=== PATIENT | female | born 1975 | race Caucasian/White ===

== ENCOUNTER 2016-06-21 22:51 | Emergency (ER) | payer MEDICARE ==
[~2016-06-21] VITALS: Ht 167.6 cm; Wt 97.5 kg
[~2016-06-21 22:51] MED LIST: BIOTCAP2 OR; DIAZ-104 PO; DIVA250T51 PO; LAMO200T2 PO; METH10TA97 PO; PAR20T GT; PERCOT GT; RIZA10TA12 PO; SULF-35 PO; TIZA4TAB3 PO; TOPI100T68 PO; [UNRECOGNIZED DRUG - CODE] PO
[2016-06-21] MEDS ORDERED: SODIUM CHLORIDE 0.9% 1,000 ML IVB ONE (23:25)
[2016-06-21 23:30] LABS: Urine Bilirubin Negative (Negative); Urine Blood Negative /uL (Negative); Urine Color Yellow (Yellow); Urine Glucose Normal (Normal); Urine Granular Cast FEW /lpf (0); Urine Hyaline Cast FEW /lpf (0 - 2); Urine Ketone Negative (Negative); Urine Mucus FEW (None Seen); Urine Nitrite Negative (Negative); Urine RBC <1 /hpf (0 - 4); Urine Squamous Epithelial Cell FEW /hpf (<5); Urine Urobilinogen Normal (Negative)
[2016-06-21 23:34] LABS: Basophils # (auto) 0 uL; Basophils % (auto) 0.4 % (0.0-2.0); Eosinophils # (auto) 0.4 uL; Eosinophils % (auto) 3.5 % (0.0-7.0); Hematocrit 35.2 % (36.0-46.0); Hemoglobin 11.3 g/dL (12.2-16.2); Lymphocytes # (auto) 2.4 uL; Lymphocytes % (auto) 21.5 % (10.0-50.0); Mean Corpuscular Hemoglobin 27.5 pg (28.0-32.0); Mean Corpuscular Hgb Conc. 32.1 g/dL (32.0-36.0); Mean Corpuscular Volume 85.6 fL (80.0-100.0); Mean Platelet Volume 9.2 fL (7.4-10.4); Monocytes # (auto) 0.7 uL; Monocytes % (auto) 6.3 % (0.0-12.0); Neutrophils # (auto) 7.5 uL; Neutrophils % (auto) 68.3 % (37.0-80.0); Platelet Count (auto) 322 10^3/uL (140-450); Red Cell Distribution Width 16.8 % (11.6-16.0)
[2016-06-21 23:42] LABS: Albumin 3.5 g/dL (3.4-5.0); Alkaline Phosphatase 107 U/L (45-117); Anion Gap 10 (5-15); Aspartate Aminotransferase 15 U/L (15-37); BUN/Creatinine Ratio 14.9; Bilirubin, Total < 0.1 mg/dL (0.2-1.0); Blood Urea Nitrogen 13 mg/dL (7-18); Calcium 8.4 mg/dL (8.5-10.1); Carbon Dioxide 22 mmol/L (21-32); Chloride 111 mmol/L (98-107); GFR African American 93 mL/min; GFR Non-African American 77 mL/min; Glucose 220 mg/dL (74-106); Potassium 3.9 mmol/L (3.5-5.1); Sodium 143 mmol/L (136-145); Total Protein 7.1 g/dL (6.4-8.2)
[2016-06-22 00:08] LABS: INR 0.95 (0.9-1.15); Partial Thromboplastin Time 20.6 sec (22.64-33.71); Prothrombin Time 10.3 sec (9.37-12.3)
[2016-06-22] MEDS ORDERED: SODIUM CHLORIDE 0.9% 1,000 ML IV ONE (01:15)
[2016-06-22] MEDS: SODIUM CHLORIDE 0.9% 2,000 ML IV ONE ×2 (01:22→02:32)
[2016-06-22 08:23] VITALS: BP 132/69
== END 2016-06-22 08:25 | disposition home or self-care (01) ==
LOC: EDBD 22:51 → ER 22:51
DX: T50.901A Poisoning by unspecified drugs, medicaments and biological substances, accidental (unintentional), initial encounter (principal); R41.82 Altered mental status, unspecified; Z88.8 Allergy status to other drugs, medicaments and biological substances; Z88.0 Allergy status to penicillin; Z79.899 Other long term (current) drug therapy; Y92.89 Other specified places as the place of occurrence of the external cause
CPT/HCPCS: 36415; 51702; 70450; 71010; 80053; 80320; 81001; 81025; 82962; 83735; 85025; 85610; 85730; 93005; 94761; 96360; 96361; 99285; G0434; J7030

== ENCOUNTER 2017-08-09 18:33 | Emergency (ER) | payer MEDICARE, MEDICAID ==
[~2017-08-09] VITALS: Ht 165.1 cm; Wt 95.3 kg
[2017-08-09 19:40] LABS: Basophils # (auto) 0.1 uL; Hemoglobin 11.3 g/dL (12.2-16.2); Lymphocytes # (auto) 2.4 uL; Monocytes # (auto) 0.5 uL; Neutrophils % (auto) 52.3 % (37.0-80.0)
[2017-08-09 19:42] LABS: Eosinophils # (auto) 0.2 uL; Eosinophils % (auto) 3.4 % (0.0-7.0); Hematocrit 35.2 % (36.0-46.0); Mean Corpuscular Hgb Conc. 32.1 g/dL (32.0-36.0); Mean Corpuscular Volume 77.8 fL (80.0-100.0); Monocytes % (auto) 7.3 % (0.0-12.0); Neutrophils # (auto) 3.4 uL; Platelet Count (auto) 347 10^3/uL (140-450); Red Blood Cells 4.52 10^6/uL (4.0-5.20); Red Cell Distribution Width 19.1 % (11.8-14.3); White Blood Cell 6.5 10^3/uL (4.4-10.8)
[2017-08-09 19:44] LABS: Urine Bacteria FEW /hpf (None Seen); Urine Blood 1+ /uL (Negative); Urine Specific Gravity 1.005 (1.001-1.035); Urine WBC 12 /hpf (0 - 5)
[2017-08-09 19:59] LABS: Albumin 3.4 g/dL (3.4-5.0); BUN/Creatinine Ratio 5.7; Calcium 8.4 mg/dL (8.5-10.1); Potassium 3.4 mmol/L (3.5-5.1)
[2017-08-09 20:11] LABS: Bilirubin, Total 0.1 mg/dL (0.2-1.0); Total Protein 8.2 g/dL (6.4-8.2)
[2017-08-09] MEDS ORDERED: SODIUM CHLORIDE 0.9% 1,000 ML IV ONE (22:15)
[2017-08-09] MEDS ORDERED: cefTRIAXone 1GM/10ml IVPUSH 10 ML IV ONE (22:15)
[2017-08-09] MEDS ORDERED: SODIUM CHLORIDE 0.9% 2,000 ML IV ONE (23:15)
[2017-08-10 00:27] VITALS: BP 115/76
== END 2017-08-10 01:22 | disposition left against medical advice (07) ==
LOC: ER 18:33
DX: K52.9 Noninfective gastroenteritis and colitis, unspecified (principal); N39.0 Urinary tract infection, site not specified; F10.129 Alcohol abuse with intoxication, unspecified; F17.210 Nicotine dependence, cigarettes, uncomplicated; Z88.0 Allergy status to penicillin; Z88.1 Allergy status to other antibiotic agents; Z88.6 Allergy status to analgesic agent; Z90.49 Acquired absence of other specified parts of digestive tract
CPT/HCPCS: 36415; 71046; 80053; 80320; 81001; 81025; 85025; 96361; 96374; 99285; J7030

== ENCOUNTER 2018-04-27 21:03 | Inpatient (IN) | payer MEDICARE, MEDICAID ==
[~2018-04-27] VITALS: Ht 167.6 cm; Wt 87.8 kg
[2018-04-27 22:09] LABS: Basophils # (auto) 0.2 uL; Eosinophils # (auto) 0 uL; Eosinophils % (auto) 0.1 % (0.0-7.0); Hemoglobin 10.5 g/dL (12.2-16.2); Mean Corpuscular Hgb Conc. 30.7 g/dL (32.0-36.0); Neutrophils # (auto) 15.4 uL
[2018-04-27 22:10] LABS: Basophils % (auto) 1.3 % (0.0-2.0); Hematocrit 34.1 % (36.0-46.0); Lymphocytes # (auto) 2.3 uL; Lymphocytes % (auto) 12.1 % (10.0-50.0); Mean Corpuscular Hemoglobin 22.4 pg (28.0-32.0); Mean Corpuscular Volume 72.8 fL (80.0-100.0); Monocytes # (auto) 1.3 uL; Monocytes % (auto) 6.9 % (0.0-12.0); Neutrophils % (auto) 79.6 % (37.0-80.0); Platelet Count (auto) 642 10^3/uL (140-450); Red Blood Cells 4.68 10^6/uL (4.0-5.20); White Blood Cell 19.4 10^3/uL (4.4-10.8)
[2018-04-27 22:12] LABS: Red Cell Distribution Width 20.9 % (11.8-14.3)
[2018-04-27 22:27] LABS: Albumin 3.1 g/dL (3.4-5.0); Calcium 8.5 mg/dL (8.5-10.1); Potassium 3.4 mmol/L (3.5-5.1)
[2018-04-27] MEDS ORDERED: ONDANSETRON HCL 4 MG/2 ML VIAL ONE (22:35)
[2018-04-27 22:42] LABS: BUN/Creatinine Ratio 8.6; Bilirubin, Total 0.2 mg/dL (0.2-1.0); Total Protein 7.7 g/dL (6.4-8.2)
[2018-04-27] MEDS ORDERED: ONDANSETRON HCL 4 MG/2 ML VIAL IV ONE (22:45)
[2018-04-27] MEDS ORDERED: SODIUM CHLORIDE 0.9% 2,000 ML IV ONE (23:00)
[2018-04-28] MEDS ORDERED: METOPROLOL TARTRATE 50 MG TAB PO ONE
[2018-04-28] MEDS ORDERED: LORazepam 0.5 MG TAB PO ONE (00:30)
[2018-04-28] MEDS ORDERED: FAMOTIDINE (10MG/ML) 2ML VL IV ONE (01:15)
[2018-04-28] MEDS ORDERED: PROMETHAZINE HCL 25 MG/ML 1ML IV ONE (01:15)
[2018-04-28] MEDS ORDERED: MORPHINE SULFATE 4 MG/ML SYR/VIAL IV ONE (01:30)
[2018-04-28] MEDS ORDERED: cefTRIAXone 1GM/50ML D5W 50 ML IV ONE (01:30)
[2018-04-28 03:11] LABS: Urine Bacteria MANY /hpf (None Seen); Urine Blood TRACE /uL (Negative); Urine Hyaline Cast MOD /lpf (0 - 2); Urine Mucus FEW (None Seen); Urine Specific Gravity 1.011 (1.001-1.035); Urine WBC 5 /hpf (0 - 5)
[2018-04-28] MEDS ORDERED: DILTIAZEM HCL 25 MG/5 ML VIAL IV ONE ×2 (03:15→04:30)
[2018-04-28 03:27] LABS: Amphetamine Screen, Urine NEGATIVE (NEGATIVE); Barbiturate Scree,Urine NEGATIVE (NEGATIVE); Benzodiazephine Screen, Urine NEGATIVE (NEGATIVE); Cannabinoid Screen, Urine NEGATIVE (NEGATIVE); Cocaine Screen, Urine NEGATIVE (NEGATIVE); Opiate Scree,Urine NEGATIVE (NEGATIVE); Phencyclidine Screen, Urine NEGATIVE (NEGATIVE)
[2018-04-28] MEDS: NICARDIPINE 25MG/250ML BAG KIT 250 ML IV SCH ×2 (05:21→10:00)
[2018-04-28] MEDS ORDERED: NITROGLYCERIN 0.4 MG SL TAB SL PRN (06:45)
[2018-04-28] MEDS ORDERED: TEMAZEPAM 15 MG CAP PO PRN (06:45)
[2018-04-28] MEDS ORDERED: DEXTROSE (50%) 50ML SYRG IV PRN (06:45)
[2018-04-28] MEDS ORDERED: ACETAMINOPHEN 325 MG TAB PO PRN (06:45)
[2018-04-28] MEDS ORDERED: SODIUM CHLORIDE 0.9% 1,000 ML IV ONE (07:30)
[2018-04-28] MEDS: ONDANSETRON HCL 4 MG/2 ML VIAL IV PRN ×3 (07:43→18:55)
[2018-04-28] MEDS: MORPHINE SULFATE 4 MG/ML SYR/VIAL IV PRN ×4 (07:43→22:08)
[2018-04-28 08:42] LABS: Albumin 2.5 g/dL (3.4-5.0); BUN/Creatinine Ratio 10.5; Calcium 7.4 mg/dL (8.5-10.1)
[2018-04-28 08:44] LABS: Basophils # (auto) 0.1 uL; Bilirubin, Total 0.2 mg/dL (0.2-1.0); Eosinophils # (auto) 0 uL; Hemoglobin 9.2 g/dL (12.2-16.2); Neutrophils # (auto) 9.1 uL; Total Protein 6.2 g/dL (6.4-8.2); White Blood Cell 12.7 10^3/uL (4.4-10.8)
[2018-04-28 08:46] LABS: Basophils % (auto) 0.9 % (0.0-2.0); Eosinophils % (auto) 0.2 % (0.0-7.0); Hematocrit 29.8 % (36.0-46.0); Lymphocytes # (auto) 2.1 uL; Lymphocytes % (auto) 16.3 % (10.0-50.0); Mean Corpuscular Hemoglobin 22.3 pg (28.0-32.0); Mean Corpuscular Hgb Conc. 30.8 g/dL (32.0-36.0); Mean Corpuscular Volume 72.3 fL (80.0-100.0); Monocytes # (auto) 1.4 uL; Monocytes % (auto) 11.3 % (0.0-12.0); Neutrophils % (auto) 71.3 % (37.0-80.0); Platelet Count (auto) 495 10^3/uL (140-450); Red Blood Cells 4.13 10^6/uL (4.0-5.20)
[2018-04-28 08:48] LABS: Red Cell Distribution Width 20.6 % (11.8-14.3)
[2018-04-28] MEDS ORDERED: METOPROLOL SUCCINATE XL 50 MG TAB PO ONE (09:00)
[2018-04-28] MEDS ORDERED: POTASSIUM CHLORIDE 40 MEQ, LIDOCAINE 1% (LOCAL ANESTH.) 4 ML in SODIUM CHL 0.9% 100 ML IV ONE (09:00)
[2018-04-28] MEDS: SOD CHL 0.45% 1,000 ML IV SCH ×2 (09:16→16:48)
[2018-04-28] MEDS: FAMOTIDINE 20 MG TAB PO SCH ×2 (09:40→22:05)
[2018-04-28] MEDS: TOPIRAMATE 100 MG TAB PO SCH ×2 (09:41→22:05)
[2018-04-28] MEDS ORDERED: LEVOFLOXACIN 500MG 100 ML IV SCH (10:00)
[2018-04-28] MEDS ORDERED: METHADONE HCL 10 MG TAB PO SCH (10:00)
[2018-04-28] MEDS: ACCU-CHEK COMFORT CURVE STRIP VI SCH ×2 (11:55→18:24)
[2018-04-28] MEDS: InsuLIN REG 1unit/0.01ml Soln (100units/ml) SC SCH ×2 (11:55→18:00)
[2018-04-28] MEDS: MULTIPLE VITAMIN 10 ML, MAGNESIUM SULF SDV 50% 8 MEQ in SODIUM CHLORIDE 0.9% 1,000 ML IV SCH (14:05)
[2018-04-28 14:40] VITALS: BP 131/102
--- NOTE | 2018-04-28 14:40 | NUR ---
Telemetry admit from ER [facility]O admitted to Telemetry unit after SBAR received. Patient oriented to Liset Noyola, primary RN, unit, room, bed, and unit policies regarding patient care and visiting hours discussed with patient and fiance. Patient now on continuous telemetry monitoring, tele box #47 and telemetry reading on arrival to unit is ST 116. Patient on room air, O2 saturation 96%. No SOB/distress noted. Barajas cath intact, patent and draining yellow urine to gravity. Safety precautions in place including, bed set to lowest position/locked, bedside rails up x2, bed alarm on, call light within reach. Instructed the patient to call for assistance. Patient verbalized understanding. Will continue to monitor q 1hr and PRN.
[2018-04-28 16:26] VITALS: BP 131/102
--- NOTE | 2018-04-28 16:59 | NUR ---
MIDLINE PLACED TO LEFT BASILIC, GOOD BLOOD RETURN, PLACED ACCORDING TO FACILITY POLICY. DRESSING CDI. PT DENIES PAIN. FLUSHES EASILY. PRIMARY RN NOTIFIED.
--- NOTE | 2018-04-28 19:31 | NUR ---
ENDORSED CARE TO JOAN JON.
[2018-04-28] MEDS: LORazepam 2MG/ML-1ML VIAL IV PRN (20:17)
[2018-04-28 22:00] VITALS: BP 161/109
[2018-04-28] MEDS: lamoTRIgine 100 MG TAB PO SCH (22:05)
[2018-04-28] MEDS ORDERED: METOPROLOL TARTRATE 25 MG TAB PO ONE (23:15)
[2018-04-29] MEDS: ACCU-CHEK COMFORT CURVE STRIP VI SCH ×4 (00:09→18:00)
[2018-04-29] MEDS: InsuLIN REG 1unit/0.01ml Soln (100units/ml) SC SCH ×4 (00:28→18:00)
[2018-04-29] MEDS ORDERED: diphenhdrAMINE HCL 25 MG CAP PO ONE (00:45)
[2018-04-29] MEDS: MORPHINE SULFATE 4 MG/ML SYR/VIAL IV PRN ×5 (02:18→21:19)
[2018-04-29] MEDS: ONDANSETRON HCL 4 MG/2 ML VIAL IV PRN ×4 (02:23→23:07)
[2018-04-29] MEDS: SOD CHL 0.45% 1,000 ML IV SCH ×3 (04:00→12:58)
[2018-04-29] MEDS: HYDROcodone-ACET 5/325MG TAB PO PRN ×3 (05:37→18:34)
[2018-04-29 06:03] VITALS: BP 165/123
[2018-04-29] MEDS: METOPROLOL SUCCINATE XL 50 MG TAB PO SCH (06:50)
--- NOTE | 2018-04-29 06:51 | NUR ---
Shift Note The patient had a restless night. She complained of pain most of the shift, stating the Morphine didn't really work for her. She did not sleep all night despite taking Ativan to help facilitate things. The patient's BP was elevated during much of the shift. Received a one time order for Metoprolol 25 mg which decreased the BP to 163/87. 0400hr VS showed a BP even higher at 163/126. Call the hospitalist and Mr. Rae stated to give her 1000hr medication early for the BP. Gave the patient Metoprolol XL 50mg at 0645hrs. Will pass on to the day shift nurse to see about changing the pain meds as they were not effective, adding Benadryl for itching, and a PRN BP medication. Will continue to monitor.
[2018-04-29 07:13] LABS: Basophils # (auto) 0.1 uL; Eosinophils # (auto) 0.3 uL; Lymphocytes # (auto) 1.9 uL; Monocytes # (auto) 0.9 uL
[2018-04-29 07:16] LABS: Basophils % (auto) 1.2 % (0.0-2.0); Eosinophils % (auto) 3.3 % (0.0-7.0); Hematocrit 32.4 % (36.0-46.0); Hemoglobin 9.8 g/dL (12.2-16.2); Lymphocytes % (auto) 22.8 % (10.0-50.0); Mean Corpuscular Hemoglobin 22.4 pg (28.0-32.0); Mean Corpuscular Hgb Conc. 30.1 g/dL (32.0-36.0); Mean Corpuscular Volume 74.5 fL (80.0-100.0); Monocytes % (auto) 11.1 % (0.0-12.0); Neutrophils # (auto) 5.2 uL; Neutrophils % (auto) 61.6 % (37.0-80.0); Nucleated Red Blood Cells % 0.1 %; Platelet Count (auto) 437 10^3/uL (140-450); Red Blood Cells 4.35 10^6/uL (4.0-5.20); White Blood Cell 8.4 10^3/uL (4.4-10.8)
--- NOTE | 2018-04-29 07:20 | NUR ---
OPENING NOTE ASSUMED CARE OF PATIENT. PT IS LAYING ON BED, AWAKE, HOB LOW-FOWLERS. A&O X4. ON ROOM AIR, O2 SATURATIONS 95%. NO SIGNS OF SOB/DISTRESS NOTED. TELE #[id number], HR 117. JOLLY CATH INTACT, PATENT AND DRAINING CLEAR STRAW COLOR URINE TO GRAVITY. SAFETY PRECAUTIONS IN PLACE INCLUDING BED SET TO LOWEST POSITION/LOCKED. BEDSIDE RAILS UP X2. CALL LIGHT WITHIN REACH. INSTRUCTED PT TO CALL FOR ASSISTANCE. DISCUSSED POC WITH PT. PT VERBALIZED UNDERSTANDING. WILL CONTINUE TO MONITOR Q 1 HR AND PRN.
[2018-04-29 07:22] LABS: Calcium 7.8 mg/dL (8.5-10.1); Potassium 3.1 mmol/L (3.5-5.1)
[2018-04-29 07:25] LABS: Albumin 2.6 g/dL (3.4-5.0); BUN/Creatinine Ratio 3.4
[2018-04-29 07:26] LABS: Red Cell Distribution Width 20.7 % (11.8-14.3)
[2018-04-29 08:03] LABS: Bilirubin, Total 0.4 mg/dL (0.2-1.0); Total Protein 6.9 g/dL (6.4-8.2)
[2018-04-29 08:55] VITALS: BP 164/117
[2018-04-29] MEDS: FAMOTIDINE 20 MG TAB PO SCH ×2 (08:58→21:20)
[2018-04-29] MEDS: cefTRIAXone 1GM/50ML D5W 50 ML IV SCH (08:58)
[2018-04-29] MEDS: TOPIRAMATE 100 MG TAB PO SCH ×2 (08:58→21:20)
[2018-04-29] MEDS: MULTIPLE VITAMIN 10 ML, MAGNESIUM SULF SDV 50% 8 MEQ in SODIUM CHLORIDE 0.9% 1,000 ML IV SCH (12:06)
[2018-04-29] MEDS ORDERED: THIAMINE 100mg/ml INJ (200mg/2ml VIAL) IV ONE (12:30)
[2018-04-29] MEDS ORDERED: POTASSIUM CHL 20 Meq TABLET PO ONE (12:30)
[2018-04-29] MEDS ORDERED: amLODIPine BESYLATE 5 MG TAB PO ONE (12:30)
[2018-04-29] MEDS ORDERED: THIAMINE HCL 100 MG TAB PO ONE (12:45)
[2018-04-29 13:00] VITALS: BP 161/110
[2018-04-29] MEDS: diphenhdrAMINE HCL 25 MG CAP PO PRN (13:06)
[2018-04-29 13:18] LABS: % Iron Saturation 5.6 % (15-50)
[2018-04-29 17:00] VITALS: BP 180/130
--- NOTE | 2018-04-29 19:05 | NUR ---
PAGED HOSPITALIST REGARDING BP 180/130, AWAITING CALL BACK.
--- NOTE | 2018-04-29 19:21 | NUR ---
ENDORSED CARE TO JOAN JON
--- NOTE | 2018-04-29 19:21 | NUR ---
PAGED HOSPITALIST REGARDING BP 180/130, AWAITING CALL BACK.
[2018-04-29 21:00] VITALS: BP 162/118
[2018-04-29] MEDS: lamoTRIgine 100 MG TAB PO SCH (21:19)
[2018-04-29] MEDS ORDERED: METOPROLOL TARTRATE 25 MG TAB PO ONE (22:45)
[2018-04-30] MEDS: ACCU-CHEK COMFORT CURVE STRIP VI SCH ×4 (00:23→17:30)
[2018-04-30] MEDS: MORPHINE SULFATE 4 MG/ML SYR/VIAL IV PRN ×3 (01:23→09:55)
[2018-04-30] MEDS: cloNIDine HCL 0.1 MG TAB PO PRN ×2 (01:24→05:46)
[2018-04-30] MEDS: SOD CHL 0.45% 1,000 ML IV SCH ×2 (02:48→13:23)
[2018-04-30] MEDS: ONDANSETRON HCL 4 MG/2 ML VIAL IV PRN ×4 (03:44→18:29)
[2018-04-30] MEDS: InsuLIN REG 1unit/0.01ml Soln (100units/ml) SC SCH ×4 (05:41→17:31)
[2018-04-30 06:03] LABS: Basophils # (auto) 0.1 uL; Hematocrit 29.5 % (36.0-46.0); Lymphocytes # (auto) 1.5 uL; Mean Corpuscular Hgb Conc. 30.7 g/dL (32.0-36.0)
[2018-04-30 06:05] LABS: Basophils % (auto) 0.8 % (0.0-2.0); Eosinophils # (auto) 0.3 uL; Eosinophils % (auto) 4.4 % (0.0-7.0); Hemoglobin 9.1 g/dL (12.2-16.2); Lymphocytes % (auto) 19.2 % (10.0-50.0); Mean Corpuscular Hemoglobin 22.6 pg (28.0-32.0); Mean Corpuscular Volume 73.4 fL (80.0-100.0); Monocytes # (auto) 0.9 uL; Monocytes % (auto) 11.1 % (0.0-12.0); Neutrophils # (auto) 5.1 uL; Neutrophils % (auto) 64.5 % (37.0-80.0); Platelet Count (auto) 406 10^3/uL (140-450); Red Blood Cells 4.02 10^6/uL (4.0-5.20); White Blood Cell 7.9 10^3/uL (4.4-10.8)
[2018-04-30 06:18] LABS: Albumin 2.5 g/dL (3.4-5.0); Calcium 7.9 mg/dL (8.5-10.1); Potassium 3.5 mmol/L (3.5-5.1)
[2018-04-30 06:25] LABS: BUN/Creatinine Ratio 3.3; Bilirubin, Direct 0.2 mg/dL (0-0.2); Bilirubin, Total 0.4 mg/dL (0.2-1.0); Total Protein 6.2 g/dL (6.4-8.2)
[2018-04-30 06:27] LABS: Red Cell Distribution Width 21.2 % (11.8-14.3)
--- NOTE | 2018-04-30 06:46 | NUR ---
Shift note The patient continued to have poor results with the ordered pain meds. Her pain level remained around 8-10/10. The patient's BP remained high most of the shift, hovering around 160/120. I was able to get a PRN order for Clonidine 0.1mg Q4 PRN. That seemed to do well, gave the patient a dose at 0545hrs, will reassess the BP. Will continue to monitor.
[2018-04-30 09:00] VITALS: BP 137/96
[2018-04-30] MEDS: HYDROcodone-ACET 5/325MG TAB PO PRN ×2 (09:00→14:27)
[2018-04-30] MEDS: cefTRIAXone 1GM/50ML D5W 50 ML IV SCH (09:55)
[2018-04-30] MEDS: FAMOTIDINE 20 MG TAB PO SCH (09:56)
[2018-04-30] MEDS: METOPROLOL SUCCINATE XL 50 MG TAB PO SCH (09:56)
[2018-04-30] MEDS: TOPIRAMATE 100 MG TAB PO SCH ×2 (09:56→21:52)
[2018-04-30] MEDS: amLODIPine BESYLATE 5 MG TAB PO SCH (09:57)
[2018-04-30] MEDS ORDERED: THIAMINE 100mg/ml INJ (200mg/2ml VIAL) IV SCH (10:00)
[2018-04-30] MEDS ORDERED: PANTOPRAZOLE 40 MG/10 ML VIAL IV ONE (11:45)
[2018-04-30] MEDS ORDERED: TEMAZEPAM 15 MG CAP PO PRN (11:45)
[2018-04-30] MEDS ORDERED: POTASSIUM CHL 20 Meq TABLET PO ONE (12:00)
[2018-04-30 13:00] VITALS: BP 156/113
[2018-04-30] MEDS: MULTIPLE VITAMIN 10 ML, MAGNESIUM SULF SDV 50% 8 MEQ in SODIUM CHLORIDE 0.9% 1,000 ML IV SCH (13:24)
[2018-04-30] MEDS: THIAMINE HCL 100 MG TAB PO SCH (13:24)
[2018-04-30] MEDS: LORazepam 2MG/ML-1ML VIAL IV PRN (14:53)
[2018-04-30 17:00] VITALS: BP 163/113
[2018-04-30] MEDS: SUCRALFATE 1 GM/10 ML ORAL SUSP PO SCH ×2 (17:30→21:52)
[2018-04-30] MEDS: lamoTRIgine 100 MG TAB PO SCH (21:52)
[2018-04-30] MEDS: PANTOPRAZOLE 40 MG/10 ML VIAL IV SCH (21:52)
[2018-04-30 22:00] VITALS: BP 81/58
[2018-05-01] MEDS: SOD CHL 0.45% 1,000 ML IV SCH (04:25)
[2018-05-01 05:30] VITALS: BP 86/57
[2018-05-01] MEDS: ACCU-CHEK COMFORT CURVE STRIP VI SCH ×5 (06:00→23:37)
[2018-05-01] MEDS: InsuLIN REG 1unit/0.01ml Soln (100units/ml) SC SCH ×5 (06:00→23:37)
[2018-05-01] MEDS: SUCRALFATE 1 GM/10 ML ORAL SUSP PO SCH ×4 (06:44→21:43)
--- NOTE | 2018-05-01 07:01 | NUR ---
Shift Note The patient had a much better night, she was able to sleep after 2 days of no sleep. Her morphine was discontinued and despite that she did not complain of pain the entire shift. She has been NPO since midnight except for meds in preparation for an upper GI series. Will continue to monitor.
--- NOTE | 2018-05-01 07:25 | NUR ---
Opening Shift Note Received report from Poli FRANCO. Assumed care of patient, awake and alert. No S/S of distress/SOB or pain. Emphasized NPO fopr UGI today and patient is aware of it. Instructed on POC and to call for assist PRN, will continue to monitor for changes Q1hr and PRN.
[2018-05-01 07:27] LABS: Hematocrit 26.5 % (36.0-46.0); Hemoglobin 8.2 g/dL (12.2-16.2)
[2018-05-01 07:29] LABS: Calcium 7.7 mg/dL (8.5-10.1)
[2018-05-01 07:35] LABS: Albumin 2.2 g/dL (3.4-5.0); BUN/Creatinine Ratio 2.3; Bilirubin, Total 0.2 mg/dL (0.2-1.0); Magnesium 2.3 mg/dL (1.6-2.6); Total Protein 5.6 g/dL (6.4-8.2)
[2018-05-01 08:00] VITALS: BP 82/49
--- NOTE | 2018-05-01 08:23 | NUR ---
PATIENT ASSISTED TO RADIOLOGY BY WHEELCHAIR ASSISTED BY FRANDY FOR GASTROGAFIN.
[2018-05-01] MEDS ORDERED: GASTROGRAFIN 120 ML SOL ONE (08:28)
[2018-05-01] MEDS ORDERED: EZ-GAS II GRANULES (RADIOLOGY USE) PO ONE (08:28)
[2018-05-01 09:00] VITALS: BP 82/49
--- NOTE | 2018-05-01 09:28 | NUR ---
PATIENT IS BACK TO ROOM. 1ST PART OF GASTROGAFIN DONE. RADIO TECH SAID TO KEEP PATIENT NPO. PATIENT MADE AWARE AND VERBALIZED UNDERSTANDING.
[2018-05-01] MEDS: amLODIPine BESYLATE 5 MG TAB PO SCH (10:00)
[2018-05-01] MEDS: THIAMINE HCL 100 MG TAB PO SCH (10:00)
[2018-05-01] MEDS: METOPROLOL SUCCINATE XL 50 MG TAB PO SCH (10:00)
[2018-05-01] MEDS ORDERED: PANTOPRAZOLE 40 MG/10 ML VIAL IV SCH (10:00)
--- NOTE | 2018-05-01 10:30 | NUR ---
Dr. yañez at bedside. Received verbal order to place discharge order for patient if UGI is negative. Patient made aware and verbalized understanding.
[2018-05-01] MEDS: cefTRIAXone 1GM/50ML D5W 50 ML IV SCH (10:54)
[2018-05-01] MEDS: TOPIRAMATE 100 MG TAB PO SCH ×2 (10:54→21:44)
[2018-05-01] MEDS: PANTOPRAZOLE 40 MG/10 ML VIAL IV SCH ×2 (10:54→21:43)
--- NOTE | 2018-05-01 11:20 | NUR ---
RECEIVED TELEPHONE ORDER FROM DR. PRABHAKAR TO ELVIE JOLLY OF PATIENT.
--- NOTE | 2018-05-01 11:31 | NUR ---
Bethea catheter dc'd Order to discontinue bethea catheter. Bethea dc'd with clean technique following deflation of balloon. Patient tolerated well with no complaints of pain. Continue care.
[2018-05-01] MEDS: MULTIPLE VITAMIN 10 ML, MAGNESIUM SULF SDV 50% 8 MEQ in SODIUM CHLORIDE 0.9% 1,000 ML IV SCH (11:55)
--- NOTE | 2018-05-01 12:30 | NUR ---
PATIENT URINATES AND WENT TO TOILET, NO COMPLAINTS MADE.
[2018-05-01 13:00] VITALS: BP 101/59
--- NOTE | 2018-05-01 13:03 | NUR ---
NUTRITION ASSESSMENT NOTES Please refer to link notes of nutrition screen form filed under the intervention section of the plan of care for further details. Est. Needs: 1750 kcal to 2200 kcal (20-25 kcal/kgBW), 70 gms to 88 gms pro (0.8-1.0 gms/kgBW). Will continue to monitor pertinent labs and reassess nutrient needs prn Thank you. Addendum: 05/01/18 at [address] Amended: Links added.
--- NOTE | 2018-05-01 14:17 | NUR ---
RECEIVED TELEPHONE ORDER FROM DR. PRABHAKAR TO GIVE PATIENT TORADOL 15MG EVERY 8 HOURS NEEDED FOR PAIN.
[2018-05-01] MEDS: KETOROLAC TROMETH 30 MG/ML 1ML VIAL IV PRN ×2 (15:28→23:30)
--- NOTE | 2018-05-01 15:37 | NUR ---
CALLED RADIOLOGY AND SAID THAT UGI IS DONE, PATIENT CAN EAT.
--- NOTE | 2018-05-01 15:57 | NUR ---
PATIENT ASKING TO STOP THE BOWEL MOVEMENT DUE TO THE MEDICINE DRANK FOR UGI. INFORMED DR. PRABHAKAR AND SAID NO NEED TO STOP THE BM, LET THE BM STOP BY ITSELF. PATIENT MADE AWARE AND VERBALIZED UNDERSTANDING.
[2018-05-01 17:00] VITALS: BP 127/86
[2018-05-01] MEDS: ONDANSETRON HCL 4 MG/2 ML VIAL IV PRN (21:43)
[2018-05-01] MEDS: lamoTRIgine 100 MG TAB PO SCH (21:44)
[2018-05-01 22:00] VITALS: BP 123/80
[2018-05-02] MEDS: SOD CHL 0.45% 1,000 ML IV SCH ×2 (01:36→13:45)
[2018-05-02] MEDS: diphenhdrAMINE HCL 25 MG CAP PO PRN (01:37)
[2018-05-02 05:01] VITALS: BP 102/69
[2018-05-02] MEDS: InsuLIN REG 1unit/0.01ml Soln (100units/ml) SC SCH ×2 (06:00→12:00)
[2018-05-02] MEDS: ACCU-CHEK COMFORT CURVE STRIP VI SCH ×2 (06:14→12:00)
[2018-05-02] MEDS: SUCRALFATE 1 GM/10 ML ORAL SUSP PO SCH ×2 (06:32→11:47)
--- NOTE | 2018-05-02 07:08 | NUR ---
Shift Note The patient had an uneventful night, tolerated treatments well. She began to request pain meds again and stated the Toradol was ineffective. I explained the Hospitalist wound not put her back on Morphine because her primary doctor here discontinued it. The patient said she would try the Toradol once more, she is due at about 0730hrs. Will continue to monitor.
--- NOTE | 2018-05-02 07:30 | NUR ---
Opening Shift Note Assuming care of patient at this time. Patient is awake, alert, and oriented. Patient states she is having pain /. Will medicate per doctor's orders. Patient shows no signs or symptoms of distress of shortness of breath at this time. Patient is resting in bed with bed locked and lowered, side rails up x2. Instructed patient on the plan of care for today and to call for assistance as needed. Call light within reach. Will continue to monitor.
[2018-05-02] MEDS: KETOROLAC TROMETH 30 MG/ML 1ML VIAL IV PRN (08:22)
[2018-05-02 09:00] VITALS: BP 91/50
[2018-05-02] MEDS ORDERED: LEVOFLOXACIN 500 MG TAB PO SCH (10:00)
[2018-05-02] MEDS: METOPROLOL SUCCINATE XL 50 MG TAB PO SCH (10:00)
[2018-05-02] MEDS ORDERED: amLODIPine BESYLATE 5 MG TAB PO SCH (10:00)
[2018-05-02] MEDS ORDERED: LEVO500T21 PO (11:06)
[2018-05-02] MEDS ORDERED: PANT40TA2 PO (11:06)
[2018-05-02] MEDS ORDERED: MET5XLT PO (11:06)
[2018-05-02] MEDS: PANTOPRAZOLE 40 MG/10 ML VIAL IV SCH (11:47)
[2018-05-02] MEDS: TOPIRAMATE 100 MG TAB PO SCH (11:49)
[2018-05-02] MEDS: THIAMINE HCL 100 MG TAB PO SCH (11:49)
[2018-05-02] MEDS: MULTIPLE VITAMIN 10 ML, MAGNESIUM SULF SDV 50% 8 MEQ in SODIUM CHLORIDE 0.9% 1,000 ML IV SCH (12:00)
[2018-05-02 12:27] LABS: Hemoglobin 8.6 g/dL (12.2-16.2)
[2018-05-02 12:31] LABS: Hematocrit 28.1 % (36.0-46.0)
[2018-05-02 13:00] VITALS: BP 101/53
--- NOTE | 2018-05-02 15:13 | NUR ---
Discharge instructions given as ordered. Encourage to follow up with Primary doctor as instructed. All questions and concerns addressed. Patient verbalized understanding. Medication reconciliation form completed and copy given to patient. Midline removed with catheter intact and pressure dressing applied. Telemetry unit returned to ICU. Patient taken to vehicle ambulating with all personal belongings, accompanied by family member. No distress noted at time of departure.
== END 2018-05-02 15:13 | disposition home or self-care (01) | DRG 871 ==
LOC: ER 21:03 → TELE 04-28 06:45 → TELE-CENTR 04-28 14:39
PROVIDERS: ADMIT Nurse Practitioner; ATTEND Internal Medicine
DX: A41.9 Sepsis, unspecified organism (principal); E43 Unspecified severe protein-calorie malnutrition; N39.0 Urinary tract infection, site not specified; F11.20 Opioid dependence, uncomplicated; F10.129 Alcohol abuse with intoxication, unspecified; E87.6 Hypokalemia; G40.909 Epilepsy, unspecified, not intractable, without status epilepticus; F31.9 Bipolar disorder, unspecified; M19.90 Unspecified osteoarthritis, unspecified site; I10 Essential (primary) hypertension; K76.0 Fatty (change of) liver, not elsewhere classified; K70.9 Alcoholic liver disease, unspecified; B96.1 Klebsiella pneumoniae [K. pneumoniae] as the cause of diseases classified elsewhere; E11.65 Type 2 diabetes mellitus with hyperglycemia; Z68.31 Body mass index [BMI] 31.0-31.9, adult; E66.9 Obesity, unspecified; F12.90 Cannabis use, unspecified, uncomplicated; F17.210 Nicotine dependence, cigarettes, uncomplicated; Z98.84 Bariatric surgery status; F41.9 Anxiety disorder, unspecified; Z71.6 Tobacco abuse counseling; D50.9 Iron deficiency anemia, unspecified; Z90.49 Acquired absence of other specified parts of digestive tract; Z88.0 Allergy status to penicillin; Z88.8 Allergy status to other drugs, medicaments and biological substances
CPT/HCPCS: 36415; 51702; 71045; 74176; 74247; 80048; 80053; 80061; 80076; 80164; 80307; 80320; 81001; 82270; 82962; 83036; 83540; 83550; 83605; 83735; 84443; 84484; 85014; 85018; 85025; 85379; 87040; 87086; 87088; 87186; 93005; 93306; 96365; 96366; 96375; 96376; C9113; G0378; J0696; J1815; J1885; J1956; J2001; J2405; J3490

== ENCOUNTER 2018-12-27 20:25 | Inpatient (IN) | payer MEDICARE ==
[~2018-12-27] VITALS: Ht 162.6 cm; Wt 71.9 kg
[~2018-12-27 20:25] MED LIST changes: -DIAZ-104 PO; -DIVA250T51 PO; +INSLISPI SUBCUT; +INSU1.2I SUBCUT; -LAMO200T2 PO; -METH10TA97 PO; +METO-6 PO; +PANT40TA2 PO; -PAR20T GT; -PERCOT GT; -RIZA10TA12 PO; -SULF-35 PO; +TIZA4CAP PO; -TIZA4TAB3 PO; +ZOLP10TA PO; -[UNRECOGNIZED DRUG - CODE] PO
[2018-12-27] MEDS ORDERED: LORazepam 0.5 MG TAB ONE (20:32)
[2018-12-27] MEDS ORDERED: LORazepam 2MG/ML-1ML VIAL ONE ×2 (20:33→22:03)
[2018-12-27] MEDS ORDERED: LORazepam 2MG/ML-1ML VIAL IV ONE ×5 (20:45→23:15)
[2018-12-27] MEDS ORDERED: LEVETIRACETAM INJ 1,000 MG in D5W 5% 100 ML IV ONE (21:00)
[2018-12-27 21:16] LABS: Urine WBC None Seen /hpf (0 - 5)
[2018-12-27 21:28] LABS: Urine Bacteria NONE SEEN /hpf (None Seen); Urine Blood Negative /uL (Negative); Urine Specific Gravity 1.007 (1.001-1.035)
[2018-12-27 21:41] LABS: Amphetamine Screen, Urine NEGATIVE (NEGATIVE); Barbiturate Scree,Urine NEGATIVE (NEGATIVE); Benzodiazephine Screen, Urine POSITIVE (NEGATIVE); Cannabinoid Screen, Urine NEGATIVE (NEGATIVE); Cocaine Screen, Urine NEGATIVE (NEGATIVE); Opiate Scree,Urine NEGATIVE (NEGATIVE); Phencyclidine Screen, Urine NEGATIVE (NEGATIVE)
[2018-12-27] MEDS ORDERED: DIAZEPAM 5 MG/ML 2ML SYRG IV ONE (22:00)
[2018-12-27 23:05] LABS: Albumin 3.7 g/dL (3.4-5.0); Calcium 8.9 mg/dL (8.5-10.1); Potassium 3.7 mmol/L (3.5-5.1)
[2018-12-27 23:07] LABS: BUN/Creatinine Ratio 8.2
[2018-12-27 23:10] LABS: Basophils # (auto) 0 uL; Basophils % (auto) 0.8 % (0.0-2.0); Bilirubin, Total 0.3 mg/dL (0.2-1.0); Eosinophils # (auto) 0.1 uL; Eosinophils % (auto) 2.3 % (0.0-7.0); Hematocrit 35.2 % (36.0-46.0); Hemoglobin 11.3 g/dL (12.2-16.2); Lymphocytes # (auto) 1.6 uL; Mean Corpuscular Hemoglobin 25.4 pg (28.0-32.0); Mean Corpuscular Volume 79.3 fL (80.0-100.0); Monocytes # (auto) 0.3 uL; Monocytes % (auto) 6.1 % (0.0-12.0); Neutrophils # (auto) 3.4 uL; Neutrophils % (auto) 61.8 % (37.0-80.0); Nucleated Red Blood Cells % 0.1 %; Platelet Count (auto) 334 10^3/uL (140-450); Red Blood Cells 4.45 10^6/uL (4.0-5.20); Red Cell Distribution Width 18.6 % (11.8-14.3); Total Protein 7.6 g/dL (6.4-8.2); White Blood Cell 5.6 10^3/uL (4.4-10.8)
[2018-12-28] MEDS ORDERED: DEXTROSE (50%) 50ML SYRG IV PRN (01:00)
[2018-12-28] MEDS ORDERED: TEMAZEPAM 15 MG CAP PO PRN (01:00)
[2018-12-28] MEDS ORDERED: ACETAMINOPHEN 325 MG TAB PO PRN (01:00)
[2018-12-28] MEDS: LORazepam 2MG/ML-1ML VIAL IV PRN ×3 (02:01→13:18)
[2018-12-28] MEDS ORDERED: PHENobarbital SODIUM INJ 600 MG in SODIUM CHL 0.9% 100 ML IV ONE (03:00)
[2018-12-28] MEDS ORDERED: PHENYTOIN SODIUM 50 MG/ML 2ML VIAL IV ONE (03:08)
[2018-12-28] MEDS ORDERED: PHENYTOIN SODIUM 50 MG/ML 5ML INJ VIAL IV ONE (03:08)
[2018-12-28] MEDS: HYDROcodone-ACET 5/325MG TAB PO PRN ×2 (03:20→10:16)
[2018-12-28] MEDS ORDERED: PHENobarbital SODIUM 65 MG/ML VL ONE ×2 (03:34→03:36)
[2018-12-28] MEDS ORDERED: PHENobarbital SODIUM 130 MG/ML VL ONE (03:36)
[2018-12-28] MEDS ORDERED: DILTIAZEM HCL 25 MG/5 ML VIAL IV ONE (04:15)
[2018-12-28] MEDS ORDERED: LABETALOL HCL 5 MG/ML ML 20ML VIAL IV ONE ×3 (05:15→12:15)
[2018-12-28] MEDS: ACCU-CHEK COMFORT CURVE STRIP VI SCH ×3 (06:12→17:47)
[2018-12-28] MEDS: InsuLIN REG 1unit/0.01ml Soln (100units/ml) SC SCH ×3 (06:12→17:47)
[2018-12-28] MEDS: PANTOPRAZOLE 40 MG TAB PO SCH (06:27)
--- NOTE | 2018-12-28 08:50 | NUR ---
Admit to [facility] admitted to [facility] via gurney on registered nurse cardiac telemetry, and portable 02. Patient transferred to bed, connected to unit monitoring and oxygen, and weighed by bed scale. Patient oriented to CELINE SYKES RN primary RN, unit, room, bed, and unit policies regarding patient care and visiting hours. All questions and concerns addressed, patient verbalized understanding. Assessment done, her skin intact, bruises left upper arm, both knees, right hip, patient stated that she fell down, not hitting any things 1 week ago, room air O2 saturation 100%, no fever, tremor both arms, pupils 5 mm reac to light both eyes. Patient made aware that waiting for neurologist to come and see, and further treatment. Seizure, fall, aspiration precaution.
[2018-12-28] MEDS: ONDANSETRON HCL 4 MG/2 ML VIAL IV PRN ×3 (09:35→18:22)
--- NOTE | 2018-12-28 09:45 | NUR ---
IV insertion IV access obtained, via clean sterile technique by inserting 22 gauge catheter at left forearm after 2 attempts. IV secured properly. No trauma to site. Patient tolerated procedure well.
--- NOTE | 2018-12-28 10:08 | NUR ---
IV removal FROM right AC and left wrist IV DC'd with sterile technique, catheter fully intact. Pressure dressing applied to site. Patient tolerated procedure well.
--- NOTE | 2018-12-28 10:09 | NUR ---
Snack provided, patient sitting up on the bed for having snack, no seizure or aspiration noted.
[2018-12-28] MEDS: METOPROLOL SUCCINATE XL 50 MG TAB PO SCH (10:15)
[2018-12-28] MEDS: TOPIRAMATE 100 MG TAB PO SCH ×2 (10:16→21:11)
[2018-12-28 10:42] VITALS: BP 169/121
[2018-12-28 12:00] VITALS: BP 200/119
--- NOTE | 2018-12-28 12:01 | NUR ---
Paged Dr. England for high BP: BP 200/119 mmHg, HR 115, waiting for MD to call back.
--- NOTE | 2018-12-28 12:14 | NUR ---
Received a call back from Dr. England, received new orders, patient made aware, will continue to monitor and care. Her fiance at the bedside.
[2018-12-28] MEDS ORDERED: METOPROLOL SUCCINATE XL 50 MG TAB PO ONE (12:15)
[2018-12-28] MEDS: MORPHINE SULFATE 4 MG/ML SYR/VIAL IV PRN ×3 (12:26→21:03)
--- NOTE | 2018-12-28 13:30 | NUR ---
Came back from Lunch, reported from another nurse who covered for Lunch that patient had 1 episode of seizure (around 4 minuted and 46 second, no desaturation, redness on her face, shaking on her arms and body), Ativan given, will continue to monitor and care.
--- NOTE | 2018-12-28 13:40 | NUR ---
Patient lying on the bed, BT 98.8F, HR 110/min, BP 156/96 mmHg, RR 18, O2 saturation 100%, pupils 5 mm reac to light. No aspiration noted. Her Fiance at the bedside.
[2018-12-28] MEDS: hydrALAZINE HCL 20 MG/ML VL IV PRN ×2 (14:34→20:05)
--- NOTE | 2018-12-28 14:39 | NUR ---
Hydralazine given for SBP > 150 mmHg, BP at this time 167/120 mmHg, will continue to monitor and care.
--- NOTE | 2018-12-28 15:30 | NUR ---
Patient lying on the bed, watching TV and playing her phone at this time, BP 139/90 mmHg, HR 109 /min, still having headache, pain always 8/10, tremor on and off, pupils 5 mm reac to light. Will continue to monitor and care.
[2018-12-28 16:00] VITALS: BP 163/109
--- NOTE | 2018-12-28 17:40 | NUR ---
Patient lying on the bed, HR 110-115 /min, SBP 140-170 mmHg, still complaining of headache, no tremor noted at this time, still nauseated, will continue to monitor and care.
--- NOTE | 2018-12-28 18:30 | NUR ---
Zofran given for nauseated, patient refused Dinner tray, saving pudding and milk for later.
--- NOTE | 2018-12-28 19:39 | NUR ---
received pt from day rn poc reviewed
--- NOTE | 2018-12-28 19:45 | NUR ---
pt observed resting with hob up resp even and unlabored, seizure precautions in place, pt calm at this time call light within reach all questions and concerns addressed, bed alarm on for pts safety
[2018-12-28 20:00] VITALS: BP_SYST 105; BP_SYST 172; BP_DIAS 115; BP_DIAS 51
--- NOTE | 2018-12-28 20:26 | NUR ---
pts family at bedside
[2018-12-28] MEDS: ZOLPIDEM TARTRATE 5 MG TAB PO PRN (22:18)
[2018-12-29] VITALS (21 sets, daily range): BP systolic 49–148; BP diastolic 19–102
[2018-12-29] MEDS: ONDANSETRON HCL 4 MG/2 ML VIAL IV PRN ×2 (00:35→09:50)
--- NOTE | 2018-12-29 02:00 | NUR ---
c/o general pain 10/26 medicated as ordered
[2018-12-29] MEDS: MORPHINE SULFATE 4 MG/ML SYR/VIAL IV PRN ×2 (02:11→09:50)
[2018-12-29] MEDS: hydrALAZINE HCL 20 MG/ML VL IV PRN ×2 (04:02→09:51)
[2018-12-29 05:30] LABS: Basophils # (auto) 0.1 uL; Eosinophils # (auto) 0.1 uL; Lymphocytes # (auto) 1.6 uL; Lymphocytes % (auto) 17.4 % (10.0-50.0)
[2018-12-29 05:34] LABS: Basophils % (auto) 1.3 % (0.0-2.0); Eosinophils % (auto) 0.6 % (0.0-7.0); Hematocrit 38.3 % (36.0-46.0); Hemoglobin 12.4 g/dL (12.2-16.2); Mean Corpuscular Hemoglobin 25.8 pg (28.0-32.0); Mean Corpuscular Hgb Conc. 32.3 g/dL (32.0-36.0); Mean Corpuscular Volume 79.9 fL (80.0-100.0); Monocytes # (auto) 0.7 uL; Monocytes % (auto) 7.1 % (0.0-12.0); Neutrophils # (auto) 6.8 uL; Neutrophils % (auto) 73.6 % (37.0-80.0); Platelet Count (auto) 414 10^3/uL (140-450); Red Cell Distribution Width 19.1 % (11.8-14.3); White Blood Cell 9.2 10^3/uL (4.4-10.8)
[2018-12-29 05:44] LABS: Albumin 3.9 g/dL (3.4-5.0); Calcium 8.4 mg/dL (8.5-10.1); Magnesium 1.9 mg/dL (1.6-2.6); Potassium 3.8 mmol/L (3.5-5.1)
[2018-12-29 05:49] LABS: BUN/Creatinine Ratio 7.7; Bilirubin, Total 0.3 mg/dL (0.2-1.0); Total Protein 7.9 g/dL (6.4-8.2)
[2018-12-29 05:52] LABS: Cholesterol 202 mg/dL (< 200); HDL Cholesterol 63 mg/dL (40-59); LDL Cholesterol 129 mg/dL (< 100); Triglycerides 75 mg/dL (< 150)
[2018-12-29] MEDS: PANTOPRAZOLE 40 MG TAB PO SCH (05:56)
[2018-12-29] MEDS: ACCU-CHEK COMFORT CURVE STRIP VI SCH ×4 (05:57→17:57)
[2018-12-29] MEDS: InsuLIN REG 1unit/0.01ml Soln (100units/ml) SC SCH ×4 (05:57→17:58)
--- NOTE | 2018-12-29 06:26 | NUR ---
medicated for general pain 10/26
--- NOTE | 2018-12-29 06:53 | NUR ---
report given to am nurse poc reviewed
--- NOTE | 2018-12-29 07:13 | NUR ---
Paged Dr. Pickens again for new consultation for breakthrough seizure.
--- NOTE | 2018-12-29 07:45 | NUR ---
Opening Shift Note Assumed care of patient, awake and alert. No S/S of distress/SOB, lung sound clear, room air, O2 saturation 99%. Pain: headache, back pain, leg pain 8/10, IV line at left forearm redness. Instructed on POC and to call for assist PRN, will continue to monitor for changes Q1hr and PRN.
--- NOTE | 2018-12-29 08:01 | NUR ---
Tried insertion new IV x 3 times by 2 nurses, will get Mid line if MD agreed.
--- NOTE | 2018-12-29 08:30 | NUR ---
IV removal from left forearm IV DC'd with sterile technique, catheter fully intact. Pressure dressing applied to site. Patient tolerated procedure well.
--- NOTE | 2018-12-29 09:30 | NUR ---
IV insertion per patient requested. Patient allowed to try again IV access obtained, via clean sterile technique by inserting 22 gauge catheter at right hand after 2 attempts. IV secured properly. No trauma to site. Patient tolerated procedure well.
[2018-12-29] MEDS: TOPIRAMATE 100 MG TAB PO SCH ×2 (09:49→22:10)
[2018-12-29] MEDS: METOPROLOL SUCCINATE XL 50 MG TAB PO SCH (09:49)
--- NOTE | 2018-12-29 10:45 | NUR ---
Dr. England at the bedside, seen and examined patient at this time, plan of care discussed with patient, plan to monitor in [facility], received new orders, patient made aware. Still waiting for Neurologist to eval.
[2018-12-29] MEDS ORDERED: MAGNESIUM SULFATE 1GM/100ML 100 ML IV ONE (11:30)
[2018-12-29] MEDS ORDERED: METOPROLOL SUCCINATE XL 50 MG TAB PO ONE ×2 (11:30→12:15)
[2018-12-29] MEDS ORDERED: hydrALAZINE HCL 20 MG/ML VL IV PRN (11:30)
--- NOTE | 2018-12-29 11:50 | NUR ---
Called and left the message to Dr. Pickens regarding consultation, waiting a call back from
[2018-12-29] MEDS: LORazepam 0.5 MG TAB PO PRN (12:46)
--- NOTE | 2018-12-29 12:54 | NUR ---
Nutrition Assessment/consult Notes please see attached link for complete assessment Est. Needs BW 72 [id number] kcal (23-25 kcal/kgBW), 72-79 gms pro (1.0-1.1 gms/kgBW). Will continue to monitor pertinent labs and reassess nutrient need prn Addendum: 12/29/18 at [address] Amended: Links added.
--- NOTE | 2018-12-29 12:56 | NUR ---
Her fiance at the bedside. HR 105-110/min, BP 135/81 mmHg, paged Dr. England for confirming the dose of Metoprolol, waiting for MD to call back.
--- NOTE | 2018-12-29 14:00 | NUR ---
HR 95-100/min, BP 134/86 mmHg, after Metoprolol 50 mg 1 time dose this afternoon, still waiting for Dr. England to call back for confirming Metoprolol 100 mg 1 time dose as well. Will continue to monitor and care, patient made aware that Metoprolol will increase to 100 mg BID.
[2018-12-29] MEDS: HYDROmorphone HCL 2 MG/ML VL IV PRN ×2 (14:15→18:25)
--- NOTE | 2018-12-29 16:00 | NUR ---
Patient is sleeping at this time, HR 85-95/min , Room air O2 saturation 96-98%. No seizure noted.
--- NOTE | 2018-12-29 18:20 | NUR ---
Dr. Pickens at the bedside, seen and examined patient at this time, plan of care discussed with patient, received new order, patient made aware that will continue to monitor and care.
--- NOTE | 2018-12-29 18:30 | NUR ---
Dinner tray provided, patient stated that don't want to have at this time, still having headache and back pain 11/26, asking medication for pain management. Dilaudid given, will continue to monitor and care.
--- NOTE | 2018-12-29 19:05 | NUR ---
OPENING SHIFT RECEIVED REPORT FROM DAY SHIFT RN. ASSUMED CARE OF PATIENT. PATIENT IN BED SLEEPING WITH NO SIGNS OR SYMPTOMS OF SOB, PAIN OR DISTRESS. CURRENTLY ON ROOM AIR, 02 SAT - 97%. RIGHT WRIST IV - CLEAN/DRY/INTACT. JOLLY HUNG TO GRAVITY ON BED RAIL. REPOSITIONED FOR COMFORT. BED IN LOWEST POSITION, PADDED SIDE RAILS UP X2, CALL LIGHT WITHIN REACH. WILL CONTINUE TO MONITOR.
--- NOTE | 2018-12-29 19:40 | NUR ---
LOW BLOOD PRESSURE NOTED BP IN THE 50'S SYSTOLIC. ASSESSED PATIENT. PATIENT IS LETHARGIC BUT IS ABLE TO ANSWER QUESTIONS AND FOLLOW COMMANDS. RECHECKED BP CUFF ON ALL EXTREMITIES. BP REMAINS CONSISTENTLY IN THE 50'S. PAGED HOSPITALIST. AWAITING CALL BACK.
--- NOTE | 2018-12-29 20:01 | NUR ---
HOSPITALIST HOSPITALIST CALLED BACK, MADE AWARE ABOUT LOW BP. GAVE ORDERS FOR NORMAL SALINE 250ML BOLUS, NORMAL SALINE 35ML/HR, MORPHINE 2M IV Q6/PRN FOR SEVERE PAIN, AND TO DC CURRENT DILAUDID ORDER. TELEPHONE ORDER READ BACK. WILL CONTINUE TO MONITOR.
[2018-12-29] MEDS ORDERED: SODIUM CHLORIDE 0.9% 1,000 ML IV SCH (20:15)
[2018-12-29] MEDS ORDERED: SODIUM CHLORIDE 0.9% 250 ML IV ONE (20:15)
--- NOTE | 2018-12-29 20:21 | NUR ---
HOME MEDICATIONS IN BAG ASKED IF PATIENT HAS ANY HOME MEDICATIONS IN BAG, PATIENT DENIES HAVING ANY HOME MEDICATION IN BAG. PATIENT AGREED TO GO THROUGH THE BAG TOGETHER. FOUND HOME MEDICATION - LORAZEPAM 1MG TABS IN SOCKS. PATIENT MADE AWARE OF NOT BEING ABLE TO HAVE HOME MEDS AT BEDSIDE. MEDICATION TAKEN AND GIVEN TO PHARMACY.
--- NOTE | 2018-12-29 20:30 | NUR ---
MEDICATION REFUSED PATIENT REFUSED METOCLOPRAMIDE, STATES PATIENT IS ALLERGIC AND GETS MUSCLE SPAMS. WILL CONTINUE TO MONITOR.
[2018-12-29] MEDS: METOCLOPRAMIDE HCL 10 MG TAB PO SCH ×2 (20:39→20:42)
--- NOTE | 2018-12-29 21:50 | NUR ---
BLOOD PRESSURE BLOOD PRESSURE TRENDING UP. CURRENT PRESSURE IS 90/54. WILL CONTINUE TO MONITOR.
[2018-12-29] MEDS ORDERED: INSULIN LANTUS (GLARGINE) 1 /0.01ml (100units/ml) SC SCH (22:00)
[2018-12-29] MEDS: DOCUSATE SOD 100 MG CAP PO SCH (22:10)
[2018-12-29] MEDS: MORPHINE SULF INJ 2 MG/ML SYRINGE 1ML IV PRN (22:34)
[2018-12-30] VITALS (17 sets, daily range): BP systolic 85–173; BP diastolic 40–120
[2018-12-30] MEDS: ZOLPIDEM TARTRATE 5 MG TAB PO PRN (00:13)
[2018-12-30] MEDS: ACCU-CHEK COMFORT CURVE STRIP VI SCH ×3 (00:13→13:26)
[2018-12-30] MEDS: LORazepam 0.5 MG TAB PO PRN (00:47)
--- NOTE | 2018-12-30 04:15 | NUR ---
MORNING CARE PATIENT REFUSED MORNING CARE AT THIS TIME. PATIENT STATES, "ILL DO IT LATER." CLEAN LINEN LEFT AT THE BEDSIDE. WILL CONTINUE TO MONITOR.
[2018-12-30] MEDS: MORPHINE SULF INJ 2 MG/ML SYRINGE 1ML IV PRN ×2 (04:39→11:15)
[2018-12-30] MEDS: PANTOPRAZOLE 40 MG TAB PO SCH (05:34)
[2018-12-30] MEDS: InsuLIN REG 1unit/0.01ml Soln (100units/ml) SC SCH ×3 (05:34→12:00)
[2018-12-30 05:46] LABS: BUN/Creatinine Ratio 11.6; Calcium 8.8 mg/dL (8.5-10.1); Magnesium 2.2 mg/dL (1.6-2.6)
--- NOTE | 2018-12-30 07:13 | NUR ---
END OF SHIFT REPORT GIVEN TO DAY SHIFT RN. CARE ENDORSED.
--- NOTE | 2018-12-30 07:35 | NUR ---
Opening Shift Note Assumed care of patient, awake and alert. No S/S of distress/SOB, room air, O2 saturation 98-99%, no chest pain noted, pain level 8/10. Instructed on POC and to call for assist PRN, will continue to monitor for changes Q1hr and PRN.
[2018-12-30] MEDS: ONDANSETRON HCL 4 MG/2 ML VIAL IV PRN (07:58)
--- NOTE | 2018-12-30 08:05 | NUR ---
Breakfast tray provided, patient stated that still nauseated, will try to eat later. Lying on the bed, watching TV at this time.
[2018-12-30] MEDS: TOPIRAMATE 100 MG TAB PO SCH (09:35)
[2018-12-30] MEDS: DOCUSATE SOD 100 MG CAP PO SCH (09:37)
[2018-12-30] MEDS ORDERED: DexAMETHasone INJECTION 10 MG in D5W 5% 50 ML IV SCH (10:00)
[2018-12-30] MEDS ORDERED: METOPROLOL SUCCINATE XL 50 MG TAB PO SCH ×2 (10:00)
--- NOTE | 2018-12-30 10:50 | NUR ---
Dr. England at the bedside, MD made aware that patient would like to go home today, no seizure noted, HR and BP under controlled. Received new orders, patient made aware, patient walking to restroom, asking that when she can have medication for her pain.
[2018-12-30] MEDS: METOCLOPRAMIDE HCL 10 MG TAB PO SCH (11:15)
--- NOTE | 2018-12-30 11:56 | NUR ---
Paged Dr. Pickens per Dr. Egnland requested, waiting for MD to call back.
--- NOTE | 2018-12-30 12:40 | NUR ---
Received a call back from Dr. Samanta MD made aware that waiting a call back from Dr Pickens and patient would like to go without seeing by Dr. Pickens. okay to discharge home at this time.
--- NOTE | 2018-12-30 13:05 | NUR ---
PATIENT LEFT WITHOUT WAITING FOR DR. HUSSEIN TO CALL BACK AND AGREE TO DISCHARGE. PATIENT STATES," I WILL JUST LEAVE IF YOU DON'T GIVE ME THE PAPERS TO SIGN." DISCHARGE PAPERWORK GIVEN TO PATIENT, WENT OVER ALL PAPERWORK, ANSWERED ALL QUESTIONS. JOLLY CATH REMOVED WITHOUT PROBLEMS. 22 G I.V. TO RIGHT HAND ALSO REMOVED INTACT.
--- NOTE | 2018-12-30 16:05 | NUR ---
Assessment and consult Pt is a 43 yr old alert and oriented female. Pt lives with manish and their 6 kids. Pt's fitawny's name is Guzman and is her emergency contact at [phone]. Pt's fiance and kids help with the cooking, cleaning, transportation, etc. Pt uses a walker at home to assist with ambulation. Pt used shower chair to assist with bathing. Pt admitted with a high heart rate, high blood pressure and multiple seizures. 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 Pt stating that she is very accepting of her diagnosis and ready to receive tx for it. Pt stated that she is emotionally handling things well and has a good support system at home. Pt manish will transport upon d/c. Pt receives money through [employer] and Permanent disability. Pt has an advanced directive and states that her fiance has a copy if it's not on our files. Pt asked for [facility] info. provided pt with telephone number to call for new [facility] referrals. Pt will be d/c today and transported home via her fiance, upon medical clearance.
== END 2018-12-30 13:05 | disposition home or self-care (01) | DRG 101 ==
LOC: EDBD 20:25 → ER 20:29 → OVERFLOW 20:30 → DOU IN ICU 12-28 08:30
PROVIDERS: ADMIT Nurse Practitioner; ATTEND Internal Medicine
DX: G40.909 Epilepsy, unspecified, not intractable, without status epilepticus (principal); E11.9 Type 2 diabetes mellitus without complications; D63.8 Anemia in other chronic diseases classified elsewhere; E78.5 Hyperlipidemia, unspecified; F12.90 Cannabis use, unspecified, uncomplicated; F17.210 Nicotine dependence, cigarettes, uncomplicated; G43.109 Migraine with aura, not intractable, without status migrainosus; G89.29 Other chronic pain; I10 Essential (primary) hypertension; K21.9 Gastro-esophageal reflux disease without esophagitis; M19.90 Unspecified osteoarthritis, unspecified site; Z79.899 Other long term (current) drug therapy; E66.9 Obesity, unspecified; F32.9 Major depressive disorder, single episode, unspecified; F41.9 Anxiety disorder, unspecified; M54.5 Low back pain; Z90.49 Acquired absence of other specified parts of digestive tract; Z88.0 Allergy status to penicillin; Z88.8 Allergy status to other drugs, medicaments and biological substances
CPT/HCPCS: 36415; 51702; 70450; 80048; 80053; 80061; 80185; 80307; 81001; 82542; 82962; 83036; 83735; 84702; 85025; 87081; 93005; 96365; 96375; 96376; G0378; J1100; J1815; J2405; J7060

== ENCOUNTER 2019-05-21 10:31 | Inpatient (IN) | payer MEDICARE ==
[~2019-05-21] VITALS: Ht 160 cm; Wt 74.3 kg
[2019-05-21 11:20] LABS: Basophils # (auto) 0.1 10 ^3/uL (0-0.2); Basophils % (auto) 0.4 % (0.0-2.0); Eosinophils # (auto) 0 10 ^3/uL (0-0.8); Hematocrit 46.5 % (36.0-46.0); Hemoglobin 14.4 g/dL (12.2-16.2); Lymphocytes # (auto) 0.7 10 ^3/uL (0.4-5.4); Lymphocytes % (auto) 3.9 % (10.0-50.0); Mean Corpuscular Hemoglobin 26.8 pg (28.0-32.0); Mean Corpuscular Volume 86.4 fL (80.0-100.0); Monocytes % (auto) 5.7 % (0.0-12.0); Neutrophils # (auto) 15.8 10 ^3/uL (1.6-8.6); Nucleated Red Blood Cells % 0.1 %; Platelet Count (auto) 257 10^3/uL (140-450); Red Blood Cells 5.39 10^6/uL (4.0-5.20); Red Cell Distribution Width 17.7 % (11.8-14.3); White Blood Cell 17.6 10^3/uL (4.4-10.8)
[2019-05-21 11:38] LABS: Albumin 3.4 g/dL (3.4-5.0); BUN/Creatinine Ratio 14.6; Calcium 8.7 mg/dL (8.5-10.1); Potassium 3.9 mmol/L (3.5-5.1); Total Protein 7.5 g/dL (6.4-8.2)
[2019-05-21 11:44] LABS: Urine Bacteria NONE SEEN /hpf (None Seen); Urine Blood Negative /uL (Negative); Urine Hyaline Cast FEW /lpf (0 - 2); Urine Mucus FEW (None Seen); Urine Specific Gravity 1.032 (1.001-1.035); Urine WBC 2 /hpf (0 - 5)
[2019-05-21 11:56] LABS: Bilirubin, Total 0.5 mg/dL (0.2-1.0)
[2019-05-21 12:02] LABS: Alcohol, Urine < 3.0 mg/dL (0-5); Amphetamine Screen, Urine NEGATIVE (NEGATIVE); Barbiturate Scree,Urine NEGATIVE (NEGATIVE); Benzodiazephine Screen, Urine NEGATIVE (NEGATIVE); Cocaine Screen, Urine NEGATIVE (NEGATIVE); Opiate Scree,Urine POSITIVE (NEGATIVE)
[2019-05-21 12:04] LABS: Cannabinoid Screen, Urine NEGATIVE (NEGATIVE); Phencyclidine Screen, Urine NEGATIVE (NEGATIVE)
[2019-05-21] MEDS ORDERED: SODIUM CHLORIDE 0.9% 1,000 ML IV ONE ×2 (12:15→18:30)
[2019-05-21] MEDS ORDERED: cefTRIAXone 1GM/50ML D5W 50 ML IV ONE (16:30)
[2019-05-21] MEDS ORDERED: MORPHINE SULF INJ 2 MG/ML SYRINGE 1ML IV PRN (18:30)
[2019-05-21] MEDS ORDERED: SODIUM BICARBONATE 8.4 % INJ 50ML VIAL IV ONE (18:30)
[2019-05-21] MEDS ORDERED: DEXTROSE (50%) 50ML SYRG IV PRN (18:30)
[2019-05-21] MEDS: SODIUM BICARBONATE 50ML VIAL 50 ML in SOD CHL 0.45% 1,000 ML IV SCH (21:31)
[2019-05-21] MEDS: FAMOTIDINE (10MG/ML) 2ML VL IV SCH (22:50)
[2019-05-21] MEDS: metroNIDAZOLE 500MG/100ML 100 ML IV SCH (22:51)
[2019-05-21] MEDS: InsuLIN REG 1unit/0.01ml Soln (100units/ml) SC SCH (23:13)
[2019-05-21] MEDS: ACCU-CHEK COMFORT CURVE STRIP VI SCH (23:14)
[2019-05-22] MEDS: SODIUM BICARBONATE 50ML VIAL 50 ML in SOD CHL 0.45% 1,000 ML IV SCH ×3 (04:57→21:58)
[2019-05-22] MEDS: metroNIDAZOLE 500MG/100ML 100 ML IV SCH ×3 (06:54→21:58)
[2019-05-22] MEDS: InsuLIN REG 1unit/0.01ml Soln (100units/ml) SC SCH ×4 (07:05→21:59)
[2019-05-22 07:07] LABS: Basophils # (auto) 0.1 10 ^3/uL (0-0.2); Basophils % (auto) 0.6 % (0.0-2.0); Eosinophils # (auto) 0 10 ^3/uL (0-0.8); Eosinophils % (auto) 0.3 % (0.0-7.0); Hematocrit 41.5 % (36.0-46.0); Lymphocytes # (auto) 0.7 10 ^3/uL (0.4-5.4); Lymphocytes % (auto) 5.4 % (10.0-50.0); Mean Corpuscular Hgb Conc. 31.4 g/dL (32.0-36.0); Monocytes # (auto) 0.5 10 ^3/uL (0-1.3); Monocytes % (auto) 3.4 % (0.0-12.0); Neutrophils # (auto) 12.3 10 ^3/uL (1.6-8.6); Neutrophils % (auto) 90.3 % (37.0-80.0); Nucleated Red Blood Cells % 0.1 %; Platelet Count (auto) 217 10^3/uL (140-450); Red Blood Cells 4.82 10^6/uL (4.0-5.20); Red Cell Distribution Width 18.2 % (11.8-14.3); White Blood Cell 13.7 10^3/uL (4.4-10.8)
[2019-05-22] MEDS: ACCU-CHEK COMFORT CURVE STRIP VI SCH ×4 (07:07→22:00)
[2019-05-22 07:31] LABS: Calcium 8.7 mg/dL (8.5-10.1); Potassium 4.1 mmol/L (3.5-5.1)
[2019-05-22 07:34] LABS: Albumin 3.2 g/dL (3.4-5.0); BUN/Creatinine Ratio 32.1
[2019-05-22 07:58] LABS: Bilirubin, Total 0.8 mg/dL (0.2-1.0); Total Protein 7.3 g/dL (6.4-8.2)
[2019-05-22] MEDS ORDERED: LORazepam 2MG/ML-1ML VIAL IV PRN (08:30)
[2019-05-22] MEDS: FAMOTIDINE (10MG/ML) 2ML VL IV SCH (10:17)
[2019-05-22] MEDS: levoFLOXacin 500MG 100 ML IV SCH (10:18)
[2019-05-22] MEDS ORDERED: ACETAMINOPHEN 650 MG RECT SUPP PR ONE (10:45)
[2019-05-22 12:42] LABS: Acetaminophen < 2.0 ug/mL (10-30); Salicylate < 1.7 mg/dL (2.8-20.0)
[2019-05-22] MEDS: PHENYTOIN SODIUM 50 MG/ML 2ML VIAL IV SCH ×2 (14:01→22:20)
--- NOTE | 2019-05-22 14:25 | NUR ---
ADMIT [facility]: PATIENT ADMIT TO [facility] FROM ER AFTER RECEIVING SBAR FROM JOAN PRINCE. PATIENT IS NON-VERBAL, WILL OCCAISONALLY OPEN EYES TO NAME AND PAINFUL STIMULI. GCS 8. NO S/S OF PAIN NOTED. PATIENT PLACED ON CARDIAC MONITORS. VSS 162/102, 121, 16, 100% ON 2LNC, 99.3F VIA RECTAL PROBE. PATIENT WITH JOLLY DRAINING TO GRAVITY WITH DARK YELLOW URINE. PATIENT WITH TWO PIV THAT FLUSH #22 TO LEFT BREAST AND #22 TO RIGHT HAND WHICH IS RUNNING IVF OF 0.45NS + BICARB @ 125ML/HR. BED IN LOWEST POSITION, RAILS X2 UP, ALARMS IN PLACE AND CALL LIGHT WITHIN REACH. WILL CONTINUE TO MONITOR.
[2019-05-22 15:17] VITALS: BP 166/102
[2019-05-22 16:00] VITALS: BP 132/69
--- NOTE | 2019-05-22 16:11 | NUR ---
PATIENT CONTINUES TO LAY IN BED UNRESPONSIVE, NO S/S OF PAIN. BED RAILS PADDED FOR SEIZURE PRECAUTIONS. WILL CONTINUE TO MONITOR.
[2019-05-22] MEDS ORDERED: ASPirin 300 MG RECTAL SUPP PR PRN ×2 (16:45→17:00)
--- NOTE | 2019-05-22 17:15 | NUR ---
PATIENT'S SIGNIFICANT OTHER, JATINDER, AT BEDSIDE. PATIENT IS AWAKE, A&OX2 (PERSON, SITUATION). UPDATED PATIENT AND FAMILY ON PLAN OF CARE TO INCLUDE COMPLETED TESTS. WILL CONTINUE TO MONITOR.
[2019-05-22] MEDS ORDERED: ACETAMINOPHEN 650 MG RECT SUPP PR PRN (18:00)
--- NOTE | 2019-05-22 18:00 | NUR ---
SPOKE TO DR LOZANO VIA T/C UPDATED MD ON CONSULT AND PATIENT. REVIEWED LABS AND ORDERS RECEIVED.
--- NOTE | 2019-05-22 18:10 | NUR ---
SPOKE TO DR WARD VIA TELEPHONE. UPDATED MD ON PATIENT STATUS AND CURRENT CONSULTS WITH DR HUSSEIN AND DR LOZANO. ORDERS RECEIVED.
[2019-05-22] MEDS: METOPROLOL TARTRATE 1MG/1ML-5ML VIAL IV SCH (18:29)
--- NOTE | 2019-05-22 18:53 | NUR ---
PATIENT LYING IN BED, EASILY AROUSABLE AND RESPONSES SLOWLY WHEN ASKED QUESTIONS. PATIENT IS A&OX2-3 AND IS EASILY REORIENTED. PATIENT REMAINS ON 2L NC WITH O2 SATS 99%. JOLLY DRAINING LIGHT NIKI URINE. PATIENT REMAINS NPO AND IS AWAITING FOR SWALLOW STUDY. REPORT TO BE GIVEN TO DORI LUU RN.
[2019-05-22 20:00] VITALS: BP 147/98
--- NOTE | 2019-05-22 20:15 | NUR ---
Opening Shift Note: A&Ox2-4; patient is able to state her name, date of , where she is at, time, and situation but delayed thought process and periods of confusion. She is impulsive with actions and restless. Pain level 0/10 and at baseline states she uses a walker prn; currently bedrest. Bed locked in lowest position, side rails up x3, call light within reach, and bed alarm on for patient safety. IV 22 g in right hand; 22 g in left breast inserted on 05/22/19 running sodium bicarb 50 amp in 0.45% at 125 ml/hr. Skin: generalized bruising/small abrasions present. Will continue to round and reposition prn.
--- NOTE | 2019-05-22 21:30 | NUR ---
CT Angio: Communication order placed my Dr. Pitt to order CT angio if patient's DDimer is positive: Current DDimer is 1.83. Order placed for CT Angio. Call received from CT that they are able to do test tonight. Attempt to call patient's NOK Guzman Zhang with no response. Message left. New IV placed in right forearm 20 g IID for procedure. Will place consent form in front of hard chart. Will also contact CT if NOK returns call and consent is obtained via telephone.
--- NOTE | 2019-05-22 22:30 | NUR ---
New IV 20 g right forearm inserted for CT Angio.
[2019-05-22] MEDS: SOD CHL 0.45% 1,000 ML IV SCH (23:00)
[2019-05-22 23:15] LABS: Protein, Urine 114.8 mg/dL (0.0-11.9)
[2019-05-23] VITALS (7 sets, daily range): BP systolic 127–181; BP diastolic 80–109
[2019-05-23] MEDS: METOPROLOL TARTRATE 1MG/1ML-5ML VIAL IV SCH ×5 (00:24→23:33)
--- NOTE | 2019-05-23 02:20 | NUR ---
Page to onion farmer hospitalist: Patient's blood pressure is still high despite receiving 10 mg metroprolol IVP Q6H. Current BP is 167/117. New order received for labatolol 10 mg IVP once. Will trend BP values.
--- NOTE | 2019-05-23 02:39 | NUR ---
Dr. Gonzalez Notified of chest pain and pain to lower back Dr. Gonzalez notified that at approximately 01:26 patient complained of sharp chest pain (9/10) associated with shortness of breath. Dr. Gonzalez made aware that this RN administered Nitroglycerin 0.4mg sublingual x2 and after second administration, patient reported chest pain was subsiding and rated the pain as 6/10. Dr. Gonzalez notified that patient reports she is still having pain to lower back (pain scale 10/10) and is requesting IV Dilaudid. Orders to consult Dr. Melchor for pain management received. Order verified. Will carry out order as received. Addendum: 05/24/19 at 0325 by TAY CHAWLA RN RN WRONG DATE 05/23/2019 CORRECT DATE 05/24/2019, 02:39
[2019-05-23] MEDS ORDERED: LABETALOL HCL 5 MG/ML ML 20ML VIAL IV ONE (02:40)
[2019-05-23] MEDS ORDERED: LABETALOL HCL 5 MG/ML 4ML SYRINGE IV ONE (02:45)
--- NOTE | 2019-05-23 03:33 | NUR ---
Blood pressure recheck: Current BP is 135/88 after 10 mg of labatelol given IVP.
--- NOTE | 2019-05-23 04:00 | NUR ---
Patient bathe/linen change Patient given complete CHG bath. Skin integrity assessed for any changes. Linens and gown changed. Patient repositioned for comfort.
--- NOTE | 2019-05-23 04:57 | NUR ---
Page sent to Dr. Gonzalez: Sent page for prn pain medication and blood pressure medication. BP ranges systolic 140s-180s despite metoprolol 10 mg Q6H and a one time dose of labatolol 10 mg IVP. Will await page return for possible new orders.
--- NOTE | 2019-05-23 06:15 | NUR ---
Patient IV removal: Patient attempted to get out of bed by herself despite having a bed alarm and being instructed multiple times to call for assistance. Patient did remove 22 g IV in left breast during the attempt. Patient still confused to the fact she has a bethea catheter continuously draining urine. Patient reoriented again to call for assistance. Bed alarm turned on again.
--- NOTE | 2019-05-23 06:33 | NUR ---
Return page from Dr. Gonzalez: Blood cultures positive for gram positive cocci in clusters: new order for vancomycin per pharmacy; new order for pain medication morphine 2 mg Q4PRN. Still NPO
[2019-05-23] MEDS: metroNIDAZOLE 500MG/100ML 100 ML IV SCH ×3 (06:42→22:20)
[2019-05-23] MEDS: PHENYTOIN SODIUM 50 MG/ML 2ML VIAL IV SCH ×3 (06:42→22:21)
[2019-05-23] MEDS: InsuLIN REG 1unit/0.01ml Soln (100units/ml) SC SCH ×4 (06:43→23:30)
[2019-05-23] MEDS: ACCU-CHEK COMFORT CURVE STRIP VI SCH ×4 (06:43→23:30)
[2019-05-23] MEDS ORDERED: VANCOMYCIN PER PHARMACY 0 MG IV SCH (06:45)
[2019-05-23] MEDS ORDERED: MORPHINE SULF INJ 2 MG/ML SYRINGE 1ML ONE (06:51)
--- NOTE | 2019-05-23 06:58 | NUR ---
Return call from next of kin: Return call from Guzman Zhang. Consent for CT contrast obtained with Neela FRANCO. CT notified of consent getting obtained.
--- NOTE | 2019-05-23 07:10 | NUR ---
New order from Dr. Gonzalez for hydralazine 10 mg Q4H prn for BP over 160.
[2019-05-23] MEDS ORDERED: hydrALAZINE HCL 20 MG/ML VL IV PRN (07:30)
--- NOTE | 2019-05-23 07:30 | NUR ---
RECEIVED PATIENT SEMI FOWLERS IN BED, A/O TIMES 4, O2 BY R/AAniceto JOLLY TO GRAVITY, .45 INFUSING INTO THE RFA AT 100ML/HR BY THE IV PUMP, ASKING IF SHE AN HAVE SOME, WATER TO DRINK EXPRESS TO HER THAT SHE IS STILL NPO AND GAVE SOME SWABS TO MOISTEN HER MOUTH,
[2019-05-23 07:34] LABS: Albumin 2.7 g/dL (3.4-5.0); Calcium 8.2 mg/dL (8.5-10.1); Magnesium 2.1 mg/dL (1.6-2.6); Potassium 3.1 mmol/L (3.5-5.1)
[2019-05-23 07:43] LABS: BUN/Creatinine Ratio 35.2; Bilirubin, Total 1.2 mg/dL (0.2-1.0); Total Protein 6.1 g/dL (6.4-8.2)
[2019-05-23 07:45] LABS: Phosphorus 0.9 mg/dL (2.5-4.90)
[2019-05-23] MEDS ORDERED: IOHEXOL 350 MG/ML 100ML IJ ONE (07:49)
[2019-05-23] MEDS ORDERED: VANCOMYCIN 1GM/250ML 250 ML IV ONE (08:00)
--- NOTE | 2019-05-23 08:10 | NUR ---
DR HUSSEIN IN TO SEE THE PATIENT
--- NOTE | 2019-05-23 08:50 | NUR ---
on the phone talking to her friend gus
[2019-05-23] MEDS ORDERED: POTASSIUM CHLORIDE 40 MEQ, LIDOCAINE 1% (LOCAL ANESTH.) 4 ML in SODIUM CHL 0.9% 100 ML IV ONE (09:00)
--- NOTE | 2019-05-23 09:10 | NUR ---
DR MO IN TO SEE THE PATIENT, NO NEW ORDERS
[2019-05-23] MEDS: levoFLOXacin 500MG 100 ML IV SCH (10:11)
[2019-05-23] MEDS: FAMOTIDINE (10MG/ML) 2ML VL IV SCH (10:11)
--- NOTE | 2019-05-23 10:20 | NUR ---
TO CT SCAN BY THE BED
--- NOTE | 2019-05-23 10:50 | NUR ---
BACK FROM CT AND TOLERATED THE PROCEDURE
[2019-05-23] MEDS: MORPHINE SULF INJ 2 MG/ML SYRINGE 1ML IV PRN ×3 (12:19→22:21)
--- NOTE | 2019-05-23 12:19 | NUR ---
MEDICATED FOR PAIN 10/26 TO THE BACK WITH MORPHINE 2MG IV
--- NOTE | 2019-05-23 12:42 | NUR ---
George ARRIAZA MP (GI) in to see the patient for elevated lft's no new orders
--- NOTE | 2019-05-23 13:40 | NUR ---
DR GALLAGHER IN TO SEE THE PATIENT AND STATED TO GIVE HER WATER WHICH SHE SWALLOWED WITHOUT ANY CHOCKING AND STATED TO START HER ON A DIET
[2019-05-23] MEDS ORDERED: POTASSIUM PHOSPHATE 44 MEQ in D5W 5% 250 ML IV ONE (13:45)
--- NOTE | 2019-05-23 13:45 | NUR ---
ECHO BEING DONE
--- NOTE | 2019-05-23 13:58 | NUR ---
NUTRITION ASSESSMENT/CONSULT NOTES Please refer to link notes of nutrition screen form filed under the intervention section of the plan of care for further details. Est. Energy Needs: 3935-3600 kcal (20-25 kcal/kg BW). Est. Protein Needs: 83-104 gms/day (1.2-1.5 gms/kg BW). Will continue to monitor pertinent labs and reassess nutrient need prn Addendum: 05/23/19 at [address] Amended: Links added.
[2019-05-23] MEDS: SOD CHL 0.45% 1,000 ML IV SCH ×2 (14:18→17:52)
--- NOTE | 2019-05-23 14:50 | NUR ---
MEDICATED WITH HYDRALAZINE 10MG FOR B/P OF 161/105, EXPRESS TO THE PATIENT THAT IT WAS NOT TIME FOR MORPHINE
--- NOTE | 2019-05-23 15:03 | NUR ---
PATIENT GOING TO ROOM 291A ON TELE 80, NURSE JOSEY SHE IS AWARE,
--- NOTE | 2019-05-23 15:05 | NUR ---
B/P 137/97 HR 112
--- NOTE | 2019-05-23 15:15 | NUR ---
REPORT CALLED TO JOSEY FRANCO
--- NOTE | 2019-05-23 15:19 | NUR ---
REMOVED THE SALINE LOCK FROM THE RT HAND INTACT, INFILTRATED, TRIED TO PLACED IV TO THE RT ARM 2 ATTEMPTS UNSUCCESSFUL, PAGED MIDLINE NURSE
--- NOTE | 2019-05-23 15:32 | NUR ---
NOTIFIED HER FRIEND JATINDER THAT SHE IS MOVING TO ANOTHER ROOM AND HAS ALL OF HER BELONGINGS INCLUDING HER TEETH WHICH ARE IN HER MOUTH
--- NOTE | 2019-05-23 15:34 | NUR ---
TAKEN TO ROOM 291A BY THE BED,
--- NOTE | 2019-05-23 15:39 | NUR ---
Patient arrived on the floor Patient was oriented to room 291A, and RN Lorena. IV potassium restarted as ordered. Plan of care reviewed with patient, verbalized understanding.
[2019-05-23] MEDS: VANCOMYCIN 1GM/250ML 250 ML IV SCH (17:49)
--- NOTE | 2019-05-23 18:01 | NUR ---
IV INFILTRATED K phos infiltrated, erythema noted, patient reports pain at IV site. Called pharmacy for protocol. Pharmacist stated cold compress. If worsens call back for new orders.
--- NOTE | 2019-05-23 18:16 | NUR ---
IV removal IV DC'd with clean sterile technique, catheter fully intact. Pressure dressing applied to site. Patient tolerated well.
--- NOTE | 2019-05-23 18:18 | NUR ---
SWALLOW EVALUATED. PATIENT HAS DENTURES UPPER AND LOWER. SOME TEETH BROKEN IN SEIZURE. ABLE TO FOLLOW COMMANDS. ABLE TO TOLERATE MECHANICAL SOFT DIET TEXTURE WITH THIN LIQUIDS WITH NO OVERT SIGNS OR SYMPTOMS OF ASPIRATION. NURSING NOTIFIED.
--- NOTE | 2019-05-23 18:20 | NUR ---
20g Ultrasound guided PIV placed, patient tolerated well, good blood return. Primary RN notified.
--- NOTE | 2019-05-23 19:01 | NUR ---
Closing shift note Care endorsed to sizing sponger RN. Patient's fiance at bedside, no signs of distress noted
--- NOTE | 2019-05-23 19:30 | NUR ---
OPENING SHIFT NOTE Assumed care of patient, awake and alert x4. Patient denies pain or shortness of breath at this time. Instructed on plan of care and to call for assistance as needed, patient verbalized understanding. Bed is locked in lowest position, side rails x 2 are up, call light is within reach, and bed alarm is on.
[2019-05-24] MEDS: NITROGLYCERIN 0.4 MG SL TAB SL PRN ×2 (01:26→01:42)
--- NOTE | 2019-05-24 01:50 | NUR ---
Chest pain/lower back pain At approximately 01:26 patient began complaining of sharp chest pain (9/10) associated with shortness of breath. Vital signs at that time were the following: BP: 137/92, HR: 101, RR: 18, SPO2: 96% on 2L NC, and TEMP 98.4. EKG was performed and placed in hardchart. Patient was mediated with Nitroglycerin 0.4mg sublingual x2 and after second administration, patient reported chest pain was subsiding and rated the pain as 6/10. Vital signs post nitroglycerin administration were the following: BP: 137/86, HR: 104, RR: 16, SPO2: 94% on 2L NC. Patient is currently laying in bed with even and unlabored respirations. Patient denies shortness of breath at this time. Patient reports that her chest pain feels better but is still complaining of lower back pain (pain scale 10/10), will notify Dr. Gonzalez and medicate patient as ordered by
[2019-05-24] MEDS: MORPHINE SULF INJ 2 MG/ML SYRINGE 1ML IV PRN ×5 (02:31→20:04)
--- NOTE | 2019-05-24 02:39 | NUR ---
Dr. Gonzalez Notified of chest pain and pain to lower back Dr. Gonzalez notified that at approximately 01:26 patient complained of sharp chest pain (9/10) associated with shortness of breath. Dr. Gonzalez made aware that this RN administered Nitroglycerin 0.4mg sublingual x2 and after second administration, patient reported chest pain was subsiding and rated the pain as 6/10. Dr. Gonzalez notified that patient reports she is still having pain to lower back (pain scale 10/10) and is requesting IV Dilaudid. Orders to consult Dr. Melchor for pain management received. Order verified. Will carry out order as received.
--- NOTE | 2019-05-24 03:00 | NUR ---
Rounds Patient is laying in bed, eyes closed, with even and unlabored respirations. No signs/symptoms of pain noted at this time. Bed is locked in lowest position, side rails x 2 are up, call light is within reach, and bed alarm is on.
[2019-05-24 05:00] VITALS: BP_SYST 140; BP_SYST 146; BP_DIAS 103; BP_DIAS 97
--- NOTE | 2019-05-24 05:00 | NUR ---
Patient complaining of nausea Patient complaining of nausea and requesting nausea medication. Patient has no PRN nausea medication ordered. Will notify Dr. Gonzalez.
--- NOTE | 2019-05-24 05:02 | NUR ---
LEFT MESSAGE FOR DR. GONZALEZ RE: NAUSEA MEDICATION Left message for Dr. Gonzalez regarding nausea medication. Awaiting response.
[2019-05-24] MEDS: metroNIDAZOLE 500MG/100ML 100 ML IV SCH ×3 (06:00→22:52)
[2019-05-24 06:02] LABS: Albumin 2.4 g/dL (3.4-5.0); Calcium 7.6 mg/dL (8.5-10.1)
[2019-05-24 06:07] LABS: Bilirubin, Total 1.4 mg/dL (0.2-1.0); Total Protein 5.4 g/dL (6.4-8.2)
[2019-05-24 06:14] LABS: Potassium 2.8 mmol/L (3.5-5.1)
--- NOTE | 2019-05-24 06:23 | NUR ---
PAGED DR. GONZALEZ RE: CRITICAL LAB VALUE Paged Dr. Gonzalez regarding critical lab value: potassium 2.8. Awaiting call back.
[2019-05-24] MEDS: PHENYTOIN SODIUM 50 MG/ML 2ML VIAL IV SCH ×3 (06:39→22:51)
[2019-05-24] MEDS: METOPROLOL TARTRATE 1MG/1ML-5ML VIAL IV SCH ×3 (06:39→18:30)
[2019-05-24] MEDS: SOD CHL 0.45% 1,000 ML IV SCH (06:55)
--- NOTE | 2019-05-24 07:14 | NUR ---
RECEIVED ORDERS FROM DR. GONZALEZ RE: CRITICAL LAB VALUE Dr. Gonzalez aware of patients critical potassium lab value 2.8. Orders received and verified. See (eMAR). Will endorse to day shift RN.
--- NOTE | 2019-05-24 07:30 | NUR ---
Opening Shift Note Assumed care of patient, awake and alert. No S/S of distress/SOB or pain. Bed in lowest and locked position with side rails up x2 and call light within reach. Instructed on POC and to call for assist PRN, will continue to monitor for changes Q1hr and PRN.
[2019-05-24] MEDS: VANCOMYCIN 1GM/250ML 250 ML IV SCH ×2 (07:37→18:54)
[2019-05-24] MEDS: InsuLIN REG 1unit/0.01ml Soln (100units/ml) SC SCH ×4 (07:38→23:07)
[2019-05-24] MEDS: ACCU-CHEK COMFORT CURVE STRIP VI SCH ×4 (07:38→23:07)
[2019-05-24] MEDS ORDERED: POTASSIUM CHL 20 Meq TABLET PO ONE (07:45)
[2019-05-24] MEDS ORDERED: POTASSIUM CHL 20MEQ/100ML 100 ML IV ONE ×2 (07:45→10:00)
[2019-05-24 09:00] VITALS: BP 148/109
--- NOTE | 2019-05-24 09:30 | NUR ---
IV insertion IV access obtained, via clean sterile technique by inserting 22 gauge catheter at LEFT FA after 1 attempt(s). IV secured properly. No trauma to site. Patient tolerated well.
[2019-05-24] MEDS: levoFLOXacin 500MG 100 ML IV SCH (10:24)
[2019-05-24] MEDS: FAMOTIDINE (10MG/ML) 2ML VL IV SCH (10:24)
[2019-05-24 13:00] VITALS: BP 139/102
[2019-05-24] MEDS: ONDANSETRON HCL 4 MG/2 ML VIAL IV PRN ×4 (13:26→22:52)
[2019-05-24] MEDS: PANTOPRAZOLE 40 MG TAB PO SCH (13:26)
[2019-05-24] MEDS: POTASSIUM EFFERVESENT TAB 25 MEQ PO SCH ×3 (13:59→23:08)
--- NOTE | 2019-05-24 14:00 | NUR ---
Bethea catheter dc'd Pt refusing bethea catheter. Bethea dc'd with clean technique following deflation of balloon. Patient tolerated well with no complaints of pain. Continue care.
--- NOTE | 2019-05-24 16:00 | NUR ---
PATIENT STATED THAT SHE HAS VOIDED 3 TIMES SINCE REMOVING THE JOLLY CATHETER.
--- NOTE | 2019-05-24 16:50 | NUR ---
REPORT GIVEN TO JOAN PRECIADO.
--- NOTE | 2019-05-24 19:30 | NUR ---
OPENING SHIFT NOTE Assumed care of patient, awake and alert x4. Patient is complaining of pain to lower back radiating to bilateral lower extremities (pain scale 9/10), will medicate patient as ordered by MD. Patient denies shortness of breath at this time. Instructed on plan of care and to call for assistance as needed, patient verbalized understanding. Bed is locked in lowest position, side rails x 2 are up, call light is within reach, and bed alarm is on.
[2019-05-24 22:00] VITALS: BP 132/95
[2019-05-25] MEDS: VANCOMYCIN 1GM/250ML 250 ML IV SCH ×3 (01:27→18:53)
[2019-05-25 02:00] VITALS: BP 107/71
[2019-05-25] MEDS: MORPHINE SULF INJ 2 MG/ML SYRINGE 1ML IV PRN ×4 (04:14→11:53)
[2019-05-25] MEDS: ONDANSETRON HCL 4 MG/2 ML VIAL IV PRN ×5 (04:14→20:40)
[2019-05-25 05:00] VITALS: BP 156/94
[2019-05-25] MEDS: PHENYTOIN SODIUM 50 MG/ML 2ML VIAL IV SCH (05:43)
[2019-05-25] MEDS: metroNIDAZOLE 500MG/100ML 100 ML IV SCH ×3 (05:43→21:58)
[2019-05-25] MEDS: METOPROLOL TARTRATE 1MG/1ML-5ML VIAL IV SCH ×4 (05:44→18:53)
[2019-05-25] MEDS: ACCU-CHEK COMFORT CURVE STRIP VI SCH ×4 (06:03→22:02)
[2019-05-25] MEDS: InsuLIN REG 1unit/0.01ml Soln (100units/ml) SC SCH ×4 (06:04→22:02)
--- NOTE | 2019-05-25 07:40 | NUR ---
Opening Shift Note Assumed care of patient, awake and alert. No S/S of distress/SOB or pain. Instructed on POC and to call for assist PRN, will continue to monitor for changes Q1hr and PRN. Bed locked in lowest position with two side rails up and call light in reach.
[2019-05-25 09:00] VITALS: BP 141/90
[2019-05-25] MEDS: levoFLOXacin 500MG 100 ML IV SCH (09:40)
[2019-05-25] MEDS: PANTOPRAZOLE 40 MG TAB PO SCH (09:41)
[2019-05-25 10:26] LABS: Albumin 2.5 g/dL (3.4-5.0); Calcium 8.1 mg/dL (8.5-10.1); Potassium 3.7 mmol/L (3.5-5.1)
--- NOTE | 2019-05-25 10:30 | NUR ---
RIGHT FA IV LEAKING AND DISCONTINUED, CATHETER INTACT PATIENT TOLERATED WELL. NEW IV INSERTION ON RIGHT FA 22G PATIENT TOLERATED WELL.
[2019-05-25 10:31] LABS: BUN/Creatinine Ratio 1.9; Bilirubin, Total 1.3 mg/dL (0.2-1.0); Total Protein 5.7 g/dL (6.4-8.2)
[2019-05-25 10:41] LABS: Magnesium 1.5 mg/dL (1.6-2.6)
[2019-05-25 10:44] LABS: Phosphorus 0.8 mg/dL (2.5-4.90)
--- NOTE | 2019-05-25 10:44 | NUR ---
CRITICAL LAB PHOSPHORUS 0.8 REPORTED BY HERNAN IN LAB
--- NOTE | 2019-05-25 10:57 | NUR ---
CRITICAL PHOSPHORUS OF 0.[address] WARD WILL AWAIT CALL BACK.
--- NOTE | 2019-05-25 12:12 | NUR ---
RECEIVED CALL BACK FROM SYLVIA, NO NEW ORDERS. I WILL NOTIFY NEPHROLOGY.
[2019-05-25 12:55] VITALS: BP 157/116
[2019-05-25] MEDS ORDERED: POTASSIUM PHOSPHATE 44 MEQ in D5W 5% 250 ML IV ONE (13:15)
[2019-05-25] MEDS: HYDROmorphone HCL 2 MG/ML VL IV PRN ×2 (16:21→20:40)
[2019-05-25 16:39] VITALS: BP 129/93
--- NOTE | 2019-05-25 19:15 | NUR ---
OPENING NOTE- NOC SHIFT PATIENT IS ALERT AND ORIENTED. NO S/SX OF DISTRESS OR SOB. PATIENT IS IN BED, BED IS LOCKED AT LOWEST POSITION, BED RAILS UP X2 AND HEAD OF BED IS UP >30 DEGREES. BEDSIDE TABLE WITHIN REACH, CALL LIGHT WITHIN REACH, PERSONAL BELONGINGS WITHIN REACH. DISCUSSED POC WITH PATIENT AND INSTRUCTED PATIENT TO CALL PRN; PATIENT VERBALIZED UNDERSTANDING. FAMILY AT BEDSIDE. WILL CONTINUE TO MONITOR Q1H AND PRN.
--- NOTE | 2019-05-25 20:48 | NUR ---
SKIN- BLISTERS FOUND ON BOTH GREAT TOES. NOT OPEN. WILL TAKE PICTURES FOR REFERENCE. PATIENT STATES THAT BLISTERS ARE FROM FALL ON SUNDAY AT HOME. RIGHT LATERAL EYE CLOSED ABRASION. PATIENT STATES THAT ABRASION IS ALSO FROM FALL ON SUNDAY AT HOME.
--- NOTE | 2019-05-25 21:25 | NUR ---
PAIN REASSESSMENT PATIENT REPORTS PAIN 8/10. PATIENT REPORTS GENERALIZED BODY PAIN, STATES THAT PAIN ORIGINATES IN LOWER BACK.
[2019-05-25 21:53] VITALS: BP 156/115
[2019-05-25] MEDS: TOPIRAMATE 100 MG TAB PO SCH (21:58)
[2019-05-25] MEDS: HYDROmorphone HCL 2 MG TAB PO PRN (21:58)
--- NOTE | 2019-05-25 22:00 | NUR ---
PATIENT REPORTS PAIN 8/10 PATIENT STATES THAT PAIN IS NOT RELIEVED, SHE STATES THAT HER PAIN IS CHRONIC AND MEDS HELP "VERY LITTLE".
--- NOTE | 2019-05-25 23:00 | NUR ---
PAIN REASSESSMENT PATIENT REPORTS PAIN 6/10. PATIENT SITTING AT EDGE OF BED. REPORTS PAIN TO BACK.
[2019-05-26] MEDS: METOPROLOL TARTRATE 1MG/1ML-5ML VIAL IV SCH ×3 (00:37→12:00)
[2019-05-26] MEDS: HYDROmorphone HCL 2 MG/ML VL IV PRN ×3 (00:47→10:16)
[2019-05-26] MEDS: ONDANSETRON HCL 4 MG/2 ML VIAL IV PRN ×3 (00:47→10:15)
--- NOTE | 2019-05-26 00:50 | NUR ---
PATIENT REPORTS PAIN 8/10 TO BACK. PATIENT STATES THAT SHE GETS LITTLE SLEEP DUE TO PAIN.
--- NOTE | 2019-05-26 01:20 | NUR ---
PAIN REASSESSMENT PATIENT RESTING, EYES CLOSED. NO S/SX OF PAIN. O/10 USING FLACC. BREATHS ARE EVEN AND UNLABORED.
[2019-05-26] MEDS: VANCOMYCIN 1GM/250ML 250 ML IV SCH ×2 (02:45→10:00)
[2019-05-26] MEDS: HYDROmorphone HCL 2 MG TAB PO PRN (03:55)
--- NOTE | 2019-05-26 03:55 | NUR ---
PAIN 9/10 PATIENT REPORTS PAIN 9/10 TO LOWER BACK, LEGS AND TOES. ADMINISTERED PAIN MEDICATION AND PROVIDED MORE PILLOWS FOR POSITION COMFORT.
[2019-05-26 05:00] VITALS: BP 144/105
[2019-05-26] MEDS: metroNIDAZOLE 500MG/100ML 100 ML IV SCH (07:01)
[2019-05-26] MEDS: ACCU-CHEK COMFORT CURVE STRIP VI SCH ×2 (07:03→11:30)
[2019-05-26] MEDS: InsuLIN REG 1unit/0.01ml Soln (100units/ml) SC SCH ×2 (07:03→11:30)
[2019-05-26 08:59] VITALS: BP 122/82
[2019-05-26 09:38] LABS: BUN/Creatinine Ratio 1.4; Calcium 8.1 mg/dL (8.5-10.1); Phosphorus 2.3 mg/dL (2.5-4.90); Potassium 3.5 mmol/L (3.5-5.1)
[2019-05-26] MEDS: levoFLOXacin 500MG 100 ML IV SCH (10:00)
[2019-05-26] MEDS: PANTOPRAZOLE 40 MG TAB PO SCH (10:16)
[2019-05-26] MEDS: TOPIRAMATE 100 MG TAB PO SCH (10:16)
[2019-05-26 10:44] LABS: Hepatitis A Ab IgM Negative; Hepatitis B Core IgM Negative; Hepatitis C Antibody Negative (Negative)
[2019-05-26 11:26] VITALS: BP 122/82
[2019-05-26 13:00] VITALS: BP 147/99
--- NOTE | 2019-05-26 14:28 | NUR ---
Discharge instructions given as ordered. Encourage to follow up with PMD as instructed. All questions and concerns addressed. Patient verbalized understanding. Medication reconciliation form completed and copy given to patient. No Home medications held in Pharmacy and none to be returned to patient, and no needed vaccines given. IV removed with catheter intact, pressure dressing applied. Telemetry unit returned to ICU. Patient ambulated to vehicle with all personal belongings, accompanied by staff and family member. No distress noted at time of departure.
--- NOTE | 2019-05-26 15:41 | NUR ---
Pt is an alert and oriented female that resides with her 19 yo daughter, Sahra. Pt states she has a fww at home and was able to function independently prior to admission. Discussed with pt provider orders for home health for safety due to seizure activity. Discussed with patient choice letter and provided list of home health agencies. Per pt she has been on home health before with [facility] and would want to use their service again. Contacted marisel at [facility] and faxed clinical information. Informed that pt will be discharged today and followup from home health will be on tomorrow. Pt states she has transportation home and no other needs at this time. Addendum: 05/26/19 at 1546 by SILVA BROWN Amended: Links added.
[2019-05-27 07:00] LABS: Hepatitis B Surface Antigen Negative (Negative)
== END 2019-05-26 14:00 | disposition home health service (06) | DRG 871 ==
LOC: ER 10:31 → EDBD 10:31 → TELE 10:32 → DOU IN ICU 05-22 14:16 → TELE-WESTW 05-23 15:44
PROVIDERS: ADMIT Nurse Practitioner Acute Care; ATTEND Internal Medicine
DX: A41.1 Sepsis due to other specified staphylococcus (principal); N17.0 Acute kidney failure with tubular necrosis; G93.41 Metabolic encephalopathy; K72.00 Acute and subacute hepatic failure without coma; E44.1 Mild protein-calorie malnutrition; E87.0 Hyperosmolality and hypernatremia; E87.1 Hypo-osmolality and hyponatremia; I16.9 Hypertensive crisis, unspecified; R65.20 Severe sepsis without septic shock; E11.40 Type 2 diabetes mellitus with diabetic neuropathy, unspecified; N18.3 Chronic kidney disease, stage 3 (moderate); H49.9 Unspecified paralytic strabismus; K52.9 Noninfective gastroenteritis and colitis, unspecified; D35.00 Benign neoplasm of unspecified adrenal gland; E87.6 Hypokalemia; I12.9 Hypertensive chronic kidney disease with stage 1 through stage 4 chronic kidney disease, or unspecified chronic kidney disease; E78.5 Hyperlipidemia, unspecified; E83.39 Other disorders of phosphorus metabolism; F41.9 Anxiety disorder, unspecified; G89.4 Chronic pain syndrome; F32.9 Major depressive disorder, single episode, unspecified; M54.5 Low back pain; G40.409 Other generalized epilepsy and epileptic syndromes, not intractable, without status epilepticus; F17.210 Nicotine dependence, cigarettes, uncomplicated; E11.22 Type 2 diabetes mellitus with diabetic chronic kidney disease; G43.909 Migraine, unspecified, not intractable, without status migrainosus; Z68.29 Body mass index [BMI] 29.0-29.9, adult; Z88.0 Allergy status to penicillin; Z88.8 Allergy status to other drugs, medicaments and biological substances; Z86.711 Personal history of pulmonary embolism; Z82.49 Family history of ischemic heart disease and other diseases of the circulatory system; Z79.4 Long term (current) use of insulin; Z79.84 Long term (current) use of oral hypoglycemic drugs; Z79.899 Other long term (current) drug therapy; Z83.3 Family history of diabetes mellitus
CPT/HCPCS: 36415; 36600; 51702; 70450; 71045; 71275; 74176; 76705; 80048; 80053; 80074; 80202; 80307; 80329; 81001; 81025; 82140; 82550; 82570; 82805; 82962; 83036; 83735; 84100; 84132; 84156; 84300; 84484; 85025; 85379; 87040; 87077; 87186; 92610; 93005; 93306; 95819; 96361; 96365; 99291; G0378; J0696; J1815; J1956; J2001; J2405; J3480; J3490; J7060

== ENCOUNTER 2019-06-26 15:55 | Inpatient (IN) | payer MEDICARE ==
[~2019-06-26] VITALS: Ht 167.6 cm; Wt 70.4 kg
[2019-06-26 16:47] LABS: Basophils # (auto) 0 10 ^3/uL (0-0.2); Basophils % (auto) 0.6 % (0.0-2.0); Eosinophils # (auto) 0.3 10 ^3/uL (0-0.8); Eosinophils % (auto) 3.9 % (0.0-7.0); Hemoglobin 11.3 g/dL (12.2-16.2); Lymphocytes # (auto) 1.2 10 ^3/uL (0.4-5.4); Lymphocytes % (auto) 16.4 % (10.0-50.0); Mean Corpuscular Hemoglobin 27.2 pg (28.0-32.0); Mean Corpuscular Hgb Conc. 32.2 g/dL (32.0-36.0); Mean Corpuscular Volume 84.4 fL (80.0-100.0); Monocytes # (auto) 0.6 10 ^3/uL (0-1.3); Monocytes % (auto) 7.6 % (0.0-12.0); Neutrophils # (auto) 5.4 10 ^3/uL (1.6-8.6); Neutrophils % (auto) 71.5 % (37.0-80.0); Platelet Count (auto) 283 10^3/uL (140-450); Red Blood Cells 4.14 10^6/uL (4.0-5.20); Red Cell Distribution Width 17.9 % (11.8-14.3); White Blood Cell 7.5 10^3/uL (4.4-10.8)
[2019-06-26 17:02] LABS: Calcium 8.3 mg/dL (8.5-10.1); Potassium 3.4 mmol/L (3.5-5.1)
[2019-06-26 17:05] LABS: BUN/Creatinine Ratio 7.2; Bilirubin, Total 0.3 mg/dL (0.2-1.0); Total Protein 6.5 g/dL (6.4-8.2)
[2019-06-26] MEDS ORDERED: MORPHINE SULFATE 4 MG/ML SYR/VIAL IV ONE (17:15)
[2019-06-26] MEDS ORDERED: ONDANSETRON HCL 4 MG/2 ML VIAL IV ONE (17:15)
[2019-06-26] MEDS ORDERED: DEXTROSE (50%) 50ML SYRG IV PRN (18:15)
[2019-06-26] MEDS: MORPHINE SULF INJ 2 MG/ML SYRINGE 1ML IV PRN (19:47)
[2019-06-26] MEDS: LORazepam 2MG/ML-1ML VIAL IV PRN ×2 (21:21→23:30)
[2019-06-26] MEDS: APTIOM 800 MG PO SCH (22:00)
[2019-06-26] MEDS: TOPIRAMATE 100 MG TAB PO SCH (22:47)
[2019-06-27] MEDS: LORazepam 2MG/ML-1ML VIAL IV PRN ×3 (03:00→10:09)
[2019-06-27] MEDS: MORPHINE SULF INJ 2 MG/ML SYRINGE 1ML IV PRN ×6 (04:15→21:54)
[2019-06-27] MEDS: ONDANSETRON HCL 4 MG/2 ML VIAL IV PRN ×6 (04:16→23:48)
[2019-06-27 05:32] LABS: Basophils # (auto) 0 10 ^3/uL (0-0.2); Basophils % (auto) 0.7 % (0.0-2.0); Eosinophils # (auto) 0.3 10 ^3/uL (0-0.8); Eosinophils % (auto) 5.2 % (0.0-7.0); Hematocrit 36.1 % (36.0-46.0); Hemoglobin 11.4 g/dL (12.2-16.2); Lymphocytes # (auto) 1.6 10 ^3/uL (0.4-5.4); Lymphocytes % (auto) 24.7 % (10.0-50.0); Mean Corpuscular Hemoglobin 27.6 pg (28.0-32.0); Mean Corpuscular Hgb Conc. 31.6 g/dL (32.0-36.0); Mean Corpuscular Volume 87.4 fL (80.0-100.0); Monocytes # (auto) 0.6 10 ^3/uL (0-1.3); Monocytes % (auto) 8.7 % (0.0-12.0); Neutrophils # (auto) 3.8 10 ^3/uL (1.6-8.6); Neutrophils % (auto) 60.7 % (37.0-80.0); Nucleated Red Blood Cells % 0.1 %; Platelet Count (auto) 262 10^3/uL (140-450); Red Blood Cells 4.13 10^6/uL (4.0-5.20); Red Cell Distribution Width 18.8 % (11.8-14.3); White Blood Cell 6.3 10^3/uL (4.4-10.8)
[2019-06-27 05:47] LABS: Albumin 2.9 g/dL (3.4-5.0); Calcium 8.6 mg/dL (8.5-10.1); Potassium 3.8 mmol/L (3.5-5.1)
[2019-06-27 05:51] LABS: BUN/Creatinine Ratio 10.8; Bilirubin, Total 0.3 mg/dL (0.2-1.0); Total Protein 6.4 g/dL (6.4-8.2)
[2019-06-27] MEDS: hydrALAZINE HCL 20 MG/ML VL IV PRN ×3 (09:04→21:32)
[2019-06-27] MEDS: TOPIRAMATE 100 MG TAB PO SCH ×2 (10:20→21:55)
[2019-06-27] MEDS: METOPROLOL SUCCINATE XL 50 MG TAB PO SCH (10:21)
[2019-06-27] MEDS ORDERED: TIZANIDINE HYDROCHLORIDE 4 MG PO PRN (12:00)
[2019-06-27] MEDS ORDERED: METOPROLOL TARTRATE 1MG/1ML-5ML VIAL IV ONE (12:15)
[2019-06-27 14:00] VITALS: BP 161/134
--- NOTE | 2019-06-27 14:24 | NUR ---
ELECTROENCEPHALOGRAM COMPLETED AT BEDSIDE. JOAN BARRIGA.
[2019-06-27] MEDS ORDERED: LORA1TAB12 PO (15:39)
[2019-06-27] MEDS ORDERED: ESLI1TAB4 PO (15:39)
[2019-06-27] MEDS ORDERED: TOPI100T29 PO (15:39)
[2019-06-27 17:00] VITALS: BP 176/125
[2019-06-27] MEDS ORDERED: AMIT25TA9 PO (18:16)
--- NOTE | 2019-06-27 19:16 | NUR ---
Opening Shift Note Assumed care of patient, awake and alert. No S/S of distress/SOB or pain. Instructed on POC and to call for assist PRN, will continue to monitor for changes Q1hr and PRN. bed in low position call light within reach. bed alarm on. seizure and fall precaution in place
--- NOTE | 2019-06-27 19:28 | NUR ---
MD Gonzalez at bedside explaining POC to patient. patient verbalized understanding.
[2019-06-27] MEDS ORDERED: DEXTROSE (50%) 50ML SYRG IV PRN (19:30)
--- NOTE | 2019-06-27 19:57 | NUR ---
New orders by MD Gonzalez Flexroulal PO 10mg q8hrs prn. New orders for accu-checks q 4hrs
[2019-06-27] MEDS: ACCU-CHEK COMFORT CURVE STRIP VI SCH (20:00)
[2019-06-27] MEDS: InsuLIN REG 1unit/0.01ml Soln (100units/ml) SC SCH (20:00)
--- NOTE | 2019-06-27 20:06 | NUR ---
Upon entering room with MD Pickens patient is seen laying down on her left side in the bed with tremors, unresponsive with hear rate present 120bpm rr even and unlabored. MD Pickens assessed patient and ordered for NS 10ml to be given IV. Patient was awake and alert and orientated times 4 after NS was administered. no signs of distress, sob or pain.
[2019-06-27] MEDS ORDERED: CYCLOBENZAPRINE HCL 10 MG TAB PO PRN (20:15)
--- NOTE | 2019-06-27 20:40 | NUR ---
IV insertion/IV removal IV DC'd due patient reporting pain. IV discontinued with clean sterile technique, catheter fully intact. Pressure dressing applied to site. Patient tolerated well. IV access obtained by JOAN DAVALOS via clean sterile technique by inserting 22 gauge catheter at right ac after 2 attempts. IV secured properly. No trauma to site. Patient tolerated well.
--- NOTE | 2019-06-27 21:54 | NUR ---
patient reports pain 10/10 to lower back chrinic back pain. patient medicated per protocol
[2019-06-27 22:00] VITALS: BP 187/100
[2019-06-27] MEDS: APTIOM 800 MG PO SCH (22:00)
--- NOTE | 2019-06-27 22:05 | NUR ---
MD diaz notified at 2205 of patient blood pressure 187/100, heart rate 130-150's, pain 10/10 to back. Patient rr 19, oxygen via room air 100% when assessed . Informed md Hydralazine and morphine given as scheduled. informed MD blood pressure reading at 163/111, heart rate sustaining in the 140s-150's. 2238 per MD patient has pheochromocytoma, orders received for metoprolol 5mg q2hrs prn for heart rate greater than 160 and cardio consult with kasandra for high heart rate.
--- NOTE | 2019-06-27 22:24 | NUR ---
pain reassessment patient sleeping no signs distress sob or pain
--- NOTE | 2019-06-27 22:33 | NUR ---
call from telemonitor tech patient had episode of 160bpm. patient is currently in restroom reports no distress. new tele stickers applied to patient upon returning to bed.fall precaution and seizure precaution in place
[2019-06-27] MEDS ORDERED: METOPROLOL TARTRATE 1MG/1ML-5ML VIAL IV PRN (23:00)
--- NOTE | 2019-06-27 23:48 | NUR ---
patient educated on maintaining HOB up if nauseas/vomiting to prevent aspiration. patient verbalized understanding.
[2019-06-28] MEDS: InsuLIN REG 1unit/0.01ml Soln (100units/ml) SC SCH ×6 (00:09→20:00)
[2019-06-28] MEDS: ACCU-CHEK COMFORT CURVE STRIP VI SCH ×6 (00:09→20:00)
[2019-06-28] MEDS: MORPHINE SULF INJ 2 MG/ML SYRINGE 1ML IV PRN ×4 (02:38→20:37)
--- NOTE | 2019-06-28 02:38 | NUR ---
pain 9/10 to back. patient medicated per protocol
--- NOTE | 2019-06-28 03:08 | NUR ---
pain reassessment patient sleeping
[2019-06-28] MEDS: LORazepam 2MG/ML-1ML VIAL IV PRN (03:30)
--- NOTE | 2019-06-28 03:30 | NUR ---
patient having a seizure. patient is laying on her side rocking back and forth, respiration 17 bilateral chest rise and fall, no changes in skin color, pulse 135bpm. Seizure lasting 20seconds. Patient reorientated to environment. patient is alert and orientated times 4. b/p 146/111, heart rate 138, rr18, o2 saturation 97%.
[2019-06-28] MEDS: ONDANSETRON HCL 4 MG/2 ML VIAL IV PRN ×3 (03:58→20:39)
[2019-06-28 05:00] VITALS: BP 187/114
--- NOTE | 2019-06-28 05:00 | NUR ---
UA sent to lab
[2019-06-28] MEDS: hydrALAZINE HCL 20 MG/ML VL IV PRN (05:05)
[2019-06-28 06:02] LABS: Eosinophils # (auto) 0.1 10 ^3/uL (0-0.8); Eosinophils % (auto) 0.5 % (0.0-7.0); Hemoglobin 11.7 g/dL (12.2-16.2); Lymphocytes # (auto) 1.9 10 ^3/uL (0.4-5.4); Neutrophils # (auto) 8.5 10 ^3/uL (1.6-8.6); Nucleated Red Blood Cells % 0.1 %; White Blood Cell 11.7 10^3/uL (4.4-10.8)
[2019-06-28 06:04] LABS: Basophils # (auto) 0.1 10 ^3/uL (0-0.2); Basophils % (auto) 1.2 % (0.0-2.0); Hematocrit 35.7 % (36.0-46.0); Lymphocytes % (auto) 15.9 % (10.0-50.0); Mean Corpuscular Hemoglobin 27.2 pg (28.0-32.0); Mean Corpuscular Hgb Conc. 32.8 g/dL (32.0-36.0); Mean Corpuscular Volume 82.8 fL (80.0-100.0); Monocytes # (auto) 1.2 10 ^3/uL (0-1.3); Neutrophils % (auto) 72.4 % (37.0-80.0); Platelet Count (auto) 398 10^3/uL (140-450); Red Blood Cells 4.31 10^6/uL (4.0-5.20); Red Cell Distribution Width 18.2 % (11.8-14.3)
[2019-06-28 06:13] LABS: Urine Bacteria NONE SEEN /hpf (None Seen); Urine Blood Negative /uL (Negative); Urine Specific Gravity 1.008 (1.001-1.035); Urine WBC 2 /hpf (0 - 5)
[2019-06-28 06:22] LABS: Albumin 3.3 g/dL (3.4-5.0); Calcium 8.4 mg/dL (8.5-10.1); Potassium 3.2 mmol/L (3.5-5.1)
[2019-06-28 06:28] LABS: BUN/Creatinine Ratio 16.7; Bilirubin, Total 0.5 mg/dL (0.2-1.0)
--- NOTE | 2019-06-28 07:21 | NUR ---
report given to dayshift rn patient shows no signs of distress or sob
--- NOTE | 2019-06-28 07:22 | NUR ---
Opening Shift Note: Assumed care of patient, awake and alert. No S/S of distress/SOB or pain. Bed in lowest locked position, side rails up x 2, call light within reach. Bed alarm activated for patient safety, side rails padded for patient safety. Patient instructed on POC and to call for assist PRN, will continue to monitor for changes Q1hr and PRN.
--- NOTE | 2019-06-28 07:42 | NUR ---
PAIN Patient states pain level 10/10 located in upper and lower back. Appropriate pain medications given. Will reassess.
--- NOTE | 2019-06-28 08:12 | NUR ---
PAIN REASSESSMENT Patient states pain level 5/10 at this time. Per patient "pain is tolerable" Patient given heat pack. Will continue to monitor.
[2019-06-28 08:56] VITALS: BP 151/101
[2019-06-28] MEDS: TOPIRAMATE 100 MG TAB PO SCH (09:25)
[2019-06-28] MEDS: METOPROLOL SUCCINATE XL 50 MG TAB PO SCH (09:25)
--- NOTE | 2019-06-28 12:25 | NUR ---
PAIN Patient states pain level 10/10. Pain located in back and head. Appropriate pain medications given. Will continue to monitor.
--- NOTE | 2019-06-28 12:55 | NUR ---
PAIN REASSESSMENT Patient states pain level 4/10 at this time. Per patient "pain is much better." Will continue to monitor.
[2019-06-28 13:14] VITALS: BP 158/109
--- NOTE | 2019-06-28 15:20 | NUR ---
IV insertion: IV access obtained, via clean sterile technique by inserting 22 gauge catheter at right wirst after 1 attempt. IV secured properly. No trauma to site. Patient tolerated well. IV removal: Left AC IV DC'd with clean sterile technique, catheter fully intact. Pressure dressing applied to site. Patient tolerated well.
--- NOTE | 2019-06-28 17:00 | NUR ---
LOW BLOOD PRESSURE Patients BP at this time is 74/46. Contacted Dr. Gonzalez, Per Dr. "Patient has pheochromocytoma, if no symptoms, just monitor." Patient asymptomatic at this time. Will continue to monitor.
[2019-06-28 17:12] VITALS: BP 74/46
--- NOTE | 2019-06-28 19:22 | NUR ---
CLOSING NOTE: Patient resting in bed. No S/S of distress or SOB at this time. Care endorsed to NOC RN.
[2019-06-28 20:00] VITALS: BP 151/101
[2019-06-28 22:00] VITALS: BP 88/58
[2019-06-28] MEDS: APTIOM 800 MG PO SCH (22:00)
[2019-06-29] MEDS: ONDANSETRON HCL 4 MG/2 ML VIAL IV PRN ×3 (01:35→11:34)
[2019-06-29] MEDS: MORPHINE SULF INJ 2 MG/ML SYRINGE 1ML IV PRN ×3 (01:36→11:34)
[2019-06-29] MEDS: TOPIRAMATE 100 MG TAB PO SCH ×2 (03:00→09:23)
[2019-06-29] MEDS: ACCU-CHEK COMFORT CURVE STRIP VI SCH ×5 (04:00→16:00)
[2019-06-29] MEDS: InsuLIN REG 1unit/0.01ml Soln (100units/ml) SC SCH ×5 (04:00→16:00)
[2019-06-29 05:00] VITALS: BP 111/63
--- NOTE | 2019-06-29 06:34 | NUR ---
GOOD RELIEF FROM MORPHINE WITH PT'S PAIN LEVEL NOW AT ONE. PT RESTED WELL THROUGHOUT THE NIGHT WITH CALL LIGHT IN REACH AND TWO SIDERAILS UP. WILL CONTINUE TO MONITOR.
--- NOTE | 2019-06-29 07:20 | NUR ---
Opening Shift Note: Assumed care of patient, awake and alert. No S/S of distress/SOB or pain. Bed in lowest locked position, side rails up x 2, call light within reach. Side rails padded for patient safety, bed alarm activated for patient safety. Patient instructed on POC and to call for assist PRN, will continue to monitor for changes Q1hr and PRN.
[2019-06-29 08:00] VITALS: BP 97/53
[2019-06-29 08:09] LABS: Basophils # (auto) 0.1 10 ^3/uL (0-0.2); Basophils % (auto) 1.3 % (0.0-2.0); Eosinophils # (auto) 0.4 10 ^3/uL (0-0.8); Hematocrit 29.9 % (36.0-46.0); Hemoglobin 9.2 g/dL (12.2-16.2); Lymphocytes # (auto) 1.8 10 ^3/uL (0.4-5.4); Mean Corpuscular Hgb Conc. 30.9 g/dL (32.0-36.0); Mean Corpuscular Volume 87.2 fL (80.0-100.0); Monocytes # (auto) 0.6 10 ^3/uL (0-1.3); Neutrophils # (auto) 2.9 10 ^3/uL (1.6-8.6); Neutrophils % (auto) 49.7 % (37.0-80.0); Nucleated Red Blood Cells % 0.1 %; Platelet Count (auto) 214 10^3/uL (140-450); Red Blood Cells 3.42 10^6/uL (4.0-5.20); White Blood Cell 5.8 10^3/uL (4.4-10.8)
[2019-06-29 08:23] LABS: Albumin 2.4 g/dL (3.4-5.0); Calcium 7.5 mg/dL (8.5-10.1); Potassium 3.5 mmol/L (3.5-5.1)
[2019-06-29 08:26] LABS: Bilirubin, Total 0.2 mg/dL (0.2-1.0); Total Protein 5.2 g/dL (6.4-8.2)
[2019-06-29] MEDS: METOPROLOL SUCCINATE XL 50 MG TAB PO SCH (09:23)
[2019-06-29 12:00] VITALS: BP 140/94
--- NOTE | 2019-06-29 12:57 | NUR ---
right wrist IV infiltrated at this time. Patient refused new IV start. Patient educated on need for IV at this time. Will attempt again.
--- NOTE | 2019-06-29 15:00 | NUR ---
Contacted Dr. Gonzalez regarding patient. Per Dr. Gonzalez "patient can be DC'd today, I will see her in my office."
--- NOTE | 2019-06-29 16:01 | NUR ---
Patient BP at this time is 167/118. Contact Dr. Gonzalez. Per "that is fine, I will see patient in my office tomorrow."
--- NOTE | 2019-06-29 16:52 | NUR ---
Discharge instructions given as ordered. Encourage to follow up with PMD as instructed. All questions and concerns addressed. Patient verbalized understanding. Medication reconciliation form completed and copy given to patient. IV removed with catheter intact, pressure dressing applied. Telemetry unit returned to ICU. Patient ambulated to vehicle with all personal belongings, accompanied by staff. No distress noted at time of departure.
== END 2019-06-29 16:55 | disposition home or self-care (01) | DRG 101 ==
LOC: ER 15:55 → EDBD 15:55 → TELE 15:56 → TELE-WESTW 06-27 13:07
PROVIDERS: ADMIT Internal Medicine; ATTEND Internal Medicine
DX: G40.401 Other generalized epilepsy and epileptic syndromes, not intractable, with status epilepticus (principal); D72.829 Elevated white blood cell count, unspecified; D35.00 Benign neoplasm of unspecified adrenal gland; F41.9 Anxiety disorder, unspecified; E11.649 Type 2 diabetes mellitus with hypoglycemia without coma; G43.109 Migraine with aura, not intractable, without status migrainosus; I10 Essential (primary) hypertension; K21.9 Gastro-esophageal reflux disease without esophagitis; F32.9 Major depressive disorder, single episode, unspecified; E78.5 Hyperlipidemia, unspecified; J44.9 Chronic obstructive pulmonary disease, unspecified; G89.4 Chronic pain syndrome; E11.40 Type 2 diabetes mellitus with diabetic neuropathy, unspecified; Z79.4 Long term (current) use of insulin; Z82.49 Family history of ischemic heart disease and other diseases of the circulatory system; Z83.3 Family history of diabetes mellitus; Z86.711 Personal history of pulmonary embolism
CPT/HCPCS: 36415; 70450; 71045; 80053; 81001; 82962; 85025; 87081; 93005; 95819; G0378; J1815; J2405

== ENCOUNTER 2019-07-10 18:22 | Inpatient (IN) | payer MEDICARE ==
[~2019-07-10] VITALS: Ht 162.6 cm; Wt 69.3 kg
[~2019-07-10 18:22] MED LIST changes: +AMIT25TA9 PO; -BIOTCAP2 OR; +BIOTCAP2 PO; +ESLI1TAB4 PO; +LORA1TAB12 PO; +TOPI100T29 PO
[2019-07-10] MEDS ORDERED: levoFLOXacin 500MG 100 ML IV ONE (19:00)
[2019-07-10 20:08] LABS: Basophils # (auto) 0 10 ^3/uL (0-0.2); Eosinophils # (auto) 0.1 10 ^3/uL (0-0.8); Monocytes # (auto) 0.5 10 ^3/uL (0-1.3); Monocytes % (auto) 8.8 % (0.0-12.0); Neutrophils # (auto) 3.8 10 ^3/uL (1.6-8.6)
[2019-07-10 20:10] LABS: Basophils % (auto) 0.6 % (0.0-2.0); Eosinophils % (auto) 1.8 % (0.0-7.0); Hematocrit 36.4 % (36.0-46.0); Hemoglobin 11.5 g/dL (12.2-16.2); Lymphocytes # (auto) 1.3 10 ^3/uL (0.4-5.4); Lymphocytes % (auto) 22.6 % (10.0-50.0); Mean Corpuscular Hemoglobin 26.8 pg (28.0-32.0); Mean Corpuscular Hgb Conc. 31.7 g/dL (32.0-36.0); Mean Corpuscular Volume 84.7 fL (80.0-100.0); Neutrophils % (auto) 66.2 % (37.0-80.0); Platelet Count (auto) 253 10^3/uL (140-450); Red Blood Cells 4.29 10^6/uL (4.0-5.20); Red Cell Distribution Width 18.1 % (11.8-14.3); White Blood Cell 5.8 10^3/uL (4.4-10.8)
[2019-07-10 20:30] LABS: Albumin 2.8 g/dL (3.4-5.0); Anion Gap 17 (5-15); Blood Urea Nitrogen 7 mg/dL (7-18); Calcium 7.9 mg/dL (8.5-10.1); Carbon Dioxide 15 mmol/L (21-32); Chloride 99 mmol/L (98-107); Potassium 3.4 mmol/L (3.5-5.1); Sodium 131 mmol/L (136-145)
[2019-07-10 20:32] LABS: Alanine Aminotransferase 69 U/L (13-56); Aspartate Aminotransferase 80 U/L (15-37); Bilirubin, Total 0.2 mg/dL (0.2-1.0); GFR African American 76 mL/min; GFR Non-African American 62 mL/min; Total Protein 6.6 g/dL (6.4-8.2)
[2019-07-10 20:35] LABS: Lactic Acid w/Reflex 6.4 mmol/L (0.4-2.0)
[2019-07-10 20:38] LABS: Alkaline Phosphatase 394 U/L (45-117)
[2019-07-10 20:45] LABS: BUN/Creatinine Ratio 6.8
[2019-07-10 20:49] LABS: Glucose 564 mg/dL (74-106)
[2019-07-10] MEDS ORDERED: MORPHINE SULF INJ 2 MG/ML SYRINGE 1ML IV PRN (21:00)
[2019-07-10] MEDS ORDERED: NITROGLYCERIN 0.4 MG SL TAB SL PRN (21:00)
[2019-07-10] MEDS ORDERED: DEXTROSE (50%) 50ML SYRG IV PRN (21:00)
[2019-07-10] MEDS ORDERED: LORazepam 2MG/ML-1ML VIAL IV PRN (21:00)
[2019-07-10] MEDS ORDERED: LORazepam 2MG/ML-1ML VIAL ONE (21:08)
[2019-07-10] MEDS: MORPHINE SULF INJ 2 MG/ML SYRINGE 1ML IV PRN (22:26)
[2019-07-10] MEDS: ACCU-CHEK COMFORT CURVE STRIP VI SCH (22:35)
[2019-07-10] MEDS: InsuLIN REG 1unit/0.01ml Soln (100units/ml) SC SCH (22:36)
[2019-07-10] MEDS: INSULIN LANTUS (GLARGINE) 1 /0.01ml (100units/ml) SC SCH (22:37)
[2019-07-10 22:55] VITALS: BP 116/80
[2019-07-11] VITALS (7 sets, daily range): BP systolic 124–187; BP diastolic 76–135
[2019-07-11] MEDS: LORazepam 0.5 MG TAB PO PRN ×2 (00:50→14:42)
[2019-07-11] MEDS: MORPHINE SULF INJ 2 MG/ML SYRINGE 1ML IV PRN ×6 (01:52→23:10)
[2019-07-11] MEDS: ONDANSETRON HCL 4 MG/2 ML VIAL IV PRN ×6 (01:57→23:10)
[2019-07-11] MEDS: METOPROLOL TARTRATE 1MG/1ML-5ML VIAL IV PRN ×4 (04:00→20:14)
[2019-07-11] MEDS: InsuLIN REG 1unit/0.01ml Soln (100units/ml) SC SCH ×4 (05:56→23:09)
[2019-07-11] MEDS: ACCU-CHEK COMFORT CURVE STRIP VI SCH ×4 (05:56→22:57)
[2019-07-11 07:25] LABS: Hematocrit 37.6 % (36.0-46.0); Hemoglobin 12.2 g/dL (12.2-16.2); Mean Corpuscular Hemoglobin 27.2 pg (28.0-32.0); Mean Corpuscular Hgb Conc. 32.5 g/dL (32.0-36.0); Mean Corpuscular Volume 83.6 fL (80.0-100.0); Platelet Count (auto) 174 10^3/uL (140-450); Red Cell Distribution Width 18.2 % (11.8-14.3)
[2019-07-11 07:29] LABS: Basophils % (manual) 0 (0.0-2.0); Blast Cells 0; Metamyelocytes % 0; Myelocytes % 0; Promyelocytes % 0; Reactive Lymphocytes 0
[2019-07-11 07:35] LABS: Potassium 3.5 mmol/L (3.5-5.1)
[2019-07-11 07:42] LABS: Albumin 3.1 g/dL (3.4-5.0); BUN/Creatinine Ratio 9.4; Bilirubin, Total 0.5 mg/dL (0.2-1.0); Calcium 8.3 mg/dL (8.5-10.1)
[2019-07-11 07:49] LABS: Band Neutrophils % (manual) 2; Eosinophils % (manual) 1 (0-7); Lymphocytes % (manual) 10 (10.0-50.0); Monocytes % (manual) 11 (0-12)
[2019-07-11 07:51] LABS: White Blood Cell 14.7 10^3/uL (4.4-10.8)
[2019-07-11] MEDS: TOPIRAMATE 100 MG TAB PO SCH (09:50)
[2019-07-11] MEDS: INSULIN LANTUS (GLARGINE) 1 /0.01ml (100units/ml) SC SCH ×2 (09:51→23:10)
[2019-07-11] MEDS ORDERED: PATIENTS OWN MEDICATION PO SCH (10:00)
[2019-07-11] MEDS ORDERED: METOPROLOL TARTRATE 25 MG TAB PO SCH (10:00)
[2019-07-11] MEDS ORDERED: METOPROLOL TARTRATE 1MG/1ML-5ML VIAL IV ONE (12:30)
[2019-07-11] MEDS: TIZANIDINE 4 MG PO PRN (13:00)
[2019-07-11] MEDS: hydrALAZINE HCL 20 MG/ML VL IV PRN ×2 (14:42→22:47)
[2019-07-11] MEDS: ALPRAZolam 0.25 MG TAB PO SCH (20:13)
[2019-07-11] MEDS: metroNIDAZOLE 500MG/100ML 100 ML IV SCH (20:13)
[2019-07-11] MEDS ORDERED: LORazepam 2MG/ML-1ML VIAL IV PRN (21:30)
[2019-07-11] MEDS: APTIOM 800 MG PO SCH (22:56)
[2019-07-12] MEDS: METOPROLOL TARTRATE 1MG/1ML-5ML VIAL IV PRN ×3 (00:51→12:10)
[2019-07-12] MEDS: hydrALAZINE HCL 20 MG/ML VL IV PRN ×2 (02:37→12:10)
[2019-07-12] MEDS: ONDANSETRON HCL 4 MG/2 ML VIAL IV PRN ×5 (03:14→21:29)
[2019-07-12] MEDS: MORPHINE SULF INJ 2 MG/ML SYRINGE 1ML IV PRN ×4 (03:14→16:47)
[2019-07-12] MEDS: LORazepam 0.5 MG TAB PO PRN (03:15)
[2019-07-12 05:00] VITALS: BP 129/74
[2019-07-12] MEDS: ACCU-CHEK COMFORT CURVE STRIP VI SCH ×4 (05:23→21:52)
[2019-07-12] MEDS: InsuLIN REG 1unit/0.01ml Soln (100units/ml) SC SCH ×4 (05:26→21:59)
[2019-07-12] MEDS: metroNIDAZOLE 500MG/100ML 100 ML IV SCH ×3 (05:35→21:30)
[2019-07-12 06:13] LABS: Basophils # (auto) 0 10 ^3/uL (0-0.2); Basophils % (auto) 0.5 % (0.0-2.0); Eosinophils # (auto) 0.1 10 ^3/uL (0-0.8); Hemoglobin 12.4 g/dL (12.2-16.2); Lymphocytes # (auto) 1.5 10 ^3/uL (0.4-5.4); Lymphocytes % (auto) 18.4 % (10.0-50.0); Mean Corpuscular Hgb Conc. 32.7 g/dL (32.0-36.0); Mean Corpuscular Volume 82.5 fL (80.0-100.0); Monocytes # (auto) 1.1 10 ^3/uL (0-1.3); Monocytes % (auto) 13.9 % (0.0-12.0); Neutrophils # (auto) 5.4 10 ^3/uL (1.6-8.6); Neutrophils % (auto) 66.2 % (37.0-80.0); Platelet Count (auto) 316 10^3/uL (140-450); Red Blood Cells 4.61 10^6/uL (4.0-5.20); Red Cell Distribution Width 18.4 % (11.8-14.3); White Blood Cell 8.1 10^3/uL (4.4-10.8)
[2019-07-12 06:33] LABS: Albumin 3.5 g/dL (3.4-5.0); Calcium 8.3 mg/dL (8.5-10.1)
[2019-07-12 06:39] LABS: BUN/Creatinine Ratio 10.3; Bilirubin, Total 0.6 mg/dL (0.2-1.0); Total Protein 7.4 g/dL (6.4-8.2)
[2019-07-12 08:00] VITALS: BP 143/97
[2019-07-12 09:00] VITALS: BP 145/97
[2019-07-12] MEDS ORDERED: POTASSIUM CHL 20 Meq TABLET PO ONE ×2 (09:00→12:00)
[2019-07-12] MEDS: levoFLOXacin 500MG 100 ML IV SCH (09:41)
[2019-07-12] MEDS: TOPIRAMATE 100 MG TAB PO SCH (09:42)
[2019-07-12] MEDS: METOPROLOL SUCCINATE XL 50 MG TAB PO SCH (09:43)
[2019-07-12] MEDS: INSULIN LANTUS (GLARGINE) 1 /0.01ml (100units/ml) SC SCH ×2 (09:44→21:54)
[2019-07-12] MEDS ORDERED: IOHEXOL 350 MG/ML 100ML IJ ONE (10:53)
[2019-07-12] MEDS: TIZANIDINE 4 MG PO PRN (12:11)
[2019-07-12 12:30] VITALS: BP 194/133
[2019-07-12 17:00] VITALS: BP 80/50
[2019-07-12] MEDS: ALPRAZolam 0.25 MG TAB PO SCH (21:29)
[2019-07-12] MEDS: PANTOPRAZOLE 40 MG TAB PO SCH (21:30)
[2019-07-12] MEDS: APTIOM 800 MG PO SCH (21:32)
[2019-07-13] MEDS: ONDANSETRON HCL 4 MG/2 ML VIAL IV PRN ×4 (02:15→14:35)
[2019-07-13] MEDS: MORPHINE SULF INJ 2 MG/ML SYRINGE 1ML IV PRN ×4 (02:15→14:35)
[2019-07-13] MEDS: LORazepam 0.5 MG TAB PO PRN (02:15)
[2019-07-13 05:00] VITALS: BP 105/59
[2019-07-13] MEDS: ACCU-CHEK COMFORT CURVE STRIP VI SCH ×2 (05:40→12:08)
[2019-07-13] MEDS: InsuLIN REG 1unit/0.01ml Soln (100units/ml) SC SCH ×2 (05:42→12:09)
[2019-07-13] MEDS: metroNIDAZOLE 500MG/100ML 100 ML IV SCH ×2 (06:04→14:01)
[2019-07-13 08:00] VITALS: BP 129/85
[2019-07-13 09:00] VITALS: BP 129/85
[2019-07-13] MEDS: levoFLOXacin 500MG 100 ML IV SCH (09:40)
[2019-07-13] MEDS: TOPIRAMATE 100 MG TAB PO SCH (09:41)
[2019-07-13] MEDS: PANTOPRAZOLE 40 MG TAB PO SCH (09:41)
[2019-07-13] MEDS: METOPROLOL SUCCINATE XL 50 MG TAB PO SCH (09:41)
[2019-07-13] MEDS: INSULIN LANTUS (GLARGINE) 1 /0.01ml (100units/ml) SC SCH (09:42)
[2019-07-13] MEDS: TIZANIDINE 4 MG PO PRN (09:43)
[2019-07-13] MEDS ORDERED: SUCRALFATE 1 GM/10 ML ORAL SUSP PO SCH (11:30)
[2019-07-13 13:00] VITALS: BP 71/45
== END 2019-07-13 16:06 | disposition home or self-care (01) | DRG 101 ==
LOC: EDBD 18:22 → EDUNIT# 18:22 → ER 18:24 → TELE-WESTW 18:25
PROVIDERS: ADMIT Internal Medicine; ATTEND Internal Medicine
DX: G40.401 Other generalized epilepsy and epileptic syndromes, not intractable, with status epilepticus (principal); R55 Syncope and collapse; E78.5 Hyperlipidemia, unspecified; F41.9 Anxiety disorder, unspecified; G89.4 Chronic pain syndrome; I10 Essential (primary) hypertension; J44.9 Chronic obstructive pulmonary disease, unspecified; Z79.899 Other long term (current) drug therapy; Z82.49 Family history of ischemic heart disease and other diseases of the circulatory system; Z83.3 Family history of diabetes mellitus; Z86.711 Personal history of pulmonary embolism; D35.00 Benign neoplasm of unspecified adrenal gland; E11.40 Type 2 diabetes mellitus with diabetic neuropathy, unspecified; G43.909 Migraine, unspecified, not intractable, without status migrainosus; F32.9 Major depressive disorder, single episode, unspecified; K21.9 Gastro-esophageal reflux disease without esophagitis; M54.5 Low back pain; R00.0 Tachycardia, unspecified; Z03.818 Encounter for observation for suspected exposure to other biological agents ruled out
CPT/HCPCS: 36415; 36600; 71045; 71260; 74177; 80053; 82805; 82962; 83605; 83880; 84484; 85007; 85025; 85027; 87040; 87070; 87804; 87880; 93005; 96365; 96372; G0378; J1815; J1956; J2405; J3490

== ENCOUNTER 2019-07-20 13:59 | Inpatient (IN) | payer MEDICARE ==
[~2019-07-20] VITALS: Ht 167.6 cm; Wt 69.0 kg
[~2019-07-20 13:59] MED LIST changes: +BIOTCAP2 OR; -BIOTCAP2 PO
[2019-07-20] MEDS ORDERED: SODIUM CHLORIDE 0.9% 1,000 ML IVB ONE (14:19)
[2019-07-20 14:45] LABS: Basophils # (auto) 0.1 10 ^3/uL (0-0.2); Basophils % (auto) 1.4 % (0.0-2.0); Eosinophils # (auto) 0.3 10 ^3/uL (0-0.8); Eosinophils % (auto) 3.8 % (0.0-7.0); Hematocrit 38.4 % (36.0-46.0); Hemoglobin 12.3 g/dL (12.2-16.2); Lymphocytes # (auto) 1.6 10 ^3/uL (0.4-5.4); Lymphocytes % (auto) 23.3 % (10.0-50.0); Mean Corpuscular Hgb Conc. 31.9 g/dL (32.0-36.0); Mean Corpuscular Volume 84.5 fL (80.0-100.0); Monocytes # (auto) 0.9 10 ^3/uL (0-1.3); Monocytes % (auto) 12.6 % (0.0-12.0); Neutrophils # (auto) 4.1 10 ^3/uL (1.6-8.6); Neutrophils % (auto) 58.9 % (37.0-80.0); Platelet Count (auto) 258 10^3/uL (140-450); Red Blood Cells 4.55 10^6/uL (4.0-5.20); Red Cell Distribution Width 18.4 % (11.8-14.3)
[2019-07-20 15:06] LABS: Albumin 2.8 g/dL (3.4-5.0); Calcium 7.9 mg/dL (8.5-10.1); Magnesium 1.7 mg/dL (1.6-2.6)
[2019-07-20 15:08] LABS: BUN/Creatinine Ratio 8.2; Bilirubin, Total 0.4 mg/dL (0.2-1.0); Total Protein 6.5 g/dL (6.4-8.2)
[2019-07-20] MEDS ORDERED: NITROGLYCERIN 0.4 MG SL TAB SL PRN (17:15)
[2019-07-20] MEDS ORDERED: MORPHINE SULF INJ 2 MG/ML SYRINGE 1ML IV PRN (17:15)
[2019-07-20] MEDS ORDERED: DEXTROSE (50%) 50ML SYRG IV PRN (17:15)
[2019-07-20] MEDS ORDERED: ACETAMINOPHEN 500 MG TAB PO PRN (17:15)
--- NOTE | 2019-07-20 18:35 | NUR ---
Telemetry admit from ER STACI PINO admitted to Telemetry unit after SBAR received. Patient oriented to Susy Adair, RN primary RN, unit, room, bed, and unit policies regarding patient care and visiting hours. Patient now on continuous telemetry monitoring, tele box # 21 and telemetry reading on arrival to unit is sinus rhythm. Patient placed on bedside oxygen, 2L/min weighed by bedscale and encouraged to call if they need something. All questions and concerns addressed, patient verbalized understanding. Seizures precautions are in place and bed is set in lowest locked position with side rails up x 2.
[2019-07-20 18:40] VITALS: BP 165/130
[2019-07-20] MEDS: hydrALAZINE HCL 20 MG/ML VL IV PRN (19:03)
--- NOTE | 2019-07-20 19:28 | NUR ---
Opening Shift Note Assumed care of patient, awake and alert x 4. No S/S of distress/SOB. Seizure precautions in place. Bed is in lowest position and locked. Call light within reach. Board updated. Tele box number matches monitor and leads are in correct placement. Instructed on POC and to call for assist PRN, will continue to monitor for changes Q1hr and PRN.
[2019-07-20 19:30] VITALS: BP 165/130
[2019-07-20 20:00] VITALS: BP 133/99
[2019-07-20 20:10] LABS: Urine Bacteria MOD /hpf (None Seen); Urine Blood TRACE /uL (Negative); Urine Budding Yeast FEW /hpf (None Seen); Urine Mucus FEW (None Seen); Urine WBC 165 /hpf (0 - 5); Urine WBC Clumps PRESENT /hpf (None Seen)
[2019-07-20 20:18] LABS: Alcohol, Urine < 3.0 mg/dL (0-5); Amphetamine Screen, Urine NEGATIVE (NEGATIVE); Barbiturate Scree,Urine NEGATIVE (NEGATIVE); Benzodiazephine Screen, Urine POSITIVE (NEGATIVE); Cannabinoid Screen, Urine NEGATIVE (NEGATIVE); Cocaine Screen, Urine NEGATIVE (NEGATIVE); Opiate Scree,Urine NEGATIVE (NEGATIVE); Phencyclidine Screen, Urine NEGATIVE (NEGATIVE)
[2019-07-20] MEDS: MORPHINE SULF INJ 2 MG/ML SYRINGE 1ML IV PRN (21:06)
[2019-07-20] MEDS: LORazepam 0.5 MG TAB PO SCH (21:35)
[2019-07-20] MEDS: ONDANSETRON HCL 4 MG/2 ML VIAL IV PRN (21:36)
[2019-07-20] MEDS: METOPROLOL TARTRATE 1MG/1ML-5ML VIAL IV PRN (21:37)
[2019-07-20] MEDS: TOPIRAMATE 100 MG TAB PO SCH (21:50)
[2019-07-20] MEDS: INSULIN LANTUS (GLARGINE) 1 /0.01ml (100units/ml) SC SCH (21:51)
[2019-07-20] MEDS: InsuLIN REG 1unit/0.01ml Soln (100units/ml) SC SCH (21:52)
--- NOTE | 2019-07-20 21:52 | NUR ---
Unable to give Aptium 800 mg PO per MD order because it is a home medication. Patient has medication available but pharmacy is closed and unable to process medication to send up for administration. Will deliver medications in AM.
[2019-07-20] MEDS: ACCU-CHEK COMFORT CURVE STRIP VI SCH (21:53)
[2019-07-20 22:00] VITALS: BP 133/99
[2019-07-20] MEDS: LORazepam 2MG/ML-1ML VIAL IV PRN (23:23)
--- NOTE | 2019-07-20 23:40 | NUR ---
Patient had mild tonic-clonic seizure activity at approximately 2219. Seizure lasted for approximately 4 minutes. Ativan 1mg IV push administered at 2323. Patient became responsive shortly afterwards at 2325. Vitals: BP: 129/93, HR: 127, O2 saturation: 100% on 2 l/min NC, Temp: 98.1, RR: 18. Patient is now alert and oriented x 4 but very fatigued. Will continue to assess.
[2019-07-21] VITALS (7 sets, daily range): BP systolic 81–190; BP diastolic 45–148
--- NOTE | 2019-07-21 00:04 | NUR ---
Paged MD Gonzalez to notify of seizure activity and evidence of UTI in urinalysis. Awaiting call back.
--- NOTE | 2019-07-21 00:18 | NUR ---
IV discontinued Patient reported pain at IV site. No signs of inflammation or swelling but patient winced when IV was flushed. IV catheter removed with catheter intact. Site covered with gauze and wrapped with Coban. Patient tolerated well.
[2019-07-21] MEDS: METOPROLOL TARTRATE 1MG/1ML-5ML VIAL IV PRN ×5 (00:26→16:21)
--- NOTE | 2019-07-21 01:28 | NUR ---
IV insertion IV access obtained, via clean technique by inserting a 22 gauge catheter into a vein in the left wrist after 2 attempts. IV secured properly. No trauma to site. Patient tolerated well.
[2019-07-21] MEDS: ONDANSETRON HCL 4 MG/2 ML VIAL IV PRN ×5 (01:39→17:50)
[2019-07-21] MEDS: MORPHINE SULF INJ 2 MG/ML SYRINGE 1ML IV PRN ×6 (01:39→23:48)
[2019-07-21] MEDS: LORazepam 2MG/ML-1ML VIAL IV PRN (03:39)
--- NOTE | 2019-07-21 03:43 | NUR ---
Patient had second seizure, with mild tonic-clonic seizing, at approximately 0335. Seizure lasted approximately 4 and 1/2 minutes. Patient was unarousable, staring off blankly for 90 seconds then became alert and oriented but did not remember event. Per [place] office, patient began having PACs during seizure. Patient did not injure tongue or any other area of body. No SOB or vomitus. Vitals: BP: 147/108, HR: 129, RR: 15, O2 saturation: 100% omn 2 l/min NC, Temp: 98.8. Will notify .
--- NOTE | 2019-07-21 03:57 | NUR ---
Paged MD Gonzalez to notify him of sustained heart rate all night in 120-130s and second seizure of the night. Awaiting call back.
--- NOTE | 2019-07-21 04:49 | NUR ---
Spoke to MD Gonzalez. Notified him of seizure activity, continued elevated heart rate, and urinalysis results. Orders received: Metoprolol XL 50 mg PO once, Rocephin 1 gm IV daily. Orders repeated, verified, and placed.
[2019-07-21] MEDS ORDERED: METOPROLOL SUCCINATE XL 50 MG TAB PO ONE (05:00)
[2019-07-21 06:19] LABS: Basophils # (auto) 0.1 10 ^3/uL (0-0.2); Eosinophils # (auto) 0.2 10 ^3/uL (0-0.8); Hematocrit 38.7 % (36.0-46.0); Hemoglobin 12.7 g/dL (12.2-16.2); Lymphocytes # (auto) 1.7 10 ^3/uL (0.4-5.4); Lymphocytes % (auto) 19.1 % (10.0-50.0); Mean Corpuscular Hemoglobin 27.1 pg (28.0-32.0); Mean Corpuscular Hgb Conc. 32.8 g/dL (32.0-36.0); Mean Corpuscular Volume 82.8 fL (80.0-100.0); Monocytes # (auto) 0.8 10 ^3/uL (0-1.3); Neutrophils % (auto) 68.9 % (37.0-80.0); Nucleated Red Blood Cells % 0.1 %; Platelet Count (auto) 280 10^3/uL (140-450); Red Blood Cells 4.67 10^6/uL (4.0-5.20); Red Cell Distribution Width 18.7 % (11.8-14.3); White Blood Cell 8.8 10^3/uL (4.4-10.8)
[2019-07-21] MEDS: InsuLIN REG 1unit/0.01ml Soln (100units/ml) SC SCH ×4 (06:24→22:00)
[2019-07-21] MEDS: ACCU-CHEK COMFORT CURVE STRIP VI SCH ×4 (06:24→23:13)
[2019-07-21] MEDS: INSULIN LANTUS (GLARGINE) 1 /0.01ml (100units/ml) SC SCH ×2 (06:24→23:18)
[2019-07-21 06:37] LABS: Potassium 3.5 mmol/L (3.5-5.1)
[2019-07-21 06:45] LABS: Albumin 3.1 g/dL (3.4-5.0); BUN/Creatinine Ratio 11.6; Bilirubin, Total 0.5 mg/dL (0.2-1.0); Calcium 8.2 mg/dL (8.5-10.1); Total Protein 6.8 g/dL (6.4-8.2)
--- NOTE | 2019-07-21 07:17 | NUR ---
OPENING SHIFT NOTE Assumed care of patient from prevention specialist RN. Patient is alert and oriented x4, no signs of distress noted. Patient was updated on the plan of care and verbalized understanding. Seizure precautions in place, bed alarm is on. Bed is locked, in the lowest position, side rails are up x2 and call light is in reach. Patient was encouraged to call for assistance as needed.
[2019-07-21] MEDS: hydrALAZINE HCL 20 MG/ML VL IV PRN ×2 (08:37→14:03)
[2019-07-21] MEDS: cefTRIAXone 1GM/50ML D5W 50 ML IV SCH (08:37)
--- NOTE | 2019-07-21 09:05 | NUR ---
HEART RATE 160 Lopressor given as ordered. Will continue to monitor patient.
[2019-07-21] MEDS: TOPIRAMATE 100 MG TAB PO SCH ×2 (09:37→23:08)
[2019-07-21] MEDS: LORazepam 0.5 MG TAB PO SCH ×2 (09:38→23:09)
--- NOTE | 2019-07-21 10:52 | NUR ---
SYLVIA ARZOLA. Patient heart rate 165, blood pressure 177/137, oxygen 94% on 3L/min via nasal cannula. Apresoline given at 0836 and Lopressor as given at 0905 as ordered. Awaiting call back.
--- NOTE | 2019-07-21 14:15 | NUR ---
SYLVIA AT BEDSIDE UPDATED ON PATIENT STATUS. PLAN OF CARE WAS DISCUSSED WITH PATIENT AND SHE VERBALIZED UNDERSTANDING. NEW ORDERS TO CONTINUE PATIENT HOME MEDICATIONS.
[2019-07-21] MEDS ORDERED: TIZANIDINE 4 MG PO PRN (14:30)
--- NOTE | 2019-07-21 15:00 | NUR ---
ELECTROENCEPHALOGRAM EEG COMPLETED AT BEDSIDE. PRIMARY RN AWARE.
--- NOTE | 2019-07-21 18:43 | NUR ---
2ND REQUEST FOR CONSULT. CALLED @ 1843. SPOKE WITH FRANCISCO EXCHANGE Addendum: 07/21/19 at 1853 by Yuko Hensley, [facility] Amended: Links added.
--- NOTE | 2019-07-21 18:50 | NUR ---
CALL FROM MARSHALLTOWNRACIEL Updated on patient status. New orders received, read back for verification, will input.
[2019-07-21] MEDS ORDERED: METOPROLOL TARTRATE 1MG/1ML-5ML VIAL IV PRN ×2 (19:00→19:30)
[2019-07-21] MEDS: LABETALOL HCL 200 MG TAB PO SCH (22:00)
[2019-07-22] MEDS: ONDANSETRON HCL 4 MG/2 ML VIAL IV PRN ×4 (01:21→13:10)
[2019-07-22] MEDS: MORPHINE SULF INJ 2 MG/ML SYRINGE 1ML IV PRN ×3 (03:53→13:10)
[2019-07-22 05:00] VITALS: BP 124/67
[2019-07-22] MEDS: ACCU-CHEK COMFORT CURVE STRIP VI SCH ×2 (06:11→11:46)
[2019-07-22] MEDS: InsuLIN REG 1unit/0.01ml Soln (100units/ml) SC SCH ×2 (06:12→11:30)
[2019-07-22] MEDS: INSULIN LANTUS (GLARGINE) 1 /0.01ml (100units/ml) SC SCH (06:13)
--- NOTE | 2019-07-22 07:11 | NUR ---
OPENING SHIFT NOTE Assumed care of patient from bottoming room inspector RN. Patient is alert and oriented x4, no signs of distress noted. Patient was updated on the plan of care and verbalized understanding. Seizure precautions in place, bed alarm is on. Bed is locked, in the lowest position, side rails are up x2 and call light is in reach. Patient was encouraged to call for assistance as needed.
[2019-07-22 08:44] VITALS: BP 130/88
[2019-07-22] MEDS: cefTRIAXone 1GM/50ML D5W 50 ML IV SCH (09:06)
[2019-07-22] MEDS: LABETALOL HCL 200 MG TAB PO SCH (10:24)
[2019-07-22] MEDS: TOPIRAMATE 100 MG TAB PO SCH (10:25)
[2019-07-22] MEDS: LORazepam 0.5 MG TAB PO SCH (10:25)
--- NOTE | 2019-07-22 11:09 | NUR ---
SPOKE WITH KEENAN AT NURSES STATION Per Keenan, patient is cleared for discharge.
--- NOTE | 2019-07-22 11:34 | NUR ---
BLOOD GLUCOSE 65, patient given apple juice. Lunch will be delivered soon, will continue to monitor.
[2019-07-22 13:00] VITALS: BP 131/88
--- NOTE | 2019-07-22 15:59 | NUR ---
SYLVIA AT BEDSIDE was updated on patient status, new orders for discharge and social human services assistants with home health.
--- NOTE | 2019-07-22 16:23 | NUR ---
PATIENT REFUSING HOME HEALTH Stating that she does not want anyone coming into her home.
[2019-07-22 16:33] VITALS: BP 132/79
[2019-07-22 17:00] VITALS: BP 122/91
--- NOTE | 2019-07-22 18:01 | NUR ---
[facility] DEPARTMENT CALLED. PATIENT WAS DISCHARGED, WHILE WORKING ON PAPERWORK PATIENT LEFT WITH IV IN PLACE. PATIENT HAD HOME MEDS IN PHARMACY, HOME MEDICATIONS CONTAINED LORAZEPAM AND WERE PLACED IN CHARGE OFFICE.
--- NOTE | 2019-07-23 09:30 | NUR ---
assessment ss consult Patient was discharged home prior to home health being set up. Per consult discharge with [facility]. MD order has been sent to [facility]. Per Maggi service will start on 07/24/2019. Addendum: 07/23/19 at 1531 by Mellissa BROWN Amended: Links added.
== END 2019-07-22 17:52 | disposition home health service (06) | DRG 101 ==
LOC: EDUNIT# 13:59 → ER 13:59 → EDBD 13:59 → TELE 14:00 → TELE-CENTR 18:49
PROVIDERS: ADMIT Internal Medicine; ATTEND Internal Medicine
DX: G40.409 Other generalized epilepsy and epileptic syndromes, not intractable, without status epilepticus (principal); D35.00 Benign neoplasm of unspecified adrenal gland; F31.9 Bipolar disorder, unspecified; G43.109 Migraine with aura, not intractable, without status migrainosus; R00.0 Tachycardia, unspecified; G89.4 Chronic pain syndrome; I10 Essential (primary) hypertension; K21.9 Gastro-esophageal reflux disease without esophagitis; E11.40 Type 2 diabetes mellitus with diabetic neuropathy, unspecified; F41.9 Anxiety disorder, unspecified; J44.9 Chronic obstructive pulmonary disease, unspecified; Z79.899 Other long term (current) drug therapy; Z82.49 Family history of ischemic heart disease and other diseases of the circulatory system; Z86.711 Personal history of pulmonary embolism; Z83.3 Family history of diabetes mellitus; Z79.4 Long term (current) use of insulin
CPT/HCPCS: 36415; 71045; 80053; 80307; 81001; 82962; 83735; 84702; 85025; 87081; 87086; 93005; 95819; 96360; G0378; J0696; J1815; J2405

== ENCOUNTER 2019-08-04 19:47 | Inpatient (IN) | payer MEDICARE ==
[~2019-08-04] VITALS: Ht 167.6 cm; Wt 75.7 kg
[~2019-08-04 19:47] MED LIST changes: -BIOTCAP2 OR; +BIOTCAP2 PO; -LORA1TAB12 PO; +LORA1TAB23 PO; -TOPI100T68 PO
[2019-08-04] MEDS ORDERED: LORazepam 2MG/ML-1ML VIAL IV ONE (20:15)
[2019-08-04] MEDS ORDERED: SODIUM CHLORIDE 0.9% 1,000 ML IV ONE ×2 (20:15→22:15)
[2019-08-04] MEDS ORDERED: MORPHINE SULFATE 10 MG/ML INJ 1ML SDV IV ONE ×2 (21:30→22:30)
[2019-08-04] MEDS ORDERED: ONDANSETRON HCL 4 MG/2 ML VIAL IV ONE (21:30)
[2019-08-04 21:47] LABS: Eosinophils # (auto) 0.2 10 ^3/uL (0-0.8); Neutrophils # (auto) 4.1 10 ^3/uL (1.6-8.6); White Blood Cell 8.2 10^3/uL (4.4-10.8)
[2019-08-04 21:48] LABS: Basophils # (auto) 0.1 10 ^3/uL (0-0.2); Hemoglobin 11.4 g/dL (12.2-16.2)
[2019-08-04 21:49] LABS: Basophils % (auto) 1.4 % (0.0-2.0); Eosinophils % (auto) 1.9 % (0.0-7.0); Hematocrit 35.7 % (36.0-46.0); Mean Corpuscular Hemoglobin 27.1 pg (28.0-32.0); Mean Corpuscular Volume 84.8 fL (80.0-100.0); Monocytes # (auto) 0.7 10 ^3/uL (0-1.3); Neutrophils % (auto) 50.7 % (37.0-80.0); Platelet Count (auto) 326 10^3/uL (140-450); Red Blood Cells 4.21 10^6/uL (4.0-5.20); Red Cell Distribution Width 19.5 % (11.8-14.3)
[2019-08-04 22:03] LABS: Albumin 3.3 g/dL (3.4-5.0); Anion Gap 9 (5-15); Blood Urea Nitrogen 7 mg/dL (7-18); Calcium 8.2 mg/dL (8.5-10.1); Carbon Dioxide 20 mmol/L (21-32); Chloride 111 mmol/L (98-107); Glucose 56 mg/dL (74-106); Potassium 3.3 mmol/L (3.5-5.1); Sodium 140 mmol/L (136-145)
[2019-08-04 22:10] LABS: Alanine Aminotransferase 27 U/L (13-56); Alkaline Phosphatase 231 U/L (45-117); Aspartate Aminotransferase 29 U/L (15-37); BUN/Creatinine Ratio 12.7; Bilirubin, Total 0.2 mg/dL (0.2-1.0); GFR African American 156 mL/min; GFR Non-African American 129 mL/min; Total Protein 7.4 g/dL (6.4-8.2)
[2019-08-05] VITALS (21 sets, daily range): BP systolic 80–131; BP diastolic 45–81
[2019-08-05 00:06] LABS: Urine Amorphous Crystal FEW /hpf (None Seen); Urine Bacteria FEW /hpf (None Seen); Urine Blood Negative /uL (Negative); Urine Hyaline Cast FEW /lpf (0 - 2); Urine Specific Gravity 1.009 (1.001-1.035); Urine WBC 3 /hpf (0 - 5)
[2019-08-05] MEDS: METOPROLOL TARTRATE 1MG/1ML-5ML VIAL IV SCH ×3 (00:09→00:25)
[2019-08-05 00:22] LABS: Amphetamine Screen, Urine NEGATIVE (NEGATIVE); Barbiturate Scree,Urine NEGATIVE (NEGATIVE); Benzodiazephine Screen, Urine POSITIVE (NEGATIVE); Cannabinoid Screen, Urine NEGATIVE (NEGATIVE); Cocaine Screen, Urine NEGATIVE (NEGATIVE); Opiate Scree,Urine POSITIVE (NEGATIVE); Phencyclidine Screen, Urine NEGATIVE (NEGATIVE)
[2019-08-05] MEDS ORDERED: LORazepam 2MG/ML-1ML VIAL IV ONE (00:30)
[2019-08-05] MEDS ORDERED: LABETALOL HCL 5 MG/ML 4ML SYRINGE IV ONE ×3 (01:00→04:30)
[2019-08-05] MEDS ORDERED: ONDANSETRON HCL 4 MG/2 ML VIAL IV ONE (02:00)
[2019-08-05] MEDS ORDERED: diphenhdrAMINE HCL 50 MG/1 ML VL IV ONE ×4 (03:00→10:45)
[2019-08-05] MEDS ORDERED: HYDROmorphone HCL 2 MG/ML VL IV ONE (03:00)
[2019-08-05] MEDS ORDERED: ESMOLOL HCL (10MG/ML) 10 ML VIAL IV ONE (03:00)
[2019-08-05] MEDS ORDERED: ESMOLOL HCL-NS 10MG/ML 250 ML IV SCH (03:00)
[2019-08-05] MEDS ORDERED: hydrALAZINE HCL 20 MG/ML VL ONE (04:57)
[2019-08-05] MEDS ORDERED: hydrALAZINE HCL 20 MG/ML VL IV ONE (05:15)
[2019-08-05] MEDS: METOPROLOL TARTRATE 1MG/1ML-5ML VIAL IV ONE ×2 (05:43→06:08)
[2019-08-05] MEDS ORDERED: METOPROLOL TARTRATE 1MG/1ML-5ML VIAL IV ONE (06:00)
[2019-08-05] MEDS ORDERED: MORPHINE SULFATE 10 MG/ML INJ 1ML SDV IV ONE (06:15)
[2019-08-05] MEDS ORDERED: MORPHINE SULFATE 4 MG/ML SYR/VIAL ONE (06:34)
[2019-08-05] MEDS ORDERED: MORPHINE SULF INJ 2 MG/ML SYRINGE 1ML ONE (06:35)
[2019-08-05] MEDS ORDERED: DEXTROSE (50%) 50ML SYRG IV PRN (08:15)
[2019-08-05] MEDS ORDERED: HYDROcodone-ACET 5/325MG TAB PO PRN (08:15)
[2019-08-05] MEDS ORDERED: MORPHINE SULF INJ 2 MG/ML SYRINGE 1ML IV PRN (08:15)
[2019-08-05] MEDS ORDERED: NITROGLYCERIN 0.4 MG SL TAB SL PRN (08:15)
[2019-08-05] MEDS ORDERED: DOCUSATE SOD 100 MG CAP PO PRN (08:15)
[2019-08-05] MEDS ORDERED: ACETAMINOPHEN 325 MG TAB PO PRN (08:15)
[2019-08-05] MEDS ORDERED: MORPHINE SULFATE 4 MG/ML SYR/VIAL IV PRN (08:15)
[2019-08-05] MEDS ORDERED: LABETALOL INJECTION 250 MG in SODIUM CHL 0.9% 200 ML IV ONE ×3 (08:15→19:15)
[2019-08-05] MEDS ORDERED: LORazepam 2MG/ML-1ML VIAL ONE (09:34)
[2019-08-05] MEDS ORDERED: ENOXAPARIN SOD 30 MG/0.3 ML SYRINGE SC SCH (10:00)
[2019-08-05] MEDS ORDERED: FAMOTIDINE 20 MG TAB PO SCH (10:00)
[2019-08-05] MEDS: ZINC SULFATE 220mg CAP or TAB PO SCH (10:00)
[2019-08-05] MEDS: PANTOPRAZOLE 40 MG TAB PO SCH ×2 (10:00→22:33)
[2019-08-05] MEDS: TOPIRAMATE 100 MG TAB PO SCH ×2 (10:00→22:32)
[2019-08-05] MEDS: ENOXAPARIN SOD 40 MG/0.4 ML SYRINGE SC SCH (10:00)
[2019-08-05] MEDS: AMITRIPTYLINE HCL 25 MG TAB PO SCH ×2 (10:00→22:32)
[2019-08-05] MEDS: METOPROLOL SUCCINATE XL 50 MG TAB PO SCH (10:00)
[2019-08-05] MEDS: ACCU-CHEK COMFORT CURVE STRIP VI SCH ×3 (12:00→20:22)
[2019-08-05] MEDS: InsuLIN REG 1unit/0.01ml Soln (100units/ml) SC SCH ×3 (12:00→20:00)
[2019-08-05] MEDS: MORPHINE SULF INJ 2 MG/ML SYRINGE 1ML IV PRN ×3 (14:21→22:31)
[2019-08-05] MEDS: diphenhdrAMINE HCL 50 MG/1 ML VL IV PRN ×2 (17:05→21:08)
[2019-08-05] MEDS ORDERED: LORazepam 2MG/ML-1ML VIAL IV PRN (17:15)
--- NOTE | 2019-08-05 18:00 | NUR ---
Pt being admitted to ICU STACI PINO admitted to ICU via gurney on monitoring analyst, and portable 02. Patient transfered to bed, connected to ICU monitoring and oxygen, [facility]. Patient oriented to Erica jones RN, unit, room, bed, and unit policies regarding patient care and visiting hours. All questions and concerns addressed, patient verbalized understanding. Seizure precautions in place. IV to left chest leaking. Catheter removed, catheter intact. Pressure dressing applied. See iv spreadsheet. NOTE:
[2019-08-05] MEDS: ONDANSETRON HCL 4 MG/2 ML VIAL IV PRN ×2 (18:17→22:30)
[2019-08-05] MEDS ORDERED: INSLANTI SC (18:30)
--- NOTE | 2019-08-05 18:41 | NUR ---
TRAFFIC RATE CLERK AT BEDSIDE. SEE NEW ORDERS. Addendum: 08/05/19 at 1850 by Erica Tran RN PATIENT AWARE PATIENT IS ON LOW DOSE IV LABETALOL WITH CURRENT BP 116/72 HR 92. MD AWARE WE ARE UNABLE TO TRANSITION TO PO PATIENT IS HAVING CONSTANT NAUSEA AND VOMITING. STATING OK TO KEEP LOW DOSE IV LABETALOL. IF BP OR HR INCREASE, GTT CAN BE INCREASED. MD TO ASSESS IN A.M.
--- NOTE | 2019-08-05 18:55 | NUR ---
Order noted to be discharged as order was 1xdose. Per plug cutting machine operator. Ok to continue overnight. Pharmacy called to send new bag.
[2019-08-05] MEDS: LABETALOL INJECTION 250 MG in SODIUM CHL 0.9% 200 ML IV SCH (19:15)
--- NOTE | 2019-08-05 19:30 | NUR ---
Report Report given to [facility] nurse. Rn aware of furs salesperson recommendation to continue gtt overnight if po intake is not possible. Md aware po medications have been held due to nausea.
--- NOTE | 2019-08-05 20:00 | NUR ---
ADMITTED WITH HTN CRISIS. 6 SEIZURES TODAY. ON A LABETOLOL DRIP. VSS. ALERT. ORIENTED. SPEECH CLEAR. NSR WITHOUT ECTOPY. CARDIAC DM DIET, REFUSED. JOLLY IN PLACE DRAINING CLEAR YELLOW LIQUID TO DOWN DRAIN BAG. LEFT CHEST 20G IV
--- NOTE | 2019-08-05 21:00 | NUR ---
BENADRYL FOR ARM AND LEG ITCHINESS.
--- NOTE | 2019-08-05 22:00 | NUR ---
STATES THAT THE ITCHING IS RETURNING. C/O OF PAIN IN HEAD, CHEST AND BACK. LABETOLOL DRIP SHUT OFF. SBP IN 80S. LAB AIXA BLOOD. ZOFRAN GIVEN FOR NAUSEA AND HOPEFUL GOOD RESULTS FOR TAKING ALL HER PO MEDS. MORPHINE GIVEN FOR PAIN. SLEEPING PILL GIVEN PER HER REQUEST.
[2019-08-05 22:08] LABS: Basophils # (auto) 0 10 ^3/uL (0-0.2); Basophils % (auto) 0.6 % (0.0-2.0); Eosinophils # (auto) 0.2 10 ^3/uL (0-0.8); Eosinophils % (auto) 4.1 % (0.0-7.0); Hematocrit 31.4 % (36.0-46.0); Hemoglobin 10.1 g/dL (12.2-16.2); Lymphocytes # (auto) 1.1 10 ^3/uL (0.4-5.4); Mean Corpuscular Hemoglobin 27.6 pg (28.0-32.0); Mean Corpuscular Hgb Conc. 32.2 g/dL (32.0-36.0); Mean Corpuscular Volume 85.7 fL (80.0-100.0); Monocytes # (auto) 0.8 10 ^3/uL (0-1.3); Monocytes % (auto) 14.1 % (0.0-12.0); Neutrophils # (auto) 3.3 10 ^3/uL (1.6-8.6); Neutrophils % (auto) 61.2 % (37.0-80.0); Nucleated Red Blood Cells % 0.1 %; Platelet Count (auto) 217 10^3/uL (140-450); Red Blood Cells 3.67 10^6/uL (4.0-5.20); Red Cell Distribution Width 19.5 % (11.8-14.3); White Blood Cell 5.4 10^3/uL (4.4-10.8)
[2019-08-05 22:27] LABS: Albumin 2.8 g/dL (3.4-5.0); BUN/Creatinine Ratio 12.7; Calcium 8.1 mg/dL (8.5-10.1); Potassium 3.5 mmol/L (3.5-5.1)
[2019-08-05 22:30] LABS: Bilirubin, Total 0.5 mg/dL (0.2-1.0); Total Protein 6.4 g/dL (6.4-8.2)
[2019-08-05] MEDS: GABAPENTIN 100 MG CAP PO SCH (22:32)
[2019-08-05] MEDS: TEMAZEPAM 15 MG CAP PO PRN (22:32)
--- NOTE | 2019-08-05 23:16 | NUR ---
PATIENT WANTED TO GET UP AND USE THE TOILET. TWO FEET FROM THE BED SHE STARTED SHAKING AND BELIEVED SHE WAS GOING TO FALL. WE RUSHED BACK TO BED. ASKED FOR APPLESAUCE. DOING WELL SO FAR.
--- NOTE | 2019-08-05 23:30 | NUR ---
PATIENT ASKED ME TO CALL THE HOSPITALIST TO CHANGE THE MORPHINE TO DILAUDID. DISCUSSED THE SITUATION WITH MY DECKHAND OYSTER DREDGE. DR WARD HAS NOT RETURNED THE CALL. PATIENT IS SPEAKING IN A NORMAL TONE OF VOICE, NO FACIAL GRIMACING OR GUARDING.
[2019-08-06] VITALS (82 sets, daily range): BP systolic 73–156; BP diastolic 28–117
--- NOTE | 2019-08-06 | NUR ---
PATIENT TURNED SELF ON RIGHT SIDE AND IS SLEEPING. TV ON. IV NOT IN USE. LABETOLOL DRIP OFF FOR ONE HOUR. SBP RANGING 88-104 SYSTOLIC. NSR WITHOUT ECTOPY. IV SITE CLEAN , DRY, NO REDNESS.
[2019-08-06] MEDS: InsuLIN REG 1unit/0.01ml Soln (100units/ml) SC SCH ×6 (00:07→20:30)
[2019-08-06] MEDS: diphenhdrAMINE HCL 50 MG/1 ML VL IV PRN ×6 (01:13→20:32)
[2019-08-06] MEDS: MORPHINE SULF INJ 2 MG/ML SYRINGE 1ML IV PRN ×3 (02:22→22:26)
--- NOTE | 2019-08-06 02:30 | NUR ---
WHEN I GIVE THE MEDICATION IV, THE SITE TURNS PINK AND THEN IT GOES AWAY. NO SWELLING. STARTED TRYING TO GET ANOTHER IV . 6 ATTEMPTS, YOU GET IN AND THEY BLOW. ANOTHER PERSON TRYING.
[2019-08-06] MEDS: LABETALOL INJECTION 250 MG in SODIUM CHL 0.9% 200 ML IV SCH ×6 (03:35→20:15)
[2019-08-06] MEDS: ACCU-CHEK COMFORT CURVE STRIP VI SCH ×6 (04:00→20:00)
[2019-08-06 04:40] LABS: Basophils # (auto) 0.1 10 ^3/uL (0-0.2); Basophils % (auto) 1.1 % (0.0-2.0); Eosinophils # (auto) 0.2 10 ^3/uL (0-0.8); Eosinophils % (auto) 4.3 % (0.0-7.0); Hematocrit 30.7 % (36.0-46.0); Hemoglobin 9.9 g/dL (12.2-16.2); Lymphocytes # (auto) 1.3 10 ^3/uL (0.4-5.4); Lymphocytes % (auto) 22.6 % (10.0-50.0); Mean Corpuscular Hemoglobin 27.7 pg (28.0-32.0); Mean Corpuscular Hgb Conc. 32.3 g/dL (32.0-36.0); Mean Corpuscular Volume 85.6 fL (80.0-100.0); Monocytes # (auto) 0.9 10 ^3/uL (0-1.3); Monocytes % (auto) 15.6 % (0.0-12.0); Neutrophils # (auto) 3.2 10 ^3/uL (1.6-8.6); Neutrophils % (auto) 56.4 % (37.0-80.0); Nucleated Red Blood Cells % 0.1 %; Platelet Count (auto) 198 10^3/uL (140-450); Red Blood Cells 3.59 10^6/uL (4.0-5.20); Red Cell Distribution Width 19.3 % (11.8-14.3); White Blood Cell 5.7 10^3/uL (4.4-10.8)
[2019-08-06 04:58] LABS: Albumin 2.6 g/dL (3.4-5.0); Calcium 7.7 mg/dL (8.5-10.1); Potassium 3.4 mmol/L (3.5-5.1)
[2019-08-06 05:02] LABS: Bilirubin, Total 0.5 mg/dL (0.2-1.0); Total Protein 5.8 g/dL (6.4-8.2)
--- NOTE | 2019-08-06 05:17 | NUR ---
NOTICED THAT SHE IS SETTING HER PHONE ALARM FOR THE BENADRYL AND MORPHINE.
--- NOTE | 2019-08-06 06:00 | NUR ---
BP COMING UP. LABETOLOL DRIP RESTARTED. NEW PULSE OXIMETER PLACED
[2019-08-06] MEDS: ONDANSETRON HCL 4 MG/2 ML VIAL IV PRN ×4 (06:18→22:25)
[2019-08-06] MEDS: GABAPENTIN 100 MG CAP PO SCH ×3 (06:19→22:27)
--- NOTE | 2019-08-06 07:37 | NUR ---
REPORT GIVEN TO JOAN SENIOR. PLAN FOR TRANSFER TO [facility]. TELEMETRY.
--- NOTE | 2019-08-06 07:40 | NUR ---
AM ASSESSMENT COMPLETED. ALERT & ORIENTED X4, VERY CONCERNED ABOUT HER PAIN MANAGEMENT ROUTINE. PT CURRENTLY ON LABETALOL GTT FOR HTN. VIA 22 GA IV ON RT HAND. IV BENING AND PATENT PT AWAITING FOR A MIDLINE INSERTION. PT DENIES N/V AT THIS TIME. EDUCATED ON POC. PT VERBALIZED UNDERSTANDING.
--- NOTE | 2019-08-06 07:50 | NUR ---
PREVIOUS NOTE ON WRONG CHART
--- NOTE | 2019-08-06 07:54 | NUR ---
DR. HUSSEIN IN TO SEE PT. UPDATED ON PT'S CONDITION. PT ON LABETALOL GTT FOR HTN. PT DENIES ANY PAIN AT THIS MOMENT IV BENIGN AND PATENT.
--- NOTE | 2019-08-06 09:45 | NUR ---
BP 80/34 LABETALOL GTT TURNED OFF AT THIS TIME.
[2019-08-06] MEDS ORDERED: PANTOPRAZOLE 40 MG/10 ML VIAL INJ IV SCH (10:30)
[2019-08-06] MEDS ORDERED: cloNIDine 0.2 mg/24hr 7DAY PATCH TD ONE (10:30)
[2019-08-06] MEDS: ENOXAPARIN SOD 40 MG/0.4 ML SYRINGE SC SCH (10:46)
[2019-08-06] MEDS: ZINC SULFATE 220mg CAP or TAB PO SCH (10:47)
--- NOTE | 2019-08-06 10:48 | NUR ---
PT HYPOTENSIVE WAS ON A LAVETALOL WHICH WAS STOPPED AT 1000 AM. ALL BP MEDS WILL BE HELD AT THIS EMMA UNTIL BP STARTS TRENDING UP. DR. WARD ROUNDED ON PT. STATES PT CAN BE TRANSFERRED TO TELEMETRY ONCE B/P IS STABLE FOR FOUR HOURS. ALSO PLACED EVERARDO CONSULT.
[2019-08-06] MEDS: HYDROmorphone HCL 2 MG/ML VL IV PRN ×4 (11:27→20:32)
--- NOTE | 2019-08-06 11:28 | NUR ---
IN TO SEE PT MD. IS GOING TO ORDER A HIDA SCAN AND SCHEDULE AN EGD FOR TOMORROW.
[2019-08-06] MEDS: TOPIRAMATE 100 MG TAB PO SCH ×2 (12:19→22:27)
[2019-08-06] MEDS: METOPROLOL SUCCINATE XL 50 MG TAB PO SCH (12:19)
[2019-08-06] MEDS: AMITRIPTYLINE HCL 25 MG TAB PO SCH ×2 (12:20→22:28)
[2019-08-06] MEDS ORDERED: LORazepam 2MG/ML-1ML VIAL IV ONE (14:45)
--- NOTE | 2019-08-06 15:00 | NUR ---
Midline Placement: Patient educated on need for midline placement. All risks and benefits explained and all questions and concerns addresses prior to procedure. 20g/8cm midline inserted via LEFT BRACHIAL vein using Ultrasound. Sterile technique utilized. Blood return obtained from THE lumen and flushed easily with NS using proper technique. Midline secured with saline lock; biodisc and occlusive dressing applied. Primary RN notified. Midline lot # [id number].
[2019-08-06] MEDS: SUCRALFATE 1 GM/10 ML ORAL SUSP PO SCH ×2 (16:24→22:26)
--- NOTE | 2019-08-06 16:55 | NUR ---
TRANSFER TO TELE GOT CANCEL PT BECAME HYPERTENSIVE BP 147/ 117 PT HAD TO BE RE-STARTED ON LABETALOL GTT AT 1MG/HR PT'S RESTAURANT LINE COOK ROUNDING AT THIS TIME AND HAS ORDERED PO LABETALOL.
[2019-08-06] MEDS ORDERED: LABETALOL HCL 200 MG TAB PO ONE (17:00)
--- NOTE | 2019-08-06 20:00 | NUR ---
OPEN ASSUMED CARE OF FEMALE PT A&O X 4. PT ON ROOM AIR. SR ON LEARNING SPECIALIST. L. UPPER ARM MIDLINE IN PLACE. JOLLY TO GRAVITY DRAINING LIGHT NIKI URINE. NO SKIN BREAKDOWN OBSERVED. BED IN LOWEST LOCKED POSITION. SIDE RAILS UP X 2 AND PADDED FOR SEIZURE PRECAUTION. CALL RANGEL IN REACH. PT EDUCATED TO USE CALL RANGEL FOR ASSIST PRIOR TO GETTING OOB. PT VERBALIZES UNDERSTANDING.
[2019-08-06] MEDS ORDERED: TIZANIDINE 4 MG TAB PO PRN (22:00)
[2019-08-06] MEDS: LABETALOL HCL 200 MG TAB PO SCH (22:00)
--- NOTE | 2019-08-06 22:00 | NUR ---
PO MED HELD PT PO LABETALOL HELD. PT BP 96/52. WILL CONTINUE TO MONITOR.
[2019-08-06] MEDS: PANTOPRAZOLE 40 MG TAB PO SCH (22:27)
[2019-08-06] MEDS: TEMAZEPAM 15 MG CAP PO PRN (22:27)
--- NOTE | 2019-08-06 22:30 | NUR ---
PAIN PT C/O BACK PAIN 09/25. MEDICATED WITH MORPHINE SIVP PER ORDER (SEE EMAR).
[2019-08-07] VITALS (15 sets, daily range): BP systolic 73–133; BP diastolic 31–94
--- NOTE | 2019-08-07 | NUR ---
DECREASED BP PT WITH DECREASED BP. ASYMPTOMATIC AT THIS TIME. CLONIDINE PATCH TO ANTERIOR CHEST REMOVED. WILL NOTIFY DR. WARD.
[2019-08-07] MEDS: LABETALOL INJECTION 250 MG in SODIUM CHL 0.9% 200 ML IV SCH (00:25)
[2019-08-07] MEDS: HYDROmorphone HCL 2 MG/ML VL IV PRN ×5 (02:41→22:52)
[2019-08-07] MEDS: diphenhdrAMINE HCL 50 MG/1 ML VL IV PRN ×4 (04:25→20:01)
[2019-08-07] MEDS: GABAPENTIN 100 MG CAP PO SCH ×2 (05:03→14:22)
[2019-08-07] MEDS: SUCRALFATE 1 GM/10 ML ORAL SUSP PO SCH ×4 (05:04→21:44)
[2019-08-07] MEDS: LABETALOL HCL 200 MG TAB PO SCH ×3 (06:00→21:42)
[2019-08-07] MEDS: ACCU-CHEK COMFORT CURVE STRIP VI SCH ×6 (06:00→20:04)
[2019-08-07] MEDS: InsuLIN REG 1unit/0.01ml Soln (100units/ml) SC SCH ×6 (06:00→20:00)
--- NOTE | 2019-08-07 06:00 | NUR ---
HYGIENE/ACTIVITY PT ASSISTED OOB TO CHAIR. PROVIDED PT WITH WARM WASHCLOTHS AND SOAP. PT ABLE TO WASH SELF. PT ABLE TO BRUSH TEETH. NEW GOWN PROVIDED. SHAMPOO CAP PROVIDED. PT ASSISTED BACK TO BED. CALL RANGEL IN REACH.
[2019-08-07] MEDS: ONDANSETRON HCL 4 MG/2 ML VIAL IV PRN ×2 (07:02→22:34)
--- NOTE | 2019-08-07 07:02 | NUR ---
PAIN PT REQUESTING MEDICATION FOR 5/10 BACK PAIN. PT FURTHER REQUESTS ZOFRAN STATES NAUSEOUS. PT MEDICATED WITH DILAUDID SIVP PER ORDER. MEDICATED WITH ZOFRAN SIVP PER ORDER. SEE EMAR.
--- NOTE | 2019-08-07 07:12 | NUR ---
DR WARD CALLED UNIT UPDATED MD REGARDING DECREASED BP OVERNIGHT. PO BP MEDS HELD. CLONIDINE PATCH REMOVAL AND THIS AM CURRENT BP. ORDERS RECEIVED.
[2019-08-07] MEDS ORDERED: LABETALOL HCL 5 MG/ML 4ML SYRINGE IV PRN (07:15)
--- NOTE | 2019-08-07 07:29 | NUR ---
TRANSFER TO TELE PT BEING TRANSFERRED TO [facility] RM 249. JOAN GARCIA. REPORT GIVEN TO RADHA FRANCO. PT TRANSPORTED VIA WHEELCHAIR ON ROOM AIR WITH RN. PT IN NO DISTRESS.
[2019-08-07] MEDS: ENOXAPARIN SOD 40 MG/0.4 ML SYRINGE SC SCH (09:37)
[2019-08-07] MEDS: MORPHINE SULF INJ 2 MG/ML SYRINGE 1ML IV PRN ×3 (09:53→21:39)
[2019-08-07] MEDS: AMITRIPTYLINE HCL 25 MG TAB PO SCH ×2 (09:54→21:42)
[2019-08-07] MEDS: ZINC SULFATE 220mg CAP or TAB PO SCH (09:54)
[2019-08-07] MEDS: PANTOPRAZOLE 40 MG TAB PO SCH ×2 (09:54→21:40)
[2019-08-07] MEDS: TOPIRAMATE 100 MG TAB PO SCH ×3 (09:54→21:43)
[2019-08-07 11:49] LABS: INR 1.07 (0.9-1.15); Partial Thromboplastin Time 23.1 sec (23.64-32.05)
[2019-08-07] MEDS ORDERED: NITROGLYCERIN 50MG/250ML 250 ML IV ONE (12:53)
[2019-08-07] MEDS ORDERED: PROPOFOL 10 MG/ML 20 ML IV ONE (12:56)
[2019-08-07] MEDS ORDERED: SODIUM CHLORIDE LOCK 10 ML ONE (12:56)
[2019-08-07] MEDS ORDERED: ONDANSETRON HCL 4 MG/2 ML VIAL ONE ×2 (12:56→12:57)
[2019-08-07] MEDS ORDERED: MIDAZOLAM HCL 1MG/1ML-2 ML VIAL ONE (12:56)
[2019-08-07] MEDS ORDERED: fentaNYL CITRATE 100 MCG/2 ML VL ONE (12:56)
[2019-08-07] MEDS ORDERED: ESMOLOL HCL 10 ML IV ONE (12:57)
--- NOTE | 2019-08-07 13:00 | NUR ---
patient in procedure for 1300 vitals
[2019-08-07] MEDS: TIZANIDINE 4 MG TAB PO PRN (14:55)
--- NOTE | 2019-08-07 19:26 | NUR ---
Opening Shift Note Assumed care of the patient. Pt is awake, alert, and oriented X 4, resting in bed. No S/S of respiratory distress; respirations are regular and non-labored. Pt is on RA with SpO2 99%. L.upper arm midline is asymptomatic and patent. Bed in lowest position, brakes locked, side rails X 2 up, call light within reach. Tele box matches to the monitor, leads are correctly placed. POC discussed with a patient. Pt was instructed to call for assistance as needed. Will continue to monitor for changes Q1hr and PRN.
--- NOTE | 2019-08-07 20:14 | NUR ---
Patient's blood glucose is 56 mg/dl. Patient given apple juice x 2 and is drinking it now. Will continue to reassess.
--- NOTE | 2019-08-07 21:10 | NUR ---
Patient received [employer] food from daughter, who dropped off the food for the patient. Patient is on full liquids diet and is aware of her dietary restrictions but chose to eat food delivered to her instead.
--- NOTE | 2019-08-07 22:35 | NUR ---
Patient had witnessed tonic-clonic seizure activity at approximately 2225 for approximately 5 minutes. Patient placed on side with suction available. Ativan given at 2227. Seizure ended at 222. Vitals taken: BP: 125/79, HR: 96, O2: 100%, Temp: 98.6, RR: 18. Patient's tongue is red but not signs of trauma or bleeding noted. No signs of aspiration. Patient is now alert and oriented x 4.
--- NOTE | 2019-08-07 23:03 | NUR ---
Patient's blood glucose level is 55 mg/dl despite eating at the time that blood glucose was taken. Patient is alert and oriented but her hands are shaking and she is concerned the low blood glucose caused her to have a seizure. Gave Dextrose 50% 50 ml syringe IV once. Will continue to assess.
[2019-08-08] MEDS: TIZANIDINE 4 MG TAB PO PRN ×2 (00:04→10:45)
[2019-08-08] MEDS: TEMAZEPAM 15 MG CAP PO PRN (00:04)
[2019-08-08] MEDS: ACCU-CHEK COMFORT CURVE STRIP VI SCH ×4 (00:10→12:13)
[2019-08-08] MEDS: diphenhdrAMINE HCL 50 MG/1 ML VL IV PRN ×3 (00:56→10:44)
[2019-08-08] MEDS: MORPHINE SULF INJ 2 MG/ML SYRINGE 1ML IV PRN ×3 (01:46→12:04)
[2019-08-08] MEDS: HYDROmorphone HCL 2 MG/ML VL IV PRN ×3 (03:05→09:25)
--- NOTE | 2019-08-08 03:12 | NUR ---
Midline has become occluded. Midline removed with catheter intact. Site covered with gauze and wrapped with Coban.
[2019-08-08] MEDS: InsuLIN REG 1unit/0.01ml Soln (100units/ml) SC SCH ×4 (03:43→12:00)
--- NOTE | 2019-08-08 03:45 | NUR ---
IV insertion IV access obtained, via clean technique by inserting a 24 gauge catheter into a vein in the left wrist after 2 attempts. IV secured properly. No trauma to site. Patient tolerated well.
[2019-08-08 05:00] VITALS: BP 118/79
[2019-08-08] MEDS: ONDANSETRON HCL 4 MG/2 ML VIAL IV PRN ×2 (05:09→12:02)
[2019-08-08] MEDS: LABETALOL HCL 200 MG TAB PO SCH ×2 (06:24→14:43)
[2019-08-08] MEDS: SUCRALFATE 1 GM/10 ML ORAL SUSP PO SCH ×2 (06:24→12:01)
--- NOTE | 2019-08-08 06:40 | NUR ---
Midline removal Midline L. upper arm was DC'd due malfunctioning (impossible to flush and give meds). Sterile technique was used. Catheter is fully intact. Site does not show signs of infiltration, inflammation, or bleeding. Pressure dressing applied to the site and Co-Band wrapped around. Patient tolerated procedure well. Will continue to monitor.
--- NOTE | 2019-08-08 07:28 | NUR ---
Opening Shift Note Assumed care of the patient. Pt is awake, alert, and oriented X 4, resting in bed. No S/S of respiratory distress; respirations are regular and non-labored. Reports 9/10 pain on the back. Bed in lowest and locked position, bed is padded per seizure precaution, side rails X 2 up, call light within reach. Will continue to monitor Q1hr and prn
[2019-08-08 08:00] VITALS: BP 133/94
[2019-08-08] MEDS: ZINC SULFATE 220mg CAP or TAB PO SCH (09:21)
[2019-08-08] MEDS: PANTOPRAZOLE 40 MG TAB PO SCH (09:21)
[2019-08-08] MEDS: AMITRIPTYLINE HCL 25 MG TAB PO SCH (09:22)
[2019-08-08] MEDS: TOPIRAMATE 100 MG TAB PO SCH (09:23)
[2019-08-08] MEDS: ENOXAPARIN SOD 40 MG/0.4 ML SYRINGE SC SCH (09:23)
[2019-08-08] MEDS ORDERED: FLUCONAZOLE 100 MG TAB PO SCH (10:00)
[2019-08-08 12:00] VITALS: BP 119/83
--- NOTE | 2019-08-08 14:43 | NUR ---
Nutrition Assessment Notes Please refer to link for full assessment notes. Est Energy needs: 1351-9915 kcals (23-25 kcal/kgBW) Est Protein needs: 61-76 gms/day (0.8-1.0 gm/kgBW) Will continue to monitor and reassess prn. Addendum: 08/08/19 at [address] Amended: Links added.
[2019-08-08 15:02] VITALS: BP 119/83
--- NOTE | 2019-08-08 15:45 | NUR ---
PATIENT DISCHARGE PER MD'S ORDER. PATIENT IS ALERT AND ORIENTED X4, NO S/S DISTRESS NOTED AT THIS TIME. PATIENT VERBALIZED UNDERSTANDING OF DISCHARGE SUMMARY AND FOLLOW UP INSTRUCTIONS GIVEN. IV DISCONTINUED AND TELE BOX RETURNED TO ICU.
== END 2019-08-08 15:45 | disposition home or self-care (01) | DRG 384 ==
LOC: EDBD 19:47 → ER 19:51 → OVERFLOW 19:52 → ICU WEST 08-05 17:45 → TELE-EAST 08-07 07:53
PROVIDERS: ADMIT Internal Medicine; ATTEND Internal Medicine
PROC: 0DB58ZZ Excision of Esophagus, Via Natural or Artificial Opening Endoscopic (ICD-10-PCS; 2019-08-07)
PROC: 0DB68ZZ Excision of Stomach, Via Natural or Artificial Opening Endoscopic (ICD-10-PCS; principal; 2019-08-07 12:57)
DX: K25.9 Gastric ulcer, unspecified as acute or chronic, without hemorrhage or perforation (principal); I67.4 Hypertensive encephalopathy; I16.9 Hypertensive crisis, unspecified; G40.409 Other generalized epilepsy and epileptic syndromes, not intractable, without status epilepticus; K29.70 Gastritis, unspecified, without bleeding; D35.00 Benign neoplasm of unspecified adrenal gland; I10 Essential (primary) hypertension; E11.42 Type 2 diabetes mellitus with diabetic polyneuropathy; G43.909 Migraine, unspecified, not intractable, without status migrainosus; M19.90 Unspecified osteoarthritis, unspecified site; G89.29 Other chronic pain; M54.5 Low back pain; F41.9 Anxiety disorder, unspecified; F32.9 Major depressive disorder, single episode, unspecified; E78.5 Hyperlipidemia, unspecified; J44.9 Chronic obstructive pulmonary disease, unspecified; Z90.49 Acquired absence of other specified parts of digestive tract; Z82.49 Family history of ischemic heart disease and other diseases of the circulatory system; Z83.3 Family history of diabetes mellitus; Z88.0 Allergy status to penicillin; Z88.8 Allergy status to other drugs, medicaments and biological substances; Z79.899 Other long term (current) drug therapy; Z79.4 Long term (current) use of insulin
CPT/HCPCS: 36415; 36600; 51702; 71045; 72125; 73100; 78226; 80053; 80307; 80320; 81001; 81025; 82805; 82962; 83735; 84484; 84702; 85025; 85610; 85730; 87081; 93005; 96361; 96365; 96375; 96376; 99291; C9113; G0378; J1815; J2250; J2405; J2704; J3490; J7060

== ENCOUNTER 2019-10-10 16:29 | Inpatient (IN) | payer MEDICARE ==
[~2019-10-10] VITALS: Ht 167.6 cm; Wt 75.3 kg
[~2019-10-10 16:29] MED LIST changes: +INSLANTI SC; -INSU1.2I SUBCUT
[2019-10-10] MEDS ORDERED: LORazepam 2MG/ML-1ML VIAL IV ONE (16:45)
[2019-10-10] MEDS ORDERED: ONDANSETRON HCL 4 MG/2 ML VIAL ONE (17:23)
[2019-10-10] MEDS ORDERED: ONDANSETRON HCL 4 MG/2 ML VIAL IV ONE ×2 (17:30→19:45)
[2019-10-10 18:50] LABS: Basophils # (auto) 0.1 10 ^3/uL (0-0.2); Basophils % (auto) 0.8 % (0.0-2.0); Eosinophils # (auto) 0.1 10 ^3/uL (0-0.8); Eosinophils % (auto) 0.5 % (0.0-7.0); Hematocrit 41.1 % (36.0-46.0); Hemoglobin 13.1 g/dL (12.2-16.2); Lymphocytes # (auto) 1.7 10 ^3/uL (0.4-5.4); Mean Corpuscular Hemoglobin 25.2 pg (28.0-32.0); Mean Corpuscular Hgb Conc. 31.8 g/dL (32.0-36.0); Monocytes # (auto) 1.1 10 ^3/uL (0-1.3); Monocytes % (auto) 9.4 % (0.0-12.0); Neutrophils # (auto) 8.5 10 ^3/uL (1.6-8.6); Neutrophils % (auto) 74.3 % (37.0-80.0); Platelet Count (auto) 341 10^3/uL (140-450); Red Blood Cells 5.19 10^6/uL (4.0-5.20); Red Cell Distribution Width 18.4 % (11.8-14.3); White Blood Cell 11.4 10^3/uL (4.4-10.8)
[2019-10-10 19:08] LABS: Albumin 3.8 g/dL (3.4-5.0); BUN/Creatinine Ratio 17.9; Calcium 9.2 mg/dL (8.5-10.1); Potassium 4.9 mmol/L (3.5-5.1)
[2019-10-10 19:11] LABS: Bilirubin, Total 0.5 mg/dL (0.2-1.0)
[2019-10-10] MEDS ORDERED: diphenhdrAMINE HCL 50 MG/1 ML VL IV ONE (19:45)
[2019-10-10] MEDS ORDERED: InsuLIN REG 1unit/0.01ml Soln (100units/ml) IV ONE (19:45)
[2019-10-10] MEDS ORDERED: SODIUM CHLORIDE 0.9% 1,000 ML IV ONE (19:45)
[2019-10-10] MEDS ORDERED: LORazepam 2MG/ML-1ML VIAL IV PRN (21:00)
[2019-10-10] MEDS ORDERED: NITROGLYCERIN 0.4 MG SL TAB SL PRN (21:00)
[2019-10-10] MEDS: ONDANSETRON HCL 4 MG/2 ML VIAL IV PRN (22:03)
[2019-10-10] MEDS: MORPHINE SULF INJ 2 MG/ML SYRINGE 1ML IV PRN (22:03)
[2019-10-10] MEDS: hydrALAZINE HCL 20 MG/ML VL IV PRN (22:04)
[2019-10-11] MEDS ORDERED: METOPROLOL TARTRATE 1MG/1ML-5ML VIAL IV ONE (00:24)
[2019-10-11] MEDS: METOPROLOL TARTRATE 1MG/1ML-5ML VIAL IV PRN ×7 (00:44→18:34)
[2019-10-11] MEDS: MORPHINE SULF INJ 2 MG/ML SYRINGE 1ML IV PRN ×5 (02:11→22:41)
[2019-10-11] MEDS: ONDANSETRON HCL 4 MG/2 ML VIAL IV PRN ×5 (04:01→22:41)
[2019-10-11] MEDS: hydrALAZINE HCL 20 MG/ML VL IV PRN ×3 (04:14→18:35)
[2019-10-11] MEDS ORDERED: LORazepam 2MG/ML-1ML VIAL ONE (07:28)
[2019-10-11] MEDS ORDERED: INSULIN LANTUS (GLARGINE) 1 /0.01ml (100units/ml) SC ONE (11:00)
[2019-10-11] MEDS ORDERED: DEXTROSE (50%) 50ML SYRG IV PRN (11:00)
[2019-10-11] MEDS: ACCU-CHEK COMFORT CURVE STRIP VI SCH ×3 (11:40→20:21)
[2019-10-11] MEDS: InsuLIN REG 1unit/0.01ml Soln (100units/ml) SC SCH ×3 (11:52→20:22)
[2019-10-11 13:50] LABS: Basophils # (auto) 0 10 ^3/uL (0-0.2); Eosinophils # (auto) 0 10 ^3/uL (0-0.8); Hematocrit 35.2 % (36.0-46.0); Monocytes # (auto) 1.1 10 ^3/uL (0-1.3); Red Cell Distribution Width 18.5 % (11.8-14.3)
[2019-10-11 13:52] LABS: Basophils % (auto) 0.2 % (0.0-2.0); Hemoglobin 10.9 g/dL (12.2-16.2); Lymphocytes # (auto) 1.1 10 ^3/uL (0.4-5.4); Lymphocytes % (auto) 9.9 % (10.0-50.0); Mean Corpuscular Hemoglobin 24.6 pg (28.0-32.0); Mean Corpuscular Volume 79.5 fL (80.0-100.0); Monocytes % (auto) 10.2 % (0.0-12.0); Neutrophils # (auto) 8.9 10 ^3/uL (1.6-8.6); Neutrophils % (auto) 79.7 % (37.0-80.0); Platelet Count (auto) 259 10^3/uL (140-450); Red Blood Cells 4.44 10^6/uL (4.0-5.20); White Blood Cell 11.2 10^3/uL (4.4-10.8)
[2019-10-11] MEDS: PANTOPRAZOLE 40 MG/10 ML VIAL INJ IV SCH ×2 (13:54→22:39)
[2019-10-11] MEDS ORDERED: diphenhdrAMINE HCL 25 MG CAP PO PRN (14:00)
[2019-10-11 14:07] LABS: Potassium 3.9 mmol/L (3.5-5.1)
[2019-10-11 14:17] LABS: Albumin 3.4 g/dL (3.4-5.0); BUN/Creatinine Ratio 15.3; Bilirubin, Total 0.3 mg/dL (0.2-1.0); Calcium 8.8 mg/dL (8.5-10.1); Total Protein 7.2 g/dL (6.4-8.2)
[2019-10-11] MEDS: SODIUM CHLORIDE 0.9% 1,000 ML IV SCH (14:45)
[2019-10-11] MEDS: LOSARTAN POTASSIUM 50 MG TAB PO SCH (14:52)
[2019-10-11] MEDS: METOPROLOL TARTRATE 25 MG TAB PO SCH ×2 (14:53→22:41)
[2019-10-11] MEDS: SUCRALFATE 1 GM/10 ML ORAL SUSP PO SCH ×2 (18:36→22:00)
[2019-10-11 21:30] VITALS: BP 141/100
--- NOTE | 2019-10-11 21:30 | NUR ---
Telemetry admit from ER STACI PINO admitted to Telemetry unit after SBAR received. Patient oriented to Jeanie Blanco, primary RN, unit, room, bed, and unit policies regarding patient care and visiting hours. Patient now on continuous telemetry monitoring, tele box # 56 and telemetry reading on arrival to unit is 133. Patient placed on bedside oxygen, weighed by bedscale and encouraged to call if they need something. All questions and concerns addressed, patient verbalized understanding. Note:
[2019-10-11] MEDS: diphenhdrAMINE HCL 50 MG/1 ML VL IV PRN (22:58)
[2019-10-11] MEDS: PHENYTOIN SODIUM 50 MG/ML 2ML VIAL IV SCH (23:01)
[2019-10-11 23:15] VITALS: BP 141/101
[2019-10-11] MEDS ORDERED: LORazepam 0.5 MG TAB PO ONE (23:45)
[2019-10-12] MEDS: ACCU-CHEK COMFORT CURVE STRIP VI SCH ×7 (00:22→23:56)
--- NOTE | 2019-10-12 02:30 | NUR ---
pt. has allergic reaction to dilantin iv, that was given at 2300, her tonque and neck swollen and redness, paged dr. diaz and leave a message, waiting to call back.
--- NOTE | 2019-10-12 02:49 | NUR ---
called up telephone exhange of Dr. diaz and leave a message, waiting to call back.
[2019-10-12] MEDS: MORPHINE SULF INJ 2 MG/ML SYRINGE 1ML IV PRN ×5 (03:07→21:01)
--- NOTE | 2019-10-12 03:10 | NUR ---
no call back from dr. Gonzalez, pt. awake, no c/o sob, her tonque swollen, neck swollen and redness, c/o hard to swallow, to keep monitor.
--- NOTE | 2019-10-12 03:30 | NUR ---
pt. having sob, called up emily for the third time, and leave a message, waiting to call back. charge nurse made aware, to keep monitor.
[2019-10-12] MEDS: diphenhdrAMINE HCL 50 MG/1 ML VL IV PRN ×4 (03:35→23:04)
--- NOTE | 2019-10-12 03:45 | NUR ---
Dr. Gonzalez did not call back at this time, pt. feeling better, no sob, no difficulty of swallowing, no c/o pain, to keep monitor.
[2019-10-12] MEDS: InsuLIN REG 1unit/0.01ml Soln (100units/ml) SC SCH ×7 (04:00→23:55)
[2019-10-12] MEDS: hydrALAZINE HCL 20 MG/ML VL IV PRN (04:16)
--- NOTE | 2019-10-12 04:55 | NUR ---
still no call back from Dr. diaz, pt. feeling better at this time. to keep monitor.
[2019-10-12 05:00] VITALS: BP 124/68
[2019-10-12] MEDS: METOPROLOL TARTRATE 1MG/1ML-5ML VIAL IV PRN (05:09)
[2019-10-12] MEDS: PHENYTOIN SODIUM 50 MG/ML 2ML VIAL IV SCH ×2 (05:13→14:00)
[2019-10-12] MEDS: SUCRALFATE 1 GM/10 ML ORAL SUSP PO SCH ×4 (06:00→21:31)
[2019-10-12] MEDS: INSULIN LANTUS (GLARGINE) 1 /0.01ml (100units/ml) SC SCH (06:00)
--- NOTE | 2019-10-12 06:00 | NUR ---
No call back from Dr. Gonzalez at this time, v/s stable, no s/s of allergic reaction, no c/o pain, not in distress,
[2019-10-12] MEDS: ONDANSETRON HCL 4 MG/2 ML VIAL IV PRN ×4 (06:57→21:01)
--- NOTE | 2019-10-12 07:28 | NUR ---
RECEIVED PATIENT FROM [facility] SHIFT RN. ALERT AND ORIENTED X4. REPORTS 6/10 PAIN BUT WILL WAIT WHEN PAIN MED IS DUE, DENIES SOB, NO S/S OF DISTRESS NOTED. PLAN OF CARE DISCUSSED. BED IN LOW AND LOCKED POSITION. CALL LIGHT AND PHONE WITHIN REACH. ENCOURAGED TO CALL FOR ASSISTANCE PRN. WILL CONTINUE TO MONITOR Q1HR AND PRN.
[2019-10-12 07:29] LABS: Eosinophils # (auto) 0 10 ^3/uL (0-0.8); Eosinophils % (auto) 0.5 % (0.0-7.0); Hemoglobin 11.4 g/dL (12.2-16.2); Lymphocytes # (auto) 1.6 10 ^3/uL (0.4-5.4); Mean Corpuscular Hemoglobin 25.3 pg (28.0-32.0); Mean Corpuscular Hgb Conc. 31.8 g/dL (32.0-36.0); Mean Corpuscular Volume 79.7 fL (80.0-100.0); Nucleated Red Blood Cells % 0.1 %
[2019-10-12 07:31] LABS: Basophils # (auto) 0 10 ^3/uL (0-0.2); Basophils % (auto) 0.5 % (0.0-2.0); Hematocrit 35.8 % (36.0-46.0); Lymphocytes % (auto) 18.1 % (10.0-50.0); Monocytes # (auto) 1.1 10 ^3/uL (0-1.3); Monocytes % (auto) 13.1 % (0.0-12.0); Neutrophils # (auto) 5.9 10 ^3/uL (1.6-8.6); Neutrophils % (auto) 67.8 % (37.0-80.0); Platelet Count (auto) 254 10^3/uL (140-450); Red Cell Distribution Width 18.6 % (11.8-14.3); White Blood Cell 8.7 10^3/uL (4.4-10.8)
[2019-10-12 07:41] LABS: INR 1.45 (0.9-1.15)
[2019-10-12 07:54] LABS: Potassium 3.7 mmol/L (3.5-5.1)
[2019-10-12 08:00] VITALS: BP 134/97
[2019-10-12 08:00] LABS: Albumin 3.2 g/dL (3.4-5.0); BUN/Creatinine Ratio 16.9; Bilirubin, Total 0.4 mg/dL (0.2-1.0); Calcium 8.5 mg/dL (8.5-10.1); Total Protein 6.7 g/dL (6.4-8.2)
[2019-10-12 08:57] VITALS: BP 134/97
[2019-10-12] MEDS: PANTOPRAZOLE 40 MG/10 ML VIAL INJ IV SCH ×2 (09:42→21:31)
[2019-10-12] MEDS: LOSARTAN POTASSIUM 50 MG TAB PO SCH (09:43)
[2019-10-12] MEDS: METOPROLOL TARTRATE 25 MG TAB PO SCH ×2 (09:44→21:32)
[2019-10-12] MEDS: SODIUM CHLORIDE 0.9% 1,000 ML IV SCH ×3 (10:00→20:00)
--- NOTE | 2019-10-12 11:45 | NUR ---
per DR MCDANIEL, patient will have EGD procedure on Tomorrow 10/13/19
[2019-10-12 13:00] VITALS: BP 144/106
--- NOTE | 2019-10-12 14:00 | NUR ---
Phenytoin 1400 dose held. Patient had adverse reaction on previous dose.
[2019-10-12 17:00] VITALS: BP 159/119
--- NOTE | 2019-10-12 18:58 | NUR ---
PATIENT IS RESTING COMFORTABLY IN BED, ENDORSE CARE TO NOC SHIFT RN.
--- NOTE | 2019-10-12 19:20 | NUR ---
assumed care, pt. awake, no c/o pain and nausea, no seizure noted, no sob.
[2019-10-12] MEDS: TOPIRAMATE 100 MG TAB PO SCH (21:32)
[2019-10-12] MEDS: LORazepam 0.5 MG TAB PO PRN (21:57)
[2019-10-12 22:00] VITALS: BP 147/107
--- NOTE | 2019-10-13 00:30 | NUR ---
given report to krupa Shields, to continue pt. care.
[2019-10-13] MEDS: MORPHINE SULF INJ 2 MG/ML SYRINGE 1ML IV PRN ×5 (01:26→22:08)
[2019-10-13] MEDS: ONDANSETRON HCL 4 MG/2 ML VIAL IV PRN ×5 (01:26→22:07)
[2019-10-13] MEDS: ACCU-CHEK COMFORT CURVE STRIP VI SCH ×5 (03:53→22:10)
[2019-10-13] MEDS: InsuLIN REG 1unit/0.01ml Soln (100units/ml) SC SCH ×5 (03:53→22:00)
[2019-10-13 05:00] VITALS: BP 123/89
[2019-10-13] MEDS: diphenhdrAMINE HCL 50 MG/1 ML VL IV PRN ×3 (05:05→20:18)
[2019-10-13] MEDS: SODIUM CHLORIDE 0.9% 1,000 ML IV SCH ×2 (05:38→16:00)
[2019-10-13 06:30] LABS: Basophils # (auto) 0.1 10 ^3/uL (0-0.2); Eosinophils # (auto) 0.1 10 ^3/uL (0-0.8); Hematocrit 37.6 % (36.0-46.0); Hemoglobin 11.9 g/dL (12.2-16.2); Lymphocytes # (auto) 1.9 10 ^3/uL (0.4-5.4); Mean Corpuscular Hemoglobin 25.5 pg (28.0-32.0); Mean Corpuscular Hgb Conc. 31.6 g/dL (32.0-36.0); Monocytes # (auto) 0.8 10 ^3/uL (0-1.3); Neutrophils # (auto) 2.9 10 ^3/uL (1.6-8.6); Red Blood Cells 4.65 10^6/uL (4.0-5.20); White Blood Cell 5.7 10^3/uL (4.4-10.8)
[2019-10-13 06:33] LABS: Basophils % (auto) 1.1 % (0.0-2.0); Eosinophils % (auto) 1.8 % (0.0-7.0); Lymphocytes % (auto) 33.3 % (10.0-50.0); Mean Corpuscular Volume 80.8 fL (80.0-100.0); Monocytes % (auto) 13.5 % (0.0-12.0); Neutrophils % (auto) 50.3 % (37.0-80.0); Nucleated Red Blood Cells % 0.1 %; Platelet Count (auto) 238 10^3/uL (140-450); Red Cell Distribution Width 18.6 % (11.8-14.3)
[2019-10-13] MEDS: SUCRALFATE 1 GM/10 ML ORAL SUSP PO SCH ×4 (06:33→22:08)
[2019-10-13] MEDS: INSULIN LANTUS (GLARGINE) 1 /0.01ml (100units/ml) SC SCH (06:34)
[2019-10-13 06:51] LABS: Potassium 3.6 mmol/L (3.5-5.1)
[2019-10-13 06:58] LABS: Albumin 3.2 g/dL (3.4-5.0); BUN/Creatinine Ratio 12.2; Bilirubin, Total 0.4 mg/dL (0.2-1.0); Calcium 8.3 mg/dL (8.5-10.1); Total Protein 6.7 g/dL (6.4-8.2)
--- NOTE | 2019-10-13 08:00 | NUR ---
Morning note Patient resting in bed with even and unlabored respirations, no distress noted. Instructed patient on POC, fall precautions and to call for assistance as needed. Patient verbalized understanding. Fall precautions in place with call light within reach.
[2019-10-13 09:00] VITALS: BP 127/75
[2019-10-13] MEDS: METOPROLOL TARTRATE 25 MG TAB PO SCH ×2 (09:05→22:09)
[2019-10-13] MEDS: LOSARTAN POTASSIUM 50 MG TAB PO SCH (09:05)
[2019-10-13] MEDS: PANTOPRAZOLE 40 MG/10 ML VIAL INJ IV SCH ×2 (09:05→22:08)
[2019-10-13] MEDS: TOPIRAMATE 100 MG TAB PO SCH ×2 (09:05→22:09)
--- NOTE | 2019-10-13 09:05 | NUR ---
Non-administered PRN IVP Hydrazaline & PRN IVP Metoprolol IV line not available. IV to the left upper chest infiltrated. PICC line/Midline RN to be contacted to obtain IV access.
--- NOTE | 2019-10-13 09:18 | NUR ---
Paged PICC line RN RE: IV access IV in the left breast is infiltrated.
--- NOTE | 2019-10-13 09:31 | NUR ---
was at bedside - Dr. Gonzalez Informed MD of patient's request for muscle relaxer. Order received and read back to verify. Addendum: 10/13/19 at 0933 by Cris Hunt RN Ordered medication not available through hospital pharmacy. Notified Dr. Gonzalez. verbalized understanding. Dr. Pickens to be updated during patient rounds.
[2019-10-13] MEDS ORDERED: ESLICARBAZEPINE 800 MG PO SCH (10:00)
[2019-10-13] MEDS ORDERED: LIDOCAINE VISCOUS 2% 15ML UD ONE (10:14)
[2019-10-13] MEDS ORDERED: SODIUM CHLORIDE LOCK 10 ML ONE (10:14)
[2019-10-13] MEDS ORDERED: diphenhdrAMINE HCL 50 MG/1 ML VL ONE (10:15)
[2019-10-13] MEDS ORDERED: MIDAZOLAM HCL 5 MG/ML-1ML VIAL ONE (10:16)
[2019-10-13 11:20] LABS: INR 1.56 (0.9-1.15)
--- NOTE | 2019-10-13 11:45 | NUR ---
PICC line/Midline RN at bedside.
--- NOTE | 2019-10-13 12:00 | NUR ---
Midline Placement: Patient educated on need for midline placement. All risks and benefits explained and all questions and concerns addresses prior to procedure. 20g/8cm midline inserted via left brachial vein using Ultrasound. Sterile technique utilized. Blood return obtained from lumen and flushed easily with NS using proper technique. Midline secured with saline lock; biodisc and occlusive dressing applied.
--- NOTE | 2019-10-13 12:46 | NUR ---
Patient off unit to pre-op via hospital bed. Midline in place to the ELPIDIO. Patient is alert and oriented. Respirations even and unlabored, no distress noted.
[2019-10-13] MEDS: fentaNYL CITRATE 100 MCG/2 ML VL ONE ×2 (12:51→12:54)
[2019-10-13] MEDS: MIDAZOLAM HCL 5 MG/ML-1ML VIAL ONE ×2 (12:51→12:54)
--- NOTE | 2019-10-13 13:00 | NUR ---
Patient out of room for 1300 vitals.SB
[2019-10-13] MEDS ORDERED: DEXTROSE (50%) 50ML SYRG IV PRN (13:15)
--- NOTE | 2019-10-13 13:20 | NUR ---
Patient returned to unit via hospital bed Respirations even and unlabored, no distress noted. Call light within reach. Bed alarm on for safety.
--- NOTE | 2019-10-13 13:30 | NUR ---
Patient ambulated to restroom with standby assistance Patient returned to restroom with no complications noted. Call light within reach.
[2019-10-13 17:00] VITALS: BP 155/100
--- NOTE | 2019-10-13 17:32 | NUR ---
Patient resting in bed using personal cellphone with even and unlabored respirations, no distress noted. Patient reports 10/10 generalized pain with itching. Patient requesting PRN Benadryl. Informed patient that medication cannot be administered at this time per MD order due to frequency order. Patient verbalized understanding. Call light within reach.
--- NOTE | 2019-10-13 18:32 | NUR ---
Closing note Patient resting in bed with even and unlabored respirations, no distress noted. Fall precautions in place with call light within reach.
--- NOTE | 2019-10-13 19:25 | NUR ---
Care endorsed to JOAN Wheeler.
--- NOTE | 2019-10-13 19:30 | NUR ---
Opening Shift Note Received report from Cris FRANCO. Assumed care of patient, awake and alert. No S/S of distress/SOB. Complains of generalized pain at 9/10, will give medication once due. Instructed on POC and to call for assist PRN, will continue to monitor for changes Q1hr and PRN.
--- NOTE | 2019-10-13 20:50 | NUR ---
Dr. Pickens at bedside.
[2019-10-13] MEDS: CARISOPRODOL 350 MG TAB PO SCH (22:09)
[2019-10-13 22:29] VITALS: BP 154/108
[2019-10-13] MEDS: LORazepam 0.5 MG TAB PO PRN (23:56)
[2019-10-13] MEDS: ZOLPIDEM TARTRATE 5 MG TAB PO PRN (23:57)
[2019-10-14] MEDS: SODIUM CHLORIDE 0.9% 1,000 ML IV SCH ×3 (02:05→22:11)
[2019-10-14] MEDS: ONDANSETRON HCL 4 MG/2 ML VIAL IV PRN ×5 (02:22→20:06)
[2019-10-14] MEDS: diphenhdrAMINE HCL 50 MG/1 ML VL IV PRN ×4 (02:23→22:09)
[2019-10-14] MEDS: MORPHINE SULF INJ 2 MG/ML SYRINGE 1ML IV PRN ×6 (02:30→20:06)
[2019-10-14 05:25] VITALS: BP 164/123
[2019-10-14 06:06] LABS: Basophils # (auto) 0 10 ^3/uL (0-0.2); Basophils % (auto) 0.9 % (0.0-2.0); Eosinophils # (auto) 0.1 10 ^3/uL (0-0.8); Eosinophils % (auto) 2.6 % (0.0-7.0); Hematocrit 33.4 % (36.0-46.0); Hemoglobin 10.6 g/dL (12.2-16.2); Lymphocytes # (auto) 2.1 10 ^3/uL (0.4-5.4); Lymphocytes % (auto) 43.3 % (10.0-50.0); Mean Corpuscular Hemoglobin 25.8 pg (28.0-32.0); Mean Corpuscular Hgb Conc. 31.8 g/dL (32.0-36.0); Mean Corpuscular Volume 81.2 fL (80.0-100.0); Monocytes # (auto) 0.7 10 ^3/uL (0-1.3); Monocytes % (auto) 15.1 % (0.0-12.0); Neutrophils # (auto) 1.8 10 ^3/uL (1.6-8.6); Neutrophils % (auto) 38.1 % (37.0-80.0); Platelet Count (auto) 193 10^3/uL (140-450); Red Blood Cells 4.12 10^6/uL (4.0-5.20); Red Cell Distribution Width 18.5 % (11.8-14.3); White Blood Cell 4.8 10^3/uL (4.4-10.8)
[2019-10-14 06:21] LABS: Albumin 2.9 g/dL (3.4-5.0); Potassium 3.6 mmol/L (3.5-5.1)
[2019-10-14 06:24] LABS: BUN/Creatinine Ratio 10.3; Bilirubin, Total 0.3 mg/dL (0.2-1.0); Total Protein 6.2 g/dL (6.4-8.2)
[2019-10-14] MEDS: SUCRALFATE 1 GM/10 ML ORAL SUSP PO SCH ×4 (06:35→22:09)
[2019-10-14] MEDS: hydrALAZINE HCL 20 MG/ML VL IV PRN (06:35)
[2019-10-14] MEDS: ACCU-CHEK COMFORT CURVE STRIP VI SCH ×4 (06:36→22:10)
[2019-10-14] MEDS: INSULIN LANTUS (GLARGINE) 1 /0.01ml (100units/ml) SC SCH (06:36)
[2019-10-14] MEDS: InsuLIN REG 1unit/0.01ml Soln (100units/ml) SC SCH ×4 (06:37→22:11)
--- NOTE | 2019-10-14 07:11 | NUR ---
Care endorsed to Cris FRANCO.
--- NOTE | 2019-10-14 07:56 | NUR ---
RE: hold on Aptiom Vomiting has improved. Called pharmacy to notify. Deandre, pharmacist, verbalized understanding. Hold to be released on medication. Hospital pharmacy does not carry this medication. Patient did not provide hospital with medication.
[2019-10-14 09:00] VITALS: BP 135/79
[2019-10-14] MEDS: PANTOPRAZOLE 40 MG/10 ML VIAL INJ IV SCH ×2 (09:00→22:09)
--- NOTE | 2019-10-14 09:00 | NUR ---
RE: activity Patient stated "I had a seizure earlier so I need that medication that is for breakthrough seizures. It comes in a pill and IV." Instructed patient on MD order and that medication cannot be administered. Patient verbalized understanding. Patient is speaking in complete sentences. Respirations even and unlabored, no distress noted. No tremors or shaking noted. Dr. Pickens aware of reported seizure activity. PRN medication not to be administered at this time per MD. Continue care as ordered.
[2019-10-14] MEDS: TOPIRAMATE 100 MG TAB PO SCH ×3 (09:01→22:10)
[2019-10-14] MEDS: CARISOPRODOL 350 MG TAB PO SCH ×2 (09:01→22:10)
[2019-10-14] MEDS: LOSARTAN POTASSIUM 50 MG TAB PO SCH (09:02)
[2019-10-14] MEDS: METOPROLOL TARTRATE 25 MG TAB PO SCH ×2 (09:02→22:10)
--- NOTE | 2019-10-14 09:05 | NUR ---
RE: Aptiom Medication not available. Requested patient to have family bring to hospital. Patient verbalized understanding.
[2019-10-14] MEDS ORDERED: ESLICARBAZEPINE 800 MG PO SCH (10:00)
[2019-10-14] MEDS: LORazepam 0.5 MG TAB PO PRN (12:48)
[2019-10-14 12:57] VITALS: BP 130/101
--- NOTE | 2019-10-14 13:39 | NUR ---
Est energy needs 7842-0029 kcal (20-25 kcal/kg BW 75.3kg) Est protein needs 60-75g (0.8-1g/kg BW 75.3kg) will reassess prn. Addendum: 10/14/19 at [address] Amended: Links added.
--- NOTE | 2019-10-14 15:10 | NUR ---
Discussed POC with Dr. Gonzalez Patient to be discharged tomorrow, 10/15/19, per MD. Prescriptions wrote out by MD and placed in hard chart.
--- NOTE | 2019-10-14 15:18 | NUR ---
RE: PRN IV Morphine 1117 PRN chest pain IV Morphine administration undone. Patient did not have chest pain. PRN IV Morphine administered for severe pain. Administration documented to reflect administration of PRN IV Morphine for severe pain.
[2019-10-14 17:26] VITALS: BP 133/94
--- NOTE | 2019-10-14 18:55 | NUR ---
Closing note Patient resting in bed with even and unlabored respirations, no distress noted. Fall precautions in place with call light within reach.
--- NOTE | 2019-10-14 19:06 | NUR ---
Care endorsed to JOAN Wheeler.
--- NOTE | 2019-10-14 19:10 | NUR ---
Opening Shift Note Received report from Cris FRANCO. Assumed care of patient, awake and alert. No S/S of distress/SOB or pain. Instructed on POC and to call for assist PRN, will continue to monitor for changes Q1hr and PRN.
[2019-10-14 22:00] VITALS: BP 145/90
[2019-10-15] MEDS: ZOLPIDEM TARTRATE 5 MG TAB PO PRN (00:12)
[2019-10-15] MEDS: ONDANSETRON HCL 4 MG/2 ML VIAL IV PRN ×3 (00:12→08:36)
[2019-10-15] MEDS: MORPHINE SULF INJ 2 MG/ML SYRINGE 1ML IV PRN ×3 (00:12→08:37)
[2019-10-15] MEDS: diphenhdrAMINE HCL 50 MG/1 ML VL IV PRN (04:32)
[2019-10-15] MEDS: hydrALAZINE HCL 20 MG/ML VL IV PRN (04:33)
[2019-10-15 05:30] VITALS: BP 163/96
[2019-10-15 05:53] LABS: Basophils # (auto) 0.1 10 ^3/uL (0-0.2); Monocytes # (auto) 0.8 10 ^3/uL (0-1.3); Neutrophils # (auto) 2.9 10 ^3/uL (1.6-8.6)
[2019-10-15 05:56] LABS: Basophils % (auto) 0.9 % (0.0-2.0); Eosinophils # (auto) 0.1 10 ^3/uL (0-0.8); Eosinophils % (auto) 2.4 % (0.0-7.0); Hematocrit 31.2 % (36.0-46.0); Lymphocytes # (auto) 1.7 10 ^3/uL (0.4-5.4); Lymphocytes % (auto) 30.5 % (10.0-50.0); Mean Corpuscular Hemoglobin 25.9 pg (28.0-32.0); Mean Corpuscular Hgb Conc. 32.2 g/dL (32.0-36.0); Mean Corpuscular Volume 80.6 fL (80.0-100.0); Monocytes % (auto) 13.6 % (0.0-12.0); Neutrophils % (auto) 52.6 % (37.0-80.0); Platelet Count (auto) 217 10^3/uL (140-450); Red Blood Cells 3.87 10^6/uL (4.0-5.20); Red Cell Distribution Width 18.5 % (11.8-14.3); White Blood Cell 5.5 10^3/uL (4.4-10.8)
[2019-10-15 06:07] LABS: Albumin 2.9 g/dL (3.4-5.0); Calcium 7.8 mg/dL (8.5-10.1); Potassium 3.5 mmol/L (3.5-5.1)
[2019-10-15 06:12] LABS: Bilirubin, Total 0.4 mg/dL (0.2-1.0); Total Protein 6.4 g/dL (6.4-8.2)
[2019-10-15] MEDS: ACCU-CHEK COMFORT CURVE STRIP VI SCH (06:35)
[2019-10-15] MEDS: INSULIN LANTUS (GLARGINE) 1 /0.01ml (100units/ml) SC SCH (06:35)
[2019-10-15] MEDS: SUCRALFATE 1 GM/10 ML ORAL SUSP PO SCH (06:36)
[2019-10-15] MEDS: InsuLIN REG 1unit/0.01ml Soln (100units/ml) SC SCH (06:36)
--- NOTE | 2019-10-15 07:32 | NUR ---
Opening Shift Note Received report from NOC shift RN. Patient is awake, alert and oriented x4. No S/S of distress/SOB. Reports generalized pain at 8/10, will give medication once due. Instructed on POC and to call for assist PRN, will continue to monitor for changes Q1hr and PRN. Patient is pending discharge at this time.
[2019-10-15 07:48] VITALS: BP 119/55
[2019-10-15 08:00] VITALS: BP 119/55
[2019-10-15] MEDS: SODIUM CHLORIDE 0.9% 1,000 ML IV SCH (08:05)
--- NOTE | 2019-10-15 08:37 | NUR ---
patient given morphin prn for 8/10 generalized pain and zofran prn for nausea. will reassess and continue to monitor for changes
--- NOTE | 2019-10-15 09:20 | NUR ---
patient discharged home at this time. Verbalized understanding of all discharge instructions, follow up and prescriptions provided. Patient is ambulatory, alert and oriented x4. Midline removed with pressure dressing, patient tolerated well. Tele monitor returned to ICU.
== END 2019-10-15 09:20 | disposition home or self-care (01) | DRG 100 ==
LOC: ER 16:29 → TELE 16:30 → TELE-WESTW 10-11 22:00
PROVIDERS: ADMIT Internal Medicine; ATTEND Internal Medicine
PROC: 0DB68ZX Excision of Stomach, Via Natural or Artificial Opening Endoscopic, Diagnostic (ICD-10-PCS; principal; 2019-10-13 12:47)
DX: G40.401 Other generalized epilepsy and epileptic syndromes, not intractable, with status epilepticus (principal); N17.0 Acute kidney failure with tubular necrosis; E87.1 Hypo-osmolality and hyponatremia; I16.9 Hypertensive crisis, unspecified; K25.3 Acute gastric ulcer without hemorrhage or perforation; F41.9 Anxiety disorder, unspecified; E11.42 Type 2 diabetes mellitus with diabetic polyneuropathy; E11.65 Type 2 diabetes mellitus with hyperglycemia; G43.909 Migraine, unspecified, not intractable, without status migrainosus; E86.0 Dehydration; I10 Essential (primary) hypertension; R07.89 Other chest pain; D35.00 Benign neoplasm of unspecified adrenal gland; K21.0 Gastro-esophageal reflux disease with esophagitis; K29.70 Gastritis, unspecified, without bleeding; G89.4 Chronic pain syndrome; G47.00 Insomnia, unspecified; E78.5 Hyperlipidemia, unspecified; J44.9 Chronic obstructive pulmonary disease, unspecified; Z79.4 Long term (current) use of insulin; Z79.899 Other long term (current) drug therapy; Z82.49 Family history of ischemic heart disease and other diseases of the circulatory system; Z88.8 Allergy status to other drugs, medicaments and biological substances; Z83.3 Family history of diabetes mellitus; Z86.711 Personal history of pulmonary embolism; Z20.828 Contact with and (suspected) exposure to other viral communicable diseases; F32.9 Major depressive disorder, single episode, unspecified
CPT/HCPCS: 36415; 43239; 70450; 71045; 72125; 73630; 80053; 82962; 84702; 85025; 85610; 93005; C9113; G0378; J1815; J2250; J2405

== ENCOUNTER 2019-11-25 18:49 | Inpatient (IN) | payer MEDICARE ==
[~2019-11-25] VITALS: Ht 167.6 cm; Wt 67.9 kg
[2019-11-25] MEDS ORDERED: InsuLIN REG 1unit/0.01ml Soln (100units/ml) IV ONE (19:15)
[2019-11-25] MEDS ORDERED: SODIUM CHLORIDE 0.9% 2,000 ML IV ONE (19:15)
[2019-11-25] MEDS ORDERED: LORazepam 2MG/ML-1ML VIAL ONE (19:57)
[2019-11-25 20:00] LABS: Basophils # (auto) 0.1 10 ^3/uL (0-0.2); Basophils % (auto) 0.8 % (0.0-2.0); Eosinophils # (auto) 0 10 ^3/uL (0-0.8); Eosinophils % (auto) 0.6 % (0.0-7.0); Hematocrit 33.9 % (36.0-46.0); Lymphocytes # (auto) 0.9 10 ^3/uL (0.4-5.4); Monocytes # (auto) 0.6 10 ^3/uL (0-1.3)
[2019-11-25 20:01] LABS: Hemoglobin 10.2 g/dL (12.2-16.2); Mean Corpuscular Hemoglobin 24.2 pg (28.0-32.0); Mean Corpuscular Volume 80.7 fL (80.0-100.0); Monocytes % (auto) 8.9 % (0.0-12.0); Neutrophils # (auto) 5.5 10 ^3/uL (1.6-8.6); Neutrophils % (auto) 76.7 % (37.0-80.0); Platelet Count (auto) 311 10^3/uL (140-450); Red Blood Cells 4.21 10^6/uL (4.0-5.20); Red Cell Distribution Width 18.9 % (11.8-14.3); White Blood Cell 7.2 10^3/uL (4.4-10.8)
[2019-11-25 20:06] LABS: Urine Bacteria NONE SEEN /hpf (None Seen); Urine Blood Negative /uL (Negative); Urine Mucus FEW (None Seen); Urine Specific Gravity 1.021 (1.001-1.035); Urine WBC 41 /hpf (0 - 5)
[2019-11-25] MEDS ORDERED: LORazepam 2MG/ML-1ML VIAL IV ONE (20:15)
[2019-11-25 20:16] LABS: INR 1.15 (0.9-1.15); Partial Thromboplastin Time 29.1 sec (23.0-31.2)
[2019-11-25 20:18] LABS: Albumin 2.6 g/dL (3.4-5.0); Anion Gap 16 (5-15); Blood Urea Nitrogen 10 mg/dL (7-18); Calcium 8.4 mg/dL (8.5-10.1); Carbon Dioxide 12 mmol/L (21-32); Chloride 102 mmol/L (98-107); Magnesium 1.6 mg/dL (1.6-2.6); Potassium 3.7 mmol/L (3.5-5.1); Sodium 130 mmol/L (136-145)
[2019-11-25 20:20] LABS: Alanine Aminotransferase 25 U/L (13-56); Aspartate Aminotransferase 35 U/L (15-37); BUN/Creatinine Ratio 8.6; GFR African American 66 mL/min; GFR Non-African American 54 mL/min
[2019-11-25 20:22] LABS: Alkaline Phosphatase 234 U/L (45-117); Bilirubin, Total 0.2 mg/dL (0.2-1.0); Total Protein 6.7 g/dL (6.4-8.2)
[2019-11-25 20:37] LABS: Glucose 418 mg/dL (74-106)
[2019-11-25] MEDS ORDERED: SODIUM CHLORIDE 0.9% 1,000 ML IV ONE (21:15)
[2019-11-25 21:46] LABS: Amphetamine Screen, Urine NEGATIVE (NEGATIVE); Barbiturate Scree,Urine NEGATIVE (NEGATIVE); Benzodiazephine Screen, Urine POSITIVE (NEGATIVE); Cannabinoid Screen, Urine NEGATIVE (NEGATIVE); Cocaine Screen, Urine NEGATIVE (NEGATIVE); Opiate Scree,Urine NEGATIVE (NEGATIVE); Phencyclidine Screen, Urine NEGATIVE (NEGATIVE)
[2019-11-25] MEDS ORDERED: MORPHINE SULF INJ 2 MG/ML SYRINGE 1ML IV ONE (23:00)
[2019-11-25] MEDS ORDERED: diphenhdrAMINE HCL 50 MG/1 ML VL IV ONE (23:00)
[2019-11-25] MEDS ORDERED: ONDANSETRON HCL 4 MG/2 ML VIAL IV ONE (23:00)
[2019-11-26] MEDS ORDERED: PHENYTOIN IV DILANTIN 1,000 MG in SODIUM CHL 0.9% 250 ML IV ONE ×2
[2019-11-26] MEDS ORDERED: PHENYTOIN SODIUM 50 MG/ML 2ML VIAL IV ONE ×2 (00:12→00:16)
[2019-11-26] MEDS ORDERED: PHENYTOIN SODIUM 50 MG/ML 5ML INJ VIAL IV ONE (00:15)
[2019-11-26] MEDS ORDERED: hydrALAZINE HCL 20 MG/ML VL IV PRN (00:45)
[2019-11-26] MEDS ORDERED: LORazepam 2MG/ML-1ML VIAL IV PRN (00:45)
[2019-11-26] MEDS ORDERED: DEXTROSE (50%) 50ML SYRG IV PRN (00:45)
[2019-11-26] MEDS ORDERED: MORPHINE SULF INJ 2 MG/ML SYRINGE 1ML IV PRN (00:45)
[2019-11-26] MEDS ORDERED: NITROGLYCERIN 0.4 MG SL TAB SL PRN (00:45)
[2019-11-26] MEDS ORDERED: THIAMINE 100mg/ml INJ (200mg/2ml VIAL) IV ONE (01:45)
[2019-11-26] MEDS: ONDANSETRON HCL 4 MG/2 ML VIAL IV PRN ×3 (01:50→21:43)
[2019-11-26] MEDS: MORPHINE SULF INJ 2 MG/ML SYRINGE 1ML IV PRN ×5 (03:43→22:26)
[2019-11-26] MEDS: InsuLIN REG 1unit/0.01ml Soln (100units/ml) SC SCH ×4 (06:42→21:43)
[2019-11-26] MEDS: ACCU-CHEK COMFORT CURVE STRIP VI SCH ×4 (06:43→21:44)
[2019-11-26] MEDS ORDERED: LORazepam 2MG/ML-1ML VIAL IV ONE (07:15)
--- NOTE | 2019-11-26 08:40 | NUR ---
Pt Arrived on Unit Pt arrived on Unit from ED via stretcher. Pt transferred to bed with assistance of RNs. Pt is a/ox4 with no s/s of distress or SOB. Seizure precautions initiated with side rails padded and suction hooked up. Safety measures initiated with call light within reach, bed in lowest position and side rails up. Will continue to monitor for changes.
[2019-11-26 08:58] VITALS: BP 120/71
[2019-11-26] MEDS: TOPIRAMATE 100 MG TAB PO SCH ×2 (09:22→21:44)
[2019-11-26] MEDS ORDERED: METOPROLOL SUCCINATE XL 50 MG TAB PO SCH (10:00)
[2019-11-26] MEDS ORDERED: AMITRIPTYLINE HCL 25 MG TAB PO SCH (10:00)
--- NOTE | 2019-11-26 11:12 | NUR ---
Pt C/OC Itchy-ness Pt states that she feels like her "skin is crawling". Pt requests something that could help with feelings of itchy-ness. Messaged Dr Gonzalez, new orders given and verified. Will implement and continue to monitor.
[2019-11-26] MEDS ORDERED: diphenhdrAMINE HCL 25 MG CAP PO PRN (11:15)
--- NOTE | 2019-11-26 11:21 | NUR ---
Pt Refuses PO Benadryl Pt states that she can only take IV medications at this time, stating " I will throw them up". Pt was able to tolerate water provided earlier along with her morning medications. Will continue to monitor and notify MD upon rounding.
[2019-11-26 13:00] VITALS: BP 131/91
--- NOTE | 2019-11-26 15:44 | NUR ---
Seizure Activity Seizure reported by JOAN Chiu while primary RN was at lunch. Pts VS post seizure are the following; 139/113, HR of 116, 98% on RA, and RR 16. LUNA Brown was made aware. Unknown of length of seizure. Will continue to monitor.
[2019-11-26] MEDS ORDERED: diphenhdrAMINE HCL 50 MG/1 ML VL IV PRN (16:30)
--- NOTE | 2019-11-26 16:49 | NUR ---
Low Blood Sugar BS of 42 assessed, pt is currently asymptomatic. Provided pt with orange juice as well as apple juice. Reassessed, current BS is 62. Pt asymptomatic, requested pt drink another orange juice. Will continue to monitor.
[2019-11-26 17:00] VITALS: BP 154/111
--- NOTE | 2019-11-26 19:24 | NUR ---
Opening Shift Note Assumed care of patient, awake and alert x 4. No S/S of distress/SOB. Bed is in lowest position and locked. Call light within reach. Board updated. Tele box number matches monitor and leads are in correct placement. Instructed on POC and to call for assist PRN, will continue to monitor for changes Q1hr and PRN.
[2019-11-26] MEDS: PRAMIPEXOLE DIHYDROCHLORIDE MO 0.25 MG TAB PO SCH (20:56)
[2019-11-26] MEDS: ZOLPIDEM TARTRATE 5 MG TAB PO PRN (21:43)
--- NOTE | 2019-11-26 21:56 | NUR ---
Patient has elevated blood Pressure but ordered PRN IV hydralazine is not available. BP at 2100 was 158/125. Recheck was 163/122. Requesting other medication. Also. patient requests if Benadryl IV can be changed from 25 mg IV q 12 hrs PRN itching to q 6 hrs PRN. Patient states "they usually give me q 6 and I don;t want to be itchy all night.
--- NOTE | 2019-11-26 22:23 | NUR ---
patient's HR has increased to 150s when she walked to the bathroom and began vomiting. Patient placed on 3 l/min NC. Carranza notifhumberto PANCHAL. Addendum: 11/27/19 at 0425 by TIGRE ADAME RN HR decreased to 130s after administration of oxygen.
[2019-11-26 22:36] VITALS: BP 158/125
--- NOTE | 2019-11-26 22:58 | NUR ---
Spoke to MD Gonzalez over telephone and notifed him of the patient's new increased HR and elevated BP. Orders received: Metoprolol 1.25 mg IV q 6 hrs PRN SBP> 160 mmHg or HR>130, Diphendydramine 25 mg IV q 6 hrs PRN.
[2019-11-26] MEDS: diphenhdrAMINE HCL 50 MG/1 ML VL IV PRN (23:56)
[2019-11-26] MEDS: METOPROLOL TARTRATE 1MG/1ML-5ML VIAL IV PRN (23:56)
[2019-11-27] MEDS: ONDANSETRON HCL 4 MG/2 ML VIAL IV PRN ×5 (03:05→22:14)
[2019-11-27] MEDS: MORPHINE SULF INJ 2 MG/ML SYRINGE 1ML IV PRN ×5 (03:05→22:13)
[2019-11-27 05:27] VITALS: BP 144/99
[2019-11-27] MEDS: ACCU-CHEK COMFORT CURVE STRIP VI SCH ×4 (06:28→22:13)
[2019-11-27] MEDS: diphenhdrAMINE HCL 50 MG/1 ML VL IV PRN ×3 (06:28→18:00)
[2019-11-27] MEDS: METOPROLOL TARTRATE 1MG/1ML-5ML VIAL IV PRN (06:29)
[2019-11-27] MEDS: InsuLIN REG 1unit/0.01ml Soln (100units/ml) SC SCH ×4 (07:01→22:29)
--- NOTE | 2019-11-27 07:50 | NUR ---
IV removal IV infiltrated on left forearm. IV DC'd with clean sterile technique, catheter fully intact. Pressure dressing applied to site. Patient tolerated well.
[2019-11-27 08:00] VITALS: BP 137/122
--- NOTE | 2019-11-27 08:00 | NUR ---
IV insertion IV access obtained, via clean sterile technique by inserting 24 gauge catheter at right hand after one attempt. IV secured properly. No trauma to site. Patient tolerated procedure well.
--- NOTE | 2019-11-27 08:00 | NUR ---
Opening Shift Note Assumed care of patient, awake and alert. No S/S of distress/SOB, 6/10 generalized pain. Instructed on POC and to call for assist PRN, will continue to monitor for changes Q1hr and PRN.
[2019-11-27] MEDS: LABETALOL HCL 200 MG TAB PO SCH ×2 (10:40→22:13)
[2019-11-27] MEDS: TOPIRAMATE 100 MG TAB PO SCH ×2 (10:41→22:13)
[2019-11-27 12:00] VITALS: BP 154/107
--- NOTE | 2019-11-27 16:25 | NUR ---
D/C Planning Per SS consult for a walker. Faxed clinical information to [facility] requesting walker to be deliver to the front lobby.
[2019-11-27 16:56] VITALS: BP 114/77
--- NOTE | 2019-11-27 18:34 | NUR ---
Telemed for Psych consult set up at the patient bedside. Will continue care.
[2019-11-27] MEDS: PRAMIPEXOLE DIHYDROCHLORIDE MO 0.25 MG TAB PO SCH (20:02)
[2019-11-27 22:00] VITALS: BP 126/88
[2019-11-27] MEDS: ZOLPIDEM TARTRATE 5 MG TAB PO PRN (22:14)
[2019-11-28] VITALS (7 sets, daily range): BP systolic 111–149; BP diastolic 70–103
[2019-11-28] MEDS: diphenhdrAMINE HCL 50 MG/1 ML VL IV PRN ×4 (00:28→19:45)
[2019-11-28] MEDS: ONDANSETRON HCL 4 MG/2 ML VIAL IV PRN ×6 (02:17→22:44)
[2019-11-28] MEDS: MORPHINE SULF INJ 2 MG/ML SYRINGE 1ML IV PRN ×6 (02:17→22:32)
--- NOTE | 2019-11-28 03:30 | NUR ---
New IV insertion after previous IV went bad. IV to right wrist found to be infiltrated on assessment. IV catheter removed intact. Gauze placed over site and secured with Coban. IV access obtained, via clean sterile technique by inserting a 24 gauge catheter into a vein in the left shoulder after 2 attempts. IV secured properly. No trauma to site. Patient tolerated well.
[2019-11-28] MEDS: ACCU-CHEK COMFORT CURVE STRIP VI SCH ×4 (06:30→21:56)
[2019-11-28] MEDS: InsuLIN REG 1unit/0.01ml Soln (100units/ml) SC SCH ×4 (06:43→21:59)
--- NOTE | 2019-11-28 07:33 | NUR ---
Patient had seizure. Patient had witnessed seizure with mild tonic-clonic seizure activity for approximately 5 minutes starting at 0720. KEVYN Alberto notified me and Ativan 1 mg IV given at 0728. Patient became post-ictal immediately afterward. Vitals after seizure: BP: 158/116, Temp: 98.4, HR: 112, RR; 19, O2 saturation: 98%. Patient is lethargic but is arrousable and is able to follow commands. JOAN Lira witnessed seizure activity as well. Care endorsed to JOAN Lira.
--- NOTE | 2019-11-28 08:35 | NUR ---
Patient medicated for 10/10 generalized pain and nausea. Patient stable at this time.
[2019-11-28 08:44] LABS: Eosinophils # (auto) 0.1 10 ^3/uL (0-0.8); Mean Corpuscular Hemoglobin 24.9 pg (28.0-32.0); Monocytes # (auto) 0.5 10 ^3/uL (0-1.3); Nucleated Red Blood Cells % 0.1 %
[2019-11-28 08:45] LABS: Basophils # (auto) 0.1 10 ^3/uL (0-0.2); Basophils % (auto) 1.1 % (0.0-2.0); Hematocrit 35.5 % (36.0-46.0); Hemoglobin 11.3 g/dL (12.2-16.2); Lymphocytes # (auto) 1.1 10 ^3/uL (0.4-5.4); Lymphocytes % (auto) 19.5 % (10.0-50.0); Mean Corpuscular Hgb Conc. 31.9 g/dL (32.0-36.0); Mean Corpuscular Volume 77.9 fL (80.0-100.0); Monocytes % (auto) 8.9 % (0.0-12.0); Neutrophils # (auto) 3.9 10 ^3/uL (1.6-8.6); Neutrophils % (auto) 69.5 % (37.0-80.0); Platelet Count (auto) 323 10^3/uL (140-450); Red Blood Cells 4.56 10^6/uL (4.0-5.20); Red Cell Distribution Width 20.2 % (11.8-14.3); White Blood Cell 5.6 10^3/uL (4.4-10.8)
[2019-11-28 09:09] LABS: Potassium 3.3 mmol/L (3.5-5.1)
[2019-11-28 09:15] LABS: Albumin 3.1 g/dL (3.4-5.0); BUN/Creatinine Ratio 11.8; Bilirubin, Total 0.5 mg/dL (0.2-1.0); Calcium 8.9 mg/dL (8.5-10.1); Total Protein 7.1 g/dL (6.4-8.2)
[2019-11-28] MEDS: LABETALOL HCL 200 MG TAB PO SCH ×2 (09:23→21:56)
[2019-11-28] MEDS: TOPIRAMATE 100 MG TAB PO SCH ×2 (09:23→21:56)
--- NOTE | 2019-11-28 09:25 | NUR ---
Scheduled po medications given per order. Patient stable with midline nurses at bedside to place midline. Patient states pain is slowly subsiding; 11/26 presently. Patient stable.
--- NOTE | 2019-11-28 10:18 | NUR ---
Midline Placement: Patient educated on need for midline placement. All risks and benefits explained and all questions and concerns addresses prior to procedure. 18g/10cm midline inserted via right brachial vein using Ultrasound. Sterile technique utilized. Blood return obtained from the single lumen and flushed easily with NS using proper technique. Midline secured with saline lock; biodisc and occlusive dressing applied. Primary RN notified. Midline lot # [id number]
--- NOTE | 2019-11-28 11:33 | NUR ---
D/C Planning Received a follow up called from Zaynab Perez advising me patient received a walker in 2018. Medicare is able to provide a new walker every 5 years. Informed RN Soraya.
--- NOTE | 2019-11-28 11:33 | NUR ---
assessment re: ss consult Patient is a 44 year old female who is alert and oriented. Patients cognitive abilities are intact. Prior to admission patient lived home with family and functioned with assistance. Per patient she will return home to her prior living arrangements post discharge and family will transport her home. Patient informed me she has a fww that is broke and a shower chair for home use. Patients PCP is Dr Gonzalez. I informed patient she has a ss consult for limited access to food, requesting additional help. Patient informed me she has access to food, she just needs someone to bring her food to her. Patient stated she has food in the house. Patient is requesting a new fww. I spoke to patient about her ETOH level of 56.0 on admission. Patient informed me her daughter gave her the alcohol. I asked patient if her daughter can bring her alcohol, can she bring her food also. Patient will need home health safety eval and home health for PT on discharge. I informed patient she has a right to speak to a social media director regarding all care. I informed patient she has a right to participate in any and all discharge planning. Patient does not have a POA and advanced directive. I have offered patient information on POA and advanced directives. I informed the patient the advantages and benefits of having an Advanced Directive. Patient verbalized understanding and agreed to discharge plan. Addendum: 11/28/19 at 1201 by Mellissa Nevarez Amended: Links added.
--- NOTE | 2019-11-28 11:55 | NUR ---
Checked blood sugar: 157 mg/dl - will cover per sliding scale. Patient stable.
--- NOTE | 2019-11-28 12:40 | NUR ---
Patient resting quietly in bed. Covered per sliding scale. Patient stable.
--- NOTE | 2019-11-28 13:20 | NUR ---
Patient medicated for itching. Patient also complained of pain and nausea. Will medicate. Addendum: 11/28/19 at 1330 by STEPH BEAVERS RN RN Patient medicated for pain and nausea.
[2019-11-28] MEDS ORDERED: POTASSIUM CHL 20 Meq TABLET PO ONE (13:30)
[2019-11-28] MEDS ORDERED: LABE200T6 PO (13:34)
--- NOTE | 2019-11-28 14:19 | NUR ---
Patient stable with Frida TANK CAR REPAIRER at bedside. Ordered medications given per order. Patient stable.
--- NOTE | 2019-11-28 14:22 | NUR ---
Nutrition Assessment Notes please see attached link for complete assessment Est energy needs BW [id number] kcal (25-30 kcal/kg BW), Est protein needs 68-81 g (1-1.2g/kgBW). Will reassess prn Addendum: 11/28/19 at [address] Amended: Links added.
[2019-11-28] MEDS ORDERED: PANTOPRAZOLE 40 MG/10 ML VIAL INJ IV ONE (15:15)
--- NOTE | 2019-11-28 16:50 | NUR ---
Checked blood sugar: 117 mg/dl - no coverge required. IVP medication given as well. Patient resting quietly in bed with no complaint of pain. Patient stable.
--- NOTE | 2019-11-28 17:15 | NUR ---
Spoke to Dr. Pickens regarding patient discharge. Per doctor, patient will possibly be discharged tomorrow morning.
--- NOTE | 2019-11-28 18:02 | NUR ---
Attempted PT eval, pt is very sleepy and refused PT eval. Will attempt again tomorrow.
--- NOTE | 2019-11-28 18:10 | NUR ---
Called Jeanna at [phone] and requested report for telepsych consult. Spoke to Ji; will fax to hospital. Addendum: 11/28/19 at 1816 by STEPH BEAVERS RN RN Copy of fax received and given to Dr. Pickens to review.
--- NOTE | 2019-11-28 18:45 | NUR ---
Patient medicated for 9/10 generalized pain and nausea. Patient stable throughout shift.
[2019-11-28] MEDS: PRAMIPEXOLE DIHYDROCHLORIDE MO 0.25 MG TAB PO SCH (19:45)
--- NOTE | 2019-11-28 20:23 | NUR ---
Spoke to MD Gonzalez and notified him that patient is having sever nausea and vomiting unresponsive to Zofran. Order received: Promethazine 25 mg IV q 6 hrs. PRN.
[2019-11-28] MEDS: PROMETHAZINE HCL 25 MG/ML 1ML IV PRN (21:55)
[2019-11-28] MEDS: ZOLPIDEM TARTRATE 5 MG TAB PO PRN (22:01)
[2019-11-29] MEDS: diphenhdrAMINE HCL 50 MG/1 ML VL IV PRN (01:40)
[2019-11-29] MEDS: ONDANSETRON HCL 4 MG/2 ML VIAL IV PRN ×3 (02:47→10:24)
[2019-11-29] MEDS: MORPHINE SULF INJ 2 MG/ML SYRINGE 1ML IV PRN ×2 (02:47→06:39)
[2019-11-29] MEDS: PROMETHAZINE HCL 25 MG/ML 1ML IV PRN (03:49)
[2019-11-29 05:00] VITALS: BP 135/80
[2019-11-29] MEDS: ACCU-CHEK COMFORT CURVE STRIP VI SCH (06:35)
[2019-11-29] MEDS: InsuLIN REG 1unit/0.01ml Soln (100units/ml) SC SCH (07:00)
--- NOTE | 2019-11-29 07:35 | NUR ---
Opening Shift Note Received report from material handler 2nd shift RN. Assumed care of patient, awake and alert. No S/S of distress/SOB or pain. Instructed on POC and to call for assist PRN, will continue to monitor for changes.
--- NOTE | 2019-11-29 08:45 | NUR ---
NEUROLOGY Call placed to Dr Pickens to follow up on Neurology clearance, awaiting return call.
[2019-11-29 08:48] VITALS: BP 137/92
[2019-11-29 09:00] VITALS: BP 137/92
--- NOTE | 2019-11-29 09:00 | NUR ---
NEUROLOGY Dr Dunbar returned call, new orders received and followed through. Patient updated on plan of care, verbalized understanding.
[2019-11-29] MEDS ORDERED: PANTOPRAZOLE 40 MG/10 ML VIAL INJ IV SCH (10:00)
[2019-11-29] MEDS: LABETALOL HCL 200 MG TAB PO SCH (10:35)
[2019-11-29] MEDS: TOPIRAMATE 100 MG TAB PO SCH (10:36)
--- NOTE | 2019-11-29 10:55 | NUR ---
DISCHARGE DISCHARGE INSTRUCTIONS AND PRESCRIPTION GIVEN TO PT. PT VERBALIZED UNDERSTANDING. PT IV REMOVED X2, CATHETER INTACT X2. PT TOLERATED WELL. JOLLY CATHETER REMOVED, PT TOLERATED WELL. PT REFUSED HER MORNING ORAL MEDICATIONS STATES SHE WILL TAKE AT HOME. EDUCATED THE IMPORTANCE OF TAKING THE MEDICATIONS, SHE STILL REFUSED. PT DID NOT WANT TO WAIT TO URINATE AFTER JOLLY CATHETER REMOVAL STATES HE BOYFRIEND IS OUTSIDE WAITING.
== END 2019-11-29 11:10 | disposition home or self-care (01) | DRG 101 ==
LOC: EDBD 18:49 → ER 18:49 → EDUNIT# 18:49 → TELE 18:50 → TELE-CENTR 11-26 08:43
PROVIDERS: ADMIT Internal Medicine; ATTEND Internal Medicine
DX: G40.409 Other generalized epilepsy and epileptic syndromes, not intractable, without status epilepticus (principal); E87.1 Hypo-osmolality and hyponatremia; E27.1 Primary adrenocortical insufficiency; G43.109 Migraine with aura, not intractable, without status migrainosus; D35.00 Benign neoplasm of unspecified adrenal gland; I95.9 Hypotension, unspecified; R32 Unspecified urinary incontinence; F10.10 Alcohol abuse, uncomplicated; G25.81 Restless legs syndrome; R00.0 Tachycardia, unspecified; E11.42 Type 2 diabetes mellitus with diabetic polyneuropathy; E11.65 Type 2 diabetes mellitus with hyperglycemia; I10 Essential (primary) hypertension; F41.9 Anxiety disorder, unspecified; F32.9 Major depressive disorder, single episode, unspecified; E78.5 Hyperlipidemia, unspecified; J44.9 Chronic obstructive pulmonary disease, unspecified; S05.12XA Contusion of eyeball and orbital tissues, left eye, initial encounter; W18.39XA Other fall on same level, initial encounter; Z79.4 Long term (current) use of insulin; Z79.899 Other long term (current) drug therapy; Z82.49 Family history of ischemic heart disease and other diseases of the circulatory system; Z83.3 Family history of diabetes mellitus; Z90.49 Acquired absence of other specified parts of digestive tract; Z90.710 Acquired absence of both cervix and uterus; Y93.89 Activity, other specified; Y92.89 Other specified places as the place of occurrence of the external cause; Y99.8 Other external cause status; Y90.7 Blood alcohol level of 200-239 mg/100 ml
CPT/HCPCS: 36415; 70450; 72125; 80053; 80307; 81001; 81025; 82010; 82962; 83735; 84484; 85025; 85610; 85730; 87081; 93005; C9113; G0378; J1815; J2405

== ENCOUNTER 2019-12-20 09:57 | Inpatient (IN) | payer MEDICARE ==
[~2019-12-20] VITALS: Ht 167.6 cm; Wt 72.8 kg
[~2019-12-20 09:57] MED LIST changes: -METO-6 PO
[2019-12-20 10:57] LABS: Basophils # (auto) 0.1 10 ^3/uL (0-0.2); Eosinophils # (auto) 0 10 ^3/uL (0-0.8); Hemoglobin 10.3 g/dL (12.2-16.2); Lymphocytes # (auto) 0.6 10 ^3/uL (0.4-5.4); Monocytes # (auto) 0.3 10 ^3/uL (0-1.3)
[2019-12-20 10:59] LABS: Basophils % (auto) 0.8 % (0.0-2.0); Hematocrit 32.9 % (36.0-46.0); Lymphocytes % (auto) 7.3 % (10.0-50.0); Mean Corpuscular Hgb Conc. 31.4 g/dL (32.0-36.0); Mean Corpuscular Volume 79.8 fL (80.0-100.0); Monocytes % (auto) 3.1 % (0.0-12.0); Neutrophils # (auto) 7.8 10 ^3/uL (1.6-8.6); Neutrophils % (auto) 88.8 % (37.0-80.0); Platelet Count (auto) 491 10^3/uL (140-450); Red Blood Cells 4.12 10^6/uL (4.0-5.20); White Blood Cell 8.7 10^3/uL (4.4-10.8)
[2019-12-20 11:04] LABS: Red Cell Distribution Width 20.2 % (11.8-14.3)
[2019-12-20 11:25] LABS: Alanine Aminotransferase 31 U/L (13-56); Albumin 3.4 g/dL (3.4-5.0); Anion Gap 9 (5-15); Aspartate Aminotransferase 25 U/L (15-37); Blood Urea Nitrogen 10 mg/dL (7-18); Calcium 8.7 mg/dL (8.5-10.1); Carbon Dioxide 19 mmol/L (21-32); Chloride 99 mmol/L (98-107); Glucose 359 mg/dL (74-106); Potassium 4.7 mmol/L (3.5-5.1); Sodium 127 mmol/L (136-145)
[2019-12-20 11:30] LABS: Alkaline Phosphatase 345 U/L (45-117); BUN/Creatinine Ratio 13.5; Bilirubin, Total 0.5 mg/dL (0.2-1.0); GFR African American 111 mL/min; GFR Non-African American 91 mL/min; Total Protein 7.8 g/dL (6.4-8.2)
[2019-12-20] MEDS ORDERED: LABETALOL HCL 5 MG/ML 4ML SYRINGE IV ONE (11:30)
[2019-12-20] MEDS ORDERED: ONDANSETRON HCL 4 MG/2 ML VIAL IV ONE ×2 (12:15→16:00)
[2019-12-20] MEDS ORDERED: MORPHINE SULF INJ 2 MG/ML SYRINGE 1ML IV ONE ×2 (12:15→18:00)
[2019-12-20] MEDS ORDERED: hydrALAZINE HCL 20 MG/ML VL IV ONE (12:15)
[2019-12-20 12:45] LABS: Urine Bacteria NONE SEEN /hpf (None Seen); Urine Blood Negative /uL (Negative); Urine Specific Gravity 1.017 (1.001-1.035); Urine WBC 1 /hpf (0 - 5)
[2019-12-20 13:01] LABS: Alcohol, Urine < 3.0 mg/dL (0-10); Amphetamine Screen, Urine NEGATIVE (NEGATIVE); Barbiturate Scree,Urine NEGATIVE (NEGATIVE); Benzodiazephine Screen, Urine NEGATIVE (NEGATIVE); Cannabinoid Screen, Urine NEGATIVE (NEGATIVE); Cocaine Screen, Urine NEGATIVE (NEGATIVE); Opiate Scree,Urine NEGATIVE (NEGATIVE); Phencyclidine Screen, Urine NEGATIVE (NEGATIVE)
[2019-12-20] MEDS ORDERED: SODIUM CHLORIDE 0.9% 500 ML IV ONE (16:00)
[2019-12-20] MEDS ORDERED: IOHEXOL 300 MG/ML 100ML BOTTLE IJ ONE (17:59)
[2019-12-20] MEDS ORDERED: diphenhdrAMINE HCL 50 MG/1 ML VL IV ONE (18:15)
[2019-12-20] MEDS ORDERED: MORPHINE SULF INJ 2 MG/ML SYRINGE 1ML IV PRN (20:30)
[2019-12-20] MEDS ORDERED: NITROGLYCERIN 0.4 MG SL TAB SL PRN (20:30)
[2019-12-20] MEDS ORDERED: diphenhdrAMINE HCL 25 MG CAP PO PRN (20:30)
[2019-12-20] MEDS: ONDANSETRON HCL 4 MG/2 ML VIAL IV PRN (21:26)
[2019-12-20] MEDS: MORPHINE SULF INJ 2 MG/ML SYRINGE 1ML IV PRN (21:26)
[2019-12-20] MEDS: LABETALOL HCL 200 MG TAB PO SCH (22:32)
[2019-12-21] MEDS ORDERED: SODIUM CHLORIDE 0.9% 500 ML IV ONE (00:15)
[2019-12-21] MEDS: ONDANSETRON HCL 4 MG/2 ML VIAL IV PRN ×2 (01:31→15:48)
[2019-12-21] MEDS: MORPHINE SULF INJ 2 MG/ML SYRINGE 1ML IV PRN ×4 (01:31→15:48)
[2019-12-21] MEDS ORDERED: PRA1C PO (01:45)
[2019-12-21] MEDS ORDERED: TOPIRAMATE 100 MG TAB PO ONE (02:30)
[2019-12-21] MEDS: ZOLPIDEM TARTRATE 5 MG TAB PO PRN ×2 (02:56→22:53)
[2019-12-21] MEDS ORDERED: PROMETHAZINE HCL 25 MG/ML 1ML ONE (05:40)
[2019-12-21] MEDS: LABETALOL HCL 200 MG TAB PO SCH (06:00)
--- NOTE | 2019-12-21 06:15 | NUR ---
Telemetry admit from ER STACI PINO admitted to Telemetry unit after SBAR received. Patient oriented to HARITHA STRONG RN primary RN, unit, room, bed, and unit policies regarding patient care and visiting hours. Patient now on continuous telemetry monitoring, tele box # [79] and telemetry reading on arrival to unit is [SINUS TACHY]. Patient weighed by bedscale and encouraged to call if they need something. Bed lowered and locked call light and bedside table in reach. All questions and concerns addressed, patient verbalized understanding.
[2019-12-21] MEDS: INSULIN LANTUS (GLARGINE) 1 /0.01ml (100units/ml) SC SCH ×2 (06:27→22:52)
--- NOTE | 2019-12-21 06:30 | NUR ---
Did not administer Labetalol patient SBP dropped dangerously low after last administered
[2019-12-21 06:50] VITALS: BP 117/87
[2019-12-21] MEDS ORDERED: INSULIN LISPRO (HUMAN) 100 UNITS/ML ML SC SCH (07:00)
[2019-12-21 08:00] VITALS: BP 133/91
[2019-12-21 08:44] VITALS: BP 133/91
[2019-12-21] MEDS ORDERED: DEXTROSE (50%) 50ML SYRG IV PRN (09:15)
[2019-12-21] MEDS ORDERED: LORazepam 0.5 MG TAB PO SCH (10:00)
[2019-12-21] MEDS: PROMETHAZINE HCL 25 MG/ML 1ML IV PRN (10:22)
[2019-12-21] MEDS: AMITRIPTYLINE HCL 25 MG TAB PO SCH ×3 (10:23→22:51)
[2019-12-21] MEDS: PANTOPRAZOLE 40 MG TAB PO SCH ×2 (10:24→22:34)
[2019-12-21] MEDS: TOPIRAMATE 100 MG TAB PO SCH ×2 (10:24→22:34)
--- NOTE | 2019-12-21 10:30 | NUR ---
DR LEMUS ROUNDING. PER DR LEMUS GIVE PATIENT HER NIGHT DOSE OF LABETALOL HOWEVER IF BP GOES BEYOND 160/100 DURING THE DAY, A ONE TIME ORDER OF LABETALOL CAN BE ORDERED 200 MG PO. WILL CONTINUE TO MONITOR.
[2019-12-21 11:10] LABS: Basophils # (auto) 0.1 10 ^3/uL (0-0.2); Eosinophils # (auto) 0.1 10 ^3/uL (0-0.8); Nucleated Red Blood Cells % 0.1 %
[2019-12-21 11:12] LABS: Basophils % (auto) 1.4 % (0.0-2.0); Eosinophils % (auto) 1.9 % (0.0-7.0); Hemoglobin 10.6 g/dL (12.2-16.2); Lymphocytes # (auto) 1.4 10 ^3/uL (0.4-5.4); Lymphocytes % (auto) 21.1 % (10.0-50.0); Mean Corpuscular Hemoglobin 25.1 pg (28.0-32.0); Mean Corpuscular Hgb Conc. 31.2 g/dL (32.0-36.0); Mean Corpuscular Volume 80.4 fL (80.0-100.0); Monocytes # (auto) 0.4 10 ^3/uL (0-1.3); Monocytes % (auto) 6.5 % (0.0-12.0); Neutrophils # (auto) 4.6 10 ^3/uL (1.6-8.6); Neutrophils % (auto) 69.1 % (37.0-80.0); Platelet Count (auto) 560 10^3/uL (140-450); Red Blood Cells 4.22 10^6/uL (4.0-5.20); White Blood Cell 6.6 10^3/uL (4.4-10.8)
[2019-12-21 11:29] LABS: INR 1.34 (0.9-1.15); Partial Thromboplastin Time 27.8 sec (23.0-31.2)
[2019-12-21 11:30] LABS: Albumin 3.3 g/dL (3.4-5.0); Calcium 8.5 mg/dL (8.5-10.1); Potassium 3.8 mmol/L (3.5-5.1); Red Cell Distribution Width 20.1 % (11.8-14.3)
[2019-12-21 11:35] LABS: BUN/Creatinine Ratio 12.2; Bilirubin, Total 0.4 mg/dL (0.2-1.0); Total Protein 7.6 g/dL (6.4-8.2)
[2019-12-21] MEDS: ACCU-CHEK COMFORT CURVE STRIP VI SCH ×3 (11:40→22:00)
[2019-12-21 13:00] VITALS: BP 157/116
[2019-12-21] MEDS: InsuLIN REG 1unit/0.01ml Soln (100units/ml) SC SCH ×3 (13:13→22:52)
[2019-12-21] MEDS ORDERED: TIZANIDINE PO PRN (14:00)
--- NOTE | 2019-12-21 15:56 | NUR ---
Midline Placement: Patient educated on need for midline placement. All risks and benefits explained and all questions and concerns addresses prior to procedure. 4Fr 20cm midline inserted via left brachial vein using Ultrasound. Sterile technique utilized. Blood return obtained from the single lumen and flushed easily with NS using proper technique. Midline secured with saline lock; biodisc and occlusive dressing applied. Primary RN notified. Midline lot #[id number]. Internal length 20cm External length 0cm
[2019-12-21 17:00] VITALS: BP_SYST 148; BP_SYST 159; BP_DIAS 132; BP_DIAS 85
[2019-12-21] MEDS ORDERED: LABETALOL HCL 200 MG TAB PO ONE (17:15)
[2019-12-21] MEDS ORDERED: LORazepam 0.5 MG TAB PO PRN (17:45)
[2019-12-21] MEDS: CARISOPRODOL 350 MG TAB PO PRN (17:53)
--- NOTE | 2019-12-21 20:00 | NUR ---
Opening Shift Note Assumed care of patient. Awake, alert and oriented x4. No S/S of distress or SOB at this time. Pt reporting pain 9/10. Will medicate as ordered. Pt is on room air with even and unlabored respirations. Instructed on POC and to call for assist PRN. Bed locked, in lowest position, call light within reach, side rails up x2, seizure precautions in place. Will continue to monitor for changes Q1hr and PRN.
[2019-12-21] MEDS: diphenhdrAMINE HCL 50 MG/1 ML VL IV PRN (20:24)
[2019-12-21] MEDS: HYDROcodone-ACET 5/325MG TAB PO PRN (20:25)
[2019-12-21 22:00] VITALS: BP 136/98
[2019-12-21] MEDS ORDERED: LABETALOL HCL 200 MG TAB PO SCH (22:00)
[2019-12-22] MEDS: HYDROcodone-ACET 5/325MG TAB PO PRN (04:11)
[2019-12-22 05:00] VITALS: BP 151/111
[2019-12-22] MEDS: SUCRALFATE 1 GM/10 ML ORAL SUSP PO SCH ×2 (06:38→17:39)
[2019-12-22] MEDS: InsuLIN REG 1unit/0.01ml Soln (100units/ml) SC SCH ×4 (06:38→22:00)
[2019-12-22] MEDS: ACCU-CHEK COMFORT CURVE STRIP VI SCH ×4 (06:39→22:04)
[2019-12-22] MEDS: INSULIN LANTUS (GLARGINE) 1 /0.01ml (100units/ml) SC SCH ×2 (06:39→22:00)
--- NOTE | 2019-12-22 07:30 | NUR ---
Opening Shift Note Assumed care of patient, awake and alert. No S/S of distress/SOB or pain. Instructed on POC and to call for assist PRN, will continue to monitor for changes Q1hr and PRN. Bed is locked and in lowest position. Call light within reach.
[2019-12-22 08:00] VITALS: BP 142/107
[2019-12-22] MEDS: PROMETHAZINE HCL 25 MG/ML 1ML IV PRN ×2 (08:52→20:47)
[2019-12-22] MEDS: CARISOPRODOL 350 MG TAB PO PRN ×2 (08:52→22:04)
[2019-12-22] MEDS: diphenhdrAMINE HCL 50 MG/1 ML VL IV PRN ×2 (08:52→20:47)
[2019-12-22] MEDS: PANTOPRAZOLE 40 MG TAB PO SCH ×2 (10:12→21:45)
[2019-12-22] MEDS: AMITRIPTYLINE HCL 25 MG TAB PO SCH ×2 (10:12→21:44)
[2019-12-22] MEDS: TOPIRAMATE 100 MG TAB PO SCH ×2 (10:12→21:45)
[2019-12-22] MEDS: LABETALOL HCL 200 MG TAB PO SCH ×3 (10:13→21:44)
[2019-12-22] MEDS: ONDANSETRON HCL 4 MG/2 ML VIAL IV PRN (12:16)
--- NOTE | 2019-12-22 13:00 | NUR ---
PATIENT STATED SHE HAD VOMITED AND HAD A BOWEL MOVEMENT WITH BRIGHT RED BLOOD. PATIENT FLUSHED THE TOILET AND WAS UNABLE TO EXAMINE PATIENTS COMPLAIN. INSTRUCTED PATIENT TO NOT FLUSH TOILET TO BE ABLE TO ASSESS URINE AND STOOL. WILL CONTINUE TO MONITOR PATIENT.
--- NOTE | 2019-12-22 17:21 | NUR ---
PAIN PATIENT COMPLAINING OF LOWER BACK PAIN. PATIENT STATES 10/10 PAIN WITH FACIAL GRIMACE. PATIENT STATED SHE IS NOT ABLE TO TAKE NORCO DUE TO CAUSING NAUSEA AND VOMITING. PAGED LUNA CARDENAS TO INFORM OF PATIENT PAIN AND STATEMENTS REGARDING NORCO. RECEIVE NEW ORDERS THAT WILL BE CARRIED OUT. WILL CONTINUE TO MONITOR PATIENT.
[2019-12-22] MEDS ORDERED: MORPHINE SULFATE 4 MG/ML SYR/VIAL ONE (17:29)
[2019-12-22] MEDS: MORPHINE SULFATE 4 MG/ML SYR/VIAL IV PRN (17:41)
[2019-12-22] MEDS: SODIUM CHLORIDE 0.9% 1,000 ML IV SCH (19:00)
[2019-12-22 22:03] VITALS: BP 168/121
[2019-12-23] MEDS: ONDANSETRON HCL 4 MG/2 ML VIAL IV PRN ×2 (01:38→14:38)
[2019-12-23] MEDS: MORPHINE SULFATE 4 MG/ML SYR/VIAL IV PRN ×3 (01:38→17:34)
[2019-12-23] MEDS: ZOLPIDEM TARTRATE 5 MG TAB PO PRN (02:15)
[2019-12-23 05:00] VITALS: BP 122/84
[2019-12-23] MEDS: LABETALOL HCL 200 MG TAB PO SCH ×5 (06:00→22:00)
[2019-12-23 06:36] LABS: Basophils # (auto) 0.1 10 ^3/uL (0-0.2); Hemoglobin 8.8 g/dL (12.2-16.2); Lymphocytes # (auto) 1.6 10 ^3/uL (0.4-5.4); Monocytes # (auto) 0.6 10 ^3/uL (0-1.3); Neutrophils # (auto) 2.9 10 ^3/uL (1.6-8.6); White Blood Cell 5.3 10^3/uL (4.4-10.8)
[2019-12-23 06:40] LABS: Basophils % (auto) 1.3 % (0.0-2.0); Eosinophils # (auto) 0.1 10 ^3/uL (0-0.8); Eosinophils % (auto) 2.4 % (0.0-7.0); Hematocrit 28.1 % (36.0-46.0); Lymphocytes % (auto) 30.7 % (10.0-50.0); Mean Corpuscular Hemoglobin 25.3 pg (28.0-32.0); Mean Corpuscular Hgb Conc. 31.3 g/dL (32.0-36.0); Mean Corpuscular Volume 80.8 fL (80.0-100.0); Monocytes % (auto) 11.8 % (0.0-12.0); Neutrophils % (auto) 53.8 % (37.0-80.0); Nucleated Red Blood Cells % 0.1 %; Platelet Count (auto) 403 10^3/uL (140-450); Red Blood Cells 3.48 10^6/uL (4.0-5.20)
[2019-12-23] MEDS: SUCRALFATE 1 GM/10 ML ORAL SUSP PO SCH ×2 (06:40→17:34)
[2019-12-23 06:50] LABS: Potassium 3.8 mmol/L (3.5-5.1)
[2019-12-23 06:56] LABS: Albumin 2.9 g/dL (3.4-5.0); BUN/Creatinine Ratio 15.5; Bilirubin, Total 0.3 mg/dL (0.2-1.0); Calcium 8.1 mg/dL (8.5-10.1); Magnesium 2.3 mg/dL (1.6-2.6); Phosphorus 3.4 mg/dL (2.5-4.90); Total Protein 6.4 g/dL (6.4-8.2)
[2019-12-23] MEDS: InsuLIN REG 1unit/0.01ml Soln (100units/ml) SC SCH ×4 (07:00→22:00)
[2019-12-23] MEDS: ACCU-CHEK COMFORT CURVE STRIP VI SCH ×4 (07:11→22:00)
[2019-12-23] MEDS: INSULIN LANTUS (GLARGINE) 1 /0.01ml (100units/ml) SC SCH ×2 (07:21→22:00)
[2019-12-23 08:00] VITALS: BP 142/107
[2019-12-23] MEDS: SODIUM CHLORIDE 0.9% 1,000 ML IV SCH (08:20)
[2019-12-23 09:00] VITALS: BP 122/89
--- NOTE | 2019-12-23 09:21 | NUR ---
per Dr hampton (GI) give patient Phenergan 15 mins before meals. monitor and document intake.
[2019-12-23] MEDS: AMITRIPTYLINE HCL 25 MG TAB PO SCH ×2 (09:34→22:18)
[2019-12-23] MEDS: PANTOPRAZOLE 40 MG TAB PO SCH ×2 (09:34→22:19)
[2019-12-23] MEDS: TOPIRAMATE 100 MG TAB PO SCH ×2 (09:35→22:19)
--- NOTE | 2019-12-23 09:35 | NUR ---
patient sitting up in bed on cell phone, patient shows no s/s of nausea just wants to know when she will get her pain medications, patient educated on letting staff know if she is not happy with any food items on her plate so that we can get her something that she does like to encourage patient to eat. patient verbalized understanding of this information. Signed: 12/23/19 at 943 by Pattie Lopez RN Addendum: 12/23/19943 by Pattie Lopez RN NOT STUDENT KISHORE FRANCO Signed: 12/23/19 at 0944 by Pattie Lopez RN
[2019-12-23] MEDS: CARISOPRODOL 350 MG TAB PO PRN (10:08)
--- NOTE | 2019-12-23 11:48 | NUR ---
Nutrition Assessment Est energy needs [id number] kcal (25-30 kcal/kg BW 65.7kg) Est protein needs 53-66g (0.8-1g/kg BW 65.7kg) Will reassess prn. Addendum: 12/23/19 at [address] Amended: Links added.
[2019-12-23] MEDS: PROMETHAZINE HCL 25 MG/ML 1ML IV PRN ×2 (12:18→18:19)
[2019-12-23] MEDS: diphenhdrAMINE HCL 50 MG/1 ML VL IV PRN (12:18)
[2019-12-23 12:30] VITALS: BP 131/85
--- NOTE | 2019-12-23 16:30 | NUR ---
patient had one vomiting episode at this time, looked like stomach contents, only fluid, no apparent bile.
--- NOTE | 2019-12-23 16:31 | NUR ---
Patient also asking for pain medication early. I let patient know that I couldn't give it early.
[2019-12-23 17:13] VITALS: BP 177/99
--- NOTE | 2019-12-23 18:27 | NUR ---
patient BP elevated, per dr patient can take missed labetalol dose.
--- NOTE | 2019-12-23 19:20 | NUR ---
Opening Shift Note Assumed care of patient, awake and alert. No S/S of distress/SOB or pain. Instructed on POC and to call for assist PRN, will continue to monitor for changes Q1hr and PRN.
[2019-12-23 22:00] VITALS: BP 119/89
[2019-12-24] MEDS: PROMETHAZINE HCL 25 MG/ML 1ML IV PRN ×4 (00:14→22:30)
[2019-12-24] MEDS: diphenhdrAMINE HCL 50 MG/1 ML VL IV PRN ×4 (00:15→22:30)
[2019-12-24] MEDS: ZOLPIDEM TARTRATE 5 MG TAB PO PRN ×2 (01:15→22:30)
[2019-12-24] MEDS: MORPHINE SULFATE 4 MG/ML SYR/VIAL IV PRN ×4 (01:31→20:33)
[2019-12-24] MEDS: ONDANSETRON HCL 4 MG/2 ML VIAL IV PRN ×2 (04:57→12:51)
[2019-12-24 06:00] VITALS: BP 114/71
[2019-12-24] MEDS: LABETALOL HCL 200 MG TAB PO SCH ×3 (06:00→22:42)
[2019-12-24 06:06] LABS: Basophils # (auto) 0.1 10 ^3/uL (0-0.2); Eosinophils # (auto) 0.2 10 ^3/uL (0-0.8); Lymphocytes # (auto) 1.6 10 ^3/uL (0.4-5.4); Neutrophils # (auto) 2.2 10 ^3/uL (1.6-8.6); White Blood Cell 4.6 10^3/uL (4.4-10.8)
[2019-12-24 06:10] LABS: Basophils % (auto) 1.4 % (0.0-2.0); Eosinophils % (auto) 3.3 % (0.0-7.0); Hematocrit 26.2 % (36.0-46.0); Hemoglobin 8.7 g/dL (12.2-16.2); Lymphocytes % (auto) 35.6 % (10.0-50.0); Mean Corpuscular Hemoglobin 26.7 pg (28.0-32.0); Mean Corpuscular Hgb Conc. 33.1 g/dL (32.0-36.0); Mean Corpuscular Volume 80.6 fL (80.0-100.0); Monocytes # (auto) 0.5 10 ^3/uL (0-1.3); Monocytes % (auto) 11.6 % (0.0-12.0); Neutrophils % (auto) 48.1 % (37.0-80.0); Nucleated Red Blood Cells % 0.1 %; Platelet Count (auto) 361 10^3/uL (140-450); Red Blood Cells 3.25 10^6/uL (4.0-5.20); Red Cell Distribution Width 19.9 % (11.8-14.3)
[2019-12-24 06:34] LABS: Potassium 3.9 mmol/L (3.5-5.1)
[2019-12-24] MEDS: SUCRALFATE 1 GM/10 ML ORAL SUSP PO SCH ×2 (06:41→17:48)
[2019-12-24 06:56] LABS: Albumin 2.8 g/dL (3.4-5.0); BUN/Creatinine Ratio 17.9; Bilirubin, Total 0.3 mg/dL (0.2-1.0); Magnesium 2.4 mg/dL (1.6-2.6)
[2019-12-24] MEDS: INSULIN LANTUS (GLARGINE) 1 /0.01ml (100units/ml) SC SCH ×3 (07:00→22:00)
[2019-12-24] MEDS: InsuLIN REG 1unit/0.01ml Soln (100units/ml) SC SCH ×4 (07:00→22:00)
[2019-12-24] MEDS: ACCU-CHEK COMFORT CURVE STRIP VI SCH ×4 (07:02→22:00)
--- NOTE | 2019-12-24 07:48 | NUR ---
OPENING SHIFT NOTE Assumed care of patient from night clerk auditor RN. Patient is alert and oriented x4, no signs of distress noted. Patient was updated on the plan of care and verbalized understanding. Bed is locked, in the lowest position, side rails up x2, call light is in reach. She was encouraged to call for assistance as needed.
--- NOTE | 2019-12-24 08:05 | NUR ---
PAGED SYLVIA. Patient requesting phenergan as ordered for breakfast but states she needs benadryl with it. Benadryl is ordered q12. Requesting to change the frequency of the medication. Awaiting call back.
[2019-12-24 08:55] VITALS: BP 133/87
[2019-12-24] MEDS: PANTOPRAZOLE 40 MG TAB PO SCH ×2 (09:32→22:42)
[2019-12-24] MEDS: AMITRIPTYLINE HCL 25 MG TAB PO SCH ×2 (09:32→22:40)
[2019-12-24] MEDS: TOPIRAMATE 100 MG TAB PO SCH ×2 (09:32→22:44)
[2019-12-24] MEDS: CARISOPRODOL 350 MG TAB PO PRN ×2 (09:39→23:24)
--- NOTE | 2019-12-24 11:01 | NUR ---
BLADDER SCANNER Patient complaining of difficulty urinating, Bladder scan done with 657ml. Will Page Sejal CARRASCO.
--- NOTE | 2019-12-24 11:21 | NUR ---
CALL FROM THERESA updated on the patient status, new orders for bethea placement for urinary retention, and CT abdomen and pelvis with contrast for left and right flank pain. Orders read back and verified. Will input.
--- NOTE | 2019-12-24 11:35 | NUR ---
Bethea catheter insertion Patient assessed and determined to be in need of bethea catheter. Order obtained from MD. Patient educated on catheter and reason for insertion. All questions answered. Bethea catheter 16 guage Macedonian inserted with clean sterile technique. Patient tolerated well.
[2019-12-24] MEDS ORDERED: OMNIPAQUE ORAL SOLN 500ml 12mg/ml PO ONE (11:48)
[2019-12-24] MEDS ORDERED: IOHEXOL 300 MG/ML 100ML BOTTLE IJ ONE (11:48)
[2019-12-24 13:00] VITALS: BP 131/92
--- NOTE | 2019-12-24 13:39 | NUR ---
MIDLINE DRESSING CHANGED Per protocol, Patient tolerated well.
--- NOTE | 2019-12-24 13:44 | NUR ---
PATIENT COMPLAINING OF RIGHT AND LEFT FLANK PAIN 08/26 patient offered Freeburn as ordered and patient refused stating "norco makes Me nauseous." She was offered heat packs and refused.
[2019-12-24 17:06] VITALS: BP 129/93
[2019-12-25] VITALS: BP 136/105
[2019-12-25] MEDS: MORPHINE SULFATE 4 MG/ML SYR/VIAL IV PRN ×3 (00:32→09:18)
[2019-12-25] MEDS: ONDANSETRON HCL 4 MG/2 ML VIAL IV PRN ×3 (00:33→09:18)
[2019-12-25] MEDS: PROMETHAZINE HCL 25 MG/ML 1ML IV PRN ×2 (02:53→12:27)
[2019-12-25] MEDS: diphenhdrAMINE HCL 50 MG/1 ML VL IV PRN ×2 (05:54→12:27)
[2019-12-25 06:00] VITALS: BP 122/87
[2019-12-25 06:19] LABS: Eosinophils # (auto) 0.1 10 ^3/uL (0-0.8); Eosinophils % (auto) 3.6 % (0.0-7.0); Hemoglobin 8.6 g/dL (12.2-16.2); Lymphocytes # (auto) 1.3 10 ^3/uL (0.4-5.4); Neutrophils # (auto) 1.8 10 ^3/uL (1.6-8.6); Nucleated Red Blood Cells % 0.1 %
[2019-12-25 06:21] LABS: Basophils # (auto) 0 10 ^3/uL (0-0.2); Basophils % (auto) 0.9 % (0.0-2.0); Hematocrit 27.1 % (36.0-46.0); Lymphocytes % (auto) 34.5 % (10.0-50.0); Mean Corpuscular Hemoglobin 25.7 pg (28.0-32.0); Mean Corpuscular Hgb Conc. 31.9 g/dL (32.0-36.0); Mean Corpuscular Volume 80.7 fL (80.0-100.0); Monocytes # (auto) 0.5 10 ^3/uL (0-1.3); Monocytes % (auto) 12.6 % (0.0-12.0); Neutrophils % (auto) 48.4 % (37.0-80.0); Platelet Count (auto) 364 10^3/uL (140-450); Red Blood Cells 3.35 10^6/uL (4.0-5.20); Red Cell Distribution Width 19.5 % (11.8-14.3); White Blood Cell 3.7 10^3/uL (4.4-10.8)
[2019-12-25] MEDS: LABETALOL HCL 200 MG TAB PO SCH (06:29)
[2019-12-25] MEDS: SUCRALFATE 1 GM/10 ML ORAL SUSP PO SCH (06:37)
[2019-12-25] MEDS: InsuLIN REG 1unit/0.01ml Soln (100units/ml) SC SCH ×2 (06:50→12:09)
[2019-12-25] MEDS: ACCU-CHEK COMFORT CURVE STRIP VI SCH ×2 (06:51→11:56)
[2019-12-25] MEDS: INSULIN LANTUS (GLARGINE) 1 /0.01ml (100units/ml) SC SCH (06:51)
[2019-12-25 06:57] LABS: Albumin 2.8 g/dL (3.4-5.0); Magnesium 2.3 mg/dL (1.6-2.6); Potassium 3.9 mmol/L (3.5-5.1)
--- NOTE | 2019-12-25 07:00 | NUR ---
OPENING SHIFT NOTE RECEIVED REPORT ON THE PATIENT. AWAKE LYING IN BED HAVING BREAKFAST. PATIENT SHOWS NO SIGNS OF DISTRESS AT THIS TIME. DISCUSSED THE PLAN OF CARE WITH THE PATIENT. BED IN LOWEST POSITION, SIDE RAILS UP X2, AND THE CALL LIGHT IS WITHIN REACH.
[2019-12-25 07:01] LABS: BUN/Creatinine Ratio 14.7; Bilirubin, Total 0.3 mg/dL (0.2-1.0); Total Protein 5.9 g/dL (6.4-8.2)
[2019-12-25 09:00] VITALS: BP 132/90
[2019-12-25] MEDS: PANTOPRAZOLE 40 MG TAB PO SCH (09:17)
[2019-12-25] MEDS: AMITRIPTYLINE HCL 25 MG TAB PO SCH (09:17)
[2019-12-25] MEDS: TOPIRAMATE 100 MG TAB PO SCH (09:18)
--- NOTE | 2019-12-25 11:11 | NUR ---
Assessment Patient is a 44-year-old female who is alert and oriented. Prior to admission patient lived home with family and functioned with assistance. Per patient she will return home to her prior living arrangements post discharge and family will transport her home. Patient informed me she has a walker and shower chair for home use. Patients PCP is Dr. Gonzalez. Advised patient there is a social service consult to resume home health. Patient is on service with [facility]. Informed patient she has a right to participate in all discharge planning. Patient verbalized understanding and agreed to discharge plan. Faxed clinical information to [facility]. Per Minal with [facility] they will resume care for patient within 24-48hrs upon d.c day. Addendum: 12/25/19 at 1113 by DIDI WESTBROOK Amended: Links added.
[2019-12-25 12:28] VITALS: BP 132/90
== END 2019-12-25 13:33 | disposition home health service (06) | DRG 305 ==
LOC: ER 09:57 → TELE 09:58 → TELE-WESTW 12-21 06:11
PROVIDERS: ADMIT Internal Medicine; ATTEND Internal Medicine
DX: I16.0 Hypertensive urgency (principal); D35.00 Benign neoplasm of unspecified adrenal gland; G89.29 Other chronic pain; E11.40 Type 2 diabetes mellitus with diabetic neuropathy, unspecified; G40.909 Epilepsy, unspecified, not intractable, without status epilepticus; I10 Essential (primary) hypertension; F41.9 Anxiety disorder, unspecified; F32.9 Major depressive disorder, single episode, unspecified; D50.9 Iron deficiency anemia, unspecified; J44.9 Chronic obstructive pulmonary disease, unspecified; R00.0 Tachycardia, unspecified; M54.9 Dorsalgia, unspecified; Z88.8 Allergy status to other drugs, medicaments and biological substances; Z91.19 Patient's noncompliance with other medical treatment and regimen; Z79.4 Long term (current) use of insulin; Z87.19 Personal history of other diseases of the digestive system; Z90.49 Acquired absence of other specified parts of digestive tract; Z90.710 Acquired absence of both cervix and uterus; Z88.0 Allergy status to penicillin
CPT/HCPCS: 36415; 71045; 74177; 80053; 80307; 81001; 81025; 82962; 83690; 83735; 84100; 84443; 84484; 84702; 85025; 85379; 85610; 85730; 87081; 93005; 93306; G0378; J1815; J2405; J3490

== ENCOUNTER 2020-01-10 09:24 | Inpatient (IN) | payer MEDICARE ==
[~2020-01-10] VITALS: Ht 165.1 cm; Wt 75.0 kg
[~2020-01-10 09:24] MED LIST changes: -BIOTCAP2 PO; -ESLI1TAB4 PO; +PRA1C PO
[2020-01-10] MEDS ORDERED: ONDANSETRON HCL 4 MG/2 ML VIAL IV ONE (10:15)
[2020-01-10] MEDS ORDERED: MORPHINE SULF INJ 2 MG/ML SYRINGE 1ML IV ONE (10:15)
[2020-01-10] MEDS ORDERED: SODIUM CHLORIDE 0.9% 1,000 ML IV ONE ×2 (10:15)
[2020-01-10 10:24] LABS: Eosinophils # (auto) 0.1 10 ^3/uL (0-0.8); Eosinophils % (auto) 0.7 % (0.0-7.0); Monocytes # (auto) 0.8 10 ^3/uL (0-1.3)
[2020-01-10 10:27] LABS: Basophils # (auto) 0 10 ^3/uL (0-0.2); Basophils % (auto) 0.4 % (0.0-2.0); Hematocrit 32.2 % (36.0-46.0); Lymphocytes # (auto) 1.6 10 ^3/uL (0.4-5.4); Lymphocytes % (auto) 16.6 % (10.0-50.0); Mean Corpuscular Hemoglobin 24.6 pg (28.0-32.0); Mean Corpuscular Hgb Conc. 31.1 g/dL (32.0-36.0); Mean Corpuscular Volume 79.2 fL (80.0-100.0); Monocytes % (auto) 8.7 % (0.0-12.0); Neutrophils % (auto) 73.6 % (37.0-80.0); Platelet Count (auto) 287 10^3/uL (140-450); Red Blood Cells 4.07 10^6/uL (4.0-5.20); Red Cell Distribution Width 18.4 % (11.8-14.3); White Blood Cell 9.5 10^3/uL (4.4-10.8)
[2020-01-10 10:39] LABS: Albumin 3.7 g/dL (3.4-5.0); Calcium 9.2 mg/dL (8.5-10.1); Potassium 3.5 mmol/L (3.5-5.1)
[2020-01-10 10:45] LABS: BUN/Creatinine Ratio 8.1; Bilirubin, Total 0.4 mg/dL (0.2-1.0); Total Protein 8.2 g/dL (6.4-8.2)
[2020-01-10] MEDS ORDERED: DEXTROSE (50%) 50ML SYRG IV PRN (11:15)
[2020-01-10] MEDS ORDERED: INSULIN LANTUS (GLARGINE) 1 /0.01ml (100units/ml) SC ONE ×3 (11:15→16:15)
[2020-01-10] MEDS ORDERED: SODIUM CHLORIDE 0.9% 1,000 ML IV SCH ×3 (11:15→17:15)
[2020-01-10] MEDS ORDERED: InsuLIN R (HUMAN) 100 UNITS in SODIUM CHL 0.9% 99 ML IV SCH (11:15)
[2020-01-10] MEDS ORDERED: NITROGLYCERIN 0.4 MG SL TAB SL PRN (11:45)
[2020-01-10] MEDS ORDERED: LABETALOL HCL 5 MG/ML 4ML SYRINGE IV PRN (11:45)
[2020-01-10] MEDS ORDERED: MORPHINE SULF INJ 2 MG/ML SYRINGE 1ML IV PRN (11:45)
[2020-01-10] MEDS ORDERED: InsuLIN REG 1unit/0.01ml Soln (100units/ml) IV ONE (11:45)
[2020-01-10] MEDS ORDERED: SODIUM CHLORIDE 0.9% 2,000 ML IV ONE (11:45)
[2020-01-10] MEDS: LACTULOSE 20Gm/30ML SOLN PO SCH ×2 (12:00→18:23)
[2020-01-10] MEDS ORDERED: ACCU-CHEK COMFORT CURVE STRIP VI SCH (12:00)
[2020-01-10 12:45] LABS: Calcium 9.1 mg/dL (8.5-10.1); Magnesium 2.2 mg/dL (1.6-2.6); Potassium 3.6 mmol/L (3.5-5.1)
[2020-01-10 12:54] LABS: BUN/Creatinine Ratio 10.1; Phosphorus 3.1 mg/dL (2.5-4.90)
--- NOTE | 2020-01-10 14:26 | NUR ---
Telemetry admit from ER STACI PINO admitted to Telemetry unit after SBAR received. Patient oriented to JOSEY jones RN, unit, room 271 B and unit policies regarding patient care and visiting hours. Patient now on continuous telemetry monitoring, tele box # 53 and telemetry reading on arrival to unit is SR 120. Patient weighed by bedscale and encouraged to call if they need something. All questions and concerns addressed, patient verbalized understanding.
[2020-01-10] MEDS: SODIUM CHLORIDE 0.9% 2,000 ML IV SCH (14:50)
[2020-01-10 14:51] VITALS: BP 122/98
[2020-01-10] MEDS: HYDROmorphone HCL 2 MG/ML VL IV PRN ×2 (14:51→23:35)
--- NOTE | 2020-01-10 15:20 | NUR ---
PAGED SYLVIA Regarding patient heart rate 157. Patient also complaining of nausea. Zofran was given in the ER at 1236, next dose not due until 1636. Patient requesting phenergan and benadryl. Awaiting call back
--- NOTE | 2020-01-10 15:21 | NUR ---
PAGED BLAKE regarding patient heart rate 157. Awaiting call back.
--- NOTE | 2020-01-10 15:26 | NUR ---
CALL FROM KAUR CARDENAS LEAD FABRICATOR updated on the patient status, new orders for phenergan 12.5 mg IV q6h prn nausea, benadryl 25mg po q6h prn itching and lopressor IV 2.5 mg q6h prn sbp >160 or hr sustained over 110. Orders read back and verified.
[2020-01-10] MEDS ORDERED: METOPROLOL TARTRATE 1MG/1ML-5ML VIAL IV PRN (15:45)
[2020-01-10] MEDS ORDERED: diphenhdrAMINE HCL 25 MG CAP PO PRN ×2 (15:45)
[2020-01-10 15:51] LABS: Basophils # (auto) 0.1 10 ^3/uL (0-0.2); Basophils % (auto) 0.6 % (0.0-2.0); Eosinophils # (auto) 0 10 ^3/uL (0-0.8); Hemoglobin 9.4 g/dL (12.2-16.2)
[2020-01-10 15:53] LABS: Eosinophils % (auto) 0.2 % (0.0-7.0); Hematocrit 29.9 % (36.0-46.0); Mean Corpuscular Hemoglobin 24.3 pg (28.0-32.0); Mean Corpuscular Hgb Conc. 31.5 g/dL (32.0-36.0); Mean Corpuscular Volume 77.1 fL (80.0-100.0); Monocytes % (auto) 7.9 % (0.0-12.0); Neutrophils # (auto) 10.1 10 ^3/uL (1.6-8.6); Neutrophils % (auto) 83.3 % (37.0-80.0); Platelet Count (auto) 284 10^3/uL (140-450); Red Blood Cells 3.88 10^6/uL (4.0-5.20); Red Cell Distribution Width 17.8 % (11.8-14.3); White Blood Cell 12.1 10^3/uL (4.4-10.8)
[2020-01-10] MEDS: ACCU-CHEK COMFORT CURVE STRIP VI SCH ×3 (16:00→19:52)
[2020-01-10] MEDS: InsuLIN REG 1unit/0.01ml Soln (100units/ml) SC SCH ×3 (16:00→19:55)
[2020-01-10] MEDS: PROMETHAZINE HCL 25 MG/ML 1ML IV PRN (16:10)
[2020-01-10] MEDS ORDERED: LABE200T18 PO (16:12)
--- NOTE | 2020-01-10 16:14 | NUR ---
BLOOD SUGAR 538 called Carlos, New order for 20U Lantus SQ once. Order read back and verified.
[2020-01-10 16:18] LABS: Calcium 8.6 mg/dL (8.5-10.1); Potassium 3.4 mmol/L (3.5-5.1)
--- NOTE | 2020-01-10 16:25 | NUR ---
BLOOD PRESSURE 173/135 Paged Carlos, new orders to continue home medication Labetalol 200mg TID. Order read back and verified.
[2020-01-10 16:37] VITALS: BP 173/135
[2020-01-10] MEDS: LABETALOL HCL 200 MG TAB PO SCH ×2 (17:22→22:07)
[2020-01-10 17:25] LABS: BUN/Creatinine Ratio 11.5
--- NOTE | 2020-01-10 18:03 | NUR ---
CARDIOLOGY AT BEDSIDE MD Leslie at bedside. Updated on the patient status. New order received for Labetalol 20mg IV once now. Order read back and verified.
[2020-01-10] MEDS ORDERED: LABETALOL HCL 5 MG/ML 4ML SYRINGE IV ONE (18:15)
--- NOTE | 2020-01-10 18:25 | NUR ---
BLOOD SUGAR RECHECK 301
--- NOTE | 2020-01-10 18:26 | NUR ---
PAGED SYLVIA regarding MD Leslie's recommendation for an insulin drip. awaiting call back.
--- NOTE | 2020-01-10 18:47 | NUR ---
IV CAME OUT TWO ATTEMPTS TO INSERT AN IV WERE DONE WITH NO SUCCESS, WILL ENDORSE TO SOCIAL SERVICES DIRECTOR.
--- NOTE | 2020-01-10 19:15 | NUR ---
Opening Shift Note Assumed care of patient, awake, alert and oriented x4, on room air with even and unlabored respirations. no S/S of distress/SOB or pain. Patient able to ambulate independently, bed in lowest locked position, side rails up x2, and call light within reach. Instructed on POC and to call for assist PRN, will continue to monitor for changes Q1hr and PRN.
[2020-01-10 22:00] VITALS: BP 135/104
[2020-01-10] MEDS: ONDANSETRON HCL 4 MG/2 ML VIAL IV PRN (23:35)
--- NOTE | 2020-01-11 00:16 | NUR ---
CRITICAL LOW BLOOD SUGAR AT 2344 PATIENTS BLOOD SUGAR IS 21, PROTOCOL FOLLOWED AND IMMEDIATELY REASSESSED BLOOD SUGAR AT 2345 WITH A RESULT OF 18. GAVE PATIENT 2 JUICE BOXES WITH 2 PACKETS OF SUGAR. REASSESSED AT 2352 AND PATIENTS SUGAR AT 21. GAVE 2 MORE JUICES WITH 2 MORE PACKETS OF SUGAR. REASSESSED AT 0016 AND BLOOD SUGAR AT 95.
[2020-01-11] MEDS: ACCU-CHEK COMFORT CURVE STRIP VI SCH ×7 (02:16→23:40)
[2020-01-11] MEDS: SODIUM CHLORIDE 0.9% 2,000 ML IV SCH ×2 (03:05→08:35)
[2020-01-11] MEDS: ONDANSETRON HCL 4 MG/2 ML VIAL IV PRN ×3 (04:01→19:55)
[2020-01-11 05:00] VITALS: BP 152/115
[2020-01-11] MEDS: InsuLIN REG 1unit/0.01ml Soln (100units/ml) SC SCH ×7 (05:26→23:40)
[2020-01-11] MEDS: LABETALOL HCL 200 MG TAB PO SCH ×3 (05:50→22:29)
[2020-01-11] MEDS: LACTULOSE 20Gm/30ML SOLN PO SCH ×5 (05:50→23:40)
--- NOTE | 2020-01-11 07:06 | NUR ---
OPENING SHIFT NOTE Assumed care of patient from retail shift manager RN. Patient is alert and oriented x4, patient complaining of pain 7/10, will medicate as ordered. She was updated on the plan of care and verbalized understanding. Bed is locked, in the lowest position, side rails up x2, call light is in reach. Patient was encouraged to call for assistance as needed.
[2020-01-11] MEDS: HYDROmorphone HCL 2 MG/ML VL IV PRN ×3 (07:49→19:55)
[2020-01-11 08:21] VITALS: BP 123/94
[2020-01-11] MEDS ORDERED: INSULIN LANTUS (GLARGINE) 1 /0.01ml (100units/ml) SC SCH (10:00)
[2020-01-11] MEDS: PROMETHAZINE HCL 25 MG/ML 1ML IV PRN ×2 (10:12→17:44)
[2020-01-11] MEDS: diphenhdrAMINE HCL 50 MG/1 ML VL IV PRN ×3 (10:12→23:40)
--- NOTE | 2020-01-11 10:20 | NUR ---
SEIZURE Viraj PICC RN informed this RN that the patient was having a seizure. No seizure PRN,Paged Carlos new order received for Ativan 1mg q2m prn seizures. This RN was not present for the seizure . Post dictal patient was on her side and moving her head. Patient is alert and oriented x3, not oriented to time, patient was reoriented. Vital signs are stable, BP is 145/110 HR 108, O2 on 2L/min via nasal cannula. Carlos Aware.
[2020-01-11] MEDS ORDERED: LORazepam 2MG/ML-1ML VIAL ONE (10:27)
[2020-01-11] MEDS: DEXTROSE (50%) 50ML SYRG IV PRN ×2 (10:45→23:41)
[2020-01-11] MEDS: LORazepam 2MG/ML-1ML VIAL IV PRN (10:46)
--- NOTE | 2020-01-11 10:49 | NUR ---
CRITICAL LOW BLOOD SUGAR blood glucose 22, rechecked 24 at 1036 dextrose administered as ordered. Patient was able to swallow sugar. Will recheck.
--- NOTE | 2020-01-11 11:04 | NUR ---
BLOOD SUGAR RECHECK 139 PATIENT IS STABLE.
--- NOTE | 2020-01-11 11:58 | NUR ---
CRITICAL LOW BLOOD GLUCOSE Blood glucose 32, rechecked 24, patient is alert and oriented x4, patient was given apple juice and sugar per protocol, Carlos made aware. No new orders received.
--- NOTE | 2020-01-11 12:13 | NUR ---
RECHECK BLOOD GLUCOSE 32, PATIENT GIVEN SUGAR AND JUICE PER PROTOCOL, WILL RECHECK IN 15 MINUTES.
--- NOTE | 2020-01-11 12:32 | NUR ---
RECHECK BLOOD GLUCOSE 57, patient given more apple juice per protocol. Will continue to recheck, Carlos jha, still awaiting call back.
--- NOTE | 2020-01-11 13:15 | NUR ---
Midline Placement: Patient educated on need for midline placement. All risks and benefits explained and all questions and concerns addresses prior to procedure. 4Fr 20cm midline inserted via left brachial vein using Ultrasound. Sterile technique utilized. Blood return obtained from the single lumen and flushed easily with NS using proper technique. Midline secured with saline lock; biodisc and occlusive dressing applied. Primary RN notified. Midline lot #[id number]. INTERNAL LENGTH 20CM EXTERNAL LENGTH 0CM
--- NOTE | 2020-01-11 13:20 | NUR ---
RECHECK BLOOD GLUCOSE 120.
--- NOTE | 2020-01-11 13:37 | NUR ---
CARDIOLOGY AT BEDSIDE updated on the patient status, plan of care was discussed with the patient and she verbalized understanding. New orders received for labs CBC, BMP and Beta-hydroxybutyric acid.
[2020-01-11 14:20] LABS: Basophils # (auto) 0 10 ^3/uL (0-0.2); Eosinophils # (auto) 0.1 10 ^3/uL (0-0.8); Hemoglobin 10.9 g/dL (12.2-16.2); Lymphocytes # (auto) 1.2 10 ^3/uL (0.4-5.4); Mean Corpuscular Hemoglobin 24.8 pg (28.0-32.0); Monocytes # (auto) 0.4 10 ^3/uL (0-1.3); Neutrophils # (auto) 6.4 10 ^3/uL (1.6-8.6)
[2020-01-11 14:22] LABS: Basophils % (auto) 0.5 % (0.0-2.0); Eosinophils % (auto) 0.7 % (0.0-7.0); Hematocrit 34.3 % (36.0-46.0); Lymphocytes % (auto) 15.1 % (10.0-50.0); Mean Corpuscular Hgb Conc. 31.8 g/dL (32.0-36.0); Monocytes % (auto) 5.4 % (0.0-12.0); Neutrophils % (auto) 78.3 % (37.0-80.0); Platelet Count (auto) 295 10^3/uL (140-450); Red Blood Cells 4.39 10^6/uL (4.0-5.20); Red Cell Distribution Width 18.8 % (11.8-14.3); White Blood Cell 8.2 10^3/uL (4.4-10.8)
[2020-01-11 14:40] LABS: BUN/Creatinine Ratio 8.1; Calcium 8.1 mg/dL (8.5-10.1); Potassium 3.2 mmol/L (3.5-5.1)
[2020-01-11 14:42] VITALS: BP 139/101
--- NOTE | 2020-01-11 15:46 | NUR ---
NESS WARD regarding potassium 3.2 and patient complaining of breakthrough pain no medication for pain level 1-6. Awaiting call back Addendum: 01/11/20 at 1816 by JOSEY BARON RN NEW ORDER RECEIVED FOR KCL 40MEQ PO ONCE, NO NEW ORDERS FOR PAIN MEDICATION
[2020-01-11 16:33] VITALS: BP 128/97
[2020-01-11] MEDS ORDERED: POTASSIUM CHL 20 Meq TABLET PO ONE (16:45)
[2020-01-11] MEDS ORDERED: METOPROLOL TARTRATE 1MG/1ML-5ML VIAL IV PRN (17:00)
--- NOTE | 2020-01-11 17:13 | NUR ---
PATIENT STATING SHE THINKS SHE HAD A SEIZURE Unwitnessed, patient states her "vision got blurry and that happens when she has seizures." No seizure activity noted by this RN. Will continue to monitor.
--- NOTE | 2020-01-11 20:05 | NUR ---
RECEIVED PATIENT FROM DAY SHIFT RN. PATIENT RESTING IN BED. NO S/S OF DISTRESS NOTED. C/O PAIN @ 8/10 AND NAUSEA, MEDICATED PATIENT ORDERED. ACCU-CHECK, BS 117. NO COVERAGE. POC INSTRUCTED AND ENCOURAGED PATIENT TO CALL FOR VICE PRESIDENT MEDIA RELATIONS IF NEEDED. BED IN LOWEST LOCKED POSITION WITH PADDED SIDE RAILS UP X 2. CALL RANGEL WITHIN REACH. ALARM ON. CONTINUE TO MONITOR FOR CHANGED Q1H AND PRN.
[2020-01-11 22:00] VITALS: BP 148/14
[2020-01-11] MEDS: PRAMIPEXOLE DIHYDROCHLORIDE MO 0.25 MG TAB PO SCH (22:28)
[2020-01-11] MEDS: TOPIRAMATE 100 MG TAB PO SCH (22:29)
--- NOTE | 2020-01-11 23:42 | NUR ---
ACCU-CHECK, BS 39, RECHECKED IN 2 MINS, BS 38, D50 GIVEN ORDERED PER PROTOCOL, AND ENCOURAGED PATIENT TO DRINK JUICE TO INCREASE THE BS. MD WARD AWARE OF PATIENT'S HYPOGLYCEMIA EPISODE DURING THE DAY TIME. WILL REPORT TO MD IN THE MORNING. CONTINUE TO MONITOR.
--- NOTE | 2020-01-12 00:35 | NUR ---
REASSESSED ACCU-CHECK, BS 67, ENCOURAGED PATIENT TO DRINK JUICE TO INCREASE THE BS. PATIENT C/O NAUSEA, MEDICATED PATIENT ORDERED. CONTINUE TO MONITOR.
[2020-01-12] MEDS: TEMAZEPAM 15 MG CAP PO PRN (00:57)
[2020-01-12] MEDS: ONDANSETRON HCL 4 MG/2 ML VIAL IV PRN ×5 (00:57→21:21)
--- NOTE | 2020-01-12 01:00 | NUR ---
PATIENT C/O NAUSEA, MEDICATED PATIENT ORDERED. CONTINUE TO MONITOR.
[2020-01-12] MEDS: HYDROmorphone HCL 2 MG/ML VL IV PRN ×2 (01:56→08:17)
[2020-01-12] MEDS: SODIUM CHLORIDE 0.9% 2,000 ML IV SCH ×2 (02:39→19:05)
--- NOTE | 2020-01-12 02:49 | NUR ---
REASSESSED ACCU-CHECK, BS 72. ENCOURAGED PATIENT TO DRINK JUICE TO INCREASE THE BS. CONTINUE TO MONITOR.
[2020-01-12] MEDS: InsuLIN REG 1unit/0.01ml Soln (100units/ml) SC SCH ×5 (04:00→20:00)
[2020-01-12] MEDS: ACCU-CHEK COMFORT CURVE STRIP VI SCH ×5 (04:15→21:22)
--- NOTE | 2020-01-12 04:17 | NUR ---
ACCU-CHECK, BS 111. NO COVERAGE. CONTINUE TO MONITOR
[2020-01-12 05:00] VITALS: BP 132/92
--- NOTE | 2020-01-12 05:32 | NUR ---
PATIENT WALKED TO BATHROOM AND BACK TO BED. HAD BM. NO S/S OF DISTRESS NOTED. CONTINUE TO MONITOR.
[2020-01-12] MEDS: LACTULOSE 20Gm/30ML SOLN PO SCH ×4 (06:00→17:34)
[2020-01-12] MEDS: LABETALOL HCL 200 MG TAB PO SCH ×3 (06:03→21:22)
--- NOTE | 2020-01-12 06:33 | NUR ---
PATIENT REFUSED TO TAKE LACTULOSE AND STATED THAT SHE HAD BM X 4 DURING THE NIGHT. WILL PASS IT TO DAY SHIFT RN TO MD. CONTINUE TO MONITOR.
[2020-01-12] MEDS: LORazepam 2MG/ML-1ML VIAL IV PRN (06:50)
--- NOTE | 2020-01-12 06:50 | NUR ---
PATIENT JUST HAD WITNESSED SEIZURE BY CRITICAL CARE UNIT NURSE, PER CRITICAL CARE UNIT NURSE, PATIENT'S WHOLE BODY SHAKING WHEN SEIZURE HAPPENED AND LASTED ABOUT 2 MINS, WHEN PRIMARY NURSE WENT INTO THE ROOM, SEIZURE STOPPED. MEDICATED PATIENT SEIZURE MEDICATION ORDERED. VITAL, BP 147/104, HR 109, RR 20, O2 SAT 100% ON RA. ACCU-CHECK, BS 82. OXYGEN 2L/NC APPLIED, CONTINUE TO MONITOR.
--- NOTE | 2020-01-12 07:03 | NUR ---
OPENING SHIFT NOTE Assumed care of patient from geologist RN. Patient is alert and oriented x4, patient complaining of 10/10 abdominal pain, will medicate as ordered, no other signs of distress noted. She was updated on the plan of care and verbalized understanding. Bed is locked, in the lowest position, side rails up x2 and call light is in reach. Patient was encouraged to call for assistance as needed.
--- NOTE | 2020-01-12 07:14 | NUR ---
REPORT GIVEN TO DAY SHIFT RN. JOSEY FRANCO AWARE OF PATIENT REFUSED LACTULOSE, WILL REPORT TO
--- NOTE | 2020-01-12 08:00 | NUR ---
ATTEMPTED MIDLINE PLACEMENT. PATIENT HAS A RIGHT ARM RESTRICTION AND NURSES HAVE NOT BEEN ABLE TO MAINTAIN IV ACCESS. JOSEY RN CALLED TO ASK IF I COULD PLACE A MIDLINE THE FLAKER TENDER PICC NURSE WAS NOT ABLE TO OBTAIN ACCESS. I MYSELF COULD ALSO NOT OBTAIN ACCESS AT THIS TIME. NOTIFIED PRIMARY RN JOSEY THAT I WAS NOT ABLE TO OBTAIN ACCESS EITHER. LET HER KNOW TO ASK THE DRAniceto WHAT HIS POC WOULD BE.
[2020-01-12] MEDS: diphenhdrAMINE HCL 50 MG/1 ML VL IV PRN ×2 (08:16→14:55)
[2020-01-12 09:00] VITALS: BP 133/94
[2020-01-12] MEDS: TOPIRAMATE 100 MG TAB PO SCH ×2 (10:20→21:22)
[2020-01-12] MEDS: THIAMINE 100mg/ml INJ (200mg/2ml VIAL) IV SCH (10:20)
--- NOTE | 2020-01-12 12:54 | NUR ---
PROVIDER AT BEDSIDE updated on the patient status, plan of care was discussed with the patient and she verbalized understanding. No new orders received.
[2020-01-12 13:00] VITALS: BP 140/87
[2020-01-12] MEDS ORDERED: PANTOPRAZOLE 40 MG/10 ML VIAL INJ IV ONE (13:00)
[2020-01-12] MEDS: MORPHINE SULF INJ 2 MG/ML SYRINGE 1ML IV PRN ×3 (13:36→21:21)
--- NOTE | 2020-01-12 13:42 | NUR ---
KEENAN AT BEDSIDE Updated on the patient status and made aware of the patient's seizure activity this morning. Plan of care was discussed with the patient and she verbalized understanding. No new orders received.
[2020-01-12 14:17] LABS: Albumin 2.6 g/dL (3.4-5.0); Calcium 7.4 mg/dL (8.5-10.1); Magnesium 1.9 mg/dL (1.6-2.6); Potassium 3.7 mmol/L (3.5-5.1)
[2020-01-12 14:20] LABS: BUN/Creatinine Ratio 6.5; Bilirubin, Total 0.3 mg/dL (0.2-1.0); Phosphorus 1.9 mg/dL (2.5-4.90); Total Protein 5.5 g/dL (6.4-8.2)
[2020-01-12] MEDS: BACLOFEN 10 MG TAB PO PRN (14:55)
[2020-01-12 16:54] VITALS: BP 154/117
[2020-01-12] MEDS: PROMETHAZINE HCL 25 MG/ML 1ML IV PRN (17:05)
[2020-01-12] MEDS: SUCRALFATE 1 GM/10 ML ORAL SUSP PO SCH ×2 (17:05→21:21)
--- NOTE | 2020-01-12 20:00 | NUR ---
Opening Shift Note Assumed care of patient, awake and alert x4. Patient is complaining of abdominal and back pain, will medicate patient as ordered by MD. Patient denies shortness of breath at this time. No sign/symptoms of distress noted at this time. Instructed on plan of care and encouraged patient to call for assistance as needed, patient verbalized understanding. Bed is locked in lowest position, side rails x 2 are up, call light is within reach.
[2020-01-12] MEDS: PRAMIPEXOLE DIHYDROCHLORIDE MO 0.25 MG TAB PO SCH (21:22)
[2020-01-12 21:31] VITALS: BP 146/103
[2020-01-13] MEDS: ACCU-CHEK COMFORT CURVE STRIP VI SCH ×6 (00:47→22:31)
[2020-01-13] MEDS: ONDANSETRON HCL 4 MG/2 ML VIAL IV PRN ×4 (02:22→18:11)
[2020-01-13] MEDS: MORPHINE SULF INJ 2 MG/ML SYRINGE 1ML IV PRN ×6 (02:23→22:18)
--- NOTE | 2020-01-13 03:08 | NUR ---
Seizure This RN was in the room with patient in bed A when she heard B bed moving. Upon checking, patient was found shaking in bed. Patient was placed in lateral position and medicated for seizures as ordered by MD (see eMAR). Seizure last approximately 3 minutes. After patient was given the Ativan patient woke up within a minute. Patient was alert and oriented x4 and stated that she felt in a "fog". Patient's vital signs post seizure were the following: BP: 138/101, HR: 105, RR: 100, and SPO2: 100% on room air. Will continue to monitor.
[2020-01-13] MEDS: LORazepam 2MG/ML-1ML VIAL IV PRN (03:15)
[2020-01-13] MEDS: InsuLIN REG 1unit/0.01ml Soln (100units/ml) SC SCH ×6 (04:00→22:00)
[2020-01-13 05:00] VITALS: BP 140/100
[2020-01-13] MEDS: LACTULOSE 20Gm/30ML SOLN PO SCH ×5 (06:00→23:54)
[2020-01-13] MEDS: SUCRALFATE 1 GM/10 ML ORAL SUSP PO SCH ×4 (06:17→22:30)
[2020-01-13] MEDS: LABETALOL HCL 200 MG TAB PO SCH ×3 (06:17→22:31)
--- NOTE | 2020-01-13 07:30 | NUR ---
Opening Shift Note Assumed care of patient, awake and alert. No S/S of distress/SOB. Patient c/o pain in lower back and abdomen 10/26. Patient is not due to pain medication. Patient repositioned and will await pain medication. Instructed on POC and to call for assist PRN, will continue to monitor for changes Q1hr and PRN. Bed is locked and in lowest position. Seizure precautions in place. Call light within reach.
[2020-01-13] MEDS: PROMETHAZINE HCL 25 MG/ML 1ML IV PRN ×3 (08:44→22:17)
[2020-01-13] MEDS: diphenhdrAMINE HCL 50 MG/1 ML VL IV PRN ×3 (08:44→22:17)
[2020-01-13] MEDS: SODIUM CHLORIDE 0.9% 2,000 ML IV SCH (08:45)
[2020-01-13 09:00] VITALS: BP 107/71
[2020-01-13] MEDS: PANTOPRAZOLE 40 MG/10 ML VIAL INJ IV SCH (10:13)
[2020-01-13] MEDS: TOPIRAMATE 100 MG TAB PO SCH ×2 (10:14→22:30)
[2020-01-13] MEDS: THIAMINE 100mg/ml INJ (200mg/2ml VIAL) IV SCH (10:14)
--- NOTE | 2020-01-13 11:00 | NUR ---
NS @150 ML/HR PUT ON HOLD DUE TO PATIENT STATING SWELLING IN HANDS AND FEET. WILL PAGE LUNA CARDENAS TO NOTIFY OF NEW SYMPTOMS. WILL AWAIT NEW ORDERS. WILL CONTINUE TO MONITOR PATIENT.
--- NOTE | 2020-01-13 12:28 | NUR ---
Nutrition Assessment Notes Please refer to link for full assessment notes. Est Energy needs: 4221-3185 kcals (30-35 kcal/kgBW) d/t pt with elev LFTs Est Protein needs: 73-88 gms/day (1.0-1.2 gm/kgBW) d/t pt with elev LFTs Will continue to monitor and reassess prn. Addendum: 01/13/20 at [address] Amended: Links added.
[2020-01-13 13:00] VITALS: BP 99/71
[2020-01-13 16:43] VITALS: BP 111/75
[2020-01-13] MEDS ORDERED: DEXTROSE (50%) 50ML SYRG IV PRN (17:30)
--- NOTE | 2020-01-13 19:30 | NUR ---
Opening Shift Note Assumed care of patient, awake and alert, ambulatory. No S/S of distress/SOB. Updated on POC and to call for assist PRN, patient verbalized understanding, call light within reach, will continue to monitor for changes Q1hr and PRN.
--- NOTE | 2020-01-13 19:35 | NUR ---
STACI PINO states they want to leave the floor Against Medical Advice (AMA) to go outside and smoke. Patient encouraged to stay on floor and not smoke. Patient advised of the risks and benefits of leaving AMA. Patient verbalized understanding and signed required AMA form.
[2020-01-13 19:58] LABS: Basophils # (auto) 0 10 ^3/uL (0-0.2); Eosinophils # (auto) 0.2 10 ^3/uL (0-0.8); Mean Corpuscular Hemoglobin 24.9 pg (28.0-32.0)
[2020-01-13 20:00] LABS: Basophils % (auto) 0.7 % (0.0-2.0); Eosinophils % (auto) 3.4 % (0.0-7.0); Hematocrit 26.8 % (36.0-46.0); Hemoglobin 8.3 g/dL (12.2-16.2); Lymphocytes # (auto) 1.5 10 ^3/uL (0.4-5.4); Lymphocytes % (auto) 24.9 % (10.0-50.0); Mean Corpuscular Hgb Conc. 31.1 g/dL (32.0-36.0); Mean Corpuscular Volume 80.1 fL (80.0-100.0); Monocytes # (auto) 0.7 10 ^3/uL (0-1.3); Monocytes % (auto) 12.4 % (0.0-12.0); Neutrophils # (auto) 3.5 10 ^3/uL (1.6-8.6); Neutrophils % (auto) 58.6 % (37.0-80.0); Platelet Count (auto) 182 10^3/uL (140-450); Red Blood Cells 3.35 10^6/uL (4.0-5.20); Red Cell Distribution Width 19.5 % (11.8-14.3)
[2020-01-13 20:17] LABS: Albumin 2.9 g/dL (3.4-5.0); Calcium 7.8 mg/dL (8.5-10.1); Magnesium 2.1 mg/dL (1.6-2.6); Potassium 3.5 mmol/L (3.5-5.1)
[2020-01-13 20:19] LABS: BUN/Creatinine Ratio 8.5; Bilirubin, Total 0.3 mg/dL (0.2-1.0); Phosphorus 1.9 mg/dL (2.5-4.90); Total Protein 5.9 g/dL (6.4-8.2)
[2020-01-13 21:31] VITALS: BP 104/76
[2020-01-13] MEDS: PRAMIPEXOLE DIHYDROCHLORIDE MO 0.25 MG TAB PO SCH (22:30)
[2020-01-13] MEDS: INSULIN LANTUS (GLARGINE) 1 /0.01ml (100units/ml) SC SCH (22:32)
[2020-01-13] MEDS: BACLOFEN 10 MG TAB PO PRN (23:54)
[2020-01-14] MEDS: ONDANSETRON HCL 4 MG/2 ML VIAL IV PRN ×4 (00:17→20:16)
[2020-01-14] MEDS: MORPHINE SULF INJ 2 MG/ML SYRINGE 1ML IV PRN ×5 (02:37→20:16)
[2020-01-14] MEDS: PROMETHAZINE HCL 25 MG/ML 1ML IV PRN ×3 (04:47→18:15)
[2020-01-14] MEDS: diphenhdrAMINE HCL 50 MG/1 ML VL IV PRN ×3 (04:47→18:15)
[2020-01-14 05:00] VITALS: BP 130/93
[2020-01-14] MEDS: LACTULOSE 20Gm/30ML SOLN PO SCH ×3 (06:00→18:00)
[2020-01-14] MEDS: LABETALOL HCL 200 MG TAB PO SCH ×3 (06:54→22:40)
[2020-01-14] MEDS: InsuLIN REG 1unit/0.01ml Soln (100units/ml) SC SCH ×4 (06:54→22:00)
[2020-01-14] MEDS: ACCU-CHEK COMFORT CURVE STRIP VI SCH ×4 (06:55→22:40)
[2020-01-14] MEDS: SUCRALFATE 1 GM/10 ML ORAL SUSP PO SCH ×4 (07:01→22:39)
--- NOTE | 2020-01-14 07:36 | NUR ---
Opening Shift Note Assumed care of patient, awake and alert. No S/S of distress/SOB. Patient c/o 8/10 abdominal pain, patient does not have pain medication available due to it being administered. Patient will await next ordered pain medication. Instructed on POC and to call for assist PRN, will continue to monitor for changes Q1hr and PRN. Bed is locked and in lowest position. Seizure precautions in place. Call light within reach.
[2020-01-14 09:00] VITALS: BP 129/94
[2020-01-14] MEDS: THIAMINE 100mg/ml INJ (200mg/2ml VIAL) IV SCH (09:34)
[2020-01-14] MEDS: PANTOPRAZOLE 40 MG/10 ML VIAL INJ IV SCH (09:34)
[2020-01-14] MEDS: TOPIRAMATE 100 MG TAB PO SCH ×2 (09:34→22:40)
--- NOTE | 2020-01-14 09:35 | NUR ---
Seizure This RN was in the room with patient in bed A when she heard B bed moving. Upon checking, patient was found shaking in bed. Patient was placed in lateral position and medicated for seizures as ordered by MD (see eMAR). Seizure last approximately 5 minutes, patient was sinus tachy. After patient was given the Ativan patient woke up within a minute. Patient was alert and oriented x4 and stated that she felt a headache. Will continue to monitor patient.
[2020-01-14] MEDS ORDERED: LORazepam 2MG/ML-1ML VIAL ONE (09:38)
[2020-01-14] MEDS: LORazepam 2MG/ML-1ML VIAL IV PRN (09:45)
[2020-01-14] MEDS: INSULIN LANTUS (GLARGINE) 1 /0.01ml (100units/ml) SC SCH ×2 (11:45→22:00)
[2020-01-14 13:00] VITALS: BP 127/93
[2020-01-14 17:00] VITALS: BP 136/88
[2020-01-14 18:40] LABS: Basophils # (auto) 0 10 ^3/uL (0-0.2); Eosinophils # (auto) 0.2 10 ^3/uL (0-0.8); Lymphocytes # (auto) 1.3 10 ^3/uL (0.4-5.4); Monocytes # (auto) 0.8 10 ^3/uL (0-1.3); Neutrophils # (auto) 2.8 10 ^3/uL (1.6-8.6); White Blood Cell 5.1 10^3/uL (4.4-10.8)
[2020-01-14 18:42] LABS: Basophils % (auto) 0.7 % (0.0-2.0); Eosinophils % (auto) 3.6 % (0.0-7.0); Hemoglobin 8.7 g/dL (12.2-16.2); Lymphocytes % (auto) 24.9 % (10.0-50.0); Mean Corpuscular Hemoglobin 24.9 pg (28.0-32.0); Mean Corpuscular Hgb Conc. 31.1 g/dL (32.0-36.0); Monocytes % (auto) 16.3 % (0.0-12.0); Neutrophils % (auto) 54.5 % (37.0-80.0); Platelet Count (auto) 187 10^3/uL (140-450)
[2020-01-14 18:49] LABS: Red Cell Distribution Width 20.4 % (11.8-14.3)
[2020-01-14 18:58] LABS: Magnesium 2.1 mg/dL (1.6-2.6); Phosphorus 3.2 mg/dL (2.5-4.90); Potassium 3.6 mmol/L (3.5-5.1)
[2020-01-14 21:31] VITALS: BP 106/70
[2020-01-14] MEDS: PRAMIPEXOLE DIHYDROCHLORIDE MO 0.25 MG TAB PO SCH (22:39)
[2020-01-15] MEDS: diphenhdrAMINE HCL 50 MG/1 ML VL IV PRN ×4 (00:55→22:01)
[2020-01-15] MEDS: PROMETHAZINE HCL 25 MG/ML 1ML IV PRN ×4 (00:55→22:02)
[2020-01-15] MEDS: MORPHINE SULF INJ 2 MG/ML SYRINGE 1ML IV PRN ×6 (00:56→23:44)
[2020-01-15] MEDS: TEMAZEPAM 15 MG CAP PO PRN (02:10)
[2020-01-15 02:58] LABS: Urine Bacteria FEW /hpf (None Seen); Urine Blood 2+ /uL (Negative); Urine Specific Gravity 1.013 (1.001-1.035); Urine WBC 20 /hpf (0 - 5)
[2020-01-15 05:00] VITALS: BP 137/99
[2020-01-15] MEDS: LABETALOL HCL 200 MG TAB PO SCH ×3 (05:28→22:00)
[2020-01-15] MEDS: LACTULOSE 20Gm/30ML SOLN PO SCH ×4 (05:28→18:00)
[2020-01-15] MEDS: ONDANSETRON HCL 4 MG/2 ML VIAL IV PRN ×5 (05:28→23:43)
[2020-01-15] MEDS: ACCU-CHEK COMFORT CURVE STRIP VI SCH ×4 (05:29→22:10)
[2020-01-15] MEDS: InsuLIN REG 1unit/0.01ml Soln (100units/ml) SC SCH ×4 (05:29→22:00)
[2020-01-15] MEDS: SUCRALFATE 1 GM/10 ML ORAL SUSP PO SCH ×4 (06:31→22:00)
--- NOTE | 2020-01-15 07:30 | NUR ---
Opening Shift Note Assumed care of patient, awake and alert. No S/S of distress/SOB. Patient c/o 9/10 pain, patient is not due for pain medication. Patient will wait for pain medication. Instructed on POC and to call for assist PRN, will continue to monitor for changes Q1hr and PRN. Bed is locked and in lowest position. Seizure precautions in place. Call light within reach.
[2020-01-15 09:00] VITALS: BP 124/81
[2020-01-15] MEDS: PANTOPRAZOLE 40 MG/10 ML VIAL INJ IV SCH (09:26)
[2020-01-15] MEDS: TOPIRAMATE 100 MG TAB PO SCH ×2 (09:26→22:01)
[2020-01-15] MEDS: THIAMINE 100mg/ml INJ (200mg/2ml VIAL) IV SCH (09:27)
[2020-01-15] MEDS: BACLOFEN 10 MG TAB PO PRN (10:48)
[2020-01-15] MEDS: INSULIN LANTUS (GLARGINE) 1 /0.01ml (100units/ml) SC SCH ×2 (10:54→22:00)
--- NOTE | 2020-01-15 12:42 | NUR ---
assessment Patient is a 44 year old female who is alert and oriented. Patients cognitive abilities are intact. Prior to admission patient lived home with family and functioned with assistance. Per patient she will return home to her prior living arrangements post discharge and family will transport her home. Patient informed me she has a fww and a shower chair for home use. Patients PCP is Dr Barnes. Patient will need a resumption order for [facility] on discharge and will need home health safety eval and home health for PT on discharge. I informed patient she has a right to speak to a social media community manager regarding all care. I informed patient she has a right to participate in any and all discharge planning. Patient does not have a POA and advanced directive. I have offered patient information on POA and advanced directives. I informed the patient the advantages and benefits of having an Advanced Directive. Patient verbalized understanding and agreed to discharge plan. Addendum: 01/15/20 at 1245 by Mellissa BROWN Amended: Links added. Addendum: 01/15/20 at 1451 by Mellissa BROWN When [facility] sent home health order to [facility] it came back [facility]. I called patient with [facility] and patient informed me that she thought she had [facility], but she is fine with whoever she is assigned to. [facility] will re-direct md order to [facility].
[2020-01-15 13:00] VITALS: BP 109/69
--- NOTE | 2020-01-15 15:24 | NUR ---
D/C Planning Per social service consult to resume home health. Patient is on service with [facility] and would like to resume service with agency. Clinical information was faxed to [facility]. per Dinah with [facility] they will resume service for patient within 24-48hrs upon d/c day.
--- NOTE | 2020-01-15 19:20 | NUR ---
Opening Shift Note Assumed care of patient, awake and alert. No S/S of distress/SOB. Instructed on POC and to call for assist PRN, will continue to monitor for changes Q1hr and PRN. Fall and seizure precautions in place. Bed locked and in lowest position.
[2020-01-15 20:00] VITALS: BP 83/54
--- NOTE | 2020-01-15 21:55 | NUR ---
Patient's BS was 34. Rechecked again and BS was at 45. Gave patient two orange juice boxes with 3 packs of sugar for her to drink. Will monitor and recheck BS again in an hour.
[2020-01-15 22:00] VITALS: BP 83/54
[2020-01-15] MEDS ORDERED: PRAMIPEXOLE DIHYDROCHLORIDE MO 0.25 MG TAB PO SCH (22:00)
[2020-01-15 23:33] VITALS: BP 125/85
[2020-01-16] MEDS: diphenhdrAMINE HCL 50 MG/1 ML VL IV PRN ×2 (04:14→10:42)
[2020-01-16] MEDS: PROMETHAZINE HCL 25 MG/ML 1ML IV PRN ×3 (04:14→12:43)
[2020-01-16] MEDS: MORPHINE SULF INJ 2 MG/ML SYRINGE 1ML IV PRN ×3 (04:14→12:43)
[2020-01-16 05:00] VITALS: BP 123/84
[2020-01-16] MEDS: LACTULOSE 20Gm/30ML SOLN PO SCH ×3 (06:00→12:00)
[2020-01-16] MEDS: SUCRALFATE 1 GM/10 ML ORAL SUSP PO SCH ×2 (06:36→11:31)
[2020-01-16] MEDS: LABETALOL HCL 200 MG TAB PO SCH (06:38)
[2020-01-16] MEDS: ACCU-CHEK COMFORT CURVE STRIP VI SCH ×2 (06:38→11:33)
[2020-01-16] MEDS: InsuLIN REG 1unit/0.01ml Soln (100units/ml) SC SCH ×2 (06:42→12:47)
[2020-01-16] MEDS: ONDANSETRON HCL 4 MG/2 ML VIAL IV PRN (08:39)
[2020-01-16 09:00] VITALS: BP 131/82
[2020-01-16] MEDS: PANTOPRAZOLE 40 MG/10 ML VIAL INJ IV SCH (10:42)
[2020-01-16] MEDS: THIAMINE 100mg/ml INJ (200mg/2ml VIAL) IV SCH (10:43)
[2020-01-16] MEDS: TOPIRAMATE 100 MG TAB PO SCH (10:45)
[2020-01-16] MEDS: INSULIN LANTUS (GLARGINE) 1 /0.01ml (100units/ml) SC SCH (10:52)
--- NOTE | 2020-01-16 11:44 | NUR ---
Nutrition Followup Notes Pt wt is 75.0 kg Pt was awake with nausea and some vomiting. Pt is with a [employer] diet, appetite is fair aeb ave 58% PO intake over 3 meals per RN doc. Pt stated her appetite is poor d/t her nausea, but knows she needs to try to eat more. Pt with no other distress. Est Energy needs: 9693-4602 kcals (30-35 kcal/kgBW) d/t pt with elev LFTs Est Protein needs: 73-88 gms/day (1.0-1.2 gm/kgBW) d/t pt with elev LFTs Will continue to monitor and reassess prn. LABS: Gluc 132 H GI: Pt had 2 BM today per RN doc BS: 21 low risk. Refer to wound report for further details. PES: Altered nutrition related lab values r/t current/chronic medical condition aeb elev LFTs, hyperglycemia, hypoalbuminemia Comments Will continue to monitor PO status, skin status, pertinent labs and weight trends. Will f/u in 3-5 days 1) Continue to closely monitor pt PO intake to meet at least 75% of meals 2) Continue current plan of care
[2020-01-16 13:00] VITALS: BP 98/62
[2020-01-16 13:06] VITALS: BP 131/82
--- NOTE | 2020-01-16 14:50 | NUR ---
Discharge instructions given as ordered. Encourage to follow up with PMD as instructed. All questions and concerns addressed. Patient verbalized understanding. Medication reconciliation form completed and copy given to patient. Midline removed with catheter intact and pressure dressing applied. Telemetry unit returned to ICU. Patient taken to vehicle via wheelchair with all personal belongings, accompanied by staff. No distress noted at time of departure.
== END 2020-01-16 14:50 | disposition home health service (06) | DRG 638 ==
LOC: ER 09:24 → TELE 09:25 → TELE-WESTW 14:27
PROVIDERS: ADMIT Internal Medicine; ATTEND Internal Medicine
DX: E10.10 Type 1 diabetes mellitus with ketoacidosis without coma (principal); E87.1 Hypo-osmolality and hyponatremia; F11.20 Opioid dependence, uncomplicated; E86.0 Dehydration; D50.9 Iron deficiency anemia, unspecified; R19.7 Diarrhea, unspecified; D35.00 Benign neoplasm of unspecified adrenal gland; G40.409 Other generalized epilepsy and epileptic syndromes, not intractable, without status epilepticus; D63.8 Anemia in other chronic diseases classified elsewhere; K59.00 Constipation, unspecified; K86.89 Other specified diseases of pancreas; G25.81 Restless legs syndrome; G47.00 Insomnia, unspecified; I10 Essential (primary) hypertension; G43.109 Migraine with aura, not intractable, without status migrainosus; E78.5 Hyperlipidemia, unspecified; E10.42 Type 1 diabetes mellitus with diabetic polyneuropathy; F12.90 Cannabis use, unspecified, uncomplicated; G89.4 Chronic pain syndrome; J44.9 Chronic obstructive pulmonary disease, unspecified; F32.9 Major depressive disorder, single episode, unspecified; F41.9 Anxiety disorder, unspecified; M54.5 Low back pain; R00.0 Tachycardia, unspecified; K21.9 Gastro-esophageal reflux disease without esophagitis; Z88.1 Allergy status to other antibiotic agents; Z88.0 Allergy status to penicillin; Z91.013 Allergy to seafood; Z88.8 Allergy status to other drugs, medicaments and biological substances; Z87.19 Personal history of other diseases of the digestive system; Z79.4 Long term (current) use of insulin; Z79.899 Other long term (current) drug therapy; Z82.49 Family history of ischemic heart disease and other diseases of the circulatory system; Z83.3 Family history of diabetes mellitus; Z86.711 Personal history of pulmonary embolism; Z90.49 Acquired absence of other specified parts of digestive tract; Z90.710 Acquired absence of both cervix and uterus; Z98.84 Bariatric surgery status
CPT/HCPCS: 36415; 36600; 71045; 74176; 80048; 80053; 81001; 82010; 82150; 82805; 82962; 83690; 83735; 83930; 84100; 84132; 84484; 85025; 87081; 87086; 93005; 96361; 96372; 96374; 96375; C9113; G0378; J1815; J2405; J3490

== ENCOUNTER 2020-03-09 02:16 | Inpatient (IN) | payer MEDICARE ==
[~2020-03-09] VITALS: Ht 177.8 cm; Wt 79.4 kg
[~2020-03-09 02:16] MED LIST changes: +LABE200T18 PO; -TOPI100T29 PO
[2020-03-09] MEDS ORDERED: LORazepam 2MG/ML-1ML VIAL IV ONE ×2 (02:30→15:15)
[2020-03-09] MEDS ORDERED: LORazepam 0.5 MG TAB PO ONE (04:30)
[2020-03-09] MEDS ORDERED: TOPIRAMATE 100 MG TAB PO ONE (04:30)
[2020-03-09] MEDS ORDERED: diphenhdrAMINE HCL 50 MG/1 ML VL IV ONE (07:15)
[2020-03-09] MEDS ORDERED: OXYCODONE W/ ACETAMINOPHEN 5/325MG TABLET PO ONE (07:15)
[2020-03-09] MEDS ORDERED: ONDANSETRON HCL 4 MG/2 ML VIAL IV ONE ×2 (07:15→15:15)
[2020-03-09] MEDS ORDERED: SODIUM CHLORIDE 0.9% 1,000 ML IV ONE (08:15)
[2020-03-09 10:22] LABS: Basophils # (auto) 0.1 10 ^3/uL (0-0.2); Eosinophils # (auto) 0 10 ^3/uL (0-0.8); Hemoglobin 9.5 g/dL (12.2-16.2); Nucleated Red Blood Cells % 0.1 %
[2020-03-09 10:24] LABS: Albumin 3.2 g/dL (3.4-5.0); Basophils % (auto) 0.6 % (0.0-2.0); Calcium 8.6 mg/dL (8.5-10.1); Eosinophils % (auto) 0.1 % (0.0-7.0); Hematocrit 30.8 % (36.0-46.0); Lymphocytes # (auto) 1.1 10 ^3/uL (0.4-5.4); Lymphocytes % (auto) 8.3 % (10.0-50.0); Mean Corpuscular Hemoglobin 23.4 pg (28.0-32.0); Mean Corpuscular Volume 75.5 fL (80.0-100.0); Monocytes % (auto) 7.7 % (0.0-12.0); Neutrophils # (auto) 11.1 10 ^3/uL (1.6-8.6); Neutrophils % (auto) 83.3 % (37.0-80.0); Platelet Count (auto) 408 10^3/uL (140-450); Potassium 3.7 mmol/L (3.5-5.1); Red Blood Cells 4.08 10^6/uL (4.0-5.20); Red Cell Distribution Width 19.8 % (11.8-14.3); White Blood Cell 13.3 10^3/uL (4.4-10.8)
[2020-03-09 10:26] LABS: Bilirubin, Total 0.7 mg/dL (0.2-1.0); Total Protein 8.3 g/dL (6.4-8.2)
[2020-03-09 10:41] LABS: Lactic Acid w/Reflex 2.3 mmol/L (0.4-2.0)
[2020-03-09] MEDS ORDERED: LABETALOL HCL 5 MG/ML 4ML SYRINGE IV ONE (15:15)
[2020-03-09] MEDS ORDERED: diphenhdrAMINE HCL 50 MG/1 ML VL ONE (15:33)
[2020-03-09] MEDS ORDERED: PRED20TA2 PO (15:40)
[2020-03-09] MEDS ORDERED: CLO01T PO (15:41)
[2020-03-09] MEDS ORDERED: DOCUSATE SOD 100 MG CAP PO PRN (16:00)
[2020-03-09] MEDS ORDERED: TEMAZEPAM 15 MG CAP PO PRN (16:00)
[2020-03-09] MEDS ORDERED: DEXTROSE (50%) 50ML SYRG IV PRN (16:00)
[2020-03-09] MEDS ORDERED: HYDROcodone-ACET 5/325MG TAB PO PRN (16:00)
[2020-03-09] MEDS ORDERED: ACETAMINOPHEN 325 MG TAB PO PRN (16:00)
[2020-03-09] MEDS ORDERED: PROMETHAZINE HCL 25 MG/ML 1ML IV PRN (16:00)
[2020-03-09] MEDS ORDERED: InsuLIN REG 1unit/0.01ml Soln (100units/ml) SC SCH (17:00)
[2020-03-09] MEDS: ACCU-CHEK COMFORT CURVE STRIP VI SCH ×3 (17:37→23:58)
[2020-03-09] MEDS ORDERED: PRAZOSIN HCL 1 MG CAP PO SCH (18:00)
[2020-03-09] MEDS ORDERED: INSULIN LANTUS (GLARGINE) 1 /0.01ml (100units/ml) SC SCH (18:00)
[2020-03-09] MEDS: MORPHINE SULFATE 4 MG/ML SYR/VIAL IV PRN (18:43)
[2020-03-09] MEDS ORDERED: LABETALOL HCL 5 MG/ML 4ML SYRINGE IV PRN (18:45)
[2020-03-09] MEDS ORDERED: LORazepam 2MG/ML-1ML VIAL IV PRN (20:30)
[2020-03-09] MEDS ORDERED: diphenhdrAMINE HCL 25 MG CAP PO ONE (20:45)
[2020-03-09] MEDS ORDERED: PROMETHAZINE HCL 25 MG/ML 1ML IV ONE (20:45)
[2020-03-09] MEDS: TIZANIDINE HYDROCHLORIDE 4 MG PO SCH (22:00)
[2020-03-09] MEDS ORDERED: LORazepam 0.5 MG TAB PO SCH (22:00)
[2020-03-09] MEDS ORDERED: PRAMIPEXOLE DIHYDROCHLORIDE MO 0.25 MG TAB PO SCH (22:00)
[2020-03-09] MEDS: PANTOPRAZOLE 40 MG TAB PO SCH (23:08)
[2020-03-09] MEDS: LABETALOL HCL 200 MG TAB PO SCH (23:08)
[2020-03-09] MEDS: InsuLIN REG 1unit/0.01ml Soln (100units/ml) SC SCH (23:59)
[2020-03-10] MEDS ORDERED: InsuLIN REG 1unit/0.01ml Soln (100units/ml) SC SCH
[2020-03-10] MEDS: MORPHINE SULFATE 4 MG/ML SYR/VIAL IV PRN ×3 (01:22→10:50)
[2020-03-10] MEDS ORDERED: PHENYTOIN SODIUM 50 MG/ML 5ML INJ VIAL IV ONE (02:19)
[2020-03-10] MEDS: PHENYTOIN SODIUM 50 MG/ML 2ML VIAL IV SCH ×3 (02:34→13:33)
[2020-03-10] MEDS: diphenhdrAMINE HCL 50 MG/1 ML VL IV PRN ×2 (02:42→13:33)
[2020-03-10] MEDS: ONDANSETRON HCL 4 MG/2 ML VIAL IV PRN ×3 (02:43→15:02)
[2020-03-10] MEDS: ACCU-CHEK COMFORT CURVE STRIP VI SCH ×4 (04:12→16:00)
[2020-03-10] MEDS: InsuLIN REG 1unit/0.01ml Soln (100units/ml) SC SCH ×5 (04:27→16:00)
[2020-03-10 05:30] LABS: Urine Blood 3+ /uL (Negative); Urine Hyaline Cast FEW /lpf (0 - 2); Urine Mucus FEW (None Seen); Urine Specific Gravity 1.024 (1.001-1.035); Urine WBC 80 /hpf (0 - 5)
[2020-03-10 05:32] LABS: Urine Amorphous Crystal FEW /hpf (None Seen); Urine Bacteria MANY /hpf (None Seen)
[2020-03-10 05:40] LABS: Basophils # (auto) 0.1 10 ^3/uL (0-0.2); Basophils % (auto) 0.7 % (0.0-2.0); Eosinophils # (auto) 0 10 ^3/uL (0-0.8); Eosinophils % (auto) 0.4 % (0.0-7.0); Hematocrit 27.4 % (36.0-46.0); Hemoglobin 8.4 g/dL (12.2-16.2); Lymphocytes # (auto) 1.5 10 ^3/uL (0.4-5.4); Lymphocytes % (auto) 15.7 % (10.0-50.0); Mean Corpuscular Hemoglobin 22.9 pg (28.0-32.0); Mean Corpuscular Hgb Conc. 30.7 g/dL (32.0-36.0); Mean Corpuscular Volume 74.8 fL (80.0-100.0); Monocytes % (auto) 10.6 % (0.0-12.0); Neutrophils # (auto) 7.1 10 ^3/uL (1.6-8.6); Neutrophils % (auto) 72.6 % (37.0-80.0); Nucleated Red Blood Cells % 0.1 %; Platelet Count (auto) 283 10^3/uL (140-450); Red Blood Cells 3.66 10^6/uL (4.0-5.20); Red Cell Distribution Width 19.5 % (11.8-14.3); White Blood Cell 9.7 10^3/uL (4.4-10.8)
[2020-03-10] MEDS: LABETALOL HCL 200 MG TAB PO SCH ×2 (05:45→14:04)
[2020-03-10 05:54] LABS: Albumin 2.9 g/dL (3.4-5.0); Calcium 8.7 mg/dL (8.5-10.1); Potassium 3.2 mmol/L (3.5-5.1)
[2020-03-10 05:59] LABS: BUN/Creatinine Ratio 14.7; Bilirubin, Total 0.5 mg/dL (0.2-1.0); Total Protein 7.2 g/dL (6.4-8.2)
[2020-03-10] MEDS: TIZANIDINE HYDROCHLORIDE 4 MG PO SCH (10:00)
[2020-03-10] MEDS: PANTOPRAZOLE 40 MG TAB PO SCH (10:08)
[2020-03-10] MEDS ORDERED: POTASSIUM CHL 20 Meq TABLET PO ONE (14:00)
[2020-03-10 15:45] VITALS: BP 98/64
== END 2020-03-10 16:14 | disposition home or self-care (01) | DRG 101 ==
LOC: EDBD 02:16 → ER 02:20 → OVERFLOW 02:21
PROVIDERS: ADMIT Nurse Practitioner; ATTEND Nurse Practitioner
DX: G40.401 Other generalized epilepsy and epileptic syndromes, not intractable, with status epilepticus (principal); E27.1 Primary adrenocortical insufficiency; F13.20 Sedative, hypnotic or anxiolytic dependence, uncomplicated; G43.109 Migraine with aura, not intractable, without status migrainosus; E11.42 Type 2 diabetes mellitus with diabetic polyneuropathy; D35.00 Benign neoplasm of unspecified adrenal gland; G25.81 Restless legs syndrome; E11.65 Type 2 diabetes mellitus with hyperglycemia; Z20.828 Contact with and (suspected) exposure to other viral communicable diseases; E78.5 Hyperlipidemia, unspecified; G47.00 Insomnia, unspecified; G89.4 Chronic pain syndrome; E66.9 Obesity, unspecified; F32.9 Major depressive disorder, single episode, unspecified; F41.9 Anxiety disorder, unspecified; K21.9 Gastro-esophageal reflux disease without esophagitis; M19.90 Unspecified osteoarthritis, unspecified site; I10 Essential (primary) hypertension; J44.9 Chronic obstructive pulmonary disease, unspecified; D63.8 Anemia in other chronic diseases classified elsewhere; M85.80 Other specified disorders of bone density and structure, unspecified site; Z79.4 Long term (current) use of insulin; Z79.899 Other long term (current) drug therapy; Z82.49 Family history of ischemic heart disease and other diseases of the circulatory system; Z83.3 Family history of diabetes mellitus; Z90.49 Acquired absence of other specified parts of digestive tract; Z90.710 Acquired absence of both cervix and uterus; Z68.25 Body mass index [BMI] 25.0-25.9, adult; Z88.8 Allergy status to other drugs, medicaments and biological substances; Z88.0 Allergy status to penicillin; Z91.013 Allergy to seafood
CPT/HCPCS: 36415; 70450; 71045; 72125; 73630; 74176; 80053; 81001; 82150; 82962; 83605; 83690; 84702; 85025; 87426; 96361; 96374; 96375; 97163; G0378; J1815; J2405; J3490

== ENCOUNTER 2020-03-17 02:23 | Emergency (ER) | payer MEDICARE ==
[~2020-03-17] VITALS: Ht 162.6 cm; Wt 59.0 kg
[~2020-03-17 02:23] MED LIST changes: +CLO01T PO; +PRED20TA2 PO
[2020-03-17] MEDS ORDERED: TOPIRAMATE 100 MG TAB PO ONE (05:30)
[2020-03-17] MEDS ORDERED: ONDANSETRON HCL 4 MG/2 ML VIAL IV ONE (05:30)
[2020-03-17] MEDS ORDERED: MORPHINE SULF INJ 2 MG/ML SYRINGE 1ML IV ONE (05:30)
[2020-03-17 07:44] LABS: Basophils # (auto) 0.1 10 ^3/uL (0-0.2); Eosinophils # (auto) 0 10 ^3/uL (0-0.8); Eosinophils % (auto) 0.2 % (0.0-7.0); Hemoglobin 9.1 g/dL (12.2-16.2); Lymphocytes # (auto) 1.7 10 ^3/uL (0.4-5.4); Neutrophils # (auto) 9.1 10 ^3/uL (1.6-8.6)
[2020-03-17 07:46] LABS: Basophils % (auto) 0.9 % (0.0-2.0); Hematocrit 29.8 % (36.0-46.0); Lymphocytes % (auto) 14.1 % (10.0-50.0); Mean Corpuscular Hemoglobin 22.7 pg (28.0-32.0); Mean Corpuscular Hgb Conc. 30.7 g/dL (32.0-36.0); Monocytes # (auto) 1.1 10 ^3/uL (0-1.3); Monocytes % (auto) 9.4 % (0.0-12.0); Neutrophils % (auto) 75.4 % (37.0-80.0); Platelet Count (auto) 421 10^3/uL (140-450); Red Blood Cells 4.02 10^6/uL (4.0-5.20); Red Cell Distribution Width 19.3 % (11.8-14.3); White Blood Cell 12.1 10^3/uL (4.4-10.8)
[2020-03-17 07:58] LABS: Salicylate < 1.7 mg/dL (2.8-20.0)
[2020-03-17 07:59] LABS: Acetaminophen < 2.0 ug/mL (10-30)
[2020-03-17 08:00] VITALS: BP 144/80
[2020-03-17] MEDS ORDERED: diphenhdrAMINE HCL 50 MG/1 ML VL ONE (08:23)
[2020-03-17] MEDS ORDERED: diphenhdrAMINE HCL 50 MG/1 ML VL IV ONE (08:45)
[2020-03-17 09:10] LABS: Alanine Aminotransferase 35 U/L (13-56); Albumin 3.3 g/dL (3.4-5.0); Alkaline Phosphatase 313 U/L (45-117); Anion Gap 14 (5-15); Aspartate Aminotransferase 38 U/L (15-37); Bilirubin, Total 0.6 mg/dL (0.2-1.0); Blood Urea Nitrogen 10 mg/dL (7-18); Calcium 8.9 mg/dL (8.5-10.1); Carbon Dioxide 18 mmol/L (21-32); Chloride 105 mmol/L (98-107); GFR African American 97 mL/min; GFR Non-African American 80 mL/min; Glucose 272 mg/dL (74-106); Magnesium 1.9 mg/dL (1.6-2.6); Potassium 3.5 mmol/L (3.5-5.1); Sodium 137 mmol/L (136-145)
[2020-03-17 09:21] LABS: Blood Alcohol < 3.0 mg/dL (0-5)
== END 2020-03-17 09:09 | disposition home or self-care (01) ==
LOC: EDBD 02:23 → ER 02:25
DX: G40.909 Epilepsy, unspecified, not intractable, without status epilepticus (principal); G89.4 Chronic pain syndrome; F13.20 Sedative, hypnotic or anxiolytic dependence, uncomplicated; F41.9 Anxiety disorder, unspecified; F32.9 Major depressive disorder, single episode, unspecified; E11.9 Type 2 diabetes mellitus without complications; K21.9 Gastro-esophageal reflux disease without esophagitis; I10 Essential (primary) hypertension; Z87.440 Personal history of urinary (tract) infections; Z90.89 Acquired absence of other organs; Z90.49 Acquired absence of other specified parts of digestive tract; Z98.890 Other specified postprocedural states
CPT/HCPCS: 36415; 80053; 80320; 80329; 83735; 85025; 96365; 96375; 99284; J1200; J1953; J2405; J7060

== ENCOUNTER 2020-04-12 18:23 | Inpatient (IN) | payer MEDICARE ==
[~2020-04-12] VITALS: Ht 167.6 cm; Wt 50.0 kg
[~2020-04-12 18:23] MED LIST changes: -LABE200T18 PO; +LABE200T7 PO
[2020-04-12] MEDS ORDERED: InsuLIN REG 1unit/0.01ml Soln (100units/ml) IV ONE (19:00)
[2020-04-12] MEDS ORDERED: SODIUM CHLORIDE 0.9% 1,000 ML IV ONE ×2 (19:00→22:15)
[2020-04-12 20:33] LABS: Eosinophils # (auto) 0 10 ^3/uL (0-0.8); Lymphocytes % (auto) 5.6 % (10.0-50.0); Nucleated Red Blood Cells % 0.1 %; White Blood Cell 18.9 10^3/uL (4.4-10.8)
[2020-04-12 20:34] LABS: Basophils # (auto) 0.1 10 ^3/uL (0-0.2); Basophils % (auto) 0.7 % (0.0-2.0); Lymphocytes # (auto) 1.1 10 ^3/uL (0.4-5.4); Mean Corpuscular Hemoglobin 22.1 pg (28.0-32.0); Mean Corpuscular Hgb Conc. 30.4 g/dL (32.0-36.0); Mean Corpuscular Volume 72.6 fL (80.0-100.0); Monocytes # (auto) 1.6 10 ^3/uL (0-1.3); Monocytes % (auto) 8.3 % (0.0-12.0); Neutrophils # (auto) 16.2 10 ^3/uL (1.6-8.6); Neutrophils % (auto) 85.4 % (37.0-80.0); Platelet Count (auto) 552 10^3/uL (140-450); Red Blood Cells 4.55 10^6/uL (4.0-5.20); Red Cell Distribution Width 19.8 % (11.8-14.3)
[2020-04-12 20:49] LABS: INR 1.18 (0.9-1.15); Partial Thromboplastin Time 24.2 sec (23.0-31.2)
[2020-04-12 20:53] LABS: Albumin 3.6 g/dL (3.4-5.0); Anion Gap 19 (5-15); Blood Alcohol < 3.0 mg/dL (0-5); Calcium 9.3 mg/dL (8.5-10.1); Carbon Dioxide 18 mmol/L (21-32); Chloride 97 mmol/L (98-107); Magnesium 2.1 mg/dL (1.6-2.6); Potassium 3.7 mmol/L (3.5-5.1); Sodium 134 mmol/L (136-145)
[2020-04-12 20:55] LABS: Alanine Aminotransferase 44 U/L (13-56); Aspartate Aminotransferase 31 U/L (15-37); Bilirubin, Total 0.8 mg/dL (0.2-1.0); GFR African American 93 mL/min; GFR Non-African American 77 mL/min; Total Protein 8.1 g/dL (6.4-8.2)
[2020-04-12 21:01] LABS: Alkaline Phosphatase 312 U/L (45-117)
[2020-04-12 21:15] LABS: Glucose 561 mg/dL (74-106)
[2020-04-12 21:20] LABS: BUN/Creatinine Ratio 9.3; Blood Urea Nitrogen 8 mg/dL (7-18)
[2020-04-12] MEDS ORDERED: METOPROLOL TARTRATE 1MG/1ML-5ML VIAL IV ONE (22:15)
[2020-04-12] MEDS ORDERED: InsuLIN R (HUMAN) 100 UNITS in SODIUM CHL 0.9% 99 ML IV SCH (22:15)
[2020-04-12] MEDS ORDERED: INSULIN LANTUS (GLARGINE) 1 /0.01ml (100units/ml) SC ONE (22:15)
[2020-04-12 22:28] LABS: Urine Bacteria NONE SEEN /hpf (None Seen); Urine Blood Negative /uL (Negative); Urine Specific Gravity 1.029 (1.001-1.035); Urine WBC 1 /hpf (0 - 5)
[2020-04-12] MEDS: ACCU-CHEK COMFORT CURVE STRIP VI SCH (22:30)
[2020-04-12 22:40] LABS: Amphetamine Screen, Urine NEGATIVE (NEGATIVE); Barbiturate Scree,Urine NEGATIVE (NEGATIVE); Benzodiazephine Screen, Urine NEGATIVE (NEGATIVE); Cannabinoid Screen, Urine NEGATIVE (NEGATIVE); Cocaine Screen, Urine NEGATIVE (NEGATIVE); Opiate Scree,Urine NEGATIVE (NEGATIVE); Phencyclidine Screen, Urine NEGATIVE (NEGATIVE)
[2020-04-12] MEDS ORDERED: MORPHINE SULF INJ 2 MG/ML SYRINGE 1ML IV PRN (23:15)
[2020-04-12] MEDS ORDERED: NITROGLYCERIN 0.4 MG SL TAB SL PRN (23:15)
[2020-04-12] MEDS: METOPROLOL TARTRATE 1MG/1ML-5ML VIAL IV PRN (23:46)
[2020-04-13] MEDS: ONDANSETRON HCL 4 MG/2 ML VIAL IV PRN ×4 (00:35→18:51)
[2020-04-13] MEDS: MORPHINE SULF INJ 2 MG/ML SYRINGE 1ML IV PRN ×2 (00:35→04:42)
[2020-04-13] MEDS: ACCU-CHEK COMFORT CURVE STRIP VI SCH ×16 (01:34→22:21)
[2020-04-13] MEDS: METOPROLOL TARTRATE 1MG/1ML-5ML VIAL IV PRN ×2 (02:30→05:19)
[2020-04-13] MEDS ORDERED: InsuLIN R (HUMAN) 100 UNITS in SODIUM CHL 0.9% 99 ML IV SCH (03:30)
[2020-04-13] MEDS ORDERED: TIZA4TAB3 PO (03:46)
[2020-04-13] MEDS: InsuLIN R (HUMAN) 100 UNITS in SODIUM CHL 0.9% 99 ML IV SCH ×2 (06:30→08:52)
[2020-04-13] MEDS ORDERED: METOPROLOL TARTRATE 50 MG TAB PO ONE (08:00)
[2020-04-13] MEDS: INSULIN LANTUS (GLARGINE) 1 /0.01ml (100units/ml) SC SCH (08:55)
[2020-04-13] MEDS ORDERED: HYDROcodone-ACET 5/325MG TAB ONE (09:05)
[2020-04-13] MEDS ORDERED: LABETALOL HCL 5 MG/ML 4ML SYRINGE IV ONE (09:15)
[2020-04-13] MEDS: HYDROcodone-ACET 5/325MG TAB PO PRN ×3 (09:24→18:51)
[2020-04-13] MEDS ORDERED: LORazepam 2MG/ML-1ML VIAL IV PRN (09:45)
[2020-04-13] MEDS: TOPIRAMATE 100 MG TAB PO SCH ×2 (09:47→21:56)
[2020-04-13] MEDS: TIZANIDINE HYDROCHLORIDE 4 MG PO SCH ×2 (09:47→21:55)
[2020-04-13] MEDS ORDERED: INSULIN LANTUS (GLARGINE) 1 /0.01ml (100units/ml) SC SCH (10:00)
[2020-04-13 10:14] LABS: Basophils # (auto) 0 10 ^3/uL (0-0.2); Basophils % (auto) 0.4 % (0.0-2.0); Eosinophils # (auto) 0.1 10 ^3/uL (0-0.8); Mean Corpuscular Hgb Conc. 30.6 g/dL (32.0-36.0); Neutrophils # (auto) 8.3 10 ^3/uL (1.6-8.6); Nucleated Red Blood Cells % 0.1 %; Red Cell Distribution Width 19.7 % (11.8-14.3)
[2020-04-13 10:16] LABS: Eosinophils % (auto) 0.5 % (0.0-7.0); Hematocrit 24.1 % (36.0-46.0); Hemoglobin 7.4 g/dL (12.2-16.2); Lymphocytes # (auto) 1.6 10 ^3/uL (0.4-5.4); Lymphocytes % (auto) 13.6 % (10.0-50.0); Mean Corpuscular Hemoglobin 22.4 pg (28.0-32.0); Mean Corpuscular Volume 73.2 fL (80.0-100.0); Monocytes # (auto) 1.6 10 ^3/uL (0-1.3); Monocytes % (auto) 13.6 % (0.0-12.0); Neutrophils % (auto) 71.9 % (37.0-80.0); Platelet Count (auto) 305 10^3/uL (140-450); Red Blood Cells 3.29 10^6/uL (4.0-5.20); White Blood Cell 11.6 10^3/uL (4.4-10.8)
[2020-04-13 10:29] LABS: Albumin 2.3 g/dL (3.4-5.0); Calcium 7.7 mg/dL (8.5-10.1)
[2020-04-13 10:31] LABS: Bilirubin, Total 0.5 mg/dL (0.2-1.0); Total Protein 5.7 g/dL (6.4-8.2)
[2020-04-13 11:22] LABS: Potassium 2.7 mmol/L (3.5-5.1)
[2020-04-13] MEDS: DEXTROSE (50%) 50ML SYRG IV PRN ×2 (12:23→18:04)
[2020-04-13] MEDS ORDERED: POTASSIUM CHLORIDE 80 MEQ, LIDOCAINE 1% (LOCAL ANESTH.) 6 ML in SODIUM CHL 0.9% 500 ML IV ONE (12:30)
[2020-04-13] MEDS: D5W/SOD CHL 0.45% 1,000 ML IV SCH ×2 (12:52→22:21)
[2020-04-13] MEDS ORDERED: LABETALOL HCL 200 MG TAB PO SCH (14:00)
[2020-04-13] MEDS: LABETALOL HCL 200 MG TAB PO SCH ×2 (14:00→21:56)
[2020-04-13] MEDS: LORazepam 2MG/ML-1ML VIAL IV PRN (14:35)
[2020-04-13] MEDS: cefTRIAXone 1GM/50ML D5W 50 ML IV SCH (17:55)
[2020-04-13 18:26] LABS: Albumin 2.5 g/dL (3.4-5.0); Calcium 7.7 mg/dL (8.5-10.1); Potassium 4.8 mmol/L (3.5-5.1)
[2020-04-13 18:31] LABS: BUN/Creatinine Ratio 8.2; Bilirubin, Total 0.4 mg/dL (0.2-1.0); Total Protein 6.1 g/dL (6.4-8.2)
[2020-04-13] MEDS: PRAMIPEXOLE DIHYDROCHLORIDE MO 0.25 MG TAB PO SCH (21:55)
[2020-04-13] MEDS ORDERED: METOPROLOL TARTRATE 50 MG TAB PO SCH (22:00)
[2020-04-13] MEDS: InsuLIN REG 1unit/0.01ml Soln (100units/ml) SC SCH (22:20)
[2020-04-14] VITALS (8 sets, daily range): BP systolic 78–116; BP diastolic 36–75
[2020-04-14] MEDS ORDERED: SODIUM CHLORIDE 0.9% 500 ML IV ONE (00:30)
[2020-04-14] MEDS: HYDROcodone-ACET 5/325MG TAB PO PRN (03:53)
[2020-04-14] MEDS: ONDANSETRON HCL 4 MG/2 ML VIAL IV PRN ×5 (03:53→23:46)
[2020-04-14] MEDS ORDERED: LABETALOL HCL 200 MG TAB PO SCH (06:00)
[2020-04-14] MEDS: InsuLIN REG 1unit/0.01ml Soln (100units/ml) SC SCH ×4 (06:11→22:00)
[2020-04-14] MEDS: ACCU-CHEK COMFORT CURVE STRIP VI SCH ×4 (06:17→22:41)
[2020-04-14] MEDS: D5W/SOD CHL 0.45% 1,000 ML IV SCH ×2 (08:36→16:56)
[2020-04-14] MEDS: TIZANIDINE HYDROCHLORIDE 4 MG PO SCH ×2 (10:00→22:00)
[2020-04-14 10:05] LABS: Basophils # (auto) 0 10 ^3/uL (0-0.2); Eosinophils # (auto) 0.1 10 ^3/uL (0-0.8); Lymphocytes # (auto) 1.3 10 ^3/uL (0.4-5.4); Monocytes # (auto) 0.9 10 ^3/uL (0-1.3)
[2020-04-14 10:06] LABS: Basophils % (auto) 0.6 % (0.0-2.0); Eosinophils % (auto) 1.2 % (0.0-7.0); Lymphocytes % (auto) 16.8 % (10.0-50.0); Mean Corpuscular Hemoglobin 22.6 pg (28.0-32.0); Mean Corpuscular Hgb Conc. 30.5 g/dL (32.0-36.0); Mean Corpuscular Volume 74.2 fL (80.0-100.0); Monocytes % (auto) 12.5 % (0.0-12.0); Neutrophils # (auto) 5.2 10 ^3/uL (1.6-8.6); Neutrophils % (auto) 68.9 % (37.0-80.0); Platelet Count (auto) 237 10^3/uL (140-450); Red Blood Cells 2.96 10^6/uL (4.0-5.20); Red Cell Distribution Width 19.8 % (11.8-14.3); White Blood Cell 7.6 10^3/uL (4.4-10.8)
[2020-04-14 10:11] LABS: Hemoglobin 6.7 g/dL (12.2-16.2)
[2020-04-14] MEDS: TOPIRAMATE 100 MG TAB PO SCH ×2 (10:14→22:40)
[2020-04-14] MEDS: cefTRIAXone 1GM/50ML D5W 50 ML IV SCH (10:14)
[2020-04-14] MEDS: INSULIN LANTUS (GLARGINE) 1 /0.01ml (100units/ml) SC SCH (10:15)
[2020-04-14] MEDS: LORazepam 2MG/ML-1ML VIAL IV PRN (10:16)
[2020-04-14 10:23] LABS: Albumin 2.2 g/dL (3.4-5.0); Calcium 7.2 mg/dL (8.5-10.1); Magnesium 1.6 mg/dL (1.6-2.6); Potassium 3.5 mmol/L (3.5-5.1)
[2020-04-14 10:30] LABS: BUN/Creatinine Ratio 5.8; Bilirubin, Total 0.3 mg/dL (0.2-1.0); Phosphorus 1.7 mg/dL (2.5-4.90)
[2020-04-14] MEDS: MORPHINE SULF INJ 2 MG/ML SYRINGE 1ML IV PRN ×4 (11:50→23:45)
[2020-04-14 14:10] LABS: % Iron Saturation 5.1 % (15-50)
[2020-04-14 15:15] LABS: Folate (Folic Acid) 6.8 ng/mL (5.38-24)
[2020-04-14] MEDS ORDERED: POTASSIUM PHOSPHATE 44 MEQ in D5W 5% 250 ML IV ONE (16:30)
[2020-04-14] MEDS ORDERED: MAGNESIUM SULFATE 1GM/100ML 100 ML IV SCH (17:00)
[2020-04-14] MEDS: MAGNESIUM SULFATE 1GM/100ML 100 ML IV SCH ×3 (19:57→23:45)
[2020-04-14] MEDS ORDERED: traZODone HCL 50 MG TAB PO SCH (22:00)
[2020-04-14] MEDS: LABETALOL HCL 200 MG TAB PO SCH (22:00)
[2020-04-14] MEDS: PRAMIPEXOLE DIHYDROCHLORIDE MO 0.25 MG TAB PO SCH (22:39)
[2020-04-15] MEDS ORDERED: MAGNESIUM SULFATE 1GM/100ML 200 ML IV ONE (02:48)
[2020-04-15] MEDS: ONDANSETRON HCL 4 MG/2 ML VIAL IV PRN ×5 (04:08→22:56)
[2020-04-15] MEDS: MORPHINE SULF INJ 2 MG/ML SYRINGE 1ML IV PRN ×5 (04:08→22:56)
[2020-04-15 05:06] VITALS: BP 90/51
[2020-04-15] MEDS: D5W/SOD CHL 0.45% 1,000 ML IV SCH ×2 (06:02→17:01)
[2020-04-15] MEDS: ACCU-CHEK COMFORT CURVE STRIP VI SCH ×4 (06:51→20:32)
[2020-04-15] MEDS: InsuLIN REG 1unit/0.01ml Soln (100units/ml) SC SCH ×4 (06:52→20:33)
[2020-04-15 07:08] LABS: Eosinophils # (auto) 0.2 10 ^3/uL (0-0.8); Lymphocytes # (auto) 1.8 10 ^3/uL (0.4-5.4); Monocytes # (auto) 1.1 10 ^3/uL (0-1.3)
[2020-04-15 07:10] LABS: Basophils # (auto) 0 10 ^3/uL (0-0.2); Basophils % (auto) 0.5 % (0.0-2.0); Eosinophils % (auto) 1.8 % (0.0-7.0); Hematocrit 32.9 % (36.0-46.0); Hemoglobin 10.4 g/dL (12.2-16.2); Lymphocytes % (auto) 19.5 % (10.0-50.0); Mean Corpuscular Hemoglobin 24.4 pg (28.0-32.0); Mean Corpuscular Hgb Conc. 31.7 g/dL (32.0-36.0); Mean Corpuscular Volume 76.9 fL (80.0-100.0); Monocytes % (auto) 11.5 % (0.0-12.0); Neutrophils # (auto) 6.1 10 ^3/uL (1.6-8.6); Neutrophils % (auto) 66.7 % (37.0-80.0); Nucleated Red Blood Cells % 0.2 %; Platelet Count (auto) 299 10^3/uL (140-450); Red Blood Cells 4.28 10^6/uL (4.0-5.20); White Blood Cell 9.2 10^3/uL (4.4-10.8)
[2020-04-15 07:25] LABS: Red Cell Distribution Width 21.6 % (11.8-14.3)
[2020-04-15 08:37] LABS: Potassium 3.6 mmol/L (3.5-5.1)
[2020-04-15 08:51] LABS: Albumin 2.5 g/dL (3.4-5.0); Bilirubin, Total 0.9 mg/dL (0.2-1.0); Calcium 7.8 mg/dL (8.5-10.1); Magnesium 2.6 mg/dL (1.6-2.6); Phosphorus 3.2 mg/dL (2.5-4.90); Total Protein 6.1 g/dL (6.4-8.2)
[2020-04-15 09:10] VITALS: BP 122/88
[2020-04-15] MEDS: cefTRIAXone 1GM/50ML D5W 50 ML IV SCH (09:11)
[2020-04-15] MEDS: LABETALOL HCL 200 MG TAB PO SCH ×2 (09:12→22:55)
[2020-04-15] MEDS: TIZANIDINE HYDROCHLORIDE 4 MG PO SCH ×2 (09:12→22:00)
[2020-04-15] MEDS: TOPIRAMATE 100 MG TAB PO SCH ×2 (09:12→22:57)
[2020-04-15] MEDS: INSULIN LANTUS (GLARGINE) 1 /0.01ml (100units/ml) SC SCH (10:00)
[2020-04-15] MEDS ORDERED: ALPRAZolam 0.25 MG TAB PO PRN (11:15)
[2020-04-15] MEDS ORDERED: LACTULOSE 20Gm/30ML SOLN PO PRN (11:15)
[2020-04-15 18:16] VITALS: BP 120/94
[2020-04-15 20:00] VITALS: BP 146/111
[2020-04-15 21:00] VITALS: BP 154/114
[2020-04-15] MEDS ORDERED: ZOLPIDEM TARTRATE 5 MG TAB PO PRN (21:45)
[2020-04-15] MEDS: PRAMIPEXOLE DIHYDROCHLORIDE MO 0.25 MG TAB PO SCH (22:57)
[2020-04-15] MEDS: CYCLOBENZAPRINE HCL 10 MG TAB PO PRN (22:58)
[2020-04-16] MEDS: D5W/SOD CHL 0.45% 1,000 ML IV SCH ×3 (03:10→20:30)
[2020-04-16] MEDS: MORPHINE SULF INJ 2 MG/ML SYRINGE 1ML IV PRN ×5 (03:10→18:49)
[2020-04-16] MEDS: ONDANSETRON HCL 4 MG/2 ML VIAL IV PRN ×5 (03:10→18:50)
[2020-04-16] MEDS: InsuLIN REG 1unit/0.01ml Soln (100units/ml) SC SCH ×4 (06:36→22:30)
[2020-04-16] MEDS: ACCU-CHEK COMFORT CURVE STRIP VI SCH ×4 (06:36→22:30)
[2020-04-16 07:19] LABS: Basophils # (auto) 0.1 10 ^3/uL (0-0.2); Eosinophils # (auto) 0.1 10 ^3/uL (0-0.8); Hematocrit 28.5 % (36.0-46.0); Hemoglobin 9.2 g/dL (12.2-16.2); Mean Corpuscular Hgb Conc. 32.2 g/dL (32.0-36.0)
[2020-04-16 07:24] LABS: Basophils % (auto) 0.9 % (0.0-2.0); Lymphocytes # (auto) 1.4 10 ^3/uL (0.4-5.4); Lymphocytes % (auto) 20.8 % (10.0-50.0); Mean Corpuscular Hemoglobin 24.4 pg (28.0-32.0); Mean Corpuscular Volume 75.6 fL (80.0-100.0); Monocytes # (auto) 0.7 10 ^3/uL (0-1.3); Monocytes % (auto) 10.1 % (0.0-12.0); Neutrophils # (auto) 4.5 10 ^3/uL (1.6-8.6); Neutrophils % (auto) 66.2 % (37.0-80.0); Platelet Count (auto) 256 10^3/uL (140-450); Red Blood Cells 3.77 10^6/uL (4.0-5.20); White Blood Cell 6.9 10^3/uL (4.4-10.8)
[2020-04-16 07:30] LABS: Red Cell Distribution Width 21.5 % (11.8-14.3)
[2020-04-16 08:00] VITALS: BP 123/79
[2020-04-16 08:01] LABS: Albumin 2.3 g/dL (3.4-5.0); BUN/Creatinine Ratio 4.8; Bilirubin, Total 0.4 mg/dL (0.2-1.0); Calcium 7.6 mg/dL (8.5-10.1); Magnesium 2.1 mg/dL (1.6-2.6); Phosphorus 3.1 mg/dL (2.5-4.90); Total Protein 5.6 g/dL (6.4-8.2)
[2020-04-16] MEDS: TIZANIDINE HYDROCHLORIDE 4 MG PO SCH ×2 (10:00→22:30)
[2020-04-16] MEDS: LABETALOL HCL 200 MG TAB PO SCH ×2 (10:34→22:30)
[2020-04-16] MEDS: cefTRIAXone 1GM/50ML D5W 50 ML IV SCH (10:37)
[2020-04-16] MEDS: TOPIRAMATE 100 MG TAB PO SCH ×2 (10:38→22:30)
[2020-04-16] MEDS: INSULIN LANTUS (GLARGINE) 1 /0.01ml (100units/ml) SC SCH (11:33)
[2020-04-16] MEDS: LORazepam 2MG/ML-1ML VIAL IV PRN ×2 (11:58→20:21)
[2020-04-16] MEDS ORDERED: MIDAZOLAM HCL 1MG/1ML-2 ML VIAL ONE (13:05)
[2020-04-16 16:00] VITALS: BP 103/70
[2020-04-16] MEDS: SUCRALFATE 1 GM/10 ML ORAL SUSP PO SCH ×2 (18:48→22:30)
[2020-04-16] MEDS: NYSTATIN (MOUTH-THROAT) 500,000 UNITS/5 ML SUSP MT SCH ×2 (18:49→22:30)
[2020-04-16] MEDS: FERROUS SULFATE 325 MG TAB PO SCH (18:49)
[2020-04-16] MEDS: CYCLOBENZAPRINE HCL 10 MG TAB PO PRN (18:50)
[2020-04-16 20:00] VITALS: BP 136/86
[2020-04-16 22:24] VITALS: BP 131/93
[2020-04-16] MEDS: PRAMIPEXOLE DIHYDROCHLORIDE MO 0.25 MG TAB PO SCH (22:30)
[2020-04-17] MEDS: MORPHINE SULF INJ 2 MG/ML SYRINGE 1ML IV PRN ×4 (02:52→10:41)
[2020-04-17] MEDS: ONDANSETRON HCL 4 MG/2 ML VIAL IV PRN ×3 (02:53→10:40)
[2020-04-17 05:30] VITALS: BP 104/64
[2020-04-17] MEDS: NYSTATIN (MOUTH-THROAT) 500,000 UNITS/5 ML SUSP MT SCH ×2 (06:00→11:43)
[2020-04-17] MEDS: ACCU-CHEK COMFORT CURVE STRIP VI SCH ×2 (06:34→11:52)
[2020-04-17] MEDS: D5W/SOD CHL 0.45% 1,000 ML IV SCH ×2 (06:34→11:53)
[2020-04-17] MEDS: SUCRALFATE 1 GM/10 ML ORAL SUSP PO SCH ×2 (06:34→11:43)
[2020-04-17] MEDS: InsuLIN REG 1unit/0.01ml Soln (100units/ml) SC SCH ×2 (06:50→11:30)
[2020-04-17 07:41] LABS: Albumin 2.3 g/dL (3.4-5.0); BUN/Creatinine Ratio 6.9; Calcium 7.9 mg/dL (8.5-10.1); Magnesium 1.8 mg/dL (1.6-2.6); Potassium 3.9 mmol/L (3.5-5.1)
[2020-04-17 07:51] LABS: Bilirubin, Total 0.4 mg/dL (0.2-1.0); Phosphorus 2.7 mg/dL (2.5-4.90); Total Protein 5.4 g/dL (6.4-8.2)
[2020-04-17] MEDS: LORazepam 2MG/ML-1ML VIAL IV PRN (07:59)
[2020-04-17] MEDS: FERROUS SULFATE 325 MG TAB PO SCH (07:59)
[2020-04-17 08:00] VITALS: BP 105/69
[2020-04-17 08:04] LABS: Basophils # (auto) 0 10 ^3/uL (0-0.2); Eosinophils # (auto) 0.1 10 ^3/uL (0-0.8); White Blood Cell 6.6 10^3/uL (4.4-10.8)
[2020-04-17 08:05] LABS: Basophils % (auto) 0.5 % (0.0-2.0); Eosinophils % (auto) 1.3 % (0.0-7.0); Hematocrit 28.8 % (36.0-46.0); Hemoglobin 8.9 g/dL (12.2-16.2); Lymphocytes # (auto) 1.2 10 ^3/uL (0.4-5.4); Lymphocytes % (auto) 18.5 % (10.0-50.0); Mean Corpuscular Hemoglobin 23.7 pg (28.0-32.0); Mean Corpuscular Hgb Conc. 31.1 g/dL (32.0-36.0); Mean Corpuscular Volume 76.2 fL (80.0-100.0); Monocytes # (auto) 0.9 10 ^3/uL (0-1.3); Monocytes % (auto) 13.9 % (0.0-12.0); Neutrophils # (auto) 4.3 10 ^3/uL (1.6-8.6); Neutrophils % (auto) 65.8 % (37.0-80.0); Platelet Count (auto) 253 10^3/uL (140-450); Red Blood Cells 3.78 10^6/uL (4.0-5.20)
[2020-04-17 08:09] LABS: Red Cell Distribution Width 21.7 % (11.8-14.3)
[2020-04-17] MEDS: LABETALOL HCL 200 MG TAB PO SCH (10:00)
[2020-04-17] MEDS: INSULIN LANTUS (GLARGINE) 1 /0.01ml (100units/ml) SC SCH (10:00)
[2020-04-17] MEDS: TIZANIDINE HYDROCHLORIDE 4 MG PO SCH (10:00)
[2020-04-17] MEDS ORDERED: PANTOPRAZOLE 40 MG TAB PO SCH (10:00)
[2020-04-17] MEDS: cefTRIAXone 1GM/50ML D5W 50 ML IV SCH (10:35)
[2020-04-17 16:00] VITALS: BP 99/74
[2020-04-17 16:19] VITALS: BP 99/74
== END 2020-04-17 16:40 | disposition home or self-care (01) | DRG 100 ==
LOC: EDBD 18:23 → ER 18:25 → OVERFLOW 23:15 → TELE-CENTR 04-14 03:20
PROVIDERS: ADMIT Internal Medicine; ATTEND Internal Medicine
PROC: 06HY33Z Insertion of Infusion Device into Lower Vein, Percutaneous Approach (ICD-10-PCS; 2020-04-13)
PROC: 30233N1 Transfusion of Nonautologous Red Blood Cells into Peripheral Vein, Percutaneous Approach (ICD-10-PCS; 2020-04-14)
PROC: 0DB88ZX Excision of Small Intestine, Via Natural or Artificial Opening Endoscopic, Diagnostic (ICD-10-PCS; 2020-04-16)
PROC: 0DB68ZX Excision of Stomach, Via Natural or Artificial Opening Endoscopic, Diagnostic (ICD-10-PCS; 2020-04-16)
PROC: 0DB58ZX Excision of Esophagus, Via Natural or Artificial Opening Endoscopic, Diagnostic (ICD-10-PCS; principal; 2020-04-16 13:05)
DX: G40.401 Other generalized epilepsy and epileptic syndromes, not intractable, with status epilepticus (principal); E11.10 Type 2 diabetes mellitus with ketoacidosis without coma; K22.11 Ulcer of esophagus with bleeding; G93.41 Metabolic encephalopathy; I16.1 Hypertensive emergency; E27.1 Primary adrenocortical insufficiency; Z68.1 Body mass index [BMI] 19.9 or less, adult; B37.81 Candidal esophagitis; G89.4 Chronic pain syndrome; E86.0 Dehydration; E78.5 Hyperlipidemia, unspecified; D64.9 Anemia, unspecified; D35.00 Benign neoplasm of unspecified adrenal gland; E11.42 Type 2 diabetes mellitus with diabetic polyneuropathy; G25.81 Restless legs syndrome; G43.909 Migraine, unspecified, not intractable, without status migrainosus; G47.00 Insomnia, unspecified; I25.2 Old myocardial infarction; J44.9 Chronic obstructive pulmonary disease, unspecified; K29.70 Gastritis, unspecified, without bleeding; K44.9 Diaphragmatic hernia without obstruction or gangrene; M19.90 Unspecified osteoarthritis, unspecified site; M21.969 Unspecified acquired deformity of unspecified lower leg; Z79.4 Long term (current) use of insulin; Z79.899 Other long term (current) drug therapy; Z82.49 Family history of ischemic heart disease and other diseases of the circulatory system; Z83.3 Family history of diabetes mellitus; Z86.711 Personal history of pulmonary embolism; Z90.49 Acquired absence of other specified parts of digestive tract; Z90.710 Acquired absence of both cervix and uterus; Z98.84 Bariatric surgery status; Z20.822 Contact with and (suspected) exposure to COVID-19; Z88.8 Allergy status to other drugs, medicaments and biological substances; Z88.0 Allergy status to penicillin; Z91.013 Allergy to seafood; E66.9 Obesity, unspecified; F32.9 Major depressive disorder, single episode, unspecified; F41.9 Anxiety disorder, unspecified; M54.5 Low back pain
CPT/HCPCS: 36415; 36600; 43239; 70450; 71045; 73630; 80053; 80307; 80320; 81001; 82010; 82607; 82746; 82805; 82962; 83540; 83550; 83605; 83735; 84100; 84484; 84702; 85025; 85379; 85610; 85730; 86850; 86900; 86901; 86920; 87081; 87426; 93005; 93306; 96361; 96365; 96375; G0378; J0696; J1815; J2001; J2250; J2405; J7060

== ENCOUNTER 2020-05-04 12:34 | Inpatient (IN) | payer MEDICARE ==
[~2020-05-04] VITALS: Ht 167.6 cm; Wt 64.5 kg
[2020-05-04] MEDS ORDERED: LORazepam 2MG/ML-1ML VIAL ONE (12:39)
[2020-05-04] MEDS ORDERED: SODIUM CHLORIDE 0.9% 1,000 ML IV ONE ×2 (13:00)
[2020-05-04] MEDS ORDERED: ACCU-CHEK COMFORT CURVE STRIP VI ONE (13:15)
[2020-05-04] MEDS ORDERED: LORazepam 2MG/ML-1ML VIAL IV ONE (13:30)
[2020-05-04] MEDS ORDERED: ONDANSETRON HCL 4 MG/2 ML VIAL IV ONE (13:45)
[2020-05-04] MEDS ORDERED: MORPHINE SULFATE 4 MG/ML SYR/VIAL IV ONE (13:45)
[2020-05-04 15:06] LABS: Basophils # (auto) 0.1 10 ^3/uL (0-0.2); Basophils % (auto) 0.6 % (0.0-2.0); Eosinophils # (auto) 0 10 ^3/uL (0-0.8); Eosinophils % (auto) 0.4 % (0.0-7.0); Hematocrit 30.7 % (36.0-46.0); Hemoglobin 9.9 g/dL (12.2-16.2); Lymphocytes # (auto) 1.8 10 ^3/uL (0.4-5.4); Lymphocytes % (auto) 20.3 % (10.0-50.0); Mean Corpuscular Hemoglobin 24.5 pg (28.0-32.0); Mean Corpuscular Hgb Conc. 32.3 g/dL (32.0-36.0); Mean Corpuscular Volume 75.8 fL (80.0-100.0); Monocytes # (auto) 0.8 10 ^3/uL (0-1.3); Monocytes % (auto) 9.6 % (0.0-12.0); Neutrophils # (auto) 6.1 10 ^3/uL (1.6-8.6); Neutrophils % (auto) 69.1 % (37.0-80.0); Platelet Count (auto) 282 10^3/uL (140-450); Red Blood Cells 4.06 10^6/uL (4.0-5.20); White Blood Cell 8.8 10^3/uL (4.4-10.8)
[2020-05-04 15:08] LABS: Red Cell Distribution Width 24.1 % (11.8-14.3)
[2020-05-04 15:22] LABS: Albumin 2.8 g/dL (3.4-5.0); Calcium 7.8 mg/dL (8.5-10.1); Potassium 3.8 mmol/L (3.5-5.1)
[2020-05-04 15:25] LABS: BUN/Creatinine Ratio 12.1; Bilirubin, Total 0.5 mg/dL (0.2-1.0); Total Protein 6.9 g/dL (6.4-8.2)
[2020-05-04] MEDS ORDERED: NITROGLYCERIN 0.4 MG SL TAB SL PRN (18:15)
[2020-05-04] MEDS ORDERED: MORPHINE SULF INJ 2 MG/ML SYRINGE 1ML IV PRN (18:15)
[2020-05-04 18:34] LABS: Urine Bacteria FEW /hpf (None Seen); Urine Blood Negative /uL (Negative); Urine Mucus FEW (None Seen); Urine Specific Gravity 1.021 (1.001-1.035); Urine WBC 5 /hpf (0 - 5)
[2020-05-04] MEDS ORDERED: DEXTROSE (50%) 50ML SYRG IV PRN (19:45)
[2020-05-04] MEDS ORDERED: ACETAMINOPHEN 325 MG TAB PO PRN (19:45)
[2020-05-04] MEDS ORDERED: HYDROcodone-ACET 10/325MG TAB PO PRN (19:45)
[2020-05-04] MEDS: InsuLIN REG 1unit/0.01ml Soln (100units/ml) SC SCH (21:48)
[2020-05-04] MEDS: ACCU-CHEK COMFORT CURVE STRIP VI SCH (21:50)
[2020-05-04] MEDS ORDERED: cloNIDine HCL 0.1 MG TAB PO SCH (22:00)
[2020-05-04] MEDS ORDERED: AMITRIPTYLINE HCL 25 MG TAB PO SCH (22:00)
[2020-05-04] MEDS ORDERED: INSULIN LANTUS (GLARGINE) 1 /0.01ml (100units/ml) SC SCH (22:00)
[2020-05-04] MEDS: TIZANIDINE HYDROCHLORIDE 4 MG PO SCH (22:00)
[2020-05-04] MEDS: LORazepam 0.5 MG TAB PO SCH (22:06)
[2020-05-04] MEDS: ZOLPIDEM TARTRATE 5 MG TAB PO SCH (22:08)
[2020-05-04] MEDS: PANTOPRAZOLE 40 MG TAB PO SCH (22:11)
[2020-05-04] MEDS ORDERED: LORazepam 2MG/ML-1ML VIAL IV PRN (22:15)
[2020-05-04] MEDS: MORPHINE SULF INJ 2 MG/ML SYRINGE 1ML IV PRN (23:26)
[2020-05-05] MEDS: ONDANSETRON HCL 4 MG/2 ML VIAL IV PRN ×3 (01:03→11:38)
[2020-05-05] MEDS ORDERED: diphenhdrAMINE HCL 25 MG CAP PO ONE (02:30)
[2020-05-05 03:30] VITALS: BP 150/97
[2020-05-05 04:11] VITALS: BP 150/97
[2020-05-05] MEDS: MORPHINE SULF INJ 2 MG/ML SYRINGE 1ML IV PRN ×4 (05:29→23:21)
[2020-05-05] MEDS: ACCU-CHEK COMFORT CURVE STRIP VI SCH ×4 (06:44→22:26)
[2020-05-05] MEDS: InsuLIN REG 1unit/0.01ml Soln (100units/ml) SC SCH ×4 (07:00→22:25)
[2020-05-05 09:00] VITALS: BP 175/137
[2020-05-05] MEDS ORDERED: amLODIPine BESYLATE 5 MG TAB PO ONE (09:00)
[2020-05-05] MEDS: LORazepam 0.5 MG TAB PO SCH ×2 (09:45→22:20)
[2020-05-05] MEDS: LABETALOL HCL 200 MG TAB PO SCH ×2 (09:45→22:21)
[2020-05-05] MEDS: amLODIPine BESYLATE 5 MG TAB PO SCH (09:46)
[2020-05-05] MEDS: TOPIRAMATE 100 MG TAB PO SCH ×2 (09:46→22:22)
[2020-05-05] MEDS: PANTOPRAZOLE 40 MG TAB PO SCH (09:46)
[2020-05-05] MEDS: TIZANIDINE HYDROCHLORIDE 4 MG PO SCH ×2 (10:00→22:00)
[2020-05-05] MEDS ORDERED: hydrALAZINE HCL 20 MG/ML VL IV PRN (10:00)
[2020-05-05] MEDS ORDERED: predniSONE 20 MG TAB PO SCH (10:00)
[2020-05-05 13:00] VITALS: BP 123/90
[2020-05-05] MEDS: SODIUM CHLORIDE 0.9% 1,000 ML IV SCH (15:42)
[2020-05-05] MEDS ORDERED: diphenhdrAMINE HCL 25 MG CAP PO PRN (16:45)
[2020-05-05] MEDS ORDERED: SUCRALFATE 1 GM/10 ML ORAL SUSP GT SCH (17:00)
[2020-05-05] MEDS: PROMETHAZINE HCL 25 MG/ML 1ML IV PRN (17:05)
[2020-05-05] MEDS: SUCRALFATE 1 GM/10 ML ORAL SUSP PO SCH ×2 (17:06→22:20)
[2020-05-05 17:18] VITALS: BP 137/103
[2020-05-05] MEDS: PRAMIPEXOLE DIHYDROCHLORIDE MO 0.25 MG TAB PO SCH ×2 (20:07→22:00)
[2020-05-05] MEDS ORDERED: PRAMIPEXOLE DIHYDROCHLORIDE MO 0.25 MG TAB PO SCH (22:00)
[2020-05-05] MEDS: CARISOPRODOL 350 MG TAB PO SCH (22:21)
[2020-05-06] MEDS: ZOLPIDEM TARTRATE 5 MG TAB PO SCH ×2 (01:17→23:52)
[2020-05-06 05:00] VITALS: BP 129/82
[2020-05-06] MEDS: SUCRALFATE 1 GM/10 ML ORAL SUSP PO SCH ×4 (06:20→22:31)
[2020-05-06] MEDS: InsuLIN REG 1unit/0.01ml Soln (100units/ml) SC SCH ×4 (06:25→22:13)
[2020-05-06] MEDS: ACCU-CHEK COMFORT CURVE STRIP VI SCH ×4 (06:25→22:16)
[2020-05-06] MEDS: MORPHINE SULF INJ 2 MG/ML SYRINGE 1ML IV PRN ×3 (06:35→20:14)
[2020-05-06] MEDS: SODIUM CHLORIDE 0.9% 1,000 ML IV SCH (08:10)
[2020-05-06 09:00] VITALS: BP 129/77
[2020-05-06] MEDS: TIZANIDINE HYDROCHLORIDE 4 MG PO SCH ×2 (10:00→22:00)
[2020-05-06] MEDS: PANTOPRAZOLE 40 MG/10 ML VIAL INJ IV SCH (10:00)
[2020-05-06 10:27] LABS: Basophils # (auto) 0 10 ^3/uL (0-0.2); Basophils % (auto) 0.6 % (0.0-2.0); Eosinophils # (auto) 0.2 10 ^3/uL (0-0.8); Hemoglobin 9.3 g/dL (12.2-16.2); Lymphocytes # (auto) 1.3 10 ^3/uL (0.4-5.4); Monocytes # (auto) 0.6 10 ^3/uL (0-1.3); Nucleated Red Blood Cells % 0.1 %; White Blood Cell 5.8 10^3/uL (4.4-10.8)
[2020-05-06 10:32] LABS: Eosinophils % (auto) 3.7 % (0.0-7.0); Lymphocytes % (auto) 22.3 % (10.0-50.0); Mean Corpuscular Hemoglobin 25.2 pg (28.0-32.0); Mean Corpuscular Hgb Conc. 31.1 g/dL (32.0-36.0); Mean Corpuscular Volume 81.1 fL (80.0-100.0); Monocytes % (auto) 10.5 % (0.0-12.0); Neutrophils # (auto) 3.6 10 ^3/uL (1.6-8.6); Neutrophils % (auto) 62.9 % (37.0-80.0); Platelet Count (auto) 236 10^3/uL (140-450)
[2020-05-06 10:38] LABS: BUN/Creatinine Ratio 4.8; Calcium 7.6 mg/dL (8.5-10.1); Magnesium 1.7 mg/dL (1.6-2.6); Phosphorus 2.9 mg/dL (2.5-4.90); Potassium 3.3 mmol/L (3.5-5.1)
[2020-05-06 10:41] LABS: Red Cell Distribution Width 23.9 % (11.8-14.3)
[2020-05-06] MEDS: LORazepam 0.5 MG TAB PO SCH ×2 (10:46→22:29)
[2020-05-06] MEDS: amLODIPine BESYLATE 5 MG TAB PO SCH (10:50)
[2020-05-06] MEDS: LABETALOL HCL 200 MG TAB PO SCH ×2 (10:51→22:29)
[2020-05-06] MEDS: CARISOPRODOL 350 MG TAB PO SCH ×2 (10:51→22:30)
[2020-05-06] MEDS: TOPIRAMATE 100 MG TAB PO SCH ×2 (10:51→22:30)
[2020-05-06] MEDS ORDERED: MAGNESIUM SULFATE 1GM/100ML 100 ML IV SCH (12:00)
[2020-05-06] MEDS: PANCREATIC ENZYMES 4200 UNIT CAP PO SCH ×2 (12:00→17:13)
[2020-05-06 12:31] VITALS: BP 142/94
[2020-05-06] MEDS: POTASSIUM CHL 20MEQ/100ML 100 ML IV SCH ×2 (13:15→14:49)
[2020-05-06] MEDS: diphenhdrAMINE HCL 50 MG/1 ML VL IV PRN ×2 (13:24→20:15)
[2020-05-06] MEDS: PROMETHAZINE HCL 25 MG/ML 1ML IV PRN ×2 (13:24→20:15)
[2020-05-06] MEDS: NYSTATIN (MOUTH-THROAT) 500,000 UNITS/5 ML SUSP MT SCH ×2 (14:49→22:28)
[2020-05-06 16:46] VITALS: BP 132/86
[2020-05-06] MEDS: MAGNESIUM SULFATE 1GM/100ML 100 ML IV SCH ×2 (21:00→23:52)
[2020-05-06 22:00] VITALS: BP 132/67
[2020-05-06] MEDS: PRAMIPEXOLE DIHYDROCHLORIDE MO 0.25 MG TAB PO SCH (22:29)
[2020-05-07] VITALS (7 sets, daily range): BP systolic 82–139; BP diastolic 54–84
[2020-05-07] MEDS: SODIUM CHLORIDE 0.9% 1,000 ML IV SCH ×2 (04:35→17:42)
[2020-05-07] MEDS ORDERED: MAGNESIUM SULFATE 1GM/100ML 100 ML IV SCH (06:00)
[2020-05-07] MEDS: InsuLIN REG 1unit/0.01ml Soln (100units/ml) SC SCH ×4 (06:55→21:21)
[2020-05-07] MEDS: ACCU-CHEK COMFORT CURVE STRIP VI SCH ×4 (06:55→21:21)
[2020-05-07] MEDS ORDERED: PROMETHAZINE HCL 25 MG/ML 1ML ONE (07:55)
[2020-05-07] MEDS: PROMETHAZINE HCL 25 MG/ML 1ML IV PRN ×3 (08:06→20:32)
[2020-05-07] MEDS: PANCREATIC ENZYMES 4200 UNIT CAP PO SCH ×3 (08:10→18:24)
[2020-05-07] MEDS: diphenhdrAMINE HCL 50 MG/1 ML VL IV PRN ×3 (08:11→20:31)
[2020-05-07] MEDS: MORPHINE SULF INJ 2 MG/ML SYRINGE 1ML IV PRN ×3 (08:11→20:31)
[2020-05-07] MEDS: NYSTATIN (MOUTH-THROAT) 500,000 UNITS/5 ML SUSP MT SCH ×3 (08:20→21:19)
[2020-05-07] MEDS: SUCRALFATE 1 GM/10 ML ORAL SUSP PO SCH ×4 (08:20→21:19)
[2020-05-07] MEDS: TIZANIDINE HYDROCHLORIDE 4 MG PO SCH ×2 (10:00→21:58)
[2020-05-07] MEDS: PANTOPRAZOLE 40 MG/10 ML VIAL INJ IV SCH (11:05)
[2020-05-07] MEDS: CARISOPRODOL 350 MG TAB PO SCH ×2 (11:06→21:20)
[2020-05-07] MEDS: LABETALOL HCL 200 MG TAB PO SCH ×2 (11:08→21:32)
[2020-05-07] MEDS: LORazepam 0.5 MG TAB PO SCH ×2 (11:08→22:00)
[2020-05-07] MEDS: TOPIRAMATE 100 MG TAB PO SCH ×2 (11:09→21:19)
[2020-05-07] MEDS: amLODIPine BESYLATE 5 MG TAB PO SCH (11:10)
[2020-05-07] MEDS ORDERED: FLUCONAZOLE 100 MG TAB PO SCH (11:45)
[2020-05-07 13:35] LABS: BUN/Creatinine Ratio 6.3; Calcium 8.5 mg/dL (8.5-10.1)
[2020-05-07] MEDS: PRAMIPEXOLE DIHYDROCHLORIDE MO 0.25 MG TAB PO SCH (21:19)
[2020-05-07] MEDS: ZOLPIDEM TARTRATE 5 MG TAB PO SCH (22:25)
[2020-05-08] MEDS: diphenhdrAMINE HCL 50 MG/1 ML VL IV PRN ×4 (04:46→23:45)
[2020-05-08] MEDS: PROMETHAZINE HCL 25 MG/ML 1ML IV PRN ×4 (04:46→23:45)
[2020-05-08] MEDS: MORPHINE SULF INJ 2 MG/ML SYRINGE 1ML IV PRN ×4 (04:47→23:45)
[2020-05-08 05:00] VITALS: BP 130/68
[2020-05-08] MEDS: NYSTATIN (MOUTH-THROAT) 500,000 UNITS/5 ML SUSP MT SCH ×3 (05:46→21:40)
[2020-05-08] MEDS: SUCRALFATE 1 GM/10 ML ORAL SUSP PO SCH ×4 (06:24→21:40)
[2020-05-08] MEDS: InsuLIN REG 1unit/0.01ml Soln (100units/ml) SC SCH ×4 (06:25→21:16)
[2020-05-08] MEDS: ACCU-CHEK COMFORT CURVE STRIP VI SCH ×4 (06:25→21:41)
[2020-05-08] MEDS: SODIUM CHLORIDE 0.9% 1,000 ML IV SCH (06:49)
[2020-05-08 08:00] VITALS: BP 111/77
[2020-05-08 08:19] VITALS: BP 111/77
[2020-05-08] MEDS: PANCREATIC ENZYMES 4200 UNIT CAP PO SCH ×3 (08:39→17:41)
[2020-05-08] MEDS: LORazepam 0.5 MG TAB PO SCH ×2 (09:59→21:40)
[2020-05-08] MEDS: PANTOPRAZOLE 40 MG/10 ML VIAL INJ IV SCH (09:59)
[2020-05-08] MEDS: LABETALOL HCL 200 MG TAB PO SCH ×2 (09:59→21:41)
[2020-05-08] MEDS: TIZANIDINE HYDROCHLORIDE 4 MG PO SCH ×2 (09:59→21:40)
[2020-05-08] MEDS: amLODIPine BESYLATE 5 MG TAB PO SCH (10:00)
[2020-05-08] MEDS: TOPIRAMATE 100 MG TAB PO SCH ×2 (10:00→21:41)
[2020-05-08] MEDS: CARISOPRODOL 350 MG TAB PO SCH ×2 (10:00→21:41)
[2020-05-08 13:11] VITALS: BP 125/79
[2020-05-08 16:57] VITALS: BP 132/92
[2020-05-08] MEDS: PRAMIPEXOLE DIHYDROCHLORIDE MO 0.25 MG TAB PO SCH (21:40)
[2020-05-08] MEDS: ZOLPIDEM TARTRATE 5 MG TAB PO SCH (21:40)
[2020-05-08 22:00] VITALS: BP 130/88
[2020-05-09] MEDS: SODIUM CHLORIDE 0.9% 1,000 ML IV SCH ×2 (02:50→18:27)
[2020-05-09 05:00] VITALS: BP 117/73
[2020-05-09] MEDS: MORPHINE SULF INJ 2 MG/ML SYRINGE 1ML IV PRN ×3 (05:37→18:27)
[2020-05-09] MEDS: NYSTATIN (MOUTH-THROAT) 500,000 UNITS/5 ML SUSP MT SCH ×3 (05:37→21:58)
[2020-05-09] MEDS: PROMETHAZINE HCL 25 MG/ML 1ML IV PRN ×2 (05:37→16:47)
[2020-05-09] MEDS: diphenhdrAMINE HCL 50 MG/1 ML VL IV PRN ×3 (05:37→18:27)
[2020-05-09] MEDS: SUCRALFATE 1 GM/10 ML ORAL SUSP PO SCH ×4 (06:03→23:11)
[2020-05-09] MEDS: ACCU-CHEK COMFORT CURVE STRIP VI SCH ×4 (06:03→22:21)
[2020-05-09] MEDS: InsuLIN REG 1unit/0.01ml Soln (100units/ml) SC SCH ×4 (06:03→22:30)
[2020-05-09 08:00] VITALS: BP 119/72
[2020-05-09 08:15] VITALS: BP 119/72
[2020-05-09] MEDS: PANCREATIC ENZYMES 4200 UNIT CAP PO SCH ×3 (08:55→18:26)
[2020-05-09] MEDS: TIZANIDINE HYDROCHLORIDE 4 MG PO SCH ×2 (09:21→21:59)
[2020-05-09] MEDS: PANTOPRAZOLE 40 MG/10 ML VIAL INJ IV SCH (09:21)
[2020-05-09] MEDS: LABETALOL HCL 200 MG TAB PO SCH ×2 (09:22→22:19)
[2020-05-09] MEDS: LORazepam 0.5 MG TAB PO SCH ×2 (09:22→21:59)
[2020-05-09] MEDS: amLODIPine BESYLATE 5 MG TAB PO SCH (09:22)
[2020-05-09] MEDS: TOPIRAMATE 100 MG TAB PO SCH ×2 (09:23→22:20)
[2020-05-09] MEDS: CARISOPRODOL 350 MG TAB PO SCH ×2 (09:23→22:19)
[2020-05-09] MEDS: ONDANSETRON HCL 4 MG/2 ML VIAL IV PRN ×2 (12:09→18:28)
[2020-05-09 12:55] VITALS: BP 133/85
[2020-05-09 16:41] VITALS: BP 136/84
[2020-05-09 22:00] VITALS: BP 103/50
[2020-05-09] MEDS: ZOLPIDEM TARTRATE 5 MG TAB PO SCH (22:00)
[2020-05-09] MEDS: PRAMIPEXOLE DIHYDROCHLORIDE MO 0.25 MG TAB PO SCH (22:00)
[2020-05-10] MEDS: PROMETHAZINE HCL 25 MG/ML 1ML IV PRN ×2 (04:12→11:10)
[2020-05-10] MEDS: diphenhdrAMINE HCL 50 MG/1 ML VL IV PRN ×2 (04:12→11:10)
[2020-05-10] MEDS: MORPHINE SULF INJ 2 MG/ML SYRINGE 1ML IV PRN ×2 (04:12→11:10)
[2020-05-10 05:00] VITALS: BP 100/55
[2020-05-10] MEDS: ACCU-CHEK COMFORT CURVE STRIP VI SCH ×2 (06:09→13:15)
[2020-05-10] MEDS: InsuLIN REG 1unit/0.01ml Soln (100units/ml) SC SCH ×2 (06:11→13:16)
[2020-05-10] MEDS: SUCRALFATE 1 GM/10 ML ORAL SUSP PO SCH ×2 (07:01→13:14)
[2020-05-10] MEDS: NYSTATIN (MOUTH-THROAT) 500,000 UNITS/5 ML SUSP MT SCH (07:01)
[2020-05-10 08:39] VITALS: BP 114/86
[2020-05-10] MEDS: PANCREATIC ENZYMES 4200 UNIT CAP PO SCH (08:55)
[2020-05-10] MEDS: PANTOPRAZOLE 40 MG/10 ML VIAL INJ IV SCH ×2 (08:55→10:06)
[2020-05-10] MEDS: LABETALOL HCL 200 MG TAB PO SCH (10:00)
[2020-05-10] MEDS: LORazepam 0.5 MG TAB PO SCH (10:04)
[2020-05-10] MEDS: amLODIPine BESYLATE 5 MG TAB PO SCH (10:05)
[2020-05-10] MEDS: CARISOPRODOL 350 MG TAB PO SCH (10:05)
[2020-05-10] MEDS: TOPIRAMATE 100 MG TAB PO SCH (10:05)
[2020-05-10] MEDS: TIZANIDINE HYDROCHLORIDE 4 MG PO SCH (10:07)
[2020-05-10] MEDS: ONDANSETRON HCL 4 MG/2 ML VIAL IV PRN (10:08)
[2020-05-10 10:26] LABS: Basophils # (auto) 0 10 ^3/uL (0-0.2); Basophils % (auto) 1.1 % (0.0-2.0); Monocytes # (auto) 0.5 10 ^3/uL (0-1.3); Neutrophils # (auto) 1.5 10 ^3/uL (1.6-8.6); Nucleated Red Blood Cells % 0.1 %; White Blood Cell 3.2 10^3/uL (4.4-10.8)
[2020-05-10 10:30] LABS: Eosinophils # (auto) 0.2 10 ^3/uL (0-0.8); Eosinophils % (auto) 4.7 % (0.0-7.0); Hematocrit 27.1 % (36.0-46.0); Hemoglobin 8.7 g/dL (12.2-16.2); Lymphocytes % (auto) 30.9 % (10.0-50.0); Mean Corpuscular Hemoglobin 25.6 pg (28.0-32.0); Mean Corpuscular Hgb Conc. 32.2 g/dL (32.0-36.0); Mean Corpuscular Volume 79.7 fL (80.0-100.0); Monocytes % (auto) 16.3 % (0.0-12.0); Platelet Count (auto) 229 10^3/uL (140-450)
[2020-05-10 10:31] LABS: Red Cell Distribution Width 24.3 % (11.8-14.3)
[2020-05-10 10:43] LABS: Potassium 3.8 mmol/L (3.5-5.1)
[2020-05-10 10:52] LABS: Albumin 2.4 g/dL (3.4-5.0); BUN/Creatinine Ratio 18.3; Bilirubin, Total 0.4 mg/dL (0.2-1.0); Calcium 7.9 mg/dL (8.5-10.1); Magnesium 1.8 mg/dL (1.6-2.6); Phosphorus 2.8 mg/dL (2.5-4.90); Total Protein 5.8 g/dL (6.4-8.2)
[2020-05-10 12:31] VITALS: BP 114/86
[2020-05-10 12:41] VITALS: BP 131/90
== END 2020-05-10 12:58 | disposition home or self-care (01) | DRG 101 ==
LOC: EDBD 12:34 → ER 12:34 → TELE 12:35 → TELE-CENTR 05-05 03:09
PROVIDERS: ADMIT Nurse Practitioner; ATTEND Nurse Practitioner
DX: G40.409 Other generalized epilepsy and epileptic syndromes, not intractable, without status epilepticus (principal); E44.0 Moderate protein-calorie malnutrition; G43.109 Migraine with aura, not intractable, without status migrainosus; D35.00 Benign neoplasm of unspecified adrenal gland; E11.649 Type 2 diabetes mellitus with hypoglycemia without coma; E78.5 Hyperlipidemia, unspecified; I10 Essential (primary) hypertension; E11.42 Type 2 diabetes mellitus with diabetic polyneuropathy; J44.9 Chronic obstructive pulmonary disease, unspecified; B37.9 Candidiasis, unspecified; G25.81 Restless legs syndrome; Z20.822 Contact with and (suspected) exposure to COVID-19; G47.00 Insomnia, unspecified; E66.9 Obesity, unspecified; F32.9 Major depressive disorder, single episode, unspecified; F41.9 Anxiety disorder, unspecified; G89.29 Other chronic pain; K21.9 Gastro-esophageal reflux disease without esophagitis; M19.90 Unspecified osteoarthritis, unspecified site; K29.70 Gastritis, unspecified, without bleeding; K44.9 Diaphragmatic hernia without obstruction or gangrene; K27.9 Peptic ulcer, site unspecified, unspecified as acute or chronic, without hemorrhage or perforation; K76.0 Fatty (change of) liver, not elsewhere classified; Z79.4 Long term (current) use of insulin; Z79.899 Other long term (current) drug therapy; Z82.49 Family history of ischemic heart disease and other diseases of the circulatory system; Z83.3 Family history of diabetes mellitus; Z88.8 Allergy status to other drugs, medicaments and biological substances; Z90.49 Acquired absence of other specified parts of digestive tract; Z90.710 Acquired absence of both cervix and uterus; Z98.84 Bariatric surgery status; Z68.23 Body mass index [BMI] 23.0-23.9, adult; Z88.0 Allergy status to penicillin; Z91.013 Allergy to seafood
CPT/HCPCS: 36415; 70450; 71045; 80048; 80053; 81001; 82962; 83735; 84100; 85025; 87081; 87426; 96361; 96374; 96375; C9113; G0378; J1815; J2405; J3480

== ENCOUNTER 2020-08-26 22:11 | Inpatient (IN) | payer MEDICARE, MEDICAID ==
[~2020-08-26] VITALS: Ht 165.1 cm; Wt 54.4 kg
[~2020-08-26 22:11] MED LIST changes: -AMIT25TA9 PO; -CLO01T PO; -INSLANTI SC; -INSLISPI SUBCUT; -LABE200T7 PO; -PRED20TA2 PO
[2020-08-27 00:12] LABS: Basophils # (auto) 0.1 10 ^3/uL (0-0.2); Basophils % (auto) 0.8 % (0.0-2.0); Eosinophils # (auto) 0 10 ^3/uL (0-0.8); Eosinophils % (auto) 0.2 % (0.0-7.0); Hematocrit 27.3 % (36.0-46.0); Hemoglobin 9.2 g/dL (12.2-16.2); Lymphocytes # (auto) 2.2 10 ^3/uL (0.4-5.4); Lymphocytes % (auto) 11.6 % (10.0-50.0); Mean Corpuscular Hemoglobin 35.1 pg (28.0-32.0); Mean Corpuscular Hgb Conc. 33.8 g/dL (32.0-36.0); Mean Corpuscular Volume 103.8 fL (80.0-100.0); Monocytes # (auto) 1.3 10 ^3/uL (0-1.3); Monocytes % (auto) 6.7 % (0.0-12.0); Neutrophils % (auto) 80.7 % (37.0-80.0); Nucleated Red Blood Cells % 0.2 %; Red Blood Cells 2.63 10^6/uL (4.0-5.20); Red Cell Distribution Width 20.5 % (11.8-14.3); White Blood Cell 18.6 10^3/uL (4.4-10.8)
[2020-08-27 00:14] LABS: Urine Bacteria MOD /hpf (None Seen); Urine Blood TRACE /uL (Negative); Urine Budding Yeast MANY /hpf (None Seen); Urine Hyaline Cast MANY /lpf (0 - 2); Urine Mucus FEW (None Seen); Urine WBC 238 /hpf (0 - 5)
[2020-08-27 00:19] LABS: Alanine Aminotransferase 52 U/L (13-56); Anion Gap 11 (5-15); Aspartate Aminotransferase 104 U/L (15-37); BUN/Creatinine Ratio 15.4; Blood Alcohol < 3.0 mg/dL (0-5); Blood Urea Nitrogen 26 mg/dL (7-18); Calcium 8.5 mg/dL (8.5-10.1); Carbon Dioxide 21 mmol/L (21-32); Chloride 106 mmol/L (98-107); GFR African American 42 mL/min; GFR Non-African American 35 mL/min; Glucose 119 mg/dL (74-106); Potassium 5.1 mmol/L (3.5-5.1); Sodium 138 mmol/L (136-145)
[2020-08-27 00:21] LABS: Alcohol, Urine < 3.0 mg/dL (0-10); Amphetamine Screen, Urine NEGATIVE (NEGATIVE); Barbiturate Scree,Urine NEGATIVE (NEGATIVE); Benzodiazephine Screen, Urine NEGATIVE (NEGATIVE); Cannabinoid Screen, Urine NEGATIVE (NEGATIVE); Cocaine Screen, Urine NEGATIVE (NEGATIVE); Phencyclidine Screen, Urine NEGATIVE (NEGATIVE)
[2020-08-27 00:22] LABS: INR 1.71 (0.9-1.15); Lactic Acid w/Reflex 2.9 mmol/L (0.4-2.0); Partial Thromboplastin Time 44.9 sec (23.0-31.2)
[2020-08-27 00:29] LABS: Opiate Scree,Urine POSITIVE (NEGATIVE)
[2020-08-27 00:31] LABS: Alkaline Phosphatase 255 U/L (45-117); Bilirubin, Total 15.8 mg/dL (0.2-1.0); Total Protein 7.1 g/dL (6.4-8.2)
[2020-08-27] MEDS ORDERED: LACTULOSE 10g/15ml SOLN PR ONE (03:15)
[2020-08-27] MEDS ORDERED: LACTULOSE 20Gm/30ML SOLN ONE ×2 (03:59→04:01)
[2020-08-27] MEDS ORDERED: SODIUM CHLORIDE 0.9% 1,000 ML IV ONE (05:30)
[2020-08-27] MEDS ORDERED: AZTREONAM 1GM INJ 1 GM in D5W 5% 50 ML IV ONE (05:30)
[2020-08-27] MEDS ORDERED: SUCCINYLCHOLINE CHLORIDE 20 MG/ML 10ML VIAL IV ONE (05:40)
[2020-08-27] MEDS ORDERED: ETOMIDATE (2MG/ML) 20ML VIAL IV ONE (05:40)
[2020-08-27] MEDS ORDERED: NOREPINEPHRINE 8 MG/250ML KIT 250 ML IV ONE (05:54)
[2020-08-27] MEDS ORDERED: LORazepam 2MG/ML-1ML VIAL IV PRN ×2 (06:30→12:00)
[2020-08-27] MEDS ORDERED: MORPHINE SULFATE INJECTION 2 MG/ML SYRG IV PRN ×2 (06:30→12:00)
[2020-08-27 09:11] VITALS: BP 96/53
== END 2020-08-27 16:43 | DRG 871 ==
LOC: EDBD 22:11 → ER 22:11 → OVERFLOW 08-27 06:28 → CENTRAL 08-27 09:18
PROVIDERS: ADMIT Internal Medicine; ATTEND Internal Medicine
DX: A41.9 Sepsis, unspecified organism (principal); K72.00 Acute and subacute hepatic failure without coma; N17.9 Acute kidney failure, unspecified; N39.0 Urinary tract infection, site not specified; Z88.8 Allergy status to other drugs, medicaments and biological substances; Z88.0 Allergy status to penicillin; Z91.013 Allergy to seafood; Z20.822 Contact with and (suspected) exposure to COVID-19; D35.00 Benign neoplasm of unspecified adrenal gland; E11.40 Type 2 diabetes mellitus with diabetic neuropathy, unspecified; G40.909 Epilepsy, unspecified, not intractable, without status epilepticus; I10 Essential (primary) hypertension; K74.60 Unspecified cirrhosis of liver; Z51.5 Encounter for palliative care; Z66 Do not resuscitate; Z82.49 Family history of ischemic heart disease and other diseases of the circulatory system; Z83.3 Family history of diabetes mellitus
CPT/HCPCS: 36415; 36600; 51702; 70450; 71045; 80053; 80307; 80320; 81001; 82140; 82805; 83605; 83735; 84484; 85025; 85379; 85610; 85730; 87040; 87426; 93005; 96360; G0378; J0330; J7060